=== PATIENT | male | born 1970 | race Caucasian/White ===

== ENCOUNTER 2018-05-05 21:42 | Inpatient (IN) | payer SELFPAY ==
[~2018-05-05] VITALS: Ht 170.2 cm; Wt 83.0 kg
[~2018-05-05 21:42] MED LIST: ALTEPLASE 100 MG/VIAL (ACTIVASE) IV ONE; ESCT10T; MTF500T; MULT-608
[2018-05-05] MEDS ORDERED: NS IV 1000 ML 1,000 ML ONE (21:54)
[2018-05-05] MEDS ORDERED: inSUlin (REGULAR) HUMAN 1 UNIT/0.01 ML (CHARGE PER UNIT) ONE (21:56)
[2018-05-05 22:00] VITALS: BP 121/96
[2018-05-05 22:00] LABS: BASOPHILS % (AUTO) 0 % (0-10); EOSINOPHILS # (AUTO) 0.1 10^3/uL (0.0-0.3); EOSINOPHILS % (AUTO) 1 % (0-10); HEMATOCRIT 38 % (40-54); LYMPHOCYTES # (AUTO) 1.2 X 10^3 (1.0-4.0); LYMPHOCYTES % (AUTO) 16 % (12-44); MEAN CORPUSCULAR HEMOGLOBIN 32 PG (25-34); MEAN CORPUSCULAR HGB CONC 37 G/DL (32-36); MEAN CORPUSCULAR VOLUME 86 FL (80-99); MEAN PLATELET VOLUME 9.4 FL (7.4-10.4); MONOCYTES # (AUTO) 1.1 X 10^3 (0.0-1.0); MONOCYTES % (AUTO) 14 % (0-12); NEUTROPHILS # (AUTO) 5.1 X 10^3 (1.8-7.8); NEUTROPHILS % (AUTO) 68 % (42-75); PLATELET COUNT 272 10^3/uL (130-400); RED BLOOD COUNT 4.42 10^6/uL (4.35-5.85); RED CELL DISTRIBUTION WIDTH 12.5 % (10.0-14.5); WHITE BLOOD COUNT 7.4 10^3/uL (4.3-11.0)
--- NOTE | 2018-05-05 22:00 | Diagnostic Imaging Report ---
INDICATION: Stroke like symptoms. No prior studies are available for comparison. Ventricles and sulci are within normal limits. No sulcal effacement, midline shift or hemorrhage is detected. The cisterns are patent. Visualized paranasal sinuses are clear. IMPRESSION: No acute intracranial process is identified. Dictated by: Dictated on workstation # [id number]
--- NOTE | 2018-05-05 22:08 | Diagnostic Imaging Report ---
INDICATION: Stroke like symptoms. Time of exam: 9:51 PM No prior studies are available for comparison. The heart appears enlarged. There is a rounded density in the right upper lobe, suggestive of a pulmonary nodule. Otherwise, the lungs are clear. No infiltrate or failure is seen. There is no effusion or pneumothorax. IMPRESSION: Findings suggestive of right upper lobe pulmonary nodule. Dedicated CT chest could be performed on a nonemergent basis for further evaluation. No acute feature is seen. Dictated by: Dictated on workstation # [id number]
[2018-05-05 22:14] LABS: FIBRIN DEGRADATION PRODUCTS 2.56 UG/ML (0.00-0.49); PROTHROMBIN TIME PATIENT 13.3 SEC (12.2-14.7)
[2018-05-05 22:19] LABS: ALANINE AMINOTRANSFERASE 26 U/L (0-55); ALBUMIN 3.6 GM/DL (3.2-4.5); ALKALINE PHOSPHATASE 68 U/L (40-136); BILIRUBIN,TOTAL 1.6 MG/DL (0.1-1.0); BUN/CREATININE RATIO 22; CALCIUM 9.6 MG/DL (8.5-10.1); CARBON DIOXIDE 17 MMOL/L (21-32); CHLORIDE 95 MMOL/L (98-107); CREATININE SERUM 0.86 MG/DL (0.60-1.30); GFR ESTIMATED > 60; POTASSIUM 4.5 MMOL/L (3.6-5.0); SODIUM 129 MMOL/L (135-145); TOTAL PROTEIN 7.7 GM/DL (6.4-8.2)
[2018-05-05 22:27] LABS: GLUCOSE 448 MG/DL (70-105)
[2018-05-05] MEDS ORDERED: CLOPIDOGREL 300 MG (PLAVIX) TABLET PO ONE ×2 (22:37→22:45)
[2018-05-05] MEDS ORDERED: HEParin 1000 UNIT/ML (10ML VIAL) FOR BOLUS ONE ×2 (22:41→22:55)
[2018-05-05] MEDS ORDERED: meTOprolol 5 MG/5 ML (LOPRESSOR) VIAL ONE (22:42)
[2018-05-05] MEDS ORDERED: NS 250 ML (IVPB) BAG IV ONE (22:45)
[2018-05-05] MEDS ORDERED: IOHEXOL 350 MG/ML 100 ML (OMNIPAQUE 350) VIAL IV ONE (22:45)
--- NOTE | 2018-05-05 22:54 | Consultation-Cardiology ---
HPI-Cardiology Cardiology Consultation: Date of Consultation 05/05/18 Time Seen by a Provider: 22:35 Date of Admission Attending Physician Kaur Alvarado MD [facility] Admitting Physician Sarah,Local Physician Consulting Physician KAUR ALVARADO MD, FACP, [facility] HPI: Chief Complaint: CC: Weakness 47 yo man who was at a high-school football game, had difficulty pulling himself up in his chair, his companions thought he was having a stroke, was brought to the ER, ER physician noted mild L hand weakness and L facial droop, EKG showed ST elevation in the lateral leads, ER physician sent pt for head CT angio and discussed case with the Stroke Neurologist at [facility] who recommended proceeding with cardiac intervention before anything else Pt does not report any cp. Does report gen malaise and some exertional shortness of breath for the last 2-3 days. Denies palp or syncope or leg swelling Review of Systems-Cardiology Review of Systems Constitutional: malaise, tiredness; No weight loss, No weight gain Eyes: No vision change Ears/Nose/Throat: No ear discharge, No nasal drainage, No recent hearing loss Respiratory: As described under HPI Cardiovascular: As described under HPI Gastrointestinal: No constipation, No diarrhea, No nausea Genitourinary: No dysuria, No hematuria Musculoskeletal: No back pain, No joint pain Skin: No rash, No ulcerations Psychiatric/Neurological: As described under HPI Hematologic: No bleeding abnormalities JCY-Einzws-Mmyxhw Hx Patient Social History Recent Foreign Travel: No Past Medical History PMH As described under Assessment. Family Medical History Family Medical History: Does not report fam h/o early CAD Allergies and Home Medications Allergies Coded Allergies: No Known Drug Allergies (Unverified Allergy, Mild, 11/03/09) Patient Home Medication List Home Medication List Reviewed: Yes Physical Exam-Cardiology Physical Exam Vital Signs/I&O Capillary Refill : Constitutional: AAO x 3, well-developed, well-nourished HEENT: EOMI, hearing is well preserved, xanthelasmas are seen Neck: carotid pulses are 2 + bilaterally Respiratory: No accessory muscle use; other (good bilat air entry; some exp wheezes) Cardiovascular: regular rate-rhythm, S1 and S2, systolic murmur (faint MARZENA at card base) Gastrointestinal: No tender; soft; No guarding, No rebound; audible bowel sounds Extremities: No clubbing, No cyanosis, No significant edema Neurologic/Psychiatric: other (mild L hand weakness, mild droop of the L mouth angle) Skin: No rash on exposed areas, No ulcerations on exposed areas Data Review Labs Laboratory Tests 05/05/18 21:54: White Blood Count 7.4, Red Blood Count 4.42, Hemoglobin 14.0, Hematocrit 38L, Mean Corpuscular Volume 86, Mean Corpuscular Hemoglobin 32, Mean Corpuscular Hemoglobin Concent 37H, Red Cell Distribution Width 12.5, Platelet Count 272, Mean Platelet Volume 9.4, Neutrophils (%) (Auto) 68, Lymphocytes (%) (Auto) 16, Monocytes (%) (Auto) 14H, Eosinophils (%) (Auto) 1, Basophils (%) (Auto) 0, Neutrophils # (Auto) 5.1, Lymphocytes # (Auto) 1.2, Monocytes # (Auto) 1.1H, Eosinophils # (Auto) 0.1, Basophils # (Auto) 0.0, Prothrombin Time 13.3, INR Comment 1.0, Activated Partial Thromboplast Time 30, D-Dimer 2.56H, Sodium Level 129L, Potassium Level 4.5, Chloride Level 95L, Carbon Dioxide Level 17L, Anion Gap 17H, Blood Urea Nitrogen 19H, Creatinine 0.86, Estimat Glomerular Filtration Rate > 60, BUN/Creatinine Ratio 22, Glucose Level 448*H, Calcium Level 9.6, Corrected Calcium 9.9, Total Bilirubin 1.6H, Aspartate Amino Transf ( AST/SGOT) 25, Alanine Aminotransferase (ALT/SGPT) 26, Alkaline Phosphatase 68, Troponin I 23.87*H, Total Protein 7.7, Albumin 3.6 05/05/18 21:57: Glucometer 385H Laboratory Tests 05/05/18 21:54 A/P-Cardiology Assessment/Admission Diagnosis Recent (subacute) AL associated with ST elevation and Q wave formation in the lateral leads DM II, uncontrolled Probable acute stroke (mild L hemiparesis) Discussion and Recomendations * The Stroke Team has discussed the case with [facility] and have obtained a CT angio of the head that does not show any acute intracranial large vessel occlusion. The Stroke Team has recommended proceeding with cath and PCI * I interviewed and examined the patient. I explained the rationale, procedure, risk, benefits, potential complications and alternatives of card cath and possible ad hoc cor intervention to him. He provides informed consent. Arrangements being made KAUR ALVARADO MD FACP FACC CCDS May 05, 2018 22:54
[2018-05-05] MEDS ORDERED: MIDAZOLAM 5 MG/5 ML (VERSED) VIAL ONE (22:55)
[2018-05-05] MEDS ORDERED: fentaNYL INJECTION 100 MCG/2 ML AMP ONE (22:55)
--- NOTE | 2018-05-05 22:59 | ED Neurological Problem ---
General Stated Complaint: STEMI Source: patient, EMS Exam Limitations: no limitations History of Present Illness Date Seen by Provider: May 05, 2018 Time Seen by Provider: 21:40 Initial Comments Here by EMS with report of acute onset of stroke with left facial droop and mild left arm weakness onset at 2110 tonight while at a football game. Family reports that the patient has been feeling sick for a few days. He has diabetes but he is not currently on medication as he is unable to afford them. His blood sugars grossly uncontrolled blood sugars in the 3-400 range per EMS. Patient denies chest pain but is a little short of breath. Presents tachycardic with the weakness described above. No recent injuries. Was acutely weak and had acute onset of facial droop as described. Does not smoke. Never had anything like this previously. Timing/Duration: 1/2 hour Severity: moderate Associated Symptoms: No confusion, No fever/chills, No loss of consciousness, No nausea/vomiting, No paresthesia, No seizures; slurred speech, trouble walking , weakness Allergies and Home Medications Allergies Coded Allergies: No Known Drug Allergies (Unverified Allergy, Mild, 11/03/09) Patient Home Medication List Home Medication List Reviewed: Yes Review of Systems Review of Systems Constitutional: see HPI; No chills, No fever; weakness Eyes: No Symptoms Reported Ears, Nose, Mouth, Throat: no symptoms reported Respiratory: short of breath; No wheezing Cardiovascular: No chest pain, No edema, No Hx of Intervention Gastrointestinal: No abdominal pain, No nausea, No vomiting Genitourinary: no symptoms reported Musculoskeletal: no symptoms reported Skin: no symptoms reported Psychiatric/Neurological: See HPI; Denies Headache; Weakness All Other Systems Reviewed Negative Unless Noted: Yes Past Ydxptrg-Xiynhn-Jrvqzk Hx Past Med/Social Hx: Reviewed Nursing Past Med/Soc Hx Patient Social History Alcohol Use: Denies Use Recreational Drug Use: No Smoking Status: Never a Smoker Recent Foreign Travel: No Contact w/Someone Who Travel: No Past Medical History Surgeries: Yes Abdominal Respiratory: No Cardiac: No Neurological: No Reproductive Disorders: No Gastrointestinal: No Endocrine: Yes Diabetes, Non-Insulin dep Family Medical History Reviewed Nursing Family Hx Physical Exam Vital Signs Capillary Refill : Height, Weight, BMI Height: '" Weight: lbs. oz. kg; BMI Method: General Appearance: WD/WN, mild distress HEENT: PERRL/EOMI, pharynx normal Neck: full range of motion, supple Respiratory: lungs clear, normal breath sounds Cardiovascular: no murmur, tachycardia Peripheral Pulses: 2+ Dorsalis Pedis (R), 2+ Left Dors-Pedis (L), 2+ Radial Pulses (R), 2+ Radial Pulses (L) Gastrointestinal: non tender, soft Back: normal inspection, no CVA tenderness, no vertebral tenderness Extremities: non-tender, other (mild left arm weakness) Neurologic/Psychiatric: alert, normal mood/affect, oriented x 3 Crainal Nerves: normal hearing, normal speech, PERRL Coordination/Gait: No ABN nose to finger (R); ABN nose to finger (L) (arm) Motor/Sensory: no sensory deficit; No pronator drift (R); pronator drift (L) ( arm), weak motor strength LUE Skin: normal color, warm/dry Progress/Results/Core Measures Results/Orders Lab Results Laboratory Tests Test 05/05/18 21:54 05/05/18 21:57 Range/Units White Blood Count 7.4 4.3-11.0 10^3/uL Red Blood Count 4.42 4.35-5.85 10^6/uL Hemoglobin 14.0 13.3-17.7 G/DL Hematocrit 38 L 40-54 % Mean Corpuscular Volume 86 80-99 FL Mean Corpuscular Hemoglobin 32 25-34 PG Mean Corpuscular Hemoglobin Concent 37 H 32-36 G/DL Red Cell Distribution Width 12.5 10.0-14.5 % Platelet Count 272 130-400 10^3/uL Mean Platelet Volume 9.4 7.4-10.4 FL Neutrophils (%) (Auto) 68 42-75 % Lymphocytes (%) (Auto) 16 12-44 % Monocytes (%) (Auto) 14 H 0-12 % Eosinophils (%) (Auto) 1 0-10 % Basophils (%) (Auto) 0 0-10 % Neutrophils # (Auto) 5.1 1.8-7.8 X 10^3 Lymphocytes # (Auto) 1.2 1.0-4.0 X 10^3 Monocytes # (Auto) 1.1 H 0.0-1.0 X 10^3 Eosinophils # (Auto) 0.1 0.0-0.3 10^3/uL Basophils # (Auto) 0.0 0.0-0.1 10^3/uL Prothrombin Time 13.3 12.2-14.7 SEC INR Comment 1.0 0.8-1.4 Activated Partial Thromboplast Time 30 24-35 SEC D-Dimer 2.56 H 0.00-0.49 UG/ML Sodium Level 129 L 135-145 MMOL/L Potassium Level 4.5 3.6-5.0 MMOL/L Chloride Level 95 L 98-107 MMOL/L Carbon Dioxide Level 17 L 21-32 MMOL/L Anion Gap 17 H 5-14 MMOL/L Blood Urea Nitrogen 19 H 7-18 MG/DL Creatinine 0.86 0.60-1.30 MG/DL Estimat Glomerular Filtration Rate > 60 BUN/Creatinine Ratio 22 Glucose Level 448 *H 70-105 MG/DL Calcium Level 9.6 8.5-10.1 MG/DL Corrected Calcium 9.9 8.5-10.1 MG/DL Total Bilirubin 1.6 H 0.1-1.0 MG/DL Aspartate Amino Transf (AST/SGOT) 25 5-34 U/L Alanine Aminotransferase (ALT/SGPT) 26 0-55 U/L Alkaline Phosphatase 68 40-136 U/L Troponin I 23.87 *H <0.30 NG/ML Total Protein 7.7 6.4-8.2 GM/DL Albumin 3.6 3.2-4.5 GM/DL Glucometer 385 H 70-110 MG/DL My Orders Orders - DARBY HERMOSILLO MD Cbc With Automated Diff (05/05/18 21:36) Protime With Inr (05/05/18 21:36) Partial Thromboplastin Time (05/05/18 21:36) Comprehensive Metabolic Panel (05/05/18 21:36) Fibrin Degradation Products (05/05/18 21:36) Troponin I (05/05/18 21:36) Ua Culture If Indicated (05/05/18 21:36) Chest 1 View, Ap/Pa Only (05/05/18 21:36) Ekg Tracing (05/05/18 21:36) Nothing By Mouth (05/06/18 Breakfast) Accucheck Stat ONCE (05/05/18 21:36) Saline Lock/Iv-Start (05/05/18 21:36) Vital Signs Stroke Patient Q15M (05/05/18 21:36) Ct Head Wo-R/O Stroke (05/05/18 21:36) O2 (05/05/18 21:36) Intake & Output 06,14,22 (05/05/18 21:36) Monitor-Rhythm Ecg Trace Only (05/05/18 21:36) Dysphagia Screening Tool (05/05/18 21:36) Lipid Panel (05/06/18 06:00) Alteplase (Activase) (Activase Injection (05/05/18 21:40) Ns Iv 1000 Ml (Sodium Chloride 0.9%) (05/05/18 21:54) Insulin (Regular) Human (Humulin R (Per (05/05/18 21:56) I-Stat Bedside Testing (05/05/18 22:07) Ct Angio Head/Neck (05/05/18 22:14) Iohexol Injection (Omnipaque 350 Mg/Ml 1 (05/05/18 22:45) Ns (Ivpb) (Sodium Chloride 0.9%) (05/05/18 22:45) iStat Bedside Lab Testing Sodium (Na): 132.00 Potassium (K): 3.80 Chloride (CI): 97.00 TCO2: 19.00 Glucose (Glu): 394.00 Urea Nitrogen (BUN)/Urea: 18.00 Creatinine (Crea): 0.70 Anion Gap*: 22.00 Progress Progress Note : Progress Note Seen and evaluated on arrival. Patient rapidly evaluated. Stroke team activation prior to EMS arrival. Patient immediately to CT scan. On return from CT, labs, EKG, second IV line and chest x-ray completed. There is concerns about acute IA. Insulin 10 units IV and normal saline 1 L bolus is been ordered. I did call and talk with stroke neurologist at 7 given the stroke findings of 5 on the stroke scale in the setting of acute IA. He recommends treating the IA given the low stroke scale. 22 11: I did discuss the case with Dr. Alvarado. We reviewed the findings and concerns and he will consider cardiac intervention but wanted to verify with stroke neurologist. He is also requesting admission to the hospitalist due to the stroke symptoms and he will manage the cardiac concerns. Patient also has grossly uncontrolled blood sugars. 2217: I have re-reviewed the case with the stroke neurologist. Patient is going to CT angiogram head and neck now. Stroke neurologist is still advocating for cardiac and intervention versus TPA as this is more important at this time. I did discuss this with the patient and family and they are in agreement. Patient will go to [facility]. 2235: Dr. Alvarado arrives in the department and is evaluating the patient. Plavix 300 mg by mouth ordered. No orders for heparin at this time. Patient did receive aspirin at the time of incident. [facility] team has been activated. 2246: I did discuss the findings of the CT angiogram with the radiologist. No acute findings on CT angiogram of the head and neck noted. Dr. Alvarado was updated. 2258: [facility] team arrives for transfer to [facility]. This was a complicated case in the setting of both stroke findings and acute IA requiring additional evaluation and determination for procedures for both. Patient to [facility] in stable but critical condition. Initial ECG Impression Date: May 05, 2018 Initial ECG Impression Time: 22:04 Initial ECG Rate: 122 Initial ECG Rhythm: S.Tach Comment Sinus tachycardia with left anterior fascicular block and anterior infarct acute with lateral injury with ST elevation in the lateral and anterior leads. Discussed with rotary engine assembler who agrees. Diagnostic Imaging Diagonstic Imaging: Xray Plain Films/CT/US/NM/MRI: chest Comments NAME: MIRTA DESAI [facility] REC#: [id number] PT STATUS: REG ER : 1970 PHYSICIAN: DARBY HERMOSILLO MD ADMIT DATE: 05/05/18/ER Signed Date of Exam: 05/05/18 CHEST 1 VIEW, AP/PA ONLY INDICATION: Stroke like symptoms. Time of exam: 9:51 PM No prior studies are available for comparison. The heart appears enlarged. There is a rounded density in the right upper lobe, suggestive of a pulmonary nodule. Otherwise, the lungs are clear. No infiltrate or failure is seen. There is no effusion or pneumothorax. IMPRESSION: Findings suggestive of right upper lobe pulmonary nodule. Dedicated CT chest could be performed on a nonemergent basis for further evaluation. No acute feature is seen. Dictated by: Dictated on workstation # [id number] Dict: 05/05/182203 Trans: 05/05/182206 Interpreted by: MONICA KELLEY MD Electronically signed by: MONICA KELLEY MD 05/05/182206 Diagonstic Imaging: CT Plain Films/CT/US/NM/MRI: head Comments NAME: MIRTA DESAI [facility] REC#: [id number] PT STATUS: REG ER : 1970 PHYSICIAN: DARBY HERMOSILLO MD ADMIT DATE: 05/05/18/ER Signed Date of Exam: 05/05/18 CT HEAD WO-R/O STROKE INDICATION: Stroke like symptoms. No prior studies are available for comparison. Ventricles and sulci are within normal limits. No sulcal effacement, midline shift or hemorrhage is detected. The cisterns are patent. Visualized paranasal sinuses are clear. IMPRESSION: No acute intracranial process is identified. Dictated by: Dictated on workstation # [id number] Dict: 05/05/182157 Trans: 05/05/182206 Interpreted by: MONICA KELLEY MD Electronically signed by: MONICA KELLEY MD 05/05/182206 Reviewed: Reviewed Night Hawk Study, Reviewed by Me Diagonstic Imaging: CT Plain Films/CT/US/NM/MRI: head, other (neck) Comments CT angiogram head and neck shows brain with no acute findings. No hemorrhage. No edema. Normal enhancement. CT angiogram of the neck shows no acute findings. Reviewed: Reviewed Night Hawk Study, Reviewed by Me Departure Communication (Admissions) Time/Spoke to Admitting Phy: 22:32 Time/Spoke to Consulting Phy: 22:17 Impression Primary Impression: Acute anterior wall IA Additional Impression: Acute ischemic stroke Disposition: ADMITTED INPATIENT Condition: Critical Admissions Decision to Admit Reason: Admit from ER (General) Decision to Admit/Date: May 05, 2018 Time/Decision to Admit Time: 22:17 Departure-Patient Inst. Referrals: NO,LOCAL PHYSICIAN (PCP/Family) Primary Care Physician DARBY HERMOSILLO MD May 05, 2018 22:59
[2018-05-05] MEDS ORDERED: EPTIFIBATIDE BOLUS 20 ML IV ONE (23:12)
[2018-05-06] VITALS (7 sets, daily range): BP systolic 100–125; BP diastolic 56–94
[2018-05-06] MEDS ORDERED: NS IV 1000 ML 1,000 ML IV SCH (00:08)
[2018-05-06] MEDS ORDERED: PATIENT MAY USE OWN MEDS, ALL PO SCH (00:15)
[2018-05-06] MEDS ORDERED: meTOproloL SUCCINATE 50 MG (TOPROL XL) TAB PO SCH (00:15)
[2018-05-06] MEDS ORDERED: lisINopril 5 MG (PRINIVIL) TABLET PO ONE (00:15)
[2018-05-06] MEDS ORDERED: ACETAMINOPHEN 325 MG TABLET PO PRN (00:15)
--- NOTE | 2018-05-06 00:39 | CARDIAC CATHETERIZATION ---
DATE OF SERVICE: 05/05/2018 HISTORY: The patient is a 47-year-old man who presented to the emergency room with left extremity weakness and left facial droop and was found to have ST segment elevation in the anterolateral leads, along with Q-wave formation. He did not report chest pain, but did have an elevated troponin. The stroke team asked us to see him in consultation and to proceed with cardiac catheterization and with intervention, if needed. Informed consent was obtained. DESCRIPTION OF PROCEDURE: He was brought to the cardiac catheterization laboratory. Right groin was prepared and draped in usual sterile fashion. Lidocaine 1% was used for local anesthesia. Modified Seldinger technique was used to advance a 6-Malaysian sheath in right femoral artery. A 6-Malaysian JL4 guide catheter was used for left coronary angiography. A 6-Malaysian JR4 catheter for right coronary angiography. A 6-Malaysian pigtail catheter for left heart catheterization and left ventricular angiography. Attempted percutaneous intervention to the left anterior descending artery was carried out. The left anterior descending artery appeared chronically occluded without any collateralization. The occlusion was in the midportion, following the origin of the first diagonal branch. We used a 6-Malaysian JL4 and 6-Malaysian EBU 3.5 guide catheters. We used Choice Floppy, medium support Whisper, and Choice PT Graphix wires to try and cross the complete occlusion in the mid left anterior descending artery. Multiple attempts were made, but all remained unsuccessful. At the end of the procedure, there were no complications seen from the procedure itself. However, the artery remained occluded. We removed the angioplasty equipment and angiography of the right femoral artery was carried out through the sheath. Mynx was used to achieve hemostasis. He tolerated the procedure well. We discussed the case with Dr. Vaca of the cardiovascular surgical service at [facility]. He did not feel that the patient would be a surgical candidate. Continuing medical therapy is advised. HEMODYNAMICS: Left ventricular end-diastolic pressure following coronary angiography was 28 mmHg. There was no significant pressure gradient on pullback across the aortic valve. Ascending aortic pressure was 98/77 with a mean of 88 mmHg. CORONARY ANGIOGRAPHY: Left main coronary artery does not exhibit significant disease. Left main coronary artery is short. Left anterior descending artery is occluded in its midportion following the origin of the first diagonal branch. The first diagonal branch is of a small caliber and has diffuse moderate disease. A very small caliber ramus intermedius artery has severe proximal disease. Right coronary artery is large and dominant and has 30% to 40% mid vessel stenosis. Right coronary artery is small and nondominant and has approximately 50% mid vessel stenosis. LEFT VENTRICULAR ANGIOGRAPHY: Left ventricular angiography was carried out in the right anterior oblique projection. Global left ventricular systolic function is markedly impaired. There is anterolateral and apical dyskinesis. Left ventricular ejection fraction is 20% to 25%. CONCLUSIONS: 1. Coronary artery disease, primarily consisting of mid vessel occlusion of the left anterior descending. This appears to be a chronic total occlusion and was not amenable to percutaneous intervention. The rest of the coronary vessels have moderate diffuse disease. 2. Ischemic cardiomyopathy with anterolateral and apical dyskinesis and left ventricular ejection fraction of 20% to 25%. 3. Elevated left ventricular end-diastolic pressure. DISCUSSION AND RECOMMENDATIONS: Therapy with aspirin, clopidogrel, beta-blockers, and ELIE inhibitors will be provided as tolerated. Statin therapy will be provided. We discussed this case with the cardiovascular surgical services (Dr. Vaca) at [facility] who did not feel that the patient was a surgical candidate and advised continuing medical therapy. The patient's stroke symptoms and uncontrolled diabetes mellitus are being managed by the hospitalist service (Dr. Bass). Job ID: [id number] DocumentID: [id number] Dictated Date: 05/06/2018 00:00:32 Employment Appeals Examiner Date: 05/06/2018 00:38:54 Dictated By: BLAKE PADILLA MD, MA, FACP, FACC, MTDD
[2018-05-06] MEDS ORDERED: ENOXAPARIN 40 MG/0.4 ML (LOVENOX) SYR SC ONE (00:45)
[2018-05-06] MEDS ORDERED: inSUlin ASPART (NovoLOG) 1 UNIT/0.01 ML (CHARGE PER UNIT) SC SCH (04:00)
[2018-05-06 04:09] LABS: BASOPHILS % (AUTO) 0 % (0-10); EOSINOPHILS # (AUTO) 0.1 10^3/uL (0.0-0.3); EOSINOPHILS % (AUTO) 1 % (0-10); HEMATOCRIT 35 % (40-54); LYMPHOCYTES # (AUTO) 0.8 X 10^3 (1.0-4.0); LYMPHOCYTES % (AUTO) 13 % (12-44); MEAN CORPUSCULAR HEMOGLOBIN 33 PG (25-34); MEAN CORPUSCULAR HGB CONC 37 G/DL (32-36); MEAN CORPUSCULAR VOLUME 87 FL (80-99); MEAN PLATELET VOLUME 9.8 FL (7.4-10.4); MONOCYTES # (AUTO) 0.8 X 10^3 (0.0-1.0); MONOCYTES % (AUTO) 12 % (0-12); NEUTROPHILS # (AUTO) 4.9 X 10^3 (1.8-7.8); NEUTROPHILS % (AUTO) 75 % (42-75); PLATELET COUNT 243 10^3/uL (130-400); RED CELL DISTRIBUTION WIDTH 12.4 % (10.0-14.5); WHITE BLOOD COUNT 6.6 10^3/uL (4.3-11.0)
[2018-05-06 04:34] LABS: MAGNESIUM 2.2 MG/DL (1.8-2.4); PHOSPHORUS 2.8 MG/DL (2.3-4.7)
[2018-05-06 04:35] LABS: ALANINE AMINOTRANSFERASE 22 U/L (0-55); ALBUMIN 3.2 GM/DL (3.2-4.5); ALKALINE PHOSPHATASE 60 U/L (40-136); BILIRUBIN,TOTAL 1.2 MG/DL (0.1-1.0); BUN/CREATININE RATIO 21; CALCIUM 8.7 MG/DL (8.5-10.1); CARBON DIOXIDE 10 MMOL/L (21-32); CHLORIDE 105 MMOL/L (98-107); CHOLESTEROL 174 MG/DL (< 200); CREATININE SERUM 0.68 MG/DL (0.60-1.30); GFR ESTIMATED > 60; GLUCOSE 302 MG/DL (70-105); HDL CHOLESTEROL 33 MG/DL (40-60); POTASSIUM 3.9 MMOL/L (3.6-5.0); SODIUM 133 MMOL/L (135-145); TOTAL PROTEIN 6.9 GM/DL (6.4-8.2); TRIGLYCERIDES 118 MG/DL (<150); VLDL CHOLESTEROL 24 MG/DL (5-40)
--- NOTE | 2018-05-06 05:17 | Pulmonary Consultation ---
History of Present Illness History of Present Illness Date of Consultation 05/06/18 05:10 Time Seen by Provider: 05:10 Date of Admission History of Present Illness 47 yo with hx of IDDM presented to ED with acute witnessed right facial droop, left arm weakness, onset was acute at 2109 while at football game. He has not been taking his insulin secondary to not being able to afford them. His BS in the ED was 3-400. 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 Allergies and Home Medications Allergies Coded Allergies: No Known Drug Allergies (Unverified , 11/03/09) Past Sjzlsno-Tsqofp-Xcpwbx Hx Past Med/Social Hx: Reviewed Nursing Past Med/Soc Hx Patient Social History Alcohol Use: Denies Use Recreational Drug Use: No Smoking Status: Never a Smoker Recent Foreign Travel: No Contact w/Someone Who Travel: No Recent Infectious Disease Expo: No Recent Hopitalizations: No Seasonal Allergies Seasonal Allergies: No Past Medical History Surgeries: Yes Abdominal Respiratory: No Cardiac: Yes (this admission) Neurological: Yes (this admit) Reproductive Disorders: No Sexually Transmitted Disease: No Genitourinary: No Gastrointestinal: No Musculoskeletal: No Endocrine: Yes Diabetes, Non-Insulin dep Are Your Blood Sugars Over 250: Yes HEENT: No Cancer: No Psychosocial: No Integumentary: No Blood Disorders: No Family Medical History Reviewed Nursing Family Hx Sepsis Event Evaluation Height, Weight, BMI Height: 5'7.00" Weight: 183lbs. 1.0oz. 83.156482lf; 28.7 BMI Method: Exam Exam Vital Signs Date Time Temp Pulse Resp B/P (MAP) Pulse Ox O2 Delivery O2 Flow Rate FiO2 05/06/18 01:00 124 05/06/18 00:10 95 Room Air 05/06/18 00:10 98.0 116 33 125/92 (103) 95 Room Air I & O 05/06/18 07:00 Intake Total 0 ml Output Total 750 ml Balance -750 ml Height & Weight Height: 5'7.00" Weight: 183lbs. 1.0oz. 83.725004lq; 28.7 BMI Method: Capillary Refill: Less Than 3 Seconds Peripheral Pulses: 2+ Dorsalis Pedis (R), 2+ Left Dors-Pedis (L), 2+ Radial Pulses (R), 2+ Radial Pulses (L) Gastrointestinal: non tender, soft Results Lab Laboratory Tests 05/05/18 21:54 05/06/18 03:52 Assessment/Plan Assessment/Plan Acute STEMI with severe CAD s/p heart cath -EF 20-25% -cardiology following Acute stroke -NIH is currently 12 was 5 on admission -I discussed patient extensively with Dr. Knight at patients bedside. Together with Dr. Knight we called and discussed with Neurology. We will get a stat repeat head/neck CT CTA and call them back with results. I have also discussed patient extensively with Dr. Bass. Severe metabolic acidosis probably DKA -check UA -Start DKA protocol -Check LA Sinus tach with Dehydration -IVF Heart cath results: . Coronary artery disease, primarily consisting of mid vessel occlusion of the left anterior descending. This appears to be a chronic total occlusion and was not amenable to percutaneous intervention. The rest of the coronary vessels have moderate diffuse disease. 2. Ischemic cardiomyopathy with anterolateral and apical dyskinesis and left ventricular ejection fraction of 20% to 25%. 3. Elevated left ventricular end-diastolic pressure. UPDATE: I discussed with neurology once again and after they reviewed the CT of Head they recommend transferring pt to for intervention. We will transfer pt to via Helicopter to get him up there as quick as possible. Critical Care: Critically Ill Patient Time spent with patient (mins): 120 HOLLEY ANDRWES DO May 06, 2018 5:17 am
[2018-05-06 05:36] LABS: ABG BASE EXCESS -11.5 MMOL/L (-2.5-2.5); ABG OXYGEN SATURATION 96 % (94-100); ABG PCO2 21 MMHG (35-45); ABG PH 7.39 (7.37-7.43); ABG PO2 83 MMHG (79-93); ABG TCO2 13.2 MMOL/L (21.0-31.0)
[2018-05-06 05:37] LABS: ALLENS TEST YES-POS; INSPIRED O2 ROOM AIR; VENTILATOR NO
[2018-05-06 05:38] LABS: PATIENT TEMP 98.2
[2018-05-06 05:53] LABS: BILIRUBIN,URINE NEGATIVE (NEGATIVE); CLARITY,URINE CLEAR; COLOR,URINE YELLOW; GLUCOSE, URINE (UA) 4+ (NEGATIVE); KETONES,URINE 4+ (NEGATIVE); LEUKOCYTE ESTERASE ,URINE NEGATIVE (NEGATIVE); NITRITE,URINE NEGATIVE (NEGATIVE); PH,URINE 5 (5-9); PROTEIN,URINE 1+ (NEGATIVE); UROBILINOGEN,URINE NORMAL (NORMAL)
[2018-05-06] MEDS ORDERED: 1/2 NS IV SOLUTION 1,000 ML IV SCH (05:59)
[2018-05-06] MEDS ORDERED: 1/2 NS W/KCL 20 MEQ/L 1,000 ML IV SCH (05:59)
[2018-05-06] MEDS ORDERED: D5 1/2 NS W/KCL 20 MEQ/L 1,000 ML IV SCH (05:59)
[2018-05-06] MEDS ORDERED: D5 1/2 NS 1000 ML IV SOLUTION 1,000 ML IV SCH (06:00)
[2018-05-06] MEDS ORDERED: inSUlin REGULAR TPN/DRIP ONLY 250 UNITS in NORMAL SALINE 250 ML IV SCH ×2 (06:00→08:00)
[2018-05-06 06:12] LABS: BACTERIA,URINE NEGATIVE /HPF; SQUAMOUS EPITHELIAL CELL,UR RARE /HPF
--- NOTE | 2018-05-06 06:26 | Diagnostic Imaging Report ---
PROCEDURE: CT angiography of the head and CT angiography of the neck with and without contrast. TECHNIQUE: Contiguous noncontrast images were obtained from the skull base through the vertex. After intravenous contrast administration, helical CT angiography of the neck was performed. Source data was reformatted into multiple 2D MIP projections. Delayed post contrast acquisition was also obtained. INDICATION: CVA. FINDINGS: The CT head exam performed prior to the study failed to show any sign of acute intracranial abnormality. On this exam, there is no defect within the intracranial arterial circulation to suggest a thrombus. There is no sign of an aneurysm of the [place] either. There is no abnormal enhancement to indicate neoplastic or infectious process either. There is no sign of a hemodynamically significant stenosis of either carotid system. Both vertebral arteries were opacified. The vertebral arteries are essentially codominant. There is no mass or adenopathy involving the neck. The thyroid gland were visualized is unremarkable. The lung apices are clear. The bone windows show no evidence for fracture or for destructive lesion. IMPRESSION: 1. There is no evidence for an acute intracranial abnormality. Specifically, there is no sign of thrombus formation within the intracranial arterial circulation. There is no evidence for an aneurysm either. If clinical concern regarding an underlying abnormality persists, then MRI would be recommended for further evaluation. 2. There is no hemodynamically significant stenosis of the common or internal carotid arteries. Both vertebral arteries were opacified. Dictated by: Dictated on workstation # [id number]
[2018-05-06 06:28] LABS: HEMOGLOBIN 12.6 G/DL (13.3-17.7); MEAN PLATELET VOLUME 9.5 FL (7.4-10.4); RED BLOOD COUNT 3.9 10^6/uL (4.35-5.85); RED CELL DISTRIBUTION WIDTH 12.3 % (10.0-14.5); WHITE BLOOD COUNT 6.6 10^3/uL (4.3-11.0)
[2018-05-06 06:44] LABS: BUN/CREATININE RATIO 20; CALCIUM 8.7 MG/DL (8.5-10.1); CARBON DIOXIDE 13 MMOL/L (21-32); CHLORIDE 109 MMOL/L (98-107); CREATININE SERUM 0.66 MG/DL (0.60-1.30); GFR ESTIMATED > 60; GLUCOSE 216 MG/DL (70-105); POTASSIUM 3.7 MMOL/L (3.6-5.0); SODIUM 136 MMOL/L (135-145)
--- NOTE | 2018-05-06 06:50 | Diagnostic Imaging Report ---
Portable semierect AP chest at 357h. INDICATION: Diminished breath sounds The cardiomegaly noted on the prior exam of 05/05/2018 is again evident and no different. However the central pulmonary vascularity does seem more prominent than on the prior study and I suspect that there is now an element of mild pulmonary congestion present. There may also be a small amount of atelectasis/infiltrate in the right infrahilar region. The suspected pulmonary nodule in the right midlung noted on the previous study is again evident and no different. Unfortunately, this portion of the lung was not included on the CTA head and neck exam. I would recommend that a CT chest exam be performed for further evaluation of this finding, when the patient's condition permits. The mediastinum is not widened. The osseous structures are intact. IMPRESSION: 1. The appearance of the chest has worsened since the prior study as mild pulmonary congestion has developed. There may also be a small amount of atelectasis/infiltrate in the right infrahilar region. 2. There is a persistent nodular density overlying the right midlung. Recommendations as above. Dictated by: Dictated on workstation # [id number]
[2018-05-06] MEDS ORDERED: NS IV 1000 ML 1,000 ML IV ONE (07:00)
[2018-05-06] MEDS ORDERED: FLU QUADRIvalent (5+ YOA) 2018-2019 (AFLURIA) 0.5 ML IM ONE (07:30)
[2018-05-06] MEDS ORDERED: D5 NS W/KCL 20 MEQ/L 0 ML IV ONE (07:56)
--- NOTE | 2018-05-06 08:01 | Short Stay Summary-Hospitalist ---
History of Present Illness HPI/Chief Complaint Pt is a 47yo CM with a PMH of NIDDMII who presented to the ER due to facial droop and slurred speech. He is unable to tell me most of his history though. On my original interview with him he told me that was at a football game and had slurred speech so came to the ER concerned about a stroke. He denied any complaints of left sided weakness as he had reported to the ER. Per history from ER physician he had slurred speech and left arm and leg weakness that was minimal and scored as a NIH of 5 that improved to 4 in the ER. He was found to have a STEMI as well with a troponin of 23. 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 There he was found to have chronic total occlusion of the LAD that was not amenable to intervention. Reportedly a tertiary center was contacted regarding potential surgical intervention but they recommended medical management only. He was returned the ICU where his neurological status worsened and his NIH was now a 12. Dr Chua had examined him by this time and repeated a stat CTA of his head. labs were reviewed which also found him to be in DKA. He was started on high volume IVF and an insulin gtt for his DKA. CTA report came back as negative per [facility] read. Despite this the stroke neurologist at [facility] was contacted regarding the repeat CTA given the patient's clinical finding and believe him to have areas concerning for ischemia on the right side and recommended transfer for intervention. I attempted to discuss this with the patient but his mental status had deteriorated further and he did no participate in the conversation with me and his right gaze deviation worsened. Source: patient Exam Limitations: clinical condition Date Seen 05/06/18 Time Seen by a Provider: 07:20 Attending Physician Anayeli Bass MD PCP No,Local Physician Referring Physician Date of Admission May 05, 2018 at 10:57 pm Home Medications & Allergies Home Medications Reviewed patient Home Medication Reconciliation performed by pharmacy medication reconciliations refinery technician and/or nursing. Patients Allergies have been reviewed. Allergies Allergies Coded Allergies No Known Drug Allergies (Unverified11/03/09) Past Lonmnge-Ylbsut-Dyddbd Hx Past Med/Social Hx: Reviewed Nursing Past Med/Soc Hx Patient Social History Alcohol Use: Denies Use Recreational Drug Use: No Smoking Status: Never a Smoker Physical Abuse Screen: No Sexual Abuse: No Recent Foreign Travel: No Contact w/other who traveled: No Recent Hopitalizations: No Recent Infectious Disease Expo: No Immunizations Up To Date Tetanus Booster (TDap): Unknown Seasonal Allergies Seasonal Allergies: No Past Medical History Surgeries: Abdominal Cardiac: Coronary Artery Disease Reproductive: No Sexually Transmitted Disease: No Endocrine: Diabetes, Non-Insulin dep Are Your Blood Sugars Over 250: Yes History of Blood Disorders: No Family History Reviewed Nursing Family Hx (Unable to obtain) Review of Systems ROS-Unable to Obtain: Very limited due to altered mentation Constitutional: see HPI Psychiatric/Neurological: Weakness (left arm and left left), Other (slurred speech, facial droop) Physical Exam Physical Exam Vital Signs Vital Signs - First Documented 05/05/18 05/05/18 21:42 23:00 Temp 97.9 Pulse 123 Resp 20 B/P (MAP) 121/96 (104) Pulse Ox 99 O2 Delivery Room Air Capillary Refill : Less Than 3 Seconds Height, Weight, BMI Height: 5'7.00" Weight: 183lbs. 1.0oz. 83.403684yp; 28.7 BMI Method:Stated General Appearance: WD/WN, Moderate Distress HEENT: Moist Mucous Membranes; No Scleral Icterus (L), No Scleral Icterus (R); Other (right lateral gaze deviation- no palsy) Neck: Non Tender, Supple; No JVD, No Thyromegaly Respiratory: No Respiratory Distress, Decreased Breath Sounds Cardiovascular: Regular Rate, Rhythm, No Murmur Gastrointestinal: Normal Bowel Sounds, Non Tender, Soft Extremity: Normal Capillary Refill, No Calf Tenderness, No Pedal Edema Neurologic/Psychiatric: Alert, Disoriented, Facial Droop (left facial droop), Motor Weakness (left arm near paralysis, left left 4/5), Other (dysarthria ) Skin: Normal Color, Warm/Dry Results Results/Procedures Labs Laboratory Tests 05/05/18 21:54 05/06/18 03:52 05/06/18 06:20 Patient resulted labs reviewed. Imaging: Reviewed Imaging Films, Reviewed Imaging Report Short Stay Diagnosis Discharge Diagnosis-Short Stay Admission Diagnosis NSTEMI Acute CVA Final Discharge Diagnosis NSTEMI Acute right sided CVA 38 minutes of critical care time spent in caring for patient, reviewing chart, discussing case with specialists. Conclusion Plan See below Diagnosis/Problems Diagnosis/Problems (1) Acute ischemic stroke Status: Acute Assessment & Plan: NIH worsened overnight now 12 (from 5 on presentation) Repeat CTA done and images clouded to [facility] for review by stroke neurologist Deemed a candidate for intervention and accepted by Dr Yuval Phoenix contacted for helicopter transfer Discussed possible intubation for airway protection during transport with Dr Barakat and Dr Chua Will defer at this time as is currently protecting airway and oxygenating and would delay transfer Core measures deferred at this time until definitive treatment performed at [facility] (2) Acute anterior wall MD Status: Acute Assessment & Plan: Underwent cath last not Chronic disease in LAD and not amenable to intervention Medical management deemed appropriate (3) DKA (diabetic ketoacidoses) Assessment & Plan: Improving but will place on insulin gtt for transfer to ensure stability of blood sugars in transport A1c pending Stated takes no medications for diabetes but was supposed to be on metformin Qualifiers: Qualified Codes: E11.10 - Type 2 diabetes mellitus with ketoacidosis without coma Clinical Quality Measures DVT/VTE Risk/Contraindication: Risk Factor Score Per Nursin RFS Level Per Nursing on Admit: 4+=Very High ANAYELI BASS MD May 06, 2018 08:01
[2018-05-06] MEDS ORDERED: HEParin (CATH LAB) 2,000 UNIT/1,000 ML BAG IV ONE (08:44)
[2018-05-06] MEDS ORDERED: NS 1000 ML IV BAG IV ONE (08:44)
[2018-05-06] MEDS ORDERED: NITRO DRIP 25000 MCG/D5W 250 ML BTL IV ONE (08:44)
[2018-05-06] MEDS ORDERED: LIDOCAINE 1% INJ 20 ML 20 ML VIAL INJ ONE (08:44)
[2018-05-06] MEDS ORDERED: CLOPIDOGREL 75 MG (PLAVIX) TABLET PO SCH (09:00)
[2018-05-06] MEDS ORDERED: ASPIRIN 81 MG CHEW (CHILDREN'S ASA) PO SCH (09:00)
[2018-05-06] MEDS ORDERED: lisINopril 5 MG (PRINIVIL) TABLET PO SCH (09:00)
--- NOTE | 2018-05-06 09:49 | Diagnostic Imaging Report ---
PROCEDURE: CT angiography of the head and CT angiography of the neck with and without contrast. TECHNIQUE: Contiguous noncontrast images were obtained from the skull base through the vertex. After intravenous contrast administration, helical CT angiography of the neck was performed. Source data was reformatted into multiple 2D MIP projections. Delayed post contrast acquisition was also obtained. INDICATION: Acute strokelike symptoms. COMPARISON: 05/05/2018 FINDINGS: The bilateral common and internal carotid arteries are widely patent and unremarkable. The anterior cerebral arteries are patent, although there is a hypoplastic left A1 segment. The middle cerebral arteries appear patent bilaterally. The posterior communicating arteries are well seen bilaterally. The posterior cerebral arteries appear normal. The superior cerebellar arteries are unremarkable. The vertebral arteries appear codominant, and appear normal. Please note that contrast timing is mildly suboptimal for angiographic study. No filling defects are seen in the dural sinuses. There is no midline shift or mass effect. No acute intracranial hemorrhage is seen. There is mildly decreased attenuation in the right temporal lobe and along the right insular cortex. There is decreased attenuation in the left temporal lobe on a single slice which is thought to be artifactual. The calvarium appears intact. The paranasal sinuses are clear. No acute abnormality is seen in the soft tissues of the neck. There is interstitial edema and central vascular congestion seen in the upper lungs. Degenerative changes are seen in the spine, with loss of the cervical lordosis. IMPRESSION: 1. No focal stenosis or occlusion is seen in the arteries of the head and neck. 2. Decreased attenuation seen along the cortex of the right temporal lobe and insula, concerning for ischemia. Please correlate with clinical findings. This was not included on the preliminary report. Report was faxed/called to [facility] by darwin at 9:47am. ALVERTO Franco, was also notified. Dictated by: Dictated on workstation # [id number]
[2018-05-06 12:00] LABS: AMPHETAMINE SCREEN, URINE NEGATIVE (NEGATIVE); BARBITURATE SCREEN URINE NEGATIVE (NEGATIVE); BENZODIAZEPINES SCREEN URINE NEGATIVE (NEGATIVE); CANNABINOID SCREEN, URINE NEGATIVE (NEGATIVE); COCAINE SCREEN URINE NEGATIVE (NEGATIVE); METHADONE STAT NEGATIVE (NEGATIVE); METHAMPHETAMINE SCREEN URINE S NEGATIVE (NEGATIVE); OPIATE SCREEN URINE NEGATIVE (NEGATIVE); OXYCODONE STAT NEGATIVE (NEGATIVE); PROPOXYPHENE STAT NEGATIVE (NEGATIVE); TRICYCLIC ANTIDEPRESSANTS SCRE NEGATIVE (NEGATIVE)
[2018-05-06] MEDS ORDERED: ATORVASTATIN 40 MG (LIPITOR) TABLET PO SCH (21:00)
[2018-05-07] MEDS ORDERED: ENOXAPARIN 40 MG/0.4 ML (LOVENOX) SYR SC SCH (09:00)
[2018-05-08] MEDS ORDERED: DEXTROSE 50% 50 ML (IMS) SYR ONE (15:51)
== END 2018-05-06 08:45 | disposition short-term general hospital (02) | DRG 280 ==
LOC: CATH 22:38 → ICU 22:57
PROVIDERS: ADMIT Family Medicine; ATTEND Family Medicine
PROC: 4A023N7 Measurement of Cardiac Sampling and Pressure, Left Heart, Percutaneous Approach (ICD-10-PCS; principal; 2018-05-05)
PROC: B2111ZZ Fluoroscopy of Multiple Coronary Arteries using Low Osmolar Contrast (ICD-10-PCS; 2018-05-05)
PROC: B2151ZZ Fluoroscopy of Left Heart using Low Osmolar Contrast (ICD-10-PCS; 2018-05-05)
DX: I21.09 ST elevation (STEMI) myocardial infarction involving other coronary artery of anterior wall (principal); I25.10 Atherosclerotic heart disease of native coronary artery without angina pectoris; I25.82 Chronic total occlusion of coronary artery; I63.9 Cerebral infarction, unspecified; G81.94 Hemiplegia, unspecified affecting left nondominant side; R29.810 Facial weakness; R29.705 NIHSS score 5; R29.712 NIHSS score 12; E11.10 Type 2 diabetes mellitus with ketoacidosis without coma; I25.5 Ischemic cardiomyopathy; E86.0 Dehydration
CPT/HCPCS: 36415; 70450; 70496; 70498; 71045; 80048; 80053; 80061; 80306; 81000; 82805; 82962; 83036; 83735; 84100; 84484; 85025; 85027; 85379; 85610; 85730; 93005; 93041; 93458; 96361; 96374; 96375

== ENCOUNTER 2018-05-17 16:10 | Inpatient (IN) | payer OTHER ==
[~2018-05-17] VITALS: Ht 167.6 cm; Wt 75.7 kg
[~2018-05-17 16:10] MED LIST changes: -ALTEPLASE 100 MG/VIAL (ACTIVASE) IV ONE
[2018-05-17 18:32] VITALS: BP 102/70
[2018-05-17] MEDS ORDERED: warFARin 5 MG (COUMADIN) TAB ONE (23:39)
[2018-05-18 05:13] VITALS: BP 96/63
[2018-05-18 06:05] LABS: HEMOGLOBIN 11.2 G/DL (13.3-17.7); MEAN PLATELET VOLUME 9.1 FL (7.4-10.4); RED BLOOD COUNT 3.51 10^6/uL (4.35-5.85); RED CELL DISTRIBUTION WIDTH 13.5 % (10.0-14.5); WHITE BLOOD COUNT 7.3 10^3/uL (4.3-11.0)
[2018-05-18] MEDS: THIAMINE 100 MG (VITAMIN B-1) TAB PO SCH (06:34)
[2018-05-18] MEDS: inSUlin ASPART (NovoLOG) 1 UNIT/0.01 ML (CHARGE PER UNIT) SC SCH ×3 (06:35→16:25)
[2018-05-18 06:43] LABS: INR 1.1 (0.8-1.4); PROTHROMBIN TIME PATIENT 13.8 SEC (12.2-14.7)
[2018-05-18 06:52] LABS: ALANINE AMINOTRANSFERASE 19 U/L (0-55); ALBUMIN 3.4 GM/DL (3.2-4.5); ALKALINE PHOSPHATASE 53 U/L (40-136); BILIRUBIN,TOTAL 1.4 MG/DL (0.1-1.0); BUN/CREATININE RATIO 23; CARBON DIOXIDE 17 MMOL/L (21-32); CHLORIDE 104 MMOL/L (98-107); CREATININE SERUM 0.64 MG/DL (0.60-1.30); GFR ESTIMATED > 60; GLUCOSE 183 MG/DL (70-105); POTASSIUM 4.1 MMOL/L (3.6-5.0); SODIUM 132 MMOL/L (135-145); TOTAL PROTEIN 6.9 GM/DL (6.4-8.2)
--- NOTE | 2018-05-18 08:46 | History & Physicial ---
History of Present Illness History of Present Illness Reason for visit/HPI Patient in hospital for rehabilitation. Patient had a stroke affecting the left side. Patient at the football game. Sent to the emergency room at via [facility]. Patient transferred to [facility]. Patient had heart attack one week before that area Patient diabetic since 2008. Patient stopped taking his medicines years ago. Patient switched jobs and couldn't afford the insurance. Surgeries herniated on left. Family history diabetes. Patient has drooping of left side of mouth, weakness of left arm, and affected left leg Date of Admission May 17, 2018 at 18:10 Time Seen by a Provider: 08:41 I consulted on this patient on 05/18/18 08:41 Attending Physician Kulwinder Nice MD Admitting Physician No,Local Physician Consult Allergies and Home Medications Allergies Coded Allergies: No Known Drug Allergies (Unverified , 11/03/09) Patient Home Medication List Home Medication List Reviewed: Yes Past Zpmshec-Lcbdaa-Dhofec Hx Patient Social History Employed/Student: employed Alcohol Use: Denies Use Recreational Drug Use: No Smoking Status: Former Smoker Former Smoker, Quit: May 17, 1988 Type Used: Cigarettes Physical Abuse Screen: No Sexual Abuse: No Recent Foreign Travel: No Contact w/other who traveled: No Recent Hopitalizations: Yes Recent Infectious Disease Expo: No Immunizations Up To Date Tetanus Booster (TDap): Unknown Date of Pneumonia Vaccine: May 14, 2018 Date of Influenza Vaccine: May 14, 2018 Seasonal Allergies Seasonal Allergies: No Surgeries Yes Abdominal Respiratory No Cardiovascular No Coronary Artery Disease Neurological Yes Reproductive System Hx Reproductive Disorders: No Sexually Transmitted Disease: No HIV/AIDS: No Genitourinary No Gastrointestinal No Musculoskeletal No Endocrine History of Endocrine Disorders: Yes Endocrine Disorders: Diabetes, Non-Insulin dep Are Your Blood Sugars Over 250: Yes HEENT History of HEENT Disorders: No Cancer No Psychosocial History of Psychiatric Problem: No Integumentary History of Skin or Integumenta: No Blood Transfusions History of Blood Disorders: No Family Medical History Family Hx: Completed stroke 19 MOTHER Diabetes mellitus 19 FATHER Review of Systems Constitutional: no symptoms reported, weakness EENTM: no symptoms reported, other (Drooping left side of mouth) Respiratory: no symptoms reported Cardiovascular: other (Recent [place] ejection fraction 20 percent) Gastrointestinal: no symptoms reported Genitourinary: no symptoms reported Physical Exam Vital Signs Vital Signs - First Documented 10/3/18 18:32 Temp 97.8 Pulse 90 Resp 18 B/P (MAP) 102/70 (81) Pulse Ox 97 O2 Delivery Room Air Capillary Refill : Height, Weight, BMI Height: 5'6.00" Weight: 170lbs. 0.0oz. 77.783933dk; 27.4 BMI Method:Stated General Appearance: No Apparent Distress, WD/WN Eyes: Bilateral Eye Normal Inspection HEENT: Normal ENT Inspection, Other (Drooping left side of mouth) Neck: Full Range of Motion Respiratory: Chest Non Tender, Lungs Clear, No Accessory Muscle Use, No Respiratory Distress Cardiovascular: Regular Rate, Rhythm, No Murmur Gastrointestinal: Non Tender, Soft Assessment/Plan Assessment and Plan CVA. Recent [place]. Diabetes. Left-sided weakness. Ejection fraction 20 percent Admission Diagnosis Admission Status: Inpatient Order (span 2 midnights) Reason for Inpatient Admission: Recent CVA with this left side. Recent [place]. Diabetes. Clinical Quality Measures DVT/VTE Risk/Contraindication: Risk Factor Score Per Nursin RFS Level Per Nursing on Admit: 4+=Very High JOSÉ MIGUEL WILCOX DO May 18, 2018 08:46
[2018-05-18] MEDS ORDERED: ENOXAPARIN 30 MG/0.3 ML (LOVENOX) SYR SC SCH (09:00)
[2018-05-18] MEDS: ATORVASTATIN 80 MG (LIPITOR) TABLET PO SCH (09:11)
[2018-05-18] MEDS: DOCUSATE SODIUM 100 MG (COLACE) CAP PO SCH ×2 (09:12→21:03)
[2018-05-18] MEDS: CLOPIDOGREL 75 MG (PLAVIX) TABLET PO SCH (09:12)
[2018-05-18] MEDS: SENNOSIDES 8.6 MG (SENOKOT) TAB PO SCH ×2 (09:12→21:00)
[2018-05-18] MEDS: FLUoxetine HCL 20 MG (PROzac) CAP PO SCH (09:12)
--- NOTE | 2018-05-18 10:04 | Occupational Therapy Eval ---
OT Evaluation-General/PLF Medical Diagnosis Admission Date May 17, 2018 at 18:10 Medical Diagnosis: CVA with left hemiparesis Onset Date: May 06, 2018 Therapy Diagnosis Therapy Diagnosis: Decreased ADL skills Height/Weight Height (Feet): 5 Height (Inches): 6.00 Weight (Pounds): 170 Weight (Ounces): 0.0 Precautions Precautions/Isolations: Fall Prevention, Standard Precautions Weight Bear Status Weight Bearing Restriction: Weight Bearing/Tolerated Referral Physician: Dr. ramirez Referral Reason: Activity Tolerance, Self Care, Evaluation/Treatment, Strengthening/ROM Medical History Pertinent Medical History: DM Current History Pt. at [facility] and sustained CVA. Brought by EMS. Transferred to . Admitted to this facility for rehab on 05-17-18. Reviewed History: Yes Social History Home: Single Level Current Living Status: Children Entry Into Home: Stairs With Railing Steps Into Home: 6 ADL-Prior Level of Function ADL PLOF Comments Pt. was fully independent with ADL skills. DME/Equipment: Shower DME/Equipment Comments Pt. reports that he has no equipment at home. 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 Appearance Pt. in bed. Agrees to work with OT. Mental Status/Objective Patient Orientation: Person, Place Current Hand Dominance: Right Upper Extremity ROM Right- WFL Left- Pt. able to flex left shoulder to approximately 90 degrees, with slow movement. Note intermittent tone with PROM to left bicep and shoulder. Good scapular glide. No subluxation. Increased tightness in left pectoral. No pain noted with movement. Upper Extremity Strength Right- WFL Left- hand-3/5, elbow-3/5, shoulder 2/5 Edema: None noted. ADL-Treatment Functional [place] Measure 0=Not Assessed/NA 4=Minimal Assistance 1=Total Assistance 5=Supervision or Setup 2=Maximal Assistance 6=Modified [place] 3=Moderate Assistance 7=Complete IndependenceIRFPAI Quality Coding Scale 6 Independent with activity with or without an assistive device 5 Patient requires set up or clean up by helper. Patient completes activity by themselves 4 Supervision or touching assist (CGA). [place] provide cues , steadying assist 3 The helper provides less than half the effort to complete the activity 2 The helper provides more than half the effort to complete the activity 1 Dependent. The helper does all the effort to complete an activity 7 Patient refused to complete or attempt activity 9 The patient did not perform the activity before the current illness or injury 88 Not attempted due to Medical conditions or safety concerns Grooming (FIM): 5 (Constant cues to initiate the task of brushing teeth. ) Oral Hygiene (QC): 4 Bathing (FIM): 3 (Pt. required assistance to wash bilateral LE. Assist with balance in stance while pt washed selvin areas.) Shower/Bathe Self (QC): 3 Upper Body Dressing (FIM): 3 (Pt. instructed in donning left UE first. Pt. donned right UE and then attempted left. Required Mod assist overall to don shirt and pull down.) Upper Body Dressing (QC): 3 Lower Body Dressing (FIM): 3 (Pt. able to doff right sock all the way, and left sock retirement. Unable to don them. Pt. able to don underwear over feet and retirement over hips. Required assist to don shorts over feet and over hips.) Lower Body Dressing (QC): 3 On/Off Footwear (QC): 3 Transfers (B, C, W/C) (FIM): 3 (Min assist supine-sit. Mod assist sit-stand and pivot toward chair. Min assist sit-supine.) Other Treatments Pt. is agreeable to treatment. Transferred to wheelchair to complete spongebath and dressing. Noted left sided neglect. Pt. seems unaware of left UE, but is able to move it when cued to do so. OT took pt. to therapy gym. Pt. stood at parallel bar with right hand to pull up. Required min assist and OT put mirror in front of him. Practiced rocking back and forth and marching in place. Pt. does lean to left but is able to correct with cues. Transferred to mat and worked on leaning side to side and back and forth. Practiced side lying with weight through left UE. Pt. able to come back upright in this position on his own. Transferred back to chair with min assist and went to room. Transferred to bed with min assist. All needs met in room. Pt. is educated on importance of being aware of left side, and left UE. Educated about left sided neglect, and importance of practicing tasks with therapist, instead of therapist doing them for him. All needs met. Education OT Patient Education: Correct positioning, Exercise program, Modified ADL techniques, Progress toward Goal/Update tx plan, Purpose of tx/functional activities, Reviewed precautions, Rehab process, Transfer techniques, W/C management Teaching Recipient: Patient Teaching Methods: Demonstration, Discussion Response to Teaching: Verbalize Understanding, Return Demonstration OT Short Term Goals Short Term Goals Time Frame: Jun 01, 2018 Eating(FIM): 5 Grooming(FIM): 5 Bathing(FIM): 4 Upper Body Dressing(FIM): 4 Lower Body Dressing(FIM): 4 Toileting(FIM): 4 Transfers (B,C,W/C) (FIM): 4 Toilet/Commode Transfer(FIM): 4 Shower Transfer(FIM): 4 Additional Short Term Goals: 1-Demonstrate ADL Tasks, 2-Verbalize Understanding , 3-ImproveStrength/Radha 1=Demonstrate adherence to instructed precautions during ADL tasks. 2=Patient will verbalize/demonstrate understanding of assistive devices/ modifications for ADL. 3=Patient will improve strength/tolerance for activity to enable patient to perform ADL's. OT Enrichment Director Goals Enrichment Director Goals Time Frame: Jun 15, 2018 Eating (FIM): 6 Eating (QC): 6 Groomin Oral Hygiene (QC): 6 Bathing(FIM): 5 Shower/Bathe Self (QC): 5 Upper Body Dressing(FIM): 6 Upper Body Dressing (QC): 6 Lower Body Dressing(FIM): 5 Lower Body Dressing (QC): 5 On/Off Footwear (QC): 5 Toileting(FIM): 6 Toileting Hygiene (QC): 6 Transfers (B,C,W/C) (FIM): 6 Toilet/Commode Transfer(FIM): 6 Toilet/Commode Transfer (QC): 6 Shower Transfer(FIM): 5 Additional Goals: 1-Demonstrate ADL Tasks, 2-Verbalize Understanding, 3- ImproveStrength/Radha 1=Demonstrate adherence to instructed precautions during ADL tasks. 2=Patient will verbalize/demonstrate understanding of assistive devices/ modifications for ADL. 3=Patient will improve strength/tolerance for activity to enable patient to perform ADL's. OT Education/Plan Problem List/Assessment Assessment: Decreased Activ Tolerance, Decreased Safety Aware, Decreased UE Strength, Dependent Transfers, Impaired Bed Mobility, Impaired Cognition, Impaired Coordination, Impaired Funct Balance, Impaired I ADL's, Impaired Self- Care Skills, Restricted Funct UE ROM Discharge Recommendations Plan/Recommendations: Continue POC Therapy D/C Recommendations: Home w/ Family Support, Occupational Therapy Home Care, Scheduled Assistance Equpiment Recommendations-D/C: Bath Chair, Hip Kit Treatment Plan/Plan of Care Treatment,Training & Education: Yes Patient would benefit from OT for education, treatment and training to promote independence in ADL's, mobility, safety and/or upper extremity function for ADL' s. Plan of Care: ADL Retraining, Functional Mobility, Group Exercise/Act as Ind, UE Funct Exercise/Act Treatment Duration: Jun 15, 2018 Frequency: At least 5 of 7 days/Wk (IRF) Estimated Hrs Per Day: 1.5 hours per day Agreement: Yes Rehab Potential: Good Time/GCodes Start Time: 08:20 Stop Time: 09:50 Total Time Billed (hr/min): 90 Billed Treatment Time 1, EVH x 10minutes, ADL x 45minutes, FA x 35minutes JEREMIE RATLIFF OT May 18, 2018 10:04
[2018-05-18] MEDS: ENOXAPARIN 80 MG/0.8 ML (LOVENOX) SYR SC SCH ×2 (10:25→21:01)
--- NOTE | 2018-05-18 11:46 | Physical Therapy Evaluation ---
PT Evaluation-General Medical Diagnosis Admission Date May 17, 2018 at 18:10 Medical Diagnosis: CVA with left hemiparesis Onset Date: May 05, 2018 Therapy Diagnosis Therapy Diagnosis: impaired strength, balance, mobility, and endurance s/p R CVA Height/Weight Height (Feet): 5 Height (Inches): 6.00 Weight (Pounds): 170 Weight (Ounces): 0.0 Precautions Precautions/Isolations: Fall Prevention, Standard Precautions Weight Bear Status Right Lower Extremity: Right Full Weight Bearing Left Lower Extremity: Left Full Weight Bearing Referral Physician: Dr. ramirez Reason for Referral: Evaluation/Treatment Medical History Pertinent Medical History: DM Additional Medical History DKA, dysarthria, dysphagia Current History R CVA w/ left hemiparesis Reviewed History: Yes Social History Home: Single Level Current Living Status: Children Entry Into Home: Stairs With Railing PT Steps Into Home: 6 PT Steps Inside Home: 20 Prior/Core FIM Prior Level of Function Functional [place] Measure 0=Not Assessed/NA 4=Minimal Assistance 1=Total Assistance 5=Supervision or Setup 2=Maximal Assistance 6=Modified [place] 3=Moderate Assistance 7=Complete [place] Bed Mobility: 7 Transfers (B,C,W/C) (FIM): 7 Gait: 7 PT Evaluation-Current Subjective pt in bed pre tx, agrees to PT, no pain to report Pt/Family Goals to be independent at home Objective Patient Orientation: Person, Place, Situation ROM/Strength ROM Lower Extremities WFL Strenght Lower Extremities RLE grossly 4/5 LLE (hip flexion 4/5, knee extension 3+/5, DF 3/5, PF 4/5) Neuromuscular (Tone, Coordination, Reflexes) zambrano slide test more difficulty w/ LLE proprioception intact LLE slight increase in tone LLE, mostly HS/knee flexion Sensory Vision: Functional Hearing: Functional Hand Dominance: Right Sensation Right Lower Extremit: Intact Sensation Left Lower Extremity: Intact Transfers Functional [place] Measure 0=Not Assessed/NA 4=Minimal Assistance 1=Total Assistance 5=Supervision or Setup 2=Maximal Assistance 6=Modified [place] 3=Moderate Assistance 7=Complete IndependenceIRFPAI Quality Coding Scale 6 Independent with activity with or without an assistive device 5 Patient requires set up or clean up by helper. Patient completes activity by themselves 4 Supervision or touching assist (CGA). [place] provide cues , steadying assist 3 The helper provides less than half the effort to complete the activity 2 The helper provides more than half the effort to complete the activity 1 Dependent. The helper does all the effort to complete an activity 7 Patient refused to complete or attempt activity 9 The patient did not perform the activity before the current illness or injury 88 Not attempted due to Medical conditions or safety concerns Transfers (B, C, W/C) (FIM): 4 Scootin Rollin Roll Left to Right (QC): 2 Supine to/from Sit: 4 Sit to/from Stand: 4 Sit to Lying (QC): 3 Lying to Sitting/Side of Bed(Q: 3 Sit to Stand (QC): 3 Chair/Lwa-vw-Hkfvk Xfer(QC): 3 Car Transfer (QC): 3 supine<->sit Clementina getting trail leg into bed and sitting up, sit<->stand Clementina, car transfer Clementina w/ cues for getting all the way into the seat, Gait Does the Patient Walk?: Yes Mode of Locomotion: Walk Anticipated Mode of Locomotion: Walk Gait (FIM): 4 Walk 10 feet (QC): 3 Walk 50 ft with 2 Turns(QC): 3 Walk 150 ft (QC): 3 Walking 10ft/uneven surface-QC: 3 Distance: 60'x2, 150' Gait Level of Assist: 4 Gait Persons Needed: 1 Gait Assistive Device: Walker Deon Comments/Gait Description pt ambulates w/ deon-walker w/ step-to pattern, Clementina, pt takes quick short steps and leans to the left, needs cues to stand up straight and min assistance to avoid objects and stay upright Wheelchair Training Does the Pt Use a Wheelchair?: No Stairs Stairs (FIM): 1 #of Steps: 1 Level of Assist: 4 1 Step (curb) (QC): 3 4 Steps (QC): 88 Assistive Device: Walker 12 Steps (QC): 88 Pt ascends/descends 1 step w/ deon-walker, Clementina for stability and safety Balance Sitting Static: Normal Sitting Dynamic: Fair Standing Static: Fair Standing Dynamic: Poor Picking up an Object (QC): 88 Treatment supine ex: HS, AP, SLR, Bridges x20 seated ex LAQs x20 standing balance unsupported x2 min CGA // bars marches x20, heel-toe walks forward/backward x3 laps CGA side steps 3x3 laps CGA Assessment/Needs impaired mobility, balance, endurance, and strength s/p MCA CVA, pt demonstrates slight L side neglect, more pronounced in UE Rehab Potential: Fair PT Short Term Goals Short Term Goals Time Frame: May 25, 2018 Transfers (B,C,W/C) (FIM): 4 Gait (FIM): 4 Gait Distance Comment: 150' Gait Level of Assist: 4 Gait Assistive Device: Cane Large Base Quad PT Alf Goals Alf Goals PT Transportation Agent Goals Time Frame: Jun 08, 2018 Transfers (B,C,W/C) (FIM): 5 Sit to Lying (QC): 4 Lying-Sitting on Side/Bed(QC): 4 Sit to Stand (QC): 4 Rollin Roll Left to Right (QC): 4 Chair/Sjw-kr-Uwcql Xfer(QC): 4 Car Transfer (QC): 4 Does the Patient Walk: Yes Gait (FIM): 5 Distance: 200' Walk 10 feet (QC): 4 Walk 10ft-Uneven Surface(QC): 4 Walk 50ft with 2 Turns (QC): 4 Walk 150 ft (QC): 4 Gait Level of Assist: 5 Gait Assistive Device: Cane Large Base Quad, Walker Deon Stairs (FIM): 2 # of Steps: 8 1 Step (curb) (QC): 3 4 Steps (QC): 3 Stairs Level Of Assist: 4 Picking up an Object (QC): 4 PT Plan Problem List Problem List: Activity Tolerance, Functional Strength, Safety, Balance, Gait, Transfer, Bed Mobility, ROM Treatment/Plan Treatment Plan: Continue Plan of Care Treatment Plan: Bed Mobility, Concurrent Therapy, Education, Functional Activity Radha, Functional Strength, Group Therapy, Gait, Safety, Therapeutic Exercise, Transfers Treatment Duration: Jun 08, 2018 Frequency: At least 5 of 7 days/Wk (IRF) Estimated Hrs Per Day: 1.5 hours per day Patient and/or Family Agrees t: Yes Safety Risks/Education Patient Education: Gait Training, Transfer Techniques, Steps, Correct Positioning, Safety Issues Teaching Recipient: Patient Teaching Methods: Demonstration, Discussion Response to Teaching: Reinforcement Needed Discharge Recommendations Therapy D/C Recommendations: Home w/ Family Support Time/GCodes Time In: 1030 Time Out: 1130 Total Billed Treatment Time: 60 Total Billed Treatment 1 visit EVM 30' GT 15' EX 15' ASHANTI DENNY PT May 18, 2018 11:46
--- NOTE | 2018-05-18 14:04 | Physical Therapy Daily Note ---
PT Daily Note-Current Subjective pt in recliner pre tx, agrees to PT, no pain to report, needs assistance changing pants due to BM Appearance pt in bed post tx w/ phone, call light, tray, all needs met Mental Status Patient Orientation: Normal For Age Transfers Functional [place] Measure 0=Not Assessed/NA 4=Minimal Assistance 1=Total Assistance 5=Supervision or Setup 2=Maximal Assistance 6=Modified [place] 3=Moderate Assistance 7=Complete IndependenceIRFPAI Quality Coding Scale 6 Independent with activity with or without an assistive device 5 Patient requires set up or clean up by helper. Patient completes activity by themselves 4 Supervision or touching assist (CGA). [place] provide cues , steadying assist 3 The helper provides less than half the effort to complete the activity 2 The helper provides more than half the effort to complete the activity 1 Dependent. The helper does all the effort to complete an activity 7 Patient refused to complete or attempt activity 9 The patient did not perform the activity before the current illness or injury 88 Not attempted due to Medical conditions or safety concerns Transfers (B, C, W/C) (FIM): 3 Scootin Rollin Supine to/from Sit: 3 Sit to/from Stand: 4 supine<->sit modA, needs assist getting both legs into/out of bed, sit<->stand Clementina, pt needs cues for hand placement, to stay upright and avoid leaning to the left Weight Bearing Right Lower Extremity: Right Full Weight Bearing Left Lower Extremity: Left Full Weight Bearing Gait Training Does the Patient Walk?: Yes Gait (FIM): 4 Distance: 150',120' Gait Level of Assist: 4 Gait Persons Needed: 1 Gait Assistive Device: Walker Deon pt ambulates to/from gym w/ hemiwalker, Clementina w/ cues to avoid objects on L side and stand straight, Exercises NuStep Minutes: 10 NuStep Workload: 1 Treatments gait training, endurance training Assessment Current Status: Fair Progress improved stability using deon walker and reciprocal pattern PT Short Term Goals Short Term Goals Transfers (B,C,W/C) (FIM): 4 PT Alf Goals [employer] Developer Goals PT Alf Goals Time Frame: Jun 08, 2018 Transfers (B,C,W/C) (FIM): 6 Sit to Lying (QC): 6 Lying-Sitting on Side/Bed(QC): 6 Sit to Stand (QC): 6 Rollin Roll Left to Right (QC): 6 Chair/Ifs-xl-Tgzkf Xfer(QC): 6 Car Transfer (QC): 6 Does the Patient Walk: Yes Gait (FIM): 5 Distance: 300' Walk 10 feet (QC): 5 Walk 10ft-Uneven Surface(QC): 5 Walk 50ft with 2 Turns (QC): 5 Walk 150 ft (QC): 5 Gait Level of Assist: 5 Gait Assistive Device: Walker Deon Stairs (FIM): 5 # of Steps: 12 1 Step (curb) (QC): 5 4 Steps (QC): 4 12 Steps (QC): 4 Stairs Level Of Assist: 5 Picking up an Object (QC): 5 PT Plan Problem List Problem List: Activity Tolerance, Functional Strength, Safety, Balance, Gait, Transfer, Bed Mobility, ROM Treatment/Plan Treatment Plan: Continue Plan of Care Treatment Plan: Bed Mobility, Concurrent Therapy, Education, Functional Activity Radha, Functional Strength, Group Therapy, Gait, Safety, Therapeutic Exercise, Transfers Treatment Duration: Jun 08, 2018 Frequency: At least 5 of 7 days/Wk (IRF) Estimated Hrs Per Day: 1.5 hours per day Patient and/or Family Agrees t: Yes Safety Risks/Education Patient Education: Gait Training, Transfer Techniques, Correct Positioning, Safety Issues Teaching Recipient: Patient Teaching Methods: Demonstration, Discussion Response to Teaching: Reinforcement Needed Time/GCodes Time In: 1255 Time Out: 1325 Total Billed Treatment Time: 30 Total Billed Treatment 1 visit GT 15' EX 15 LIUDMILA GONZALEZ PT May 18, 2018 14:04
[2018-05-18] MEDS: inSUlin DETERMIR 1 UNIT/0.01 ML (LEVEMIR) CHARGE PER UNIT SQ SCH (14:56)
[2018-05-18] MEDS: warFARin 5 MG (COUMADIN) TAB PO SCH (16:25)
[2018-05-18 18:00] VITALS: BP 95/62
[2018-05-19 05:22] VITALS: BP 94/64
[2018-05-19] MEDS: THIAMINE 100 MG (VITAMIN B-1) TAB PO SCH (06:10)
[2018-05-19] MEDS: inSUlin ASPART (NovoLOG) 1 UNIT/0.01 ML (CHARGE PER UNIT) SC SCH ×3 (06:11→16:53)
[2018-05-19 06:36] LABS: MEAN PLATELET VOLUME 8.8 FL (7.4-10.4); RED BLOOD COUNT 3.55 10^6/uL (4.35-5.85); RED CELL DISTRIBUTION WIDTH 13.9 % (10.0-14.5); WHITE BLOOD COUNT 7.8 10^3/uL (4.3-11.0)
[2018-05-19 06:47] LABS: INR 1.1 (0.8-1.4); PROTHROMBIN TIME PATIENT 14.3 SEC (12.2-14.7)
[2018-05-19] MEDS: ATORVASTATIN 80 MG (LIPITOR) TABLET PO SCH (08:10)
[2018-05-19] MEDS: CLOPIDOGREL 75 MG (PLAVIX) TABLET PO SCH (08:10)
[2018-05-19] MEDS: ENOXAPARIN 80 MG/0.8 ML (LOVENOX) SYR SC SCH ×2 (08:10→22:58)
[2018-05-19] MEDS: FLUoxetine HCL 20 MG (PROzac) CAP PO SCH (08:10)
[2018-05-19] MEDS: SENNOSIDES 8.6 MG (SENOKOT) TAB PO SCH ×2 (08:11→22:59)
[2018-05-19] MEDS: DOCUSATE SODIUM 100 MG (COLACE) CAP PO SCH ×2 (08:11→22:59)
--- NOTE | 2018-05-19 08:55 | Progress Note (SOAP) ---
Subjective Time Seen by a Provider: 08:53 Subjective/Events-last exam Patient feeling okay. patient needs work on his left side of his body. CVA. Objective Exam Vital Signs Date Time Temp Pulse Resp B/P (MAP) Pulse Ox O2 Delivery O2 Flow Rate FiO2 05/19/18 05:22 97.6 93 18 94/64 (74) 96 Room Air 05/18/18 21:00 Room Air 05/18/18 18:57 Room Air 05/18/18 18:00 98.0 88 16 95/62 (73) 95 Room Air 05/18/18 09:00 Room Air I & O 05/19/18 07:00 Intake Total 900 ml Output Total 300 ml Balance 600 ml Capillary Refill : General Appearance: No Apparent Distress, WD/WN HEENT: Normal ENT Inspection, Other (Side of mouth drooping) Neck: Normal Inspection, Non Tender Respiratory: Lungs Clear, No Accessory Muscle Use, No Respiratory Distress Cardiovascular: Regular Rate, Rhythm, No Murmur Gastrointestinal: non tender, soft Results Lab Laboratory Tests 05/18/18 12:39: Glucometer 204H 05/18/18 16:20: Glucometer 213H 05/18/18 22:16: Glucometer 218H 05/19/18 06:10: Glucometer 176H 05/19/18 06:15: White Blood Count 7.8, Red Blood Count 3.55L, Hemoglobin 11.0L, Hematocrit 31L, Mean Corpuscular Volume 89, Mean Corpuscular Hemoglobin 31, Mean Corpuscular Hemoglobin Concent 35, Red Cell Distribution Width 13.9, Platelet Count 422H, Mean Platelet Volume 8.8, Prothrombin Time 14.3, INR Comment 1.1 Assessment/Plan Assessment/Plan Assess & Plan/Chief Complaint CVA. Recent [place]. Diabetes. Clinical Quality Measures Admission Status Admission Dx CVA. Recent [place]. Diabetes. Left-sided weakness. Ejection fraction 20 percent DVT/VTE Risk/Contraindication: Risk Factor Score Per Nursin RFS Level Per Nursing on Admit: 4+=Very High JOSÉ MIGUEL WILCOX DO May 19, 2018 08:55
--- NOTE | 2018-05-19 09:28 | Occupational Ther Daily Note ---
OT Current Status-Daily Note Subjective Pt in bed, agrees to treatment. Pt reports not sleeping well and being very tired. Mental Status/Objective Functional [place] Measure 0=Not Assessed/NA 4=Minimal Assistance 1=Total Assistance 5=Supervision or Setup 2=Maximal Assistance 6=Modified [place] 3=Moderate Assistance 7=Complete [place] ADL-Treatment Pt would like to shower this morning. Supine to sit with minimal assistance. Sit to stand with minimal assistance. Gait to restroom with consuelo walker with minimal assistance for balance. Requires cues to avoid objects on left side. Transfer to walk in shower with bench with minimal assistance and skilled cues for safety. Doff shirt with minimal assistance and cues for technique. Pt doffed shorts with mod assist. Doff socks with minimal assistance for balance. Seated bathing completed using hand held shower. Pt required assist to wash bilateral LE and assist for balance while washing buttocks. Don pullover shirt with moderate assistance. Education provided regarding UE dressing technique, but has difficulty following recommendations. Pt able to thread right LE into underwear and shorts, but requires minimal assistance with left. Stood with mod assist for balance during pant hike. Pt able to pull pants up over right hip, but requires assist with left. Pt requires cues to initiate standing for pant hike. Pt unable to manage zipper or buttons, requires assist. Pt unable to don socks, requires assist for task. Pt brushed teeth while sitting at sink. Pt able to complete task with SBA and increased time. Pt transferred to toilet with minimal assistance using grab bar. Pt requires assist to manage clothing down/up and assist to complete thorough hygiene. Washed hands with wet wipes. Functional [place] Measure 0=Not Assessed/NA 4=Minimal Assistance 1=Total Assistance 5=Supervision or Setup 2=Maximal Assistance 6=Modified [place] 3=Moderate Assistance 7=Complete IndependenceIRFPAI Quality Coding Scale 6 Independent with activity with or without an assistive device 5 Patient requires set up or clean up by helper. Patient completes activity by themselves 4 Supervision or touching assist (CGA). [place] provide cues , steadying assist 3 The helper provides less than half the effort to complete the activity 2 The helper provides more than half the effort to complete the activity 1 Dependent. The helper does all the effort to complete an activity 7 Patient refused to complete or attempt activity 9 The patient did not perform the activity before the current illness or injury 88 Not attempted due to Medical conditions or safety concerns Grooming (FIM): 5 Oral Hygiene (QC): 4 Bathing (FIM): 3 Shower/Bathe Self (QC): 3 Upper Body (FIM): 3 Upper Body Dressing (QC): 3 Lower Body Dressing (FIM): 3 Lower Body Dressing (QC): 3 On/Off Footwear (QC): 2 Toileting (FIM): 2 Toileting Hygiene (QC): 2 Toilet/Commode Transfer (FIM): 4 Toilet Transfer (QC): 3 Shower Transfer(FIM): 4 Other Treatment Pt performed gait to therapy gym with consuelo walker with minimal assistance for balance. Skilled cues required to attend to objects on left side. Pt performed left UE exercises to increase strength needed for functional tasks. Pt performed AAROM x10 reps for shoulder and elbow movements. Fatigues easily with exercises. Pt completed AROMx10 reps at forearm, wrist, and hand. Rest breaks between exercises. Pt sat EOB and practiced leaning left and right to increase core strength and trunk control. Pt returned to room for toileting. Transferred to EOB and completed sit to supine with minimal assistance. Pt resting in bed with needs met after session. OT Short Term Goals Short Term Goals Time Frame: Jun 01, 2018 Eating(FIM): 5 Grooming(FIM): 5 Bathing(FIM): 4 Upper Body Dressing(FIM): 4 Lower Body Dressing(FIM): 4 Toileting(FIM): 4 Transfers (B,C,W/C) (FIM): 4 Toilet/Commode Transfer(FIM): 4 Shower Transfer(FIM): 4 Additional Short Term Goals: 1-Demonstrate ADL Tasks, 2-Verbalize Understanding , 3-ImproveStrength/Radha 1=Demonstrate adherence to instructed precautions during ADL tasks. 2=Patient will verbalize/demonstrate understanding of assistive devices/ modifications for ADL. 3=Patient will improve strength/tolerance for activity to enable patient to perform ADL's. OT Usp Goals Plastic Sewer Goals Time Frame: Jun 15, 2018 Eating (FIM): 6 Eating (QC): 6 Groomin Oral Hygiene (QC): 6 Bathing(FIM): 5 Shower/Bathe Self (QC): 5 Upper Body Dressing(FIM): 6 Upper Body Dressing (QC): 6 Lower Body Dressing(FIM): 5 Lower Body Dressing (QC): 5 On/Off Footwear (QC): 5 Toileting(FIM): 6 Toileting Hygiene (QC): 6 Transfers (B,C,W/C) (FIM): 6 Toilet/Commode Transfer(FIM): 6 Toilet/Commode Transfer (QC): 6 Shower Transfer(FIM): 5 Additional Goals: 1-Demonstrate ADL Tasks, 2-Verbalize Understanding, 3- ImproveStrength/Radha 1=Demonstrate adherence to instructed precautions during ADL tasks. 2=Patient will verbalize/demonstrate understanding of assistive devices/ modifications for ADL. 3=Patient will improve strength/tolerance for activity to enable patient to perform ADL's. OT Education/Plan Discharge Recommendations Plan/Recommendations: Continue POC Treatment Plan/Plan of Care Patient would benefit from OT for education, treatment and training to promote independence in ADL's, mobility, safety and/or upper extremity function for ADL' s. Plan of Care: ADL Retraining, Functional Mobility, Group Exercise/Act as Ind, UE Funct Exercise/Act Treatment Duration: Jun 15, 2018 Frequency: At least 5 of 7 days/Wk (IRF) Estimated Hrs Per Day: 1.5 hours per day Agreement: Yes Rehab Potential: Fair Time/GCodes Start Time: 08:00 Stop Time: 09:30 Total Time Billed (hr/min): 90 Billed Treatment Time 1 visit, ADLx4(65minutes), EX(15minutes), FA(10minutes) SABRA GELLER OT May 19, 2018 09:28
--- NOTE | 2018-05-19 10:27 | Physical Therapy Daily Note ---
PT Daily Note-Current Subjective pt in bed pre tx, agrees to PT, no pain to report Appearance pt in bed post tx w/ phone, call light, tray, all needs met Mental Status Patient Orientation: Person, Place, Situation Transfers Functional [place] Measure 0=Not Assessed/NA 4=Minimal Assistance 1=Total Assistance 5=Supervision or Setup 2=Maximal Assistance 6=Modified [place] 3=Moderate Assistance 7=Complete IndependenceIRFPAI Quality Coding Scale 6 Independent with activity with or without an assistive device 5 Patient requires set up or clean up by helper. Patient completes activity by themselves 4 Supervision or touching assist (CGA). [place] provide cues , steadying assist 3 The helper provides less than half the effort to complete the activity 2 The helper provides more than half the effort to complete the activity 1 Dependent. The helper does all the effort to complete an activity 7 Patient refused to complete or attempt activity 9 The patient did not perform the activity before the current illness or injury 88 Not attempted due to Medical conditions or safety concerns Transfers (B, C, W/C) (FIM): 4 Scootin Supine to/from Sit: 4 Sit to/from Stand: 4 sit<->stand CGA for safety, supine<->sit Clementina sitting up and scooting to EOB Weight Bearing Right Lower Extremity: Right Full Weight Bearing Left Lower Extremity: Left Full Weight Bearing Gait Training Does the Patient Walk?: Yes Gait (FIM): 4 Distance: 400'x3, 100'x2, 60'x2 Gait Level of Assist: 4 Gait Persons Needed: 1 Gait Assistive Device: Handheld Assist pt walks up and down hallway w/ handheld assist w/ attempts to improve gait speed, cues given to walk as fast as possible with big steps pt ambulates to/from gym w/ hemiwalker CGA, steady w/ cues needed to avoid objects on left side and stand straight pt walks around gym w/ handheld assist grabbing cones with LUE from various places and returning them to a [id number]'x2 Exercises Standing: Stepping over objects Standing Reps: 20 side step up over pink step x20 Assessment Current Status: Fair Progress improved stability w/ gait using hemiwalker and handheld assist, decreased LOB to L side PT Short Term Goals Short Term Goals Time Frame: May 25, 2018 Transfers (B,C,W/C) (FIM): 4 Gait (FIM): 4 Gait Distance Comment: 150' Gait Level of Assist: 4 Gait Assistive Device: Cane Large Base Quad PT Longterm Goals Printed Circuit Layout Taper Goals PT Longterm Goals Time Frame: Jun 08, 2018 Transfers (B,C,W/C) (FIM): 5 Sit to Lying (QC): 4 Lying-Sitting on Side/Bed(QC): 4 Sit to Stand (QC): 4 Rollin Roll Left to Right (QC): 4 Chair/[id number]-Fnwgm Xfer(QC): 4 Car Transfer (QC): 4 Does the Patient Walk: Yes Gait (FIM): 5 Distance: 200' Walk 10 feet (QC): 4 Walk 10ft-Uneven Surface(QC): 4 Walk 50ft with 2 Turns (QC): 4 Walk 150 ft (QC): 4 Gait Level of Assist: 5 Gait Assistive Device: Cane Large Base Quad, Walker Deon Stairs (FIM): 2 # of Steps: 8 1 Step (curb) (QC): 3 4 Steps (QC): 3 Stairs Level Of Assist: 4 Picking up an Object (QC): 4 PT Plan Problem List Problem List: Activity Tolerance, Functional Strength, Safety, Balance, Gait, Transfer, Bed Mobility, ROM Treatment/Plan Treatment Plan: Continue Plan of Care Treatment Plan: Bed Mobility, Concurrent Therapy, Education, Functional Activity Radha, Functional Strength, Group Therapy, Gait, Safety, Therapeutic Exercise, Transfers Treatment Duration: Jun 08, 2018 Frequency: At least 5 of 7 days/Wk (IRF) Estimated Hrs Per Day: 1.5 hours per day Patient and/or Family Agrees t: Yes Safety Risks/Education Patient Education: Gait Training, Transfer Techniques, Correct Positioning, Safety Issues Teaching Recipient: Patient Teaching Methods: Demonstration, Discussion Response to Teaching: Reinforcement Needed Time/GCodes Time In: 0930 Time Out: 1030 Total Billed Treatment Time: 60 Total Billed Treatment 1 visit GT 30' FA 30' ASHANTI DENNY PT May 19, 2018 10:27
--- NOTE | 2018-05-19 11:44 | Consultation-Cardiology ---
HPI-Cardiology Cardiology Consultation: Date of Consultation 05/19/18 Date of Admission Attending Physician Kulwinder Nice MD Admitting Physician Sarah,Local Physician Consulting Physician Donavan HASSAN MD HPI: Time Seen by a Provider: 09:30 Chief Complaint: CVA, CAD, cardiomyopathy This is a 47-year-old gentleman who is a patient of Dr. Alvarado. He previously presented with a CVA and was found to have ST segment elevation on EKG. Coronary angiography showed chronic total occlusion of the LAD. PCI was unsuccessful. Patient also has significant LV systolic dysfunction. He is on aggressive medical therapy. He presented for inpatient rehabilitation. The patient denies any significant cardiac symptoms including chest pain, shortness of breath, syncope, near-syncope, palpitation, lower extremity swelling. Review of Systems-Cardiology Review of Systems Constitutional: As described under HPI; No As described under HPI, No no symptoms reported, No chills, No fever, No lightheadedness Eyes: No As described under HPI, No no symptoms reported, No blindness, No blurred vision, No contact lenses, No drainage, No decreased acuity, No foreign body sensation, No pain, No vision change Ears/Nose/Throat: No As described under HPI, No no symptoms reported, No chronic hearing loss, No ear discharge, No ear pain, No nasal drainage, No ulcerations Respiratory: No no symptoms reported; As described under HPI; No As described under HPI, No cough, No orthopnea, No shortness of breath, No SOB with excertion Cardiovascular: No no symptoms reported; As described under HPI; No As described under HPI, No chest pain, No edema, No irregular heart rate, No lightheadedness, No palpitations Gastrointestinal: No no symptoms reported, No As described under HPI, No abdomen distended, No abdominal pain, No blood streaked bowels, No constipation , No diarrhea, No nausea, No vomiting, No stool coloration changes Genitourinary: No As described under HPI, No burning, No dysuria, No discharge , No frequency, No flank pain, No hematuria, No urgency Skin: No rash, No skin related problems, No ulcerations Psychiatric/Neurological: No anxiety, No depression, No seizure, No focal weakness, No syncope Hematologic: No bleeding abnormalities [id number] Hx Patient Social History Employed/Student: employed Alcohol Use: Denies Use Recreational Drug Use: No Smoking Status: Former Smoker Type Used: Cigarettes Recent Foreign Travel: No Recent Infectious Disease Expo: No Hospitalization with Isolation: Denies Physical Abuse Screen: No Sexual Abuse: No Immunizations Up To Date Tetanus Booster (TDap): Unknown Date of Pneumonia Vaccine: May 14, 2018 Date of Influenza Vaccine: May 14, 2018 Past Medical History PMH As described under Assessment. Family Medical History Family Medical History: Does not report fam h/o early CAD Family History: Completed stroke 19 MOTHER Diabetes mellitus 19 FATHER Allergies and Home Medications Allergies Coded Allergies: No Known Drug Allergies (Unverified , 11/03/09) Home Medications No Active Prescriptions or Reported Meds Patient Home Medication List Home Medication List Reviewed: Yes Physical Exam-Cardiology Physical Exam Vital Signs/I&O 05/20/18 05/20/18 05/20/18 05:24 09:51 09:59 Temp 99.0 Pulse 90 85 Resp 16 B/P (MAP) 96/65 (75) 90/60 (70) Pulse Ox 96 97 O2 Delivery Room Air Room Air 05/20/18 00:00 Intake Total 800 ml Balance 800 ml Capillary Refill : Constitutional: appears stated age, AAO x 3; No apparent distress; well- developed, well-nourished HEENT: PERRL; No normal ENT inspection, No TMs normal, No pharynx normal, No scleral icterus (R), No scleral icterus (L), No pale conjunctivae (R), No pale conjunctivae (L), No photophobia, No TM abnormal (R), No TM abnormal (L), No pharyngeal erythema, No tonsillar exudate, No other, No discharge, No EOMI; hearing is well preserved; No hard of hearing; oral hygience is good; No ulceration, No xanthelasmas are seen Neck: No non-tender, No full range of motion, No supple, No normal inspection, No carotid bruit, No limited range of motion, No lymphadenopathy (R), No lymphadenopathy (L), No tender lateral, No tender midline, No thyromegaly, No other; carotid pulses are 2 + bilaterally; No with good upstrokes Respiratory: No accessory muscle use, No respiratory distress, No chest tender , No chest expansion is symmetric; chest is bilaterally symmetric; No lungs clear to percussion; lungs clear to auscultation; No crackles, No rhonchi, No rales, No stridor, No wheezing, No pleural rub, No other Cardiovascular: regular rate-rhythm; No irregularly irregular, No extra beats, No parasternal heave is noted, No JVD, No edema, No bradycardia, No tachycardia , No point of maximal impulse, No cardiac thrills are palpable; S1 and S2; No gallop/S3, No gallop/S4, No diastolic murmur, No systolic murmur, No friction rub, No click, No other Gastrointestinal: No tender, No soft, No round, No distended, No pulsatile mass , No organomegaly, No guarding, No rebound, No tenderness, No hernia, No mass, No audible bowel sounds, No abnormal bowel sounds, No abdominal bruits, No spleenomegaly, No other Rectal: deferred Extremities: No normal range of motion, No non-tender, No normal inspection, No pedal edema, No calf tenderness, No normal capillary refill, No pelvis stable , No calf tenderness, No inflammation, No pedal edema, No slow capillary refill , No swelling, No other, No abrasion, No clubbing, No cyanosis, No ecchymosis, No laceration, No no lower extremity edema bilateral, No significant edema, No tenderness, No wound Neurologic/Psychiatric: alert, normal mood/affect, oriented x 3, aphasia, motor weakness, power is 5/5 both on sides Skin: No normal color, No warm/dry, No cyanosis, No cool, No diaphoresis, No damp, No ecchymosis, No jaundice, No mottled, No pallor, No rash, No tattoos/ piercings, No ulcerations, No rash on exposed areas, No ulcerations on exposed areas, No other Data Review Labs Laboratory Tests 05/19/18 15:25: Glucometer 216H 05/19/18 23:08: Glucometer 232H 05/20/18 05:17: Prothrombin Time 14.9H, INR Comment 1.2 05/20/18 05:18: Glucometer 256H 05/20/18 10:59: Glucometer 196H ECG Impression ECG Initial ECG Rhythm: Normal Sinus A/P-Cardiology Assessment/Admission Diagnosis CVA, CAD, Cardiomyopathy Plan Patient is admitted for inpatient rehabilitation due to recent stroke. Patient has chronic total occlusion of an LAD with unsuccessful PCI recently. Continue medical therapy. Cardiomyopathy: Lisinopril and metoprolol, however limited by hypotension for which we had to hold both lisinopril and metoprolol. Thank you for your consultation. Please call me if you have any questions. Fadumo Hassan MD, FACP, FACC, FSCAI, FHRS, CCDS Interventional Cardiology Cardiac Electrophysiology Vascular Medicine and Endovascular Interventions Clinical Quality Measures DVT/VTE Risk/Contraindication: Risk Factor Score Per Nursin RFS Level Per Nursing on Admit: 4+=Very High Donavan HASSAN MD May 19, 2018 11:43
--- NOTE | 2018-05-19 12:44 | ST Cognitive Linguistic Eval ---
Speech Evaluation-General Medical Diagnosis CVA with left hemiparesis Onset Date: May 05, 2018 Therapy Diagnosis Therapy Diagnosis: APHASIA (R47.01) Precautions Precautions: Fall Precautions/Isolations: Fall Prevention, Standard Precautions, Pressure Ulcer Referral Referring Physician: ROJAS Reason for Referral: Evaluation/Treatment Medical History Pertinent Medical History: DM Reviewed History: Yes Social History Current Living Status: Children Speech PLF-Current Status Subjective THE PATIENT DISPLAYED INCREASED AGITATION DURING THIS JAVASCRIPT PROGRAMMER'S EVALUATION, REQUIRING REPOSITIONING IN HIS CHAIR. Language Eval: Auditory Comprehends Simple Yes/No Ques: Functional Indent/Objects Multiple [place]: Mild Ident/Pics in Multiple [place]: Mild Follows 1-Step Commands: Functional Follows Complex Directions: Mild Follows General Conversations: Functional Language Eval: Verbal Language Completes Spontaneous Greeting: Functional Produces Auto, Serial Info: Functional Word Finding: Mild Requests Basic Needs: Functional States Basic Personal Info: Functional Expresses Complex Ideas: Mild Language Evaluation: Writing Copies/Traces: Mild Objective Cognitive Domain Attention: Moderate Memory: Moderate Problem Solving: Moderate Executive Functions: Moderate Visuospatial Skills: Mild Composite Severity Rating: Moderate Clock Drawing Severity Rating: WNL Objective Formal/Standardized Tests THE PATIENT WAS GIVEN THE COGNITIVE LINGUISTIC QUICK TEST AT THE TIME OF HIS ASSESSMENT TODAY. Results THE PATIENT DISPLAYED DIFFICULTIES MILD TO MODERATE DIFFICULTIES IN ALL DOMAIN AREA OF THE CLQT ASSESSMENT. Oral Motor/Speech Production DYSARTHRIA AND MARKED LEFT-SIDED WEAKNESS. Communication/Social Cognition Comprehension: 5 Expression: 6 Social Interaction: 4 Problem Solvin Memory: 6 Speech Patient Assess Expression of Ideas/Wants: Exhibits (3) Understanding Verbal Content: Usually Understands (3) Brief Interview-Mental Status: Yes Repetition of Three Words: Three (3) Temporal Orientation: Year: Correct (3) Temporal Orientation: Month: Accurate within 5 days(2) Temporal Orientation: Day: Correct (1) Recall : Wear to say "Sock": Yes, no cue required (2) Recall : Color: Yes, no cue required (2) Recall : Bed: Yes, no cue required (2) Memory/Recall Ability: Current season, Location of own room, That he or she is in a hsp/hsp unit Speech Short Term Goals Short Term Goals Short Term Goals 1) THE PATIENT WILL BE ABLE TO CORRECTLY WRITE PERSONAL INFORMATION ON A FORM WITHOUT CUES IN 4/5 OPPORTUNITIES. 2) GIVEN DIVERGENT NAMING TASKS, THE PATIENT WILL IMPROVE OVERALL MENTAL QUICKNESS SCORES TO AT LEAST 15 ITEMS WITHIN 60 SECONDS. 3) GIVEN ALTERNATING ATTENTION TASKS, THE PATIENT WILL BE ABLE TO MOVE FROM TASKS TO COMPLETE WRITING, DRAWING OR VERBAL ACTIVITIES WITHOUT PROMPTS IN AT LEAST 4/5 TASKS. 4) THE PATIENT WILL BE ABLE TO EFFECTIVELY RECALL STRATEGIES FOR SAFETY WITHOUT PROMPTS WITH 80% RETURN. Time Frame-ST WEEKS Comprehension: 6 Expression: 6 Social Interaction: 6 Problem Solvin Memory: 6 Speech Group Home Goals Group Home Goals 1) THE PATIENT WILL BE ABLE TO COMPLETE CONVERSATIONAL DISCOURSE FOR UP TO 5 TURNS WITHOUT PROMPTS. 2) THE PATIENT WILL BE ABLE TO ANSWER QUESTIONS WITH 90% RETURN FOLLOWING READING MATERIAL (UP TO A 500 WORD ARTICLE) USING QUESTIONING BY THIS JAVASCRIPT PROGRAMMER AND/ OR ANSWERING WRITTEN QUESTIONS. 3) THE PATIENT WILL IDENTIFY PROBLEM SOLVING TASK ACTIVITIES WITH AT LEAST 80% RETURN WITHOUT PROMPTS USING SELF-TALK AND/OR ANSWERING QUESTIONS. Time Frame: 3 WEEKS Comprehension: 7 Expression: 7 Social Interaction: 6 Problem Solvin Memory: 7 Speech-Plan Patient/Family Goals Patient/Family Goals: TO GET HOME. Treatment Plan Speech Therapy Treatment Plan: Continue Plan of Care 2010-0717 1REGIS PATIENT PARTICIPATED IN REHABILITATION EVALUATION. Frequency: 5 times per week Estimated Hrs Per Day: .5 hour per day Rehab Potential: Fair Barriers to Learning: AGITATION, REDUCED AWARENESS OF ERRORS Pt/Family Agrees to Plan: Yes Safety Risks/Education Teaching Recipient: Patient Teaching Methods: Discussion Response to Teaching: Verbalize Understanding Discharge Recommendations Home w/ Family Support Time Speech Therapy Time In: 11:40 Speech Therapy Time Out: 12:20 Total Billed Time: 40 Billed Treatment Time 1REGIS GENTRY ST May 19, 2018 12:44
--- NOTE | 2018-05-19 13:59 | Physical Therapy Daily Note ---
PT Daily Note-Current Subjective pt in recliner pre tx, agrees to PT, no pain to report, pt toileted for BM during tx Appearance pt on toilet post tx for BM, nurse notified Mental Status Patient Orientation: Person, Place, Time Transfers Functional [place] Measure 0=Not Assessed/NA 4=Minimal Assistance 1=Total Assistance 5=Supervision or Setup 2=Maximal Assistance 6=Modified [place] 3=Moderate Assistance 7=Complete IndependenceIRFPAI Quality Coding Scale 6 Independent with activity with or without an assistive device 5 Patient requires set up or clean up by helper. Patient completes activity by themselves 4 Supervision or touching assist (CGA). [place] provide cues , steadying assist 3 The helper provides less than half the effort to complete the activity 2 The helper provides more than half the effort to complete the activity 1 Dependent. The helper does all the effort to complete an activity 7 Patient refused to complete or attempt activity 9 The patient did not perform the activity before the current illness or injury 88 Not attempted due to Medical conditions or safety concerns Transfers (B, C, W/C) (FIM): 4 Sit to/from Stand: 4 sit<->stand CGA, cues needed for hand placement Weight Bearing Right Lower Extremity: Right Full Weight Bearing Left Lower Extremity: Left Full Weight Bearing Gait Training Does the Patient Walk?: Yes Gait (FIM): 4 Distance: 200'x3, 100' Gait Level of Assist: 4 Gait Persons Needed: 1 Gait Assistive Device: Handheld Assist pt ambulates in hallway w/ handheld/CGA assist, pt cued to walk as fast as he can up and down hallway pt ambulates around rehab unit, navigating various obstacles (tables, chairs, etc) w/ emphasis on turning left and seeing objects as he goes around them 200' x2 Exercises Seated Therapy Exercises: Ankle pumps, Long arc quads, Hip flexion Seated Reps: 20 NuStep Minutes: 15 NuStep Workload: 5 Treatments gait training, endurance training Assessment Current Status: Fair Progress improved navigation and awareness around obstacles on his left side, improved stability w/ gait, mostly handheld/CGA assist w/o AD PT Short Term Goals Short Term Goals Time Frame: May 25, 2018 Transfers (B,C,W/C) (FIM): 4 Gait (FIM): 4 Gait Distance Comment: 150' Gait Level of Assist: 4 Gait Assistive Device: Cane Large Base Quad PT Shelter Goals Shelter Goals PT Waterproof Bag Cutting Machine Operator Goals Time Frame: Jun 08, 2018 Transfers (B,C,W/C) (FIM): 5 Sit to Lying (QC): 4 Lying-Sitting on Side/Bed(QC): 4 Sit to Stand (QC): 4 Rollin Roll Left to Right (QC): 4 Chair/Hot-nd-Advnw Xfer(QC): 4 Car Transfer (QC): 4 Does the Patient Walk: Yes Gait (FIM): 5 Distance: 200' Walk 10 feet (QC): 4 Walk 10ft-Uneven Surface(QC): 4 Walk 50ft with 2 Turns (QC): 4 Walk 150 ft (QC): 4 Gait Level of Assist: 5 Gait Assistive Device: Cane Large Base Quad, Walker Deon Stairs (FIM): 2 # of Steps: 8 1 Step (curb) (QC): 3 4 Steps (QC): 3 Stairs Level Of Assist: 4 Picking up an Object (QC): 4 PT Plan Problem List Problem List: Activity Tolerance, Functional Strength, Safety, Balance, Gait, Transfer, Bed Mobility Treatment/Plan Treatment Plan: Continue Plan of Care Treatment Plan: Bed Mobility, Concurrent Therapy, Education, Functional Activity Radha, Functional Strength, Group Therapy, Gait, Safety, Therapeutic Exercise, Transfers Treatment Duration: Jun 08, 2018 Frequency: At least 5 of 7 days/Wk (IRF) Estimated Hrs Per Day: 1.5 hours per day Patient and/or Family Agrees t: Yes Safety Risks/Education Patient Education: Gait Training, Transfer Techniques, Correct Positioning, Disease Process, Safety Issues Teaching Recipient: Patient Teaching Methods: Demonstration, Discussion Response to Teaching: Reinforcement Needed pt going to football game tonjasen, pt educated that he is going in a W/C and needs to stay in the W/C Time/GCodes Time In: 1300 Time Out: 1400 Total Billed Treatment Time: 60 Total Billed Treatment 1 visit GT 30' FA 15' EX 15' ASHANTI DENNY PT May 19, 2018 13:59
[2018-05-19] MEDS: inSUlin DETERMIR 1 UNIT/0.01 ML (LEVEMIR) CHARGE PER UNIT SQ SCH (14:06)
--- NOTE | 2018-05-19 14:32 | Occupational Ther Daily Note ---
OT Current Status-Daily Note Subjective Pt sitting in chair, agrees to treatment. Mental Status/Objective Functional [place] Measure 0=Not Assessed/NA 4=Minimal Assistance 1=Total Assistance 5=Supervision or Setup 2=Maximal Assistance 6=Modified [place] 3=Moderate Assistance 7=Complete [place] ADL-Treatment Functional [place] Measure 0=Not Assessed/NA 4=Minimal Assistance 1=Total Assistance 5=Supervision or Setup 2=Maximal Assistance 6=Modified [place] 3=Moderate Assistance 7=Complete IndependenceIRFPAI Quality Coding Scale 6 Independent with activity with or without an assistive device 5 Patient requires set up or clean up by helper. Patient completes activity by themselves 4 Supervision or touching assist (CGA). [place] provide cues , steadying assist 3 The helper provides less than half the effort to complete the activity 2 The helper provides more than half the effort to complete the activity 1 Dependent. The helper does all the effort to complete an activity 7 Patient refused to complete or attempt activity 9 The patient did not perform the activity before the current illness or injury 88 Not attempted due to Medical conditions or safety concerns Other Treatment Pt sit to stand with min assist. Gait to therapy gym with hand held assist with minimal assistance for balance. Pt completed UE of stacking cones to promote increased grasp/release and UE ROM. Pt able to grasp and stack 8 cones with left hand with increased time. Pt has some difficulty with task secondary to decreased shoulder flexion, but is able to complete with minimal assistance. Pt completed peg activity with left hand to increase coordination/manipulation skills. Pt able to pickle processor large pegs using gross grasp. Pt attempts to place pegs into pegboard, but is unable to complete task. Pt performed sit to stand x5 trials to increase strength needed for transfers. Pt requires CGA to min assist for balance during sit to stand. Pt sitting in chair with needs met after session, chair alarm in place. OT Short Term Goals Short Term Goals Time Frame: Jun 01, 2018 Eating(FIM): 5 Grooming(FIM): 5 Bathing(FIM): 4 Upper Body Dressing(FIM): 4 Lower Body Dressing(FIM): 4 Toileting(FIM): 4 Transfers (B,C,W/C) (FIM): 4 Toilet/Commode Transfer(FIM): 4 Shower Transfer(FIM): 4 Comprehension(FIM): 6 Expression(FIM): 6 Social Interaction(FIM): 6 Problem Solving(FIM): 6 Memory(FIM): 6 Additional Short Term Goals: 1-Demonstrate ADL Tasks, 2-Verbalize Understanding , 3-ImproveStrength/Radha 1=Demonstrate adherence to instructed precautions during ADL tasks. 2=Patient will verbalize/demonstrate understanding of assistive devices/ modifications for ADL. 3=Patient will improve strength/tolerance for activity to enable patient to perform ADL's. OT Filtration Plant Operator Goals Mcc Goals Time Frame: Jun 15, 2018 Eating (FIM): 6 Eating (QC): 6 Groomin Oral Hygiene (QC): 6 Bathing(FIM): 5 Shower/Bathe Self (QC): 5 Upper Body Dressing(FIM): 6 Upper Body Dressing (QC): 6 Lower Body Dressing(FIM): 5 Lower Body Dressing (QC): 5 On/Off Footwear (QC): 5 Toileting(FIM): 6 Toileting Hygiene (QC): 6 Transfers (B,C,W/C) (FIM): 6 Toilet/Commode Transfer(FIM): 6 Toilet/Commode Transfer (QC): 6 Shower Transfer(FIM): 5 Comprehension(FIM): 7 Expression (FIM): 7 Social Interaction(FIM): 6 Problem Solving(FIM): 6 Memory(FIM): 7 Additional Goals: 1-Demonstrate ADL Tasks, 2-Verbalize Understanding, 3- ImproveStrength/Radha 1=Demonstrate adherence to instructed precautions during ADL tasks. 2=Patient will verbalize/demonstrate understanding of assistive devices/ modifications for ADL. 3=Patient will improve strength/tolerance for activity to enable patient to perform ADL's. OT Education/Plan Discharge Recommendations Plan/Recommendations: Continue POC Treatment Plan/Plan of Care Patient would benefit from OT for education, treatment and training to promote independence in ADL's, mobility, safety and/or upper extremity function for ADL' s. Plan of Care: ADL Retraining, Functional Mobility, Group Exercise/Act as Ind, UE Funct Exercise/Act Treatment Duration: Jun 15, 2018 Frequency: At least 5 of 7 days/Wk (IRF) Estimated Hrs Per Day: 1.5 hours per day Agreement: Yes Rehab Potential: Fair Time/GCodes Start Time: 14:00 Stop Time: 14:25 Total Time Billed (hr/min): 25 Billed Treatment Time 1 visit, EXx2(25minutes) SABRA GELLER OT May 19, 2018 14:32
--- NOTE | 2018-05-19 14:47 | PM&R Post Admission Assessment ---
Post Admission Physician Asses Date seen by provider: May 18, 2018 Time seen by provider: 15:00 The preadmission screen agrees with the post admission assessment that the patient is a good candidate for inpatient rehabilitation. The patient will have a comprehensive program of inpatient rehabilitation with a goal of maximizing level of functional independence prior to discharge home with family. The patient will have PT/OT ninety minutes per day, each discipline, five days a weekfor 14 days for gait, strengthening, conditioning, balance, ADLs, any patient/family/caregiver training as necessary. Speech therapy to do cognitive assessment and treat as indicated. Rehabilitation nursing to assist with bowel, bladder, skin, wound care, medication administration, pain management. Senior Systems Programmer to assist with discharge planning, community reentry. SCD's Coumadin and Lovenox for DVT prophylaxis. He appears to be well motivated to participate in three hours of therapy a day. He should be able to tolerate three hours of therapy a day from a medical standpoint. He should benefit from the three hours of therapy a day. He has a reasonable discharge plan, reasonable discharge rehabilitation goals and a supportive family. He has various comorbidities that need to be closely monitored with medications and treatments adjusted on a daily basis as needed. These include: CAD DM Chronic anticoagulation Barriers to discharge for this patient who had been independent prior to this are for him to be modified independent to supervision for ADLs and mobility skills prior to discharge home with family, so as to lessen the burden of the caregivers. Risks for this patient include: 1. Fall 2. Fracture 3. DVT 4. Pulmonary embolism 5. Wound infection 6. Skin breakdown 7. Contractures 8. Poorly controlled pain 9. Urinary retention 10. UTI 11. Respiratory infection 12. Aspiration 13. Poorly controlled DM 14.Nontherapeutic INR 15.Recurrent angina Estimated Length of Stay: 14 days Prognosis: Rehab prognosis appears good for goal of discharge home with family modified independent to supervision for ADLs and mobility skills. Date Identified: May 19, 2018 Time Identified: 14:45 Action Plan to Resolve CSMI: Adjust coumadin as needed for therapeutic INR General: Alert, Cooperative, No Acute Distress HEENT: Other (dysarthria) Neck: Supple, No JVD Lungs: Clear to Auscultation Heart: Regular Rate Abdomen: Normal Bowel Sounds, Soft, No Tenderness Extremities: No Edema Neuro: Other (Left HP and dysarthria) HARESH XIE MD May 19, 2018 14:47
[2018-05-19 15:51] VITALS: BP 94/66
[2018-05-19] MEDS: warFARin 5 MG (COUMADIN) TAB PO SCH (16:52)
[2018-05-19] MEDS ORDERED: MELATONIN 3 MG TABLET ONE (23:17)
[2018-05-19] MEDS: MELATONIN 3 MG TABLET PO SCH (23:22)
[2018-05-20 05:24] VITALS: BP 96/65
[2018-05-20 06:14] LABS: INR 1.2 (0.8-1.4); PROTHROMBIN TIME PATIENT 14.9 SEC (12.2-14.7)
[2018-05-20] MEDS: inSUlin ASPART (NovoLOG) 1 UNIT/0.01 ML (CHARGE PER UNIT) SC SCH ×3 (07:01→17:57)
[2018-05-20] MEDS: THIAMINE 100 MG (VITAMIN B-1) TAB PO SCH (07:01)
--- NOTE | 2018-05-20 09:05 | Physical Therapy Daily Note ---
PT Daily Note-Current Subjective Patient in bed pre tx, agrees to PT, has no complaints of pain. Will be co- treating with OT hat parts cutter machine for higher level balance activities and ADL training. Appearance Patient in therapy gym post tx to finish up with OT. Mental Status Patient Orientation: Person, Place, Situation Transfers Functional [place] Measure 0=Not Assessed/NA 4=Minimal Assistance 1=Total Assistance 5=Supervision or Setup 2=Maximal Assistance 6=Modified [place] 3=Moderate Assistance 7=Complete IndependenceIRFPAI Quality Coding Scale 6 Independent with activity with or without an assistive device 5 Patient requires set up or clean up by helper. Patient completes activity by themselves 4 Supervision or touching assist (CGA). [place] provide cues , steadying assist 3 The helper provides less than half the effort to complete the activity 2 The helper provides more than half the effort to complete the activity 1 Dependent. The helper does all the effort to complete an activity 7 Patient refused to complete or attempt activity 9 The patient did not perform the activity before the current illness or injury 88 Not attempted due to Medical conditions or safety concerns Transfers (B, C, W/C) (FIM): 4 Scootin Rollin Supine to/from Sit: 5 Sit to/from Stand: 4 Patient has quite a bit of difficulty going from supine to sit but is able to do so without assist from therapist other than cues for positioning. Weight Bearing Right Lower Extremity: Right Full Weight Bearing Left Lower Extremity: Left Full Weight Bearing Gait Training Gait (FIM): 4 Distance: 150', 200' Gait Level of Assist: 4 Gait Persons Needed: 1 Gait Assistive Device: Walker Deon Patient ambulated the first time with a hemiwalker with CGA, he does lean to the left but no LOB. The second time he ambulated in the hallway with CAGER OPERATOR x2 and was instructed to ambulate as fast as he can to work on balance and weight shifting. Exercises LAQ alternating for 5 min Neuromuscular balance activities: hitting balloon, catching and kicking beachball, reaching and trunk movement during ADL's Treatments bed mobility and transfers, ambulation, balance activities, AROM, patient was toileted once for a BM Assessment Current Status: Fair Progress improving general mobility and balance PT Short Term Goals Short Term Goals Time Frame: May 25, 2018 Transfers (B,C,W/C) (FIM): 4 Gait (FIM): 4 Gait Distance Comment: 150' Gait Level of Assist: 4 Gait Assistive Device: Cane Large Base Quad PT Alf Goals Refrigeration [place] Goals PT Refrigeration [place] Goals Time Frame: Jun 08, 2018 Transfers (B,C,W/C) (FIM): 5 Sit to Lying (QC): 4 Lying-Sitting on Side/Bed(QC): 4 Sit to Stand (QC): 4 Rollin Roll Left to Right (QC): 4 Chair/Lei-sw-Mlzsl Xfer(QC): 4 Car Transfer (QC): 4 Does the Patient Walk: Yes Gait (FIM): 5 Distance: 200' Walk 10 feet (QC): 4 Walk 10ft-Uneven Surface(QC): 4 Walk 50ft with 2 Turns (QC): 4 Walk 150 ft (QC): 4 Gait Level of Assist: 5 Gait Assistive Device: Cane Large Base Quad, Walker Deon Stairs (FIM): 2 # of Steps: 8 1 Step (curb) (QC): 3 4 Steps (QC): 3 Stairs Level Of Assist: 4 Picking up an Object (QC): 4 PT Plan Problem List Problem List: Activity Tolerance, Functional Strength, Safety, Balance, Gait, Transfer, Bed Mobility, ROM Treatment/Plan Treatment Plan: Continue Plan of Care Treatment Plan: Bed Mobility, Concurrent Therapy, Education, Functional Activity Radha, Functional Strength, Group Therapy, Gait, Safety, Therapeutic Exercise, Transfers Treatment Duration: Jun 08, 2018 Frequency: At least 5 of 7 days/Wk (IRF) Estimated Hrs Per Day: 1.5 hours per day Patient and/or Family Agrees t: Yes Safety Risks/Education Patient Education: Gait Training, Transfer Techniques, Correct Positioning, Safety Issues Teaching Recipient: Patient Teaching Methods: Demonstration, Discussion Response to Teaching: Reinforcement Needed Time/GCodes Time In: 0800 Time Out: 899 Total Billed Treatment Time: 60 Total Billed Treatment 1 visit FA 10' GT 15' NM 35' PT worked on ambulation, transfers, bed mobility, AROM, and balance during balance activites and ADL's. OT worked on ADL's, balance activities, and UE positioning during functional mobility. PT and OT co-treated from [id number]. ASHANTI DENNY PT May 20, 2018 09:05
--- NOTE | 2018-05-20 09:32 | Occupational Ther Daily Note ---
OT Current Status-Daily Note Subjective No pain reported. Appearance Pt. is up with PT. Agrees to work with OT as well. Mental Status/Objective Patient Orientation: Person, Place Functional [place] Measure 0=Not Assessed/NA 4=Minimal Assistance 1=Total Assistance 5=Supervision or Setup 2=Maximal Assistance 6=Modified [place] 3=Moderate Assistance 7=Complete [place] ADL-Treatment Functional [place] Measure 0=Not Assessed/NA 4=Minimal Assistance 1=Total Assistance 5=Supervision or Setup 2=Maximal Assistance 6=Modified [place] 3=Moderate Assistance 7=Complete IndependenceIRFPAI Quality Coding Scale 6 Independent with activity with or without an assistive device 5 Patient requires set up or clean up by helper. Patient completes activity by themselves 4 Supervision or touching assist (CGA). [place] provide cues , steadying assist 3 The helper provides less than half the effort to complete the activity 2 The helper provides more than half the effort to complete the activity 1 Dependent. The helper does all the effort to complete an activity 7 Patient refused to complete or attempt activity 9 The patient did not perform the activity before the current illness or injury 88 Not attempted due to Medical conditions or safety concerns Grooming (FIM): 4 (Pt. requires CGA in stance to brush teeth at sink.) Oral Hygiene (QC): 4 Upper Body (FIM): 3 (Pt. practiced shirt. Doffed with SBA but required multiple cues, time, and mod assist overall to don shirt. Pt. consistently has difficulty attempting to don left UE first.) Upper Body Dressing (QC): 3 Lower Body Dressing (FIM): 3 (Pt. has difficulty snapping and zipping shorts after using toilet. Pt. also practices shoes in which he is able to doff shoes. OT put elastic laces in shoes. Pt. has difficulty donning shoes with elastic laces. Requires mod assist with this.) Lower Body Dressing (QC): 3 On/Off Footwear (QC): 3 Toileting (FIM): 4 (Pt. able to cleanse self after BM, and pull pants up most of way. Requires assistance to pulling machine operator hips and fasten.) Toileting Hygiene (QC): 4 Transfers (B, C, W/C) (FIM): 4 (Min assist in stance, especially as he fatigues.) Toilet/Commode Transfer (FIM): 4 Toilet Transfer (QC): 4 Other Treatment OT/PT completed partial co-treat in order to initiate more skilled balance activities. Pt. stood with PT without assistive device while OT engaged left UE in balloon bat activity. Pt. is slow to respond with batting, but is able to lift left UE to approximately 50 degrees of shoulder flexion. Engaged pt. in bilateral coordination and integration task with having him stand to toss ball back and forth. Also had him attempt to transfer beach ball from one hand to the other. OT placed mirror in front of pt. and engaged him in balance activities at bar. Worked on weight shifting, side stepping, sit-stands, and marching in place. PT gave pt. cane and OT assisted pt. back to room. Stood at sink to brush teeth with CGA. All needs met in room. Education OT Patient Education: Energy conservation, Modified ADL techniques, Progress toward Goal/Update tx plan, Purpose of tx/functional activities, Reviewed precautions, Rehab process, Transfer techniques Teaching Recipient: Patient Teaching Methods: Demonstration, Discussion Response to Teaching: Verbalize Understanding, Return Demonstration OT Short Term Goals Short Term Goals Time Frame: Jun 01, 2018 Eating(FIM): 5 Grooming(FIM): 5 Bathing(FIM): 4 Upper Body Dressing(FIM): 4 Lower Body Dressing(FIM): 4 Toileting(FIM): 4 Transfers (B,C,W/C) (FIM): 4 Toilet/Commode Transfer(FIM): 4 Shower Transfer(FIM): 4 Comprehension(FIM): 6 Expression(FIM): 6 Social Interaction(FIM): 6 Problem Solving(FIM): 6 Memory(FIM): 6 Additional Short Term Goals: 1-Demonstrate ADL Tasks, 2-Verbalize Understanding , 3-ImproveStrength/Radha 1=Demonstrate adherence to instructed precautions during ADL tasks. 2=Patient will verbalize/demonstrate understanding of assistive devices/ modifications for ADL. 3=Patient will improve strength/tolerance for activity to enable patient to perform ADL's. OT Nursing Home Goals Nursing Home Goals Time Frame: Jun 15, 2018 Eating (FIM): 6 Eating (QC): 6 Groomin Oral Hygiene (QC): 6 Bathing(FIM): 5 Shower/Bathe Self (QC): 5 Upper Body Dressing(FIM): 6 Upper Body Dressing (QC): 6 Lower Body Dressing(FIM): 5 Lower Body Dressing (QC): 5 On/Off Footwear (QC): 5 Toileting(FIM): 6 Toileting Hygiene (QC): 6 Transfers (B,C,W/C) (FIM): 6 Toilet/Commode Transfer(FIM): 6 Toilet/Commode Transfer (QC): 6 Shower Transfer(FIM): 5 Comprehension(FIM): 7 Expression (FIM): 7 Social Interaction(FIM): 6 Problem Solving(FIM): 6 Memory(FIM): 7 Additional Goals: 1-Demonstrate ADL Tasks, 2-Verbalize Understanding, 3- ImproveStrength/Radha 1=Demonstrate adherence to instructed precautions during ADL tasks. 2=Patient will verbalize/demonstrate understanding of assistive devices/ modifications for ADL. 3=Patient will improve strength/tolerance for activity to enable patient to perform ADL's. OT Education/Plan Problem List/Assessment Assessment: Decreased Activ Tolerance, Decreased UE Strength, Dependent Transfers, Impaired Bed Mobility, Impaired Cognition, Impaired Coordination, Impaired Funct Balance, Impaired I ADL's, Impaired Self-Care Skills, Restricted Funct UE ROM Discharge Recommendations Plan/Recommendations: Continue POC Therapy D/C Recommendations: Home w/ Family Support, Occupational Therapy Home Care, Scheduled Assistance Comment Equipment to be determined closer to discharge. Treatment Plan/Plan of Care Treatment,Training & Education: Yes Patient would benefit from OT for education, treatment and training to promote independence in ADL's, mobility, safety and/or upper extremity function for ADL' s. Plan of Care: ADL Retraining, Functional Mobility, Group Exercise/Act as Ind, UE Funct Exercise/Act Treatment Duration: Jun 15, 2018 Frequency: At least 5 of 7 days/Wk (IRF) Estimated Hrs Per Day: 1.5 hours per day Agreement: Yes Rehab Potential: Fair Time/GCodes Start Time: 08:15 Stop Time: 09:15 Total Time Billed (hr/min): 60 Billed Treatment Time 1, ADL x 30minutes, FA x 30minutes Co-treat with PT [id number]. Please see above note for findings and goals. OT only [id number] JEREMIE RATLIFF OT May 20, 2018 09:32
[2018-05-20 09:51] VITALS: BP 90/60
[2018-05-20] MEDS: FLUoxetine HCL 20 MG (PROzac) CAP PO SCH (09:53)
[2018-05-20] MEDS: CLOPIDOGREL 75 MG (PLAVIX) TABLET PO SCH (09:53)
[2018-05-20] MEDS: ATORVASTATIN 80 MG (LIPITOR) TABLET PO SCH (09:53)
[2018-05-20] MEDS: VITAMIN D2 50,000 UNITS (1.25 MG) CAP PO SCH (09:53)
[2018-05-20] MEDS: ENOXAPARIN 80 MG/0.8 ML (LOVENOX) SYR SC SCH ×2 (09:54→20:00)
[2018-05-20] MEDS: DOCUSATE SODIUM 100 MG (COLACE) CAP PO SCH ×2 (09:54→20:00)
[2018-05-20] MEDS: SENNOSIDES 8.6 MG (SENOKOT) TAB PO SCH ×2 (09:55→20:00)
--- NOTE | 2018-05-20 14:09 | Cardiology Progress Note ---
Cardiology SOAP Progress Note Subjective: No cardiac complaints. Objective: I&O/Vital Signs 05/20/18 05/20/18 05/20/18 05:24 09:51 09:59 Temp 99.0 Pulse 90 85 Resp 16 B/P (MAP) 96/65 (75) 90/60 (70) Pulse Ox 96 97 O2 Delivery Room Air Room Air 05/20/18 00:00 Intake Total 800 ml Balance 800 ml Weight (Pounds): 170 Weight (Ounces): 0.0 Weight (Calculated Kilograms): 77.096190 Constitutional: appears stated age, AAO x 3; No apparent distress; well- developed, well-nourished Respiratory: No accessory muscle use, No respiratory distress, No chest tender , No chest expansion is symmetric; chest is bilaterally symmetric; No lungs clear to percussion; lungs clear to auscultation; No crackles, No rhonchi, No rales, No stridor, No wheezing, No pleural rub, No other Cardiovascular: regular rate-rhythm; No irregularly irregular, No extra beats, No parasternal heave is noted, No JVD, No edema, No bradycardia, No tachycardia , No point of maximal impulse, No cardiac thrills are palpable; S1 and S2; No gallop/S3, No gallop/S4, No diastolic murmur, No systolic murmur, No friction rub, No click, No other Gastrointestional: No tender, No soft, No round, No distended, No pulsatile mass, No organomegaly, No guarding, No rebound, No tenderness, No hernia, No mass, No audible bowel sounds, No abnormal bowel sounds, No abdominal bruits, No spleenomegaly, No other Extremities: No normal range of motion, No non-tender, No normal inspection, No pedal edema, No calf tenderness, No normal capillary refill, No pelvis stable , No calf tenderness, No inflammation, No pedal edema, No slow capillary refill , No swelling, No other, No abrasion, No clubbing, No cyanosis, No ecchymosis, No laceration, No no lower extremity edema bilateral, No significant edema, No tenderness, No wound Neurologic/Psychiatric: alert, normal mood/affect, oriented x 3, aphasia, motor weakness, power is 5/5 both on sides Skin: No normal color, No warm/dry, No cyanosis, No cool, No diaphoresis, No damp, No ecchymosis, No jaundice, No mottled, No pallor, No rash, No tattoos/ piercings, No ulcerations, No rash on exposed areas, No ulcerations on exposed areas, No other Results/Procedures: Labs Laboratory Tests 05/19/18 15:25: Glucometer 216H 05/19/18 23:08: Glucometer 232H 05/20/18 05:17: Prothrombin Time 14.9H, INR Comment 1.2 05/20/18 05:18: Glucometer 256H 05/20/18 10:59: Glucometer 196H A/P: Assessment/Dx: CVA, CAD, Cardiomyopathy Plan: Patient is admitted for inpatient rehabilitation due to recent stroke. Patient has chronic total occlusion of an LAD with unsuccessful PCI recently. Continue medical therapy. Cardiomyopathy: Lisinopril and metoprolol, however limited by hypotension for which we had to hold both lisinopril and metoprolol. Thank you for your consultation. Please call me if you have any questions. Fadumo Hassan MD, FACP, FACC, FSCAI, FHRS, CCDS Interventional Cardiology Cardiac Electrophysiology Vascular Medicine and Endovascular Interventions Donavan HASSAN MD May 20, 2018 14:09
[2018-05-20] MEDS: inSUlin DETERMIR 1 UNIT/0.01 ML (LEVEMIR) CHARGE PER UNIT SQ SCH (14:48)
[2018-05-20] MEDS: warFARin 5 MG (COUMADIN) TAB PO SCH (17:57)
[2018-05-20 18:05] VITALS: BP 91/60
[2018-05-20] MEDS: MELATONIN 3 MG TABLET PO SCH (20:00)
[2018-05-21 05:33] VITALS: BP_SYST 91; BP_SYST 94; BP_DIAS 60; BP_DIAS 67
[2018-05-21] MEDS: THIAMINE 100 MG (VITAMIN B-1) TAB PO SCH (06:09)
[2018-05-21 06:49] LABS: INR 1.1 (0.8-1.4); PROTHROMBIN TIME PATIENT 14.7 SEC (12.2-14.7)
[2018-05-21] MEDS: inSUlin ASPART (NovoLOG) 1 UNIT/0.01 ML (CHARGE PER UNIT) SC SCH ×3 (06:54→17:11)
[2018-05-21] MEDS: ATORVASTATIN 80 MG (LIPITOR) TABLET PO SCH (08:22)
[2018-05-21] MEDS: CLOPIDOGREL 75 MG (PLAVIX) TABLET PO SCH (08:22)
[2018-05-21] MEDS: SENNOSIDES 8.6 MG (SENOKOT) TAB PO SCH ×2 (08:23→20:41)
[2018-05-21] MEDS: FLUoxetine HCL 20 MG (PROzac) CAP PO SCH (08:23)
[2018-05-21] MEDS: DOCUSATE SODIUM 100 MG (COLACE) CAP PO SCH ×2 (08:25→20:40)
[2018-05-21] MEDS: ENOXAPARIN 80 MG/0.8 ML (LOVENOX) SYR SC SCH ×2 (08:25→20:37)
[2018-05-21] MEDS: inSUlin DETERMIR 1 UNIT/0.01 ML (LEVEMIR) CHARGE PER UNIT SQ SCH (14:03)
--- NOTE | 2018-05-21 14:24 | Cardiology Progress Note ---
Cardiology SOAP Progress Note Subjective: No cardiac complaints. Objective: I&O/Vital Signs 05/21/18 05:33 Temp 98.0 Pulse 92 Resp 20 B/P (MAP) 94/67 (76) Pulse Ox 98 O2 Delivery Room Air 05/21/18 00:00 Intake Total 740 ml Balance 740 ml Weight (Pounds): 170 Weight (Ounces): 0.0 Weight (Calculated Kilograms): 77.890061 Constitutional: appears stated age, AAO x 3; No apparent distress; well- developed, well-nourished Respiratory: No accessory muscle use, No respiratory distress, No chest tender , No chest expansion is symmetric; chest is bilaterally symmetric; No lungs clear to percussion; lungs clear to auscultation; No crackles, No rhonchi, No rales, No stridor, No wheezing, No pleural rub, No other Cardiovascular: regular rate-rhythm; No irregularly irregular, No extra beats, No parasternal heave is noted, No JVD, No edema, No bradycardia, No tachycardia , No point of maximal impulse, No cardiac thrills are palpable; S1 and S2; No gallop/S3, No gallop/S4, No diastolic murmur, No systolic murmur, No friction rub, No click, No other Gastrointestional: No tender, No soft, No round, No distended, No pulsatile mass, No organomegaly, No guarding, No rebound, No tenderness, No hernia, No mass, No audible bowel sounds, No abnormal bowel sounds, No abdominal bruits, No spleenomegaly, No other Extremities: No normal range of motion, No non-tender, No normal inspection, No pedal edema, No calf tenderness, No normal capillary refill, No pelvis stable , No calf tenderness, No inflammation, No pedal edema, No slow capillary refill , No swelling, No other, No abrasion, No clubbing, No cyanosis, No ecchymosis, No laceration, No no lower extremity edema bilateral, No significant edema, No tenderness, No wound Neurologic/Psychiatric: alert, normal mood/affect, oriented x 3, aphasia, motor weakness, power is 5/5 both on sides Skin: No normal color, No warm/dry, No cyanosis, No cool, No diaphoresis, No damp, No ecchymosis, No jaundice, No mottled, No pallor, No rash, No tattoos/ piercings, No ulcerations, No rash on exposed areas, No ulcerations on exposed areas, No other Results/Procedures: Labs Laboratory Tests 05/20/18 16:09: Glucometer 231H 05/21/18 04:25: Glucometer 133H 05/21/18 06:15: Prothrombin Time 14.7, INR Comment 1.1 05/21/18 11:36: Glucometer 160H A/P: Assessment/Dx: CVA, CAD, Cardiomyopathy Plan: Patient is admitted for inpatient rehabilitation due to recent stroke. Patient has chronic total occlusion of an LAD with unsuccessful PCI recently. Continue medical therapy. Cardiomyopathy: Lisinopril and metoprolol, however limited by hypotension for which we had to hold both lisinopril and metoprolol. Severe LV systolic dysfunction with an EF of 20 percent. Apical, anterior dyskinesis. Very likely the reason for oral anticoagulation. Currently on warfarin 5 mg daily. INR subtherapeutic at 1.1. Will increase to 7.5 mg of warfarin daily and recheck INR tomorrow. Primary prevention of sudden cardiac : Patient will very likely require LifeVest for primary prevention of sudden cardiac on discharge. I will defer that decision to Dr. Alvarado. Thank you for your consultation. Please call me if you have any questions. Fadumo Hassan MD, FACP, FACC, FSCAI, FHRS, CCDS Interventional Cardiology Cardiac Electrophysiology Vascular Medicine and Endovascular Interventions Donavan HASSAN MD May 21, 2018 2:24 pm
[2018-05-21 17:15] VITALS: BP 102/65
[2018-05-21] MEDS ORDERED: warFARin 7.5 MG (COUMADIN) TAB PO ONE (18:00)
[2018-05-21] MEDS: MELATONIN 3 MG TABLET PO SCH (20:37)
[2018-05-22 05:27] VITALS: BP 93/60
[2018-05-22 06:21] LABS: INR 1.2 (0.8-1.4); PROTHROMBIN TIME PATIENT 15.1 SEC (12.2-14.7)
[2018-05-22] MEDS: THIAMINE 100 MG (VITAMIN B-1) TAB PO SCH (06:44)
[2018-05-22] MEDS: inSUlin ASPART (NovoLOG) 1 UNIT/0.01 ML (CHARGE PER UNIT) SC SCH ×3 (06:44→17:36)
[2018-05-22] MEDS: DOCUSATE SODIUM 100 MG (COLACE) CAP PO SCH ×2 (07:55→20:39)
[2018-05-22] MEDS: SENNOSIDES 8.6 MG (SENOKOT) TAB PO SCH ×2 (07:55→20:39)
[2018-05-22] MEDS: FLUoxetine HCL 20 MG (PROzac) CAP PO SCH (08:00)
[2018-05-22] MEDS: ATORVASTATIN 80 MG (LIPITOR) TABLET PO SCH (08:00)
[2018-05-22] MEDS: CLOPIDOGREL 75 MG (PLAVIX) TABLET PO SCH (08:00)
[2018-05-22] MEDS: ENOXAPARIN 80 MG/0.8 ML (LOVENOX) SYR SC SCH ×2 (08:04→20:40)
--- NOTE | 2018-05-22 09:59 | Physical Therapy Daily Note ---
PT Daily Note-Current Subjective pt in common area pre tx, just finished w/ OT, no pain to report Appearance pt in bed post tx, w/ phone, call light, tray, all needs met Mental Status Patient Orientation: Normal For Age Transfers Functional [place] Measure 0=Not Assessed/NA 4=Minimal Assistance 1=Total Assistance 5=Supervision or Setup 2=Maximal Assistance 6=Modified [place] 3=Moderate Assistance 7=Complete IndependenceIRFPAI Quality Coding Scale 6 Independent with activity with or without an assistive device 5 Patient requires set up or clean up by helper. Patient completes activity by themselves 4 Supervision or touching assist (CGA). [place] provide cues , steadying assist 3 The helper provides less than half the effort to complete the activity 2 The helper provides more than half the effort to complete the activity 1 Dependent. The helper does all the effort to complete an activity 7 Patient refused to complete or attempt activity 9 The patient did not perform the activity before the current illness or injury 88 Not attempted due to Medical conditions or safety concerns Transfers (B, C, W/C) (FIM): 4 Supine to/from Sit: 5 Sit to/from Stand: 4 supine<->sit SBA, sit<->stand CGA for safety, floor transfer training, pt able to get from supine to kneeling over mat, rolls to right side w/ trunk on mat and feet on floor and then sits up to seated position, pt cued on positioning and sequencing Weight Bearing Right Lower Extremity: Right Full Weight Bearing Left Lower Extremity: Left Full Weight Bearing Gait Training Does the Patient Walk?: Yes Gait (FIM): 4 Distance: 250'x2, 150' Gait Level of Assist: 4 Gait Persons Needed: 1 Gait Assistive Device: Cane Single Point ambulation in hallway w/ handheld assist and then SPC w/ CGA 250' each, cues for pt to walk as fast as he can to improve gait speed and stride length, pt is steady w/ no LOB, but does still lean to the right side and has trendelenburg gait and flexed right knee Neuromuscular standing balance airex 1x20 marches, 2x60s CGA, pt leans heavily to L side various dynamic balance and coordination: heel-to-toe walking, stepping over an object, slalom cones, turning, walking backwards, 15min Treatments gait training, balance training, transfer training Assessment Current Status: Fair Progress pt able to ambulate using SPC w/ good stability, improving dynamic balance PT Short Term Goals Short Term Goals Time Frame: May 25, 2018 Transfers (B,C,W/C) (FIM): 4 Gait (FIM): 4 Gait Distance Comment: 150' Gait Level of Assist: 4 Gait Assistive Device: Cane Large Base Quad PT Mcc Goals Patient Safety Coordinator Goals PT Mcc Goals Time Frame: Jun 08, 2018 Transfers (B,C,W/C) (FIM): 5 Sit to Lying (QC): 4 Lying-Sitting on Side/Bed(QC): 4 Sit to Stand (QC): 4 Rollin Roll Left to Right (QC): 4 Chair/Mlj-nx-Ppreq Xfer(QC): 4 Car Transfer (QC): 4 Does the Patient Walk: Yes Gait (FIM): 5 Distance: 200' Walk 10 feet (QC): 4 Walk 10ft-Uneven Surface(QC): 4 Walk 50ft with 2 Turns (QC): 4 Walk 150 ft (QC): 4 Gait Level of Assist: 5 Gait Assistive Device: Cane Large Base Quad, Walker Deon Stairs (FIM): 2 # of Steps: 8 1 Step (curb) (QC): 3 4 Steps (QC): 3 Stairs Level Of Assist: 4 Picking up an Object (QC): 4 PT Plan Problem List Problem List: Activity Tolerance, Functional Strength, Safety, Balance, Gait, Transfer, Bed Mobility Treatment/Plan Treatment Plan: Continue Plan of Care Treatment Plan: Bed Mobility, Concurrent Therapy, Education, Functional Activity Radha, Functional Strength, Group Therapy, Gait, Safety, Therapeutic Exercise, Transfers Treatment Duration: Jun 08, 2018 Frequency: At least 5 of 7 days/Wk (IRF) Estimated Hrs Per Day: 1.5 hours per day Patient and/or Family Agrees t: Yes Safety Risks/Education Patient Education: Gait Training, Transfer Techniques, Correct Positioning, Safety Issues Teaching Recipient: Patient Teaching Methods: Demonstration, Discussion Response to Teaching: Reinforcement Needed Time/GCodes Time In: 0900 Time Out: 1000 Total Billed Treatment Time: 60 Total Billed Treatment 1 visit GT 25' NM 20' FA 15' ASHANTI DENNY PT May 22, 2018 09:58
--- NOTE | 2018-05-22 12:02 | Physical Therapy Daily Note ---
PT Daily Note-Current Subjective pt in bed pre tx, agrees to PT, no pain to report Appearance pt in recliner post tx, w/ phone, call light, tray, all needs met Mental Status Patient Orientation: Normal For Age Transfers Functional [place] Measure 0=Not Assessed/NA 4=Minimal Assistance 1=Total Assistance 5=Supervision or Setup 2=Maximal Assistance 6=Modified [place] 3=Moderate Assistance 7=Complete IndependenceIRFPAI Quality Coding Scale 6 Independent with activity with or without an assistive device 5 Patient requires set up or clean up by helper. Patient completes activity by themselves 4 Supervision or touching assist (CGA). [place] provide cues , steadying assist 3 The helper provides less than half the effort to complete the activity 2 The helper provides more than half the effort to complete the activity 1 Dependent. The helper does all the effort to complete an activity 7 Patient refused to complete or attempt activity 9 The patient did not perform the activity before the current illness or injury 88 Not attempted due to Medical conditions or safety concerns Transfers (B, C, W/C) (FIM): 4 Supine to/from Sit: 4 Sit to/from Stand: 4 supine<->sit [place] sitting up, sit<->stand CGA for safety Weight Bearing Right Lower Extremity: Right Full Weight Bearing Left Lower Extremity: Left Full Weight Bearing Gait Training Does the Patient Walk?: Yes Gait (FIM): 2 Distance (FIM): 0=993-84 ft Distance: 50'x2 Gait Level of Assist: 4 Gait Persons Needed: 1 Gait Assistive Device: Cane Single Point pt ambulates to/from gym w/ SPC, CGA Exercises NuStep Minutes: 25 NuStep Workload: 5 Treatments gait training, endurance training Assessment Current Status: Fair Progress improved endurance w/ increased time and distance on NuStep PT Short Term Goals Short Term Goals Time Frame: May 25, 2018 Transfers (B,C,W/C) (FIM): 4 Gait (FIM): 4 Gait Distance Comment: 150' Gait Level of Assist: 4 Gait Assistive Device: Cane Large Base Quad PT Senior Care Goals Project Superintendent Goals PT Project Superintendent Goals Time Frame: Jun 08, 2018 Transfers (B,C,W/C) (FIM): 5 Sit to Lying (QC): 4 Lying-Sitting on Side/Bed(QC): 4 Sit to Stand (QC): 4 Rollin Roll Left to Right (QC): 4 Chair/Aqt-ck-Zqlyf Xfer(QC): 4 Car Transfer (QC): 4 Does the Patient Walk: Yes Gait (FIM): 5 Distance: 200' Walk 10 feet (QC): 4 Walk 10ft-Uneven Surface(QC): 4 Walk 50ft with 2 Turns (QC): 4 Walk 150 ft (QC): 4 Gait Level of Assist: 5 Gait Assistive Device: Cane Large Base Quad, Walker Deon Stairs (FIM): 2 # of Steps: 8 1 Step (curb) (QC): 3 4 Steps (QC): 3 Stairs Level Of Assist: 4 Picking up an Object (QC): 4 PT Plan Problem List Problem List: Activity Tolerance, Functional Strength, Safety, Balance, Gait, Transfer, Bed Mobility Treatment/Plan Treatment Plan: Continue Plan of Care Treatment Plan: Bed Mobility, Concurrent Therapy, Education, Functional Activity Radha, Functional Strength, Group Therapy, Gait, Safety, Therapeutic Exercise, Transfers Treatment Duration: Jun 08, 2018 Frequency: At least 5 of 7 days/Wk (IRF) Estimated Hrs Per Day: 1.5 hours per day Patient and/or Family Agrees t: Yes Safety Risks/Education Patient Education: Gait Training, Transfer Techniques, Correct Positioning, Safety Issues Teaching Recipient: Patient Teaching Methods: Demonstration, Discussion Response to Teaching: Reinforcement Needed Time/GCodes Time In: 1130 Time Out: 1200 Total Billed Treatment Time: 30 Total Billed Treatment 1 visit EX 30' ASHANTI DENNY PT May 22, 2018 12:02
--- NOTE | 2018-05-22 13:28 | Occupational Ther Daily Note ---
OT Current Status-Daily Note Subjective No pain reported. Appearance Pt. in bed this a.m. Agrees to work with OT. Mental Status/Objective Patient Orientation: Person, Place Functional [place] Measure 0=Not Assessed/NA 4=Minimal Assistance 1=Total Assistance 5=Supervision or Setup 2=Maximal Assistance 6=Modified [place] 3=Moderate Assistance 7=Complete [place] ADL-Treatment Functional [place] Measure 0=Not Assessed/NA 4=Minimal Assistance 1=Total Assistance 5=Supervision or Setup 2=Maximal Assistance 6=Modified [place] 3=Moderate Assistance 7=Complete IndependenceIRFPAI Quality Coding Scale 6 Independent with activity with or without an assistive device 5 Patient requires set up or clean up by helper. Patient completes activity by themselves 4 Supervision or touching assist (CGA). [place] provide cues , steadying assist 3 The helper provides less than half the effort to complete the activity 2 The helper provides more than half the effort to complete the activity 1 Dependent. The helper does all the effort to complete an activity 7 Patient refused to complete or attempt activity 9 The patient did not perform the activity before the current illness or injury 88 Not attempted due to Medical conditions or safety concerns Grooming (FIM): 3 (Pt. requires mod assist overall to thoroughly shave face in wheelchair. Pt. unable to shave left side or under nose. Requires max cues. Pt. is able to brush teeth.) Oral Hygiene (QC): 4 Upper Body (FIM): 5 (Pt. requires max cues and SBA to don shirt, but is able to complete this task. Pt. demonstrates difficulty donning on left side.) Upper Body Dressing (QC): 4 Transfers (B, C, W/C) (FIM): 4 (Min assist supine-sit and min assist sit-stand and transfer to wheelchair.) Pt. transferred to wheelchair and OT took him to bathroom. Sat in wheelchair and completed grooming tasks at wheelchair level. Requires cues and increased time overall. Pt. went to therapy dining room in wheelchair after this task. Completed visual scanning task after with emphasis to find all items that are the same on the sheet. Pt. is not allowed to move the paper. Noted that pt. had difficulty finding all tasks on left side of sheet. Noted left sided neglect. All needs met. Education OT Patient Education: Correct positioning, Modified ADL techniques, Progress toward Goal/Update tx plan, Purpose of tx/functional activities, Reviewed precautions, Rehab process, Transfer techniques Teaching Recipient: Patient Teaching Methods: Demonstration Response to Teaching: Verbalize Understanding, Return Demonstration OT Short Term Goals Short Term Goals Time Frame: Jun 01, 2018 Eating(FIM): 5 Grooming(FIM): 5 Bathing(FIM): 4 Upper Body Dressing(FIM): 4 Lower Body Dressing(FIM): 4 Toileting(FIM): 4 Transfers (B,C,W/C) (FIM): 4 Toilet/Commode Transfer(FIM): 4 Shower Transfer(FIM): 4 Comprehension(FIM): 6 Expression(FIM): 6 Social Interaction(FIM): 6 Problem Solving(FIM): 6 Memory(FIM): 6 Additional Short Term Goals: 1-Demonstrate ADL Tasks, 2-Verbalize Understanding , 3-ImproveStrength/Radha 1=Demonstrate adherence to instructed precautions during ADL tasks. 2=Patient will verbalize/demonstrate understanding of assistive devices/ modifications for ADL. 3=Patient will improve strength/tolerance for activity to enable patient to perform ADL's. OT Detention Goals Logistics Loss Prevention Manager Goals Time Frame: Jun 15, 2018 Eating (FIM): 6 Eating (QC): 6 Groomin Oral Hygiene (QC): 6 Bathing(FIM): 5 Shower/Bathe Self (QC): 5 Upper Body Dressing(FIM): 6 Upper Body Dressing (QC): 6 Lower Body Dressing(FIM): 5 Lower Body Dressing (QC): 5 On/Off Footwear (QC): 5 Toileting(FIM): 6 Toileting Hygiene (QC): 6 Transfers (B,C,W/C) (FIM): 6 Toilet/Commode Transfer(FIM): 6 Toilet/Commode Transfer (QC): 6 Shower Transfer(FIM): 5 Comprehension(FIM): 7 Expression (FIM): 7 Social Interaction(FIM): 6 Problem Solving(FIM): 6 Memory(FIM): 7 Additional Goals: 1-Demonstrate ADL Tasks, 2-Verbalize Understanding, 3- ImproveStrength/Radha 1=Demonstrate adherence to instructed precautions during ADL tasks. 2=Patient will verbalize/demonstrate understanding of assistive devices/ modifications for ADL. 3=Patient will improve strength/tolerance for activity to enable patient to perform ADL's. OT Education/Plan Problem List/Assessment Assessment: Decreased Activ Tolerance, Decreased UE Strength, Dependent Transfers, Impaired Cognition, Impaired Coordination, Impaired I ADL's, Impaired Self-Care Skills Discharge Recommendations Plan/Recommendations: Continue POC Therapy D/C Recommendations: Home w/ Family Support, Occupational Therapy Home Care Treatment Plan/Plan of Care Treatment,Training & Education: Yes Patient would benefit from OT for education, treatment and training to promote independence in ADL's, mobility, safety and/or upper extremity function for ADL' s. Plan of Care: ADL Retraining, Functional Mobility, Group Exercise/Act as Ind, UE Funct Exercise/Act Treatment Duration: Jun 15, 2018 Frequency: At least 5 of 7 days/Wk (IRF) Estimated Hrs Per Day: 1.5 hours per day Agreement: Yes Rehab Potential: Fair Time/GCodes Start Time: 08:30 Stop Time: 09:00 Total Time Billed (hr/min): 30 Billed Treatment Time 1, ADL x 15minutes, FA x 15minutes JEREMIE RATLIFF OT May 22, 2018 13:28
[2018-05-22] MEDS: inSUlin DETERMIR 1 UNIT/0.01 ML (LEVEMIR) CHARGE PER UNIT SQ SCH (14:00)
--- NOTE | 2018-05-22 14:15 | Occupational Ther Daily Note ---
OT Current Status-Daily Note Subjective No pain reported. Appearance Pt. is up in chair. Agrees to work with OT. Has just finished with PT. Mental Status/Objective Patient Orientation: Person, Place Functional [place] Measure 0=Not Assessed/NA 4=Minimal Assistance 1=Total Assistance 5=Supervision or Setup 2=Maximal Assistance 6=Modified [place] 3=Moderate Assistance 7=Complete [place] ADL-Treatment Functional [place] Measure 0=Not Assessed/NA 4=Minimal Assistance 1=Total Assistance 5=Supervision or Setup 2=Maximal Assistance 6=Modified [place] 3=Moderate Assistance 7=Complete IndependenceIRFPAI Quality Coding Scale 6 Independent with activity with or without an assistive device 5 Patient requires set up or clean up by helper. Patient completes activity by themselves 4 Supervision or touching assist (CGA). [place] provide cues , steadying assist 3 The helper provides less than half the effort to complete the activity 2 The helper provides more than half the effort to complete the activity 1 Dependent. The helper does all the effort to complete an activity 7 Patient refused to complete or attempt activity 9 The patient did not perform the activity before the current illness or injury 88 Not attempted due to Medical conditions or safety concerns Bathing (FIM): 4 (Pt. requires CGA in stance in shower for safety and balance.) Shower/Bathe Self (QC): 4 Upper Body (FIM): 5 (SBA and constant cues for left side.) Upper Body Dressing (QC): 4 Lower Body Dressing (FIM): 3 (Pt. able to don underwear and shorts over feet with effort, as well as over hips with increased time and min assist. Pt. unable to don socks. Ot did this for him.) Lower Body Dressing (QC): 3 On/Off Footwear (QC): 3 (Pt. able to doff socks but unable to don them.) Transfers (B, C, W/C) (FIM): 4 (CGA for all ambulation with cane.) Shower Transfer(FIM): 4 Education OT Patient Education: Correct positioning, Modified ADL techniques, Progress toward Goal/Update tx plan, Purpose of tx/functional activities, Reviewed precautions, Rehab process, Transfer techniques, Use of adapted equipment Teaching Recipient: Patient Teaching Methods: Demonstration, Discussion Response to Teaching: Verbalize Understanding, Return Demonstration OT Short Term Goals Short Term Goals Time Frame: Jun 01, 2018 Eating(FIM): 5 Grooming(FIM): 5 Bathing(FIM): 4 Upper Body Dressing(FIM): 4 Lower Body Dressing(FIM): 4 Toileting(FIM): 4 Transfers (B,C,W/C) (FIM): 4 Toilet/Commode Transfer(FIM): 4 Shower Transfer(FIM): 4 Comprehension(FIM): 6 Expression(FIM): 6 Social Interaction(FIM): 6 Problem Solving(FIM): 6 Memory(FIM): 6 Additional Short Term Goals: 1-Demonstrate ADL Tasks, 2-Verbalize Understanding , 3-ImproveStrength/Radha 1=Demonstrate adherence to instructed precautions during ADL tasks. 2=Patient will verbalize/demonstrate understanding of assistive devices/ modifications for ADL. 3=Patient will improve strength/tolerance for activity to enable patient to perform ADL's. OT Care Home Goals Nail Tech Goals Time Frame: Jun 15, 2018 Eating (FIM): 6 Eating (QC): 6 Groomin Oral Hygiene (QC): 6 Bathing(FIM): 5 Shower/Bathe Self (QC): 5 Upper Body Dressing(FIM): 6 Upper Body Dressing (QC): 6 Lower Body Dressing(FIM): 5 Lower Body Dressing (QC): 5 On/Off Footwear (QC): 5 Toileting(FIM): 6 Toileting Hygiene (QC): 6 Transfers (B,C,W/C) (FIM): 6 Toilet/Commode Transfer(FIM): 6 Toilet/Commode Transfer (QC): 6 Shower Transfer(FIM): 5 Comprehension(FIM): 7 Expression (FIM): 7 Social Interaction(FIM): 6 Problem Solving(FIM): 6 Memory(FIM): 7 Additional Goals: 1-Demonstrate ADL Tasks, 2-Verbalize Understanding, 3- ImproveStrength/Radha 1=Demonstrate adherence to instructed precautions during ADL tasks. 2=Patient will verbalize/demonstrate understanding of assistive devices/ modifications for ADL. 3=Patient will improve strength/tolerance for activity to enable patient to perform ADL's. OT Education/Plan Problem List/Assessment Assessment: Decreased Activ Tolerance, Decreased UE Strength, Dependent Transfers, Impaired Bed Mobility, Impaired Cognition, Impaired Coordination, Impaired Funct Balance, Impaired I ADL's, Impaired Self-Care Skills, Restricted Funct UE ROM, Visual-Perceptual Deficit Discharge Recommendations Plan/Recommendations: Continue POC Therapy D/C Recommendations: Home w/ Family Support, Occupational Therapy Home Care, Scheduled Assistance Treatment Plan/Plan of Care Treatment,Training & Education: Yes Patient would benefit from OT for education, treatment and training to promote independence in ADL's, mobility, safety and/or upper extremity function for ADL' s. Plan of Care: ADL Retraining, Functional Mobility, Group Exercise/Act as Ind, UE Funct Exercise/Act Treatment Duration: Jun 15, 2018 Frequency: At least 5 of 7 days/Wk (IRF) Estimated Hrs Per Day: 1.5 hours per day Agreement: Yes Rehab Potential: Good Time/GCodes Start Time: 10:00 Stop Time: 10:45 Total Time Billed (hr/min): 45 Billed Treatment Time 1, ADL x 45minutes JEREMIE RATLIFF OT May 22, 2018 14:15
--- NOTE | 2018-05-22 14:52 | Cardiology Progress Note ---
Cardiology SOAP Progress Note Subjective: No cardiac complaints. Objective: I&O/Vital Signs 05/22/18 05/22/18 05:27 09:00 Temp 98.2 Pulse 91 Resp 18 B/P (MAP) 93/60 (71) Pulse Ox 95 O2 Delivery Room Air Room Air 05/21/18 23:59 Intake Total 720 ml Balance 720 ml Weight (Pounds): 168 Weight (Ounces): 12.8 Weight (Calculated Kilograms): 76.878400 Constitutional: appears stated age, AAO x 3; No apparent distress; well- developed, well-nourished Respiratory: No accessory muscle use, No respiratory distress, No chest tender , No chest expansion is symmetric; chest is bilaterally symmetric; No lungs clear to percussion; lungs clear to auscultation; No crackles, No rhonchi, No rales, No stridor, No wheezing, No pleural rub, No other Cardiovascular: regular rate-rhythm; No irregularly irregular, No extra beats, No parasternal heave is noted, No JVD, No edema, No bradycardia, No tachycardia , No point of maximal impulse, No cardiac thrills are palpable; S1 and S2; No gallop/S3, No gallop/S4, No diastolic murmur, No systolic murmur, No friction rub, No click, No other Gastrointestional: No tender, No soft, No round, No distended, No pulsatile mass, No organomegaly, No guarding, No rebound, No tenderness, No hernia, No mass, No audible bowel sounds, No abnormal bowel sounds, No abdominal bruits, No spleenomegaly, No other Extremities: No normal range of motion, No non-tender, No normal inspection, No pedal edema, No calf tenderness, No normal capillary refill, No pelvis stable , No calf tenderness, No inflammation, No pedal edema, No slow capillary refill , No swelling, No other, No abrasion, No clubbing, No cyanosis, No ecchymosis, No laceration, No no lower extremity edema bilateral, No significant edema, No tenderness, No wound Neurologic/Psychiatric: alert, normal mood/affect, oriented x 3, aphasia, motor weakness, power is 5/5 both on sides Skin: No normal color, No warm/dry, No cyanosis, No cool, No diaphoresis, No damp, No ecchymosis, No jaundice, No mottled, No pallor, No rash, No tattoos/ piercings, No ulcerations, No rash on exposed areas, No ulcerations on exposed areas, No other Results/Procedures: Labs Laboratory Tests 05/21/18 16:13: Glucometer 184H 05/21/18 20:46: Glucometer 167H 05/22/18 05:21: Prothrombin Time 15.1H, INR Comment 1.2 05/22/18 05:51: Glucometer 145H 05/22/18 11:14: Glucometer 226H A/P: Assessment/Dx: CVA, CAD, Cardiomyopathy Plan: Patient is admitted for inpatient rehabilitation due to recent stroke. Patient has chronic total occlusion of an LAD with unsuccessful PCI recently. Continue medical therapy. Cardiomyopathy: Lisinopril and metoprolol, however limited by hypotension for which we had to hold both lisinopril and metoprolol. Severe LV systolic dysfunction with an EF of 20 percent. Apical, anterior dyskinesis. Very likely the reason for oral anticoagulation. Currently on warfarin 5 mg daily. INR subtherapeutic at 1.2. Will increase to 7.5 mg of warfarin daily and recheck INR tomorrow. Primary prevention of sudden cardiac : Patient will very likely require LifeVest for primary prevention of sudden cardiac on discharge. I will defer that decision to Dr. Alvarado. Dr. Alvarado to take over care from tomorrow. Thank you for your consultation. Please call me if you have any questions. Fadumo Hassan MD, FACP, FACC, FSCAI, FHRS, CCDS Interventional Cardiology Cardiac Electrophysiology Vascular Medicine and Endovascular Interventions Donavan HASSAN MD May 22, 2018 2:52 pm
--- NOTE | 2018-05-22 15:32 | ST Dysphagia Evaluation ---
Speech Evaluation-General Medical Diagnosis CVA with left hemiparesis Onset Date: May 05, 2018 Therapy Diagnosis Therapy Diagnosis: Dysphagia -pt observed coughin during a meal. Precautions Precautions: Fall Precautions/Isolations: Fall Prevention, Standard Precautions Referral Referring Physician: ROJAS Reason for Referral: Evaluation/Treatment Medical History Pertinent Medical History: DM Reviewed History: Yes Social History Current Living Status: Children Speech PLF/Current-Dysphagia Prior Level of Function Independent Subjective Pt in bed. Pleasant and cooperative. Cognitive Status Patient Orientation: Person Oral Motor Skills Dentition: Natural Current Food Consistancy: Regular, Thin Liquids Oral Expression Ability: Mild Impairment Voice Voice Phonatory-Based Quality: Normal Voice Pitch: Normal Voice Loudness: Normal Face Facial Symmetry: Asymmetrical (weakness on left) Oral-Facial Assessment Oral-Facial Dentition: Normal Labial Seal Description: Droops Left Smile: Droops Left Puff Cheeks: Reduced Strength Lingual Protrusion: Abnormal (deviates to left) Lingual ROM: Normal Lingual Strength: Abnormal weaker on left Gag Reflex Response: Dysphagia Evaluation Consistencies Presented: Regular, Thin Liquid, Mechanical Soft, Pureed appeared WFL appears WFL No signs of aspiration observed. Dietary Recommendations: Regular Liquid Recommendations: Thin Swallowing Precautions: Small Bites and Sips Dysphagia Evaluation Summary Based on this limited sample, pt appears to have functional swallow for his current diet. Will monitor pt at a few meals to determine appropriateness of diet. Speech Short Term Goals Short Term Goals Short Term Goals 1) THE PATIENT WILL BE ABLE TO CORRECTLY WRITE PERSONAL INFORMATION ON A FORM WITHOUT CUES IN 4/5 OPPORTUNITIES. 2) GIVEN DIVERGENT NAMING TASKS, THE PATIENT WILL IMPROVE OVERALL MENTAL QUICKNESS SCORES TO AT LEAST 15 ITEMS WITHIN 60 SECONDS. 3) GIVEN ALTERNATING ATTENTION TASKS, THE PATIENT WILL BE ABLE TO MOVE FROM TASKS TO COMPLETE WRITING, DRAWING OR VERBAL ACTIVITIES WITHOUT PROMPTS IN AT LEAST 4/5 TASKS. 4) THE PATIENT WILL BE ABLE TO EFFECTIVELY RECALL STRATEGIES FOR SAFETY WITHOUT PROMPTS WITH 80% RETURN. Time Frame-ST WEEKS Comprehension: 6 Expression: 6 Social Interaction: 6 Problem Solvin Memory: 6 Speech Fdc Goals Fdc Goals 1) THE PATIENT WILL BE ABLE TO COMPLETE CONVERSATIONAL DISCOURSE FOR UP TO 5 TURNS WITHOUT PROMPTS. 2) THE PATIENT WILL BE ABLE TO ANSWER QUESTIONS WITH 90% RETURN FOLLOWING READING MATERIAL (UP TO A 500 WORD ARTICLE) USING QUESTIONING BY THIS MARBLE WORKER AND/ OR ANSWERING WRITTEN QUESTIONS. 3) THE PATIENT WILL IDENTIFY PROBLEM SOLVING TASK ACTIVITIES WITH AT LEAST 80% RETURN WITHOUT PROMPTS USING SELF-TALK AND/OR ANSWERING QUESTIONS. Time Frame: 3 WEEKS Comprehension: 7 Expression: 7 Social Interaction: 6 Problem Solvin Memory: 7 Speech-Plan Patient/Family Goals Patient/Family Goals: to return home. Treatment Plan Speech Therapy Treatment Plan: Continue Plan of Care (Continue with plan of cognitive therapy. Does not require Dysphagia tx currently.) Continue with cognitive therapy. Pt does not require Dysphagia tx at this time. Frequency: 5 times per week Estimated Hrs Per Day: .5 hour per day Rehab Potential: Good Pt/Family Agrees to Plan: Yes Safety Risks/Education Teaching Recipient: Patient Teaching Methods: Discussion Response to Teaching: Verbalize Understanding Time Speech Therapy Time In: 14:00 Speech Therapy Time Out: 14:15 Total Billed Time: 15 Billed Treatment Time 1KARLA RANDY ST May 22, 2018 15:32
--- NOTE | 2018-05-22 15:41 | Speech Therapy Daily Note ---
Speech Daily Progress Note Subjective Date Seen by Provider: May 22, 2018 Time Seen by Provider: 14:15 Pt alert and cooperative. Pain Numeric Pain Scale: 0-No Pain Objective Divergent naming activity - Pt given 60 seconds and was to name as many animals as he can. In a 60 second period he was able to name 7. Pt exhibited apparent decreased mental organization. Discussed safety strategies for the home setting. Pt was able to recall 1/5 strategies. Assessment Assessment Current Status: Fair Progress Treatment Plan Continue Plan of Care Communication Comprehension: 5 Expression: 6 Social Cognition Social Interaction: 4 Problem Solvin Memory: 6 Speech Short Term Goals Short Term Goals Short Term Goals 1) THE PATIENT WILL BE ABLE TO CORRECTLY WRITE PERSONAL INFORMATION ON A FORM WITHOUT CUES IN 4/5 OPPORTUNITIES. 2) GIVEN DIVERGENT NAMING TASKS, THE PATIENT WILL IMPROVE OVERALL MENTAL QUICKNESS SCORES TO AT LEAST 15 ITEMS WITHIN 60 SECONDS. 3) GIVEN ALTERNATING ATTENTION TASKS, THE PATIENT WILL BE ABLE TO MOVE FROM TASKS TO COMPLETE WRITING, DRAWING OR VERBAL ACTIVITIES WITHOUT PROMPTS IN AT LEAST 4/5 TASKS. 4) THE PATIENT WILL BE ABLE TO EFFECTIVELY RECALL STRATEGIES FOR SAFETY WITHOUT PROMPTS WITH 80% RETURN. Time Frame-ST WEEKS Comprehension: 6 Expression: 6 Social Interaction: 6 Problem Solvin Memory: 6 Speech Central Office Inspector Goals Central Office Inspector Goals 1) THE PATIENT WILL BE ABLE TO COMPLETE CONVERSATIONAL DISCOURSE FOR UP TO 5 TURNS WITHOUT PROMPTS. 2) THE PATIENT WILL BE ABLE TO ANSWER QUESTIONS WITH 90% RETURN FOLLOWING READING MATERIAL (UP TO A 500 WORD ARTICLE) USING QUESTIONING BY THIS VP INTEGRITY AND/ OR ANSWERING WRITTEN QUESTIONS. 3) THE PATIENT WILL IDENTIFY PROBLEM SOLVING TASK ACTIVITIES WITH AT LEAST 80% RETURN WITHOUT PROMPTS USING SELF-TALK AND/OR ANSWERING QUESTIONS. Time Frame: 3 WEEKS Comprehension: 7 Expression: 7 Social Interaction: 6 Problem Solvin Memory: 7 Speech-Plan Patient/Family Goals Patient/Family Goals: to return home. Treatment Plan Speech Therapy Treatment Plan: Continue Plan of Care Pt pleasant and cooperative. Frequency: 5 times per week Estimated Hrs Per Day: .5 hour per day Rehab Potential: Good Pt/Family Agrees to Plan: Yes Safety Risks/Education Teaching Recipient: Patient Teaching Methods: Discussion Response to Teaching: Verbalize Understanding Time Speech Therapy Time In: 14:15 Speech Therapy Time Out: 14:30 Total Billed Time: 15 Billed Treatment Time 1, EMILY Rosales May 22, 2018 15:40
[2018-05-22 17:25] VITALS: BP 90/61
[2018-05-22] MEDS ORDERED: warFARin 7.5 MG (COUMADIN) TAB PO NR (18:00)
--- NOTE | 2018-05-22 19:01 | Progress Note (SOAP) ---
Subjective Time Seen by a Provider: 19:00 Objective Exam Vital Signs Date Time Temp Pulse Resp B/P (MAP) Pulse Ox O2 Delivery O2 Flow Rate FiO2 05/22/18 17:25 97.8 90 14 90/61 (71) 96 Room Air 05/22/18 09:00 Room Air 05/22/18 05:27 98.2 91 18 93/60 (71) 95 Room Air 05/21/18 21:00 Room Air I & O 05/22/18 07:00 Intake Total 920 ml Balance 920 ml Capillary Refill : General Appearance: No Apparent Distress, WD/WN, Other (Left side of mouth less drooping) HEENT: Normal ENT Inspection Neck: Normal Inspection Respiratory: Lungs Clear, No Accessory Muscle Use, No Respiratory Distress Cardiovascular: Regular Rate, Rhythm, No Murmur Gastrointestinal: non tender, soft Results Lab Laboratory Tests 05/21/18 20:46: Glucometer 167H 05/22/18 05:21: Prothrombin Time 15.1H, INR Comment 1.2 05/22/18 05:51: Glucometer 145H 05/22/18 11:14: Glucometer 226H 05/22/18 16:41: Glucometer 209H Assessment/Plan Assessment/Plan Assess & Plan/Chief Complaint CVA. Recent [place]. Diabetes. . [address]. CVA. Recent ME. Diabetes Clinical Quality Measures Admission Status Admission Dx CVA. Recent ME. Diabetes. Left-sided weakness. Ejection fraction 20 percent DVT/VTE Risk/Contraindication: Risk Factor Score Per Nursin RFS Level Per Nursing on Admit: 4+=Very High JOSÉ MIGUEL WILCOX DO May 22, 2018 19:01
--- NOTE | 2018-05-22 20:31 | Individualized Plan of Care ---
Individualized Plan of Care Rehab Nursing IPOC Order Admission Date May 17, 2018 at 18:10 Current Orders Orders Cho 60g/M 1snack (16-2000 Mohsen) (05/17/18 Dinner) Automatic Tray (05/17/18 19:18) Admission-Acute Rehab Unit (05/17/18 19:19) Protime With Inr (05/18/18 06:00) Consult Physician (05/18/18 07:00) Atorvastatin Tablet (Lipitor Tablet) (05/18/18 09:00) Clopidogrel Tablet (Plavix Tablet) (05/18/18 09:00) Docusate Sodium Capsule (Colace Capsule) (05/18/18 09:00) Enoxaparin Injection (Lovenox Injection) (05/18/18 09:00) Ergocalciferol Capsule (Vitamin D2 Capsu (05/20/18 09:00) Insulin Aspart (Novolog) (Novolog (Charg (05/18/18 07:00) Insulin Determir (Per Unit) (Levemir (Pe (05/18/18 14:00) Metoprolol Succinate (Xl) Tab (Toprol Xl (05/18/18 09:00) Sennosides Tablet (Senokot Tablet) (05/18/18 09:00) Thiamine Tablet (Vitamin B-1 Tablet) (05/18/18 07:00) Warfarin Tablet (Coumadin Tablet) (05/18/18 18:00) Fluoxetine Capsule (Prozac Capsule) (05/18/18 09:00) Cbc No Diff (05/18/18 05:00) Comprehensive Metabolic Panel (05/18/18 05:00) Stapler Hand-Inpt Rehab Con (05/17/18 23:32) Rehab Nursing Orders-Ipoc (05/17/18 23:32) Physical Therapy Rehab Orders (05/17/18 23:32) Occupational Therapy Rehab Ord (05/17/18 23:32) Speech Therapy Rehab Orders (05/17/18 23:32) Precautions (Aru) (05/17/18 23:32) Weekly Weight (Lbs) WEEK (05/17/18 23:32) Rehab-Intensity Of Therapy (05/17/18 23:32) Warfarin Tablet (Coumadin Tablet) (05/17/18 23:39) Cbc No Diff (05/19/18 06:00) Protime With Inr (05/19/18 06:00) Enoxaparin Injection (Lovenox Injection) (05/18/18 09:00) Protime With Inr (05/20/18 06:00) Protime With Inr (05/21/18 06:00) Protime With Inr (05/22/18 06:00) Protime With Inr (05/23/18 06:00) Hemoglobin A1c (05/19/18 06:00) Patient Visit (05/18/18 ) Pt Eval Moderate Complexity (05/18/18 ) Exercise Therap, Ea 15 Min (05/18/18 ) Gait Training, Ea 15 Min (05/18/18 ) Patient Visit (05/18/18 ) Gait Training, Ea 15 Min (05/18/18 ) Exercise Therap, Ea 15 Min (05/18/18 ) Consult Physician (05/19/18 10:04) Patient Visit (05/19/18 ) Speech Sound Lang Comp (05/19/18 ) Nursing Communication (Order) (05/19/18 14:31) Patient Visit (05/19/18 ) Gait Training, Ea 15 Min (05/19/18 ) Functional Activities, Ea 15 (05/19/18 ) Exercise Therap, Ea 15 Min (05/19/18 ) Melatonin Tablet (Melatonin Tablet) (05/20/18 21:00) Melatonin Tablet (Melatonin Tablet) (05/19/18 23:17) Patient Visit (05/20/18 ) Ex Neuromuscular, Ea 15 Min (05/20/18 ) Functional Activities, Ea 15 (05/20/18 ) Gait Training, Ea 15 Min (05/20/18 ) Warfarin Tablet (Coumadin Tablet) (05/21/18 18:00) Warfarin Tablet (Coumadin Tablet) (05/22/18 18:00) Request For Dysphagia Services (05/22/18 09:10) Patient Visit (05/22/18 ) Gait Training, Ea 15 Min (05/22/18 ) Ex Neuromuscular, Ea 15 Min (05/22/18 ) Functional Activities, Ea 15 (05/22/18 ) Exercise Therap, Ea 15 Min (05/22/18 ) Protime With Inr (05/24/18 06:00) Protime With Inr (05/25/18 06:00) Rehab Nursing Orders: Bladder Management, Bowel Management, Fall Prevention, Infection Prevention, Medication Management & Education, Management of Risks & Complications, Management of Skin Intergrity, Pain Management, Patient/Family Support, Safety Management, Wound Management Intensity of Therapy to be met Patient to be seen: Min.3h per day/5 of 7d PT IPOC Problem List: Activity Tolerance, Functional Strength, Safety, Balance, Gait, Transfer, Bed Mobility Treatment Plan: Continue Plan of Care Bed Mobility, Concurrent Therapy, Education, Functional Activity Radha, Functional Strength, Group Therapy, Gait, Safety, Therapeutic Exercise, Transfers Treatment Duration: Jun 08, 2018 Frequency: At least 5 of 7 days/Wk (IRF) Estimated Hrs Per Day: 1.5 hours per day OT IPOC Problems: Decreased Activ Tolerance, Decreased UE Strength, Dependent Transfers , Impaired Bed Mobility, Impaired Cognition, Impaired Coordination, Impaired Funct Balance, Impaired I ADL's, Impaired Self-Care Skills, Restricted Funct UE ROM, Visual-Perceptual Deficit OT Treatment, Training and Edu: Yes Plan of Care: ADL Retraining, Functional Mobility, Group Exercise/Act as Ind, UE Funct Exercise/Act Treatment Duration: Jun 15, 2018 Frequency: At least 5 of 7 days/Wk (IRF) Estimated Hrs Per Day: 1.[address] IPOC Speech Therapy Treatment Plan: Continue Plan of Care Treatment Duration: Jun 09, 2018 Frequency: 5 times per week Estimated Hrs Per Day: .5 hour per day Stapler Hand/Case Mgmt Stapler Hand/Case Managemen: Discharge Planning, Patient/Family Counseling Dietitian/Roving Technician Dietitian/Roving Technician to monitor nutritional status and make changes and/or recommendations as needed and work with speech pathology on dietary upgrades as the occur. Physician IPOC Medical Issues being managed closely and that require the 24 hour availability of a physician: CAD Cardiomyopathy Anticoagulation Medical Issues: DVT Prophylaxis, Falls Precautions, Infection Protection, Other (List) (as per above) Brief Synthesis of Preadmission Screen, Post-Admission Evaluation, and Therapy Evaluations:47 yo male who had been Independent prior to TX associated with CAD and cardiomyopathy treated at OSH referrred to IRU for Stroke rehab s/p Rt Cva with LHP.Anticoagulated wwith coumadin with subtherapeutic INR with Coumadin being increased.Cardiology following here Medical Prognosis: Good Anticipated Length of Stay: 06-15-18 Modified Independent to supervision for mobilty and adl skills Anticipated d/c Destination: Home with family and C HARESH XIE MD May 22, 2018 20:31
[2018-05-22] MEDS: MELATONIN 3 MG TABLET PO SCH (20:40)
[2018-05-23 05:34] VITALS: BP 101/67
[2018-05-23] MEDS: THIAMINE 100 MG (VITAMIN B-1) TAB PO SCH (06:50)
[2018-05-23] MEDS: inSUlin ASPART (NovoLOG) 1 UNIT/0.01 ML (CHARGE PER UNIT) SC SCH ×3 (06:51→17:27)
[2018-05-23 06:54] LABS: INR 1.3 (0.8-1.4); PROTHROMBIN TIME PATIENT 15.7 SEC (12.2-14.7)
--- NOTE | 2018-05-23 07:38 | Progress Note (SOAP) ---
Subjective Time Seen by a Provider: 07:36 Subjective/Events-last exam Patient not sleeping much. CVA. Blood pressure improved. Patient voices no complaints Objective Exam Vital Signs Date Time Temp Pulse Resp B/P (MAP) Pulse Ox O2 Delivery O2 Flow Rate FiO2 05/23/18 05:34 98.4 87 18 101/67 (78) 96 Room Air 05/22/18 20:10 Room Air 05/22/18 17:25 97.8 90 14 90/61 (71) 96 Room Air 05/22/18 09:00 Room Air I & O 05/23/18 07:00 Intake Total 1070 ml Balance 1070 ml Capillary Refill : General Appearance: No Apparent Distress, WD/WN HEENT: Normal ENT Inspection, Other (Left side of mouth less droopy) Neck: Full Range of Motion Respiratory: Chest Non Tender, No Accessory Muscle Use, No Respiratory Distress Cardiovascular: Regular Rate, Rhythm, No Murmur Gastrointestinal: non tender, soft Results Lab Laboratory Tests 05/22/18 11:14: Glucometer 226H 05/22/18 16:41: Glucometer 209H 05/22/18 20:03: Glucometer 225H 05/23/18 05:44: Glucometer 156H 05/23/18 06:21: Prothrombin Time 15.7H, INR Comment 1.3 Assessment/Plan Assessment/Plan Assess & Plan/Chief Complaint CVA. Recent [place]. Diabetes. . 47719. CVA. Recent [place]. Diabetes. . 05/23/18 left CVA. Recent [place]. Diabetes. INR 1.3. Blood pressures better Clinical Quality Measures Admission Status Admission Dx CVA. Recent [place]. Diabetes. Left-sided weakness. Ejection fraction 20 percent DVT/VTE Risk/Contraindication: Risk Factor Score Per Nursin RFS Level Per Nursing on Admit: 4+=Very High JOSÉ MIGUEL WILCOX DO May 23, 2018 07:38
[2018-05-23] MEDS: FLUoxetine HCL 20 MG (PROzac) CAP PO SCH (09:15)
[2018-05-23] MEDS: CLOPIDOGREL 75 MG (PLAVIX) TABLET PO SCH (09:15)
[2018-05-23] MEDS: ATORVASTATIN 80 MG (LIPITOR) TABLET PO SCH (09:15)
[2018-05-23] MEDS: ENOXAPARIN 80 MG/0.8 ML (LOVENOX) SYR SC SCH ×2 (09:16→21:59)
--- NOTE | 2018-05-23 09:41 | Progress Note-Cardiology ---
Cardiology SOAP Progress Note Subjective: Sitting up in a chair at the bedside. Denies any c/o CP, SOB, palpitations, syncope or near syncope. Feels the weakness in his left arm and leg are improving. Objective: I&O/Vital Signs 05/23/18 05:34 Temp 98.4 Pulse 87 Resp 18 B/P (MAP) 101/67 (78) Pulse Ox 96 O2 Delivery Room Air 05/23/18 00:00 Intake Total 720 ml Balance 720 ml Weight (Pounds): 168 Weight (Ounces): 12.8 Weight (Calculated Kilograms): 76.848863 Constitutional: appears stated age, AAO x 3, well-developed, well-nourished Respiratory: chest is bilaterally symmetric, lungs clear to auscultation Cardiovascular: regular rate-rhythm; No JVD; S1 and S2 Gastrointestional: No tender; soft, audible bowel sounds Extremities: no lower extremity edema bilateral Neurologic/Psychiatric: alert, normal mood/affect, oriented x 3, facial droop ( left), other (Left sided facial droop, left lower extremity weakness 3/5, left upper extemity weakness 2/5) Results/Procedures: Labs Laboratory Tests 05/22/18 16:41: Glucometer 209H 05/22/18 20:03: Glucometer 225H 05/23/18 05:44: Glucometer 156H 05/23/18 06:21: Prothrombin Time 15.7H, INR Comment 1.3 05/23/18 10:55: Glucometer 155H A/P: Assessment: Dysphagia and left hemiparesis post CVA in April 2018 Ischemic CVA - CT of head on 05-08-18 showed evolving mod sized subacute right MCA territory infarct without hemorrhage. No signif changes in additional tiny subacute right MCA territory and right cerebellar infarcts; thrombectomy on 05-06 - followed by neurology services at [facility] ICM - Echocardiogram of 05-06-18 showed LVEF 25%; mod LV dilation; layered mural LV apical thrombus; RV apical thrombus; Mild TR; LVEF 20% on echocardiogram of 05-16-18 at [facility] CAD -STEMI on 05-05-18 for which he underwent cardiac cath by Dr. Alvarado which showed coronary artery disease, primarily consisting of mid vessel occlusion of the left anterior descending. This appears to be a chronic total occlusion and was not amenable to percutaneous intervention. The rest of the coronary vessels have moderate diffuse disease. Ischemic cardiomyopathy with anterolateral and apical dyskinesis and left ventricular ejection fraction of 20 % to 25%. Elevated left ventricular end-diastolic pressure. Subseqeunt cardiac cath at [facility] on 05-15-[address] Whyte showed 100% occlusion of the prox LAD ( appears to be chronic, no intervention done); 50% mid left cx with an iFR of 1.0 ; nondominant RCA with mod dz DM 2 HLD - statin tx OAC with warfarin - management per medical services - subtherapeutic INR - continue coverage with Lovenox until warfarin therapeutic Plan: Records from [facility] reviewed at length Management of CVA as per stroke management team Management of DM 2 as per medical services ICM with LVEF of 20% on most recent echo at [facility] of 05-15-18 - will need Life- Vest Has not been suitable candidate for ELIE (-) or ARB d/t hypotension - will try low dose ELIE (-) Warfarin for anticoagulation; INR subtherapeutic, continue Lovenox - management per medical services Monitor lab closely Telemetry Physician Assessment Physician Assessment No cp or palp or syncope or shortness of breath at rest Lungs: good bilat air entry Cor: reg Ext: no c/c/e Neuro: L hemiparesis A&R * As documented in our note above that I updated (italics) and as noted below * I reviewed his records * I interviewed him and examined him * I discussed his case with Dr Hassan who has been seeing him in card consult * Management is complex * We are trying to add ELIE-inhib and BB to the regimen, but the impediment is low bp * We are again attempting to get him a defib vest * We have reviewed risk factor mod with him * Monitor labs VALE MAGALLON May 23, 2018 09:[address] [facility] CCDS May 23, 2018 12:14
--- NOTE | 2018-05-23 09:59 | Physical Therapy Daily Note ---
PT Daily Note-Current Subjective pt in bed pre tx, agrees to PT, no pain to report Appearance pt in bed post tx w/ phone, call light, tray, all needs met Mental Status Patient Orientation: Normal For Age Transfers Functional [place] Measure 0=Not Assessed/NA 4=Minimal Assistance 1=Total Assistance 5=Supervision or Setup 2=Maximal Assistance 6=Modified W[place] 3=Moderate Assistance 7=Complete IndependenceIRFPAI Quality Coding Scale 6 Independent with activity with or without an assistive device 5 Patient requires set up or clean up by helper. Patient completes activity by themselves 4 Supervision or touching assist (CGA). [place] provide cues , steadying assist 3 The helper provides less than half the effort to complete the activity 2 The helper provides more than half the effort to complete the activity 1 Dependent. The helper does all the effort to complete an activity 7 Patient refused to complete or attempt activity 9 The patient did not perform the activity before the current illness or injury 88 Not attempted due to Medical conditions or safety concerns Transfers (B, C, W/C) (FIM): 4 Supine to/from Sit: 5 Sit to/from Stand: 4 supine<->sit SBA, sit<->stand CGA for safety Weight Bearing Right Lower Extremity: Right Full Weight Bearing Left Lower Extremity: Left Full Weight Bearing Gait Training Does the Patient Walk?: Yes Gait (FIM): 4 Distance: 350',100' Gait Level of Assist: 4 Gait Persons Needed: 1 Gait Assistive Device: Cane Single Point pt ambulates around rehab unit w/ CGA using SPC, pt cued on taking big steps and walking as fast as he can, gait is steady w/ improving speed Exercises Seated Therapy Exercises: Long arc quads (3#) Seated Reps: 60 Standing: Heel/toe raises (3#), 3 way Ex=Flex, Abd, Ext (3#), Side steps Standing Reps: 30 side step ups over pink step 3x10 walking around gym picking up cones w/ L hand, placing on chair or shelf, 15 min Assessment Current Status: Fair Progress improved gait speed, LUE movie star strength and coordination PT Short Term Goals Short Term Goals Time Frame: May 25, 2018 Transfers (B,C,W/C) (FIM): 4 Gait (FIM): 4 Gait Distance Comment: 150' Gait Level of Assist: 4 Gait Assistive Device: Cane Large Base Quad PT Header Operator Goals Header Operator Goals PT Header Operator Goals Time Frame: Jun 08, 2018 Transfers (B,C,W/C) (FIM): 5 Sit to Lying (QC): 4 Lying-Sitting on Side/Bed(QC): 4 Sit to Stand (QC): 4 Rollin Roll Left to Right (QC): 4 Chair/Jrd-da-Bjalo Xfer(QC): 4 Car Transfer (QC): 4 Does the Patient Walk: Yes Gait (FIM): 5 Distance: 200' Walk 10 feet (QC): 4 Walk 10ft-Uneven Surface(QC): 4 Walk 50ft with 2 Turns (QC): 4 Walk 150 ft (QC): 4 Gait Level of Assist: 5 Gait Assistive Device: Cane Large Base Quad, Walker Deon Stairs (FIM): 2 # of Steps: 8 1 Step (curb) (QC): 3 4 Steps (QC): 3 Stairs Level Of Assist: 4 Picking up an Object (QC): 4 PT Plan Problem List Problem List: Activity Tolerance, Functional Strength, Safety, Balance, Gait, Transfer, Bed Mobility Treatment/Plan Treatment Plan: Continue Plan of Care Treatment Plan: Bed Mobility, Concurrent Therapy, Education, Functional Activity Radha, Functional Strength, Group Therapy, Gait, Safety, Therapeutic Exercise, Transfers Treatment Duration: Jun 08, 2018 Frequency: At least 5 of 7 days/Wk (IRF) Estimated Hrs Per Day: 1.5 hours per day Patient and/or Family Agrees t: Yes Safety Risks/Education Patient Education: Gait Training, Transfer Techniques, Correct Positioning, Safety Issues Teaching Recipient: Patient Teaching Methods: Demonstration, Discussion Response to Teaching: Reinforcement Needed Time/GCodes Time In: 0900 Time Out: 1000 Total Billed Treatment Time: 60 Total Billed Treatment 1 visit GT 15' EX 30' FA 15' ASHANTI DENNY PT May 23, 2018 09:59
[2018-05-23] MEDS: DOCUSATE SODIUM 100 MG (COLACE) CAP PO SCH ×2 (10:06→21:59)
[2018-05-23] MEDS: SENNOSIDES 8.6 MG (SENOKOT) TAB PO SCH ×2 (10:07→22:00)
[2018-05-23] MEDS ORDERED: lisINopril 5 MG (PRINIVIL) TABLET PO NR (11:15)
--- NOTE | 2018-05-23 11:35 | Speech Therapy Daily Note ---
Speech Daily Progress Note Subjective Date Seen by Provider: May 23, 2018 Time Seen by Provider: 10:45 Pt up in chair. Pleasant and cooperative. Pain Numeric Pain Scale: 0-No Pain Objective Administered the [facility] [place] Cognitive/Communication Screen to pt to get a more detail description of his cognitive functioning. The areas of STM, organization and simple problem solving looked good. There were noticeable deficits in higher level problem solving though. A new goal addressing this area will be added. Provided pt with Oral Motor Exercises (OMEs) for his facial/tongue weakness. Reviewed exercises with pt. A new goal addressing this area will be add. Assessment Assessment Current Status: Fair Progress Treatment Plan Continue Plan of Care Communication Comprehension: 5 Expression: 6 Social Cognition Social Interaction: 4 Problem Solvin Memory: 6 Speech Short Term Goals Short Term Goals Short Term Goals 1) THE PATIENT WILL BE ABLE TO CORRECTLY WRITE PERSONAL INFORMATION ON A FORM WITHOUT CUES IN 4/5 OPPORTUNITIES. 2) GIVEN DIVERGENT NAMING TASKS, THE PATIENT WILL IMPROVE OVERALL MENTAL QUICKNESS SCORES TO AT LEAST 15 ITEMS WITHIN 60 SECONDS. 3) GIVEN ALTERNATING ATTENTION TASKS, THE PATIENT WILL BE ABLE TO MOVE FROM TASKS TO COMPLETE WRITING, DRAWING OR VERBAL ACTIVITIES WITHOUT PROMPTS IN AT LEAST 4/5 TASKS. 4) THE PATIENT WILL BE ABLE TO EFFECTIVELY RECALL STRATEGIES FOR SAFETY WITHOUT PROMPTS WITH 80% RETURN. 5) Pt will complete higher level problem solving activities with at least 85% accuracy and min assist. 6) Pt will be independent with his Oral Motor Exercises. Time Frame-ST WEEKS Comprehension: 6 Expression: 6 Social Interaction: 6 Problem Solvin Memory: 6 Speech Half-Way Goals Racehorse Trainer Goals 1) THE PATIENT WILL BE ABLE TO COMPLETE CONVERSATIONAL DISCOURSE FOR UP TO 5 TURNS WITHOUT PROMPTS. 2) THE PATIENT WILL BE ABLE TO ANSWER QUESTIONS WITH 90% RETURN FOLLOWING READING MATERIAL (UP TO A 500 WORD ARTICLE) USING QUESTIONING BY THIS LOADER MALT HOUSE AND/ OR ANSWERING WRITTEN QUESTIONS. 3) THE PATIENT WILL IDENTIFY PROBLEM SOLVING TASK ACTIVITIES WITH AT LEAST 80% RETURN WITHOUT PROMPTS USING SELF-TALK AND/OR ANSWERING QUESTIONS. Time Frame: 3 WEEKS Comprehension: 7 Expression: 7 Social Interaction: 6 Problem Solvin Memory: 7 Speech-Plan Patient/Family Goals Patient/Family Goals: to return home Treatment Plan Speech Therapy Treatment Plan: Continue Plan of Care pt pleasant and cooperative and motivated to improve. Treatment Duration: Jun 09, 2018 Frequency: 5 times per week Estimated Hrs Per Day: .5 hour per day Rehab Potential: Good Pt/Family Agrees to Plan: Yes Safety Risks/Education Teaching Recipient: Patient Teaching Methods: Discussion Response to Teaching: Verbalize Understanding Time Speech Therapy Time In: 10:45 Speech Therapy Time Out: 11:15 Total Billed Time: 30 Billed Treatment Time 1, EMILY Rosales May 23, 2018 11:35
--- NOTE | 2018-05-23 13:34 | Physical Therapy Daily Note ---
PT Daily Note-Current Subjective pt in recliner pre tx, agrees to PT, no pain to report Appearance pt in recliner post tx w/ phone, call light, tray, all needs met Mental Status Patient Orientation: Normal For Age Transfers Functional [place] Measure 0=Not Assessed/NA 4=Minimal Assistance 1=Total Assistance 5=Supervision or Setup 2=Maximal Assistance 6=Modified [place] 3=Moderate Assistance 7=Complete IndependenceIRFPAI Quality Coding Scale 6 Independent with activity with or without an assistive device 5 Patient requires set up or clean up by helper. Patient completes activity by themselves 4 Supervision or touching assist (CGA). [place] provide cues , steadying assist 3 The helper provides less than half the effort to complete the activity 2 The helper provides more than half the effort to complete the activity 1 Dependent. The helper does all the effort to complete an activity 7 Patient refused to complete or attempt activity 9 The patient did not perform the activity before the current illness or injury 88 Not attempted due to Medical conditions or safety concerns Transfers (B, C, W/C) (FIM): 4 Sit to/from Stand: 4 sit<->stand CGA for safety Weight Bearing Right Lower Extremity: Right Full Weight Bearing Left Lower Extremity: Left Full Weight Bearing Gait Training Does the Patient Walk?: Yes Gait (FIM): 4 Distance: 350',75' Gait Level of Assist: 4 Gait Persons Needed: 1 Gait Assistive Device: Cane Single Point pt ambulates around rehab unit using SPC w/ CGA, cues to take big steps to increase speed, cues to take steps in sync w/ PT seem to help Exercises NuStep Minutes: 15 NuStep Workload: 5 Treatments gait training, endurance training Assessment Current Status: Fair Progress improving gait speed and stride length, improving endurance on NuStep, needs lots of cues to keep going and use LUE on NuStep PT Short Term Goals Short Term Goals Time Frame: May 25, 2018 Transfers (B,C,W/C) (FIM): 4 Gait (FIM): 4 Gait Distance Comment: 150' Gait Level of Assist: 4 Gait Assistive Device: Cane Large Base Quad PT Assisted Goals Die Casting Machine Setter Goals PT Die Casting Machine Setter Goals Time Frame: Jun 08, 2018 Transfers (B,C,W/C) (FIM): 5 Sit to Lying (QC): 4 Lying-Sitting on Side/Bed(QC): 4 Sit to Stand (QC): 4 Rollin Roll Left to Right (QC): 4 Chair/Zrq-dd-Oivgg Xfer(QC): 4 Car Transfer (QC): 4 Does the Patient Walk: Yes Gait (FIM): 5 Distance: 200' Walk 10 feet (QC): 4 Walk 10ft-Uneven Surface(QC): 4 Walk 50ft with 2 Turns (QC): 4 Walk 150 ft (QC): 4 Gait Level of Assist: 5 Gait Assistive Device: Cane Large Base Quad, Walker Deon Stairs (FIM): 2 # of Steps: 8 1 Step (curb) (QC): 3 4 Steps (QC): 3 Stairs Level Of Assist: 4 Picking up an Object (QC): 4 PT Plan Problem List Problem List: Activity Tolerance, Functional Strength, Safety, Balance, Gait, Transfer, Bed Mobility Treatment/Plan Treatment Plan: Continue Plan of Care Treatment Plan: Bed Mobility, Concurrent Therapy, Education, Functional Activity Radha, Functional Strength, Group Therapy, Gait, Safety, Therapeutic Exercise, Transfers Treatment Duration: Jun 08, 2018 Frequency: At least 5 of 7 days/Wk (IRF) Estimated Hrs Per Day: 1.5 hours per day Patient and/or Family Agrees t: Yes Safety Risks/Education Patient Education: Gait Training, Transfer Techniques, Correct Positioning, Safety Issues Teaching Recipient: Patient Teaching Methods: Demonstration, Discussion Response to Teaching: Reinforcement Needed Time/GCodes Time In: 1300 Time Out: 1330 Total Billed Treatment Time: 30 Total Billed Treatment 1 visit GT 15' EX 15' ASHANTI DENNY PT May 23, 2018 13:34
[2018-05-23] MEDS: inSUlin DETERMIR 1 UNIT/0.01 ML (LEVEMIR) CHARGE PER UNIT SQ SCH (13:37)
[2018-05-23 13:39] VITALS: BP 94/56
[2018-05-23 13:45] VITALS: BP 93/60
--- NOTE | 2018-05-23 14:53 | Occupational Ther Daily Note ---
OT Current Status-Daily Note Subjective Pt. reports that he did not sleep well last night. Notified nursing who states that pt's melatonin will be increased tonight. Appearance Pt. in bed. Has already participated with PT. Agrees to work with OT. Mental Status/Objective Patient Orientation: Person, Place Functional [place] Measure 0=Not Assessed/NA 4=Minimal Assistance 1=Total Assistance 5=Supervision or Setup 2=Maximal Assistance 6=Modified [place] 3=Moderate Assistance 7=Complete Murray ADL-Treatment Functional [place] Measure 0=Not Assessed/NA 4=Minimal Assistance 1=Total Assistance 5=Supervision or Setup 2=Maximal Assistance 6=Modified [place] 3=Moderate Assistance 7=Complete IndependenceIRFPAI Quality Coding Scale 6 Independent with activity with or without an assistive device 5 Patient requires set up or clean up by helper. Patient completes activity by themselves 4 Supervision or touching assist (CGA). [place] provide cues , steadying assist 3 The helper provides less than half the effort to complete the activity 2 The helper provides more than half the effort to complete the activity 1 Dependent. The helper does all the effort to complete an activity 7 Patient refused to complete or attempt activity 9 The patient did not perform the activity before the current illness or injury 88 Not attempted due to Medical conditions or safety concerns Lower Body Dressing (FIM): 4 (Pt. is able to don shoes with min assist needed for left shoe.) Lower Body Dressing (QC): 4 On/Off Footwear (QC): 4 Transfers (B, C, W/C) (FIM): 4 (SBA supine-sit and CGA sit-stand and ambulation to therapy gym.) Other Treatment Pt. is already dressed. Declines showering this date and states that he will shower tomorrow. Pt. participated in low e-stim to left wrist extensors and finger flexors to increase muscle strength. Tolerated 4 bharati-amps to left wrist extensors x 8 minutes and 4 bharati-amps to left finger flexors x 8 minutes to increase overall strength and awareness of left hand. After this was completed, engaged pt. in active and PROM to those joints in all planes. Facilitated wrist extension and finger flexion. Note that pt. demonstrates adequate movement until it has to be purposeful, such as picking up a cup. Then he demonstrates poor grasp. Completed gentle PROM and scapular facilitation to left shoulder. Noted that pt. reports soreness to left acromio- clavicular joint. Gentle palpation completed. Very slight subluxation noted to gleno-humeral joint. Pt. encouraged and educated again about being aware of left UE. Pt. verbalizes understanding. Education OT Patient Education: Correct positioning, Exercise program, Modified ADL techniques, Progress toward Goal/Update tx plan, Purpose of tx/functional activities, Reviewed precautions, Rehab process, Transfer techniques Teaching Recipient: Patient Teaching Methods: Demonstration, Discussion Response to Teaching: Verbalize Understanding, Return Demonstration OT Short Term Goals Short Term Goals Time Frame: Jun 01, 2018 Eating(FIM): 5 Grooming(FIM): 5 Bathing(FIM): 4 Upper Body Dressing(FIM): 4 Lower Body Dressing(FIM): 4 Toileting(FIM): 4 Transfers (B,C,W/C) (FIM): 4 Toilet/Commode Transfer(FIM): 4 Shower Transfer(FIM): 4 Comprehension(FIM): 6 Expression(FIM): 6 Social Interaction(FIM): 6 Problem Solving(FIM): 6 Memory(FIM): 6 Additional Short Term Goals: 1-Demonstrate ADL Tasks, 2-Verbalize Understanding , 3-ImproveStrength/Radha 1=Demonstrate adherence to instructed precautions during ADL tasks. 2=Patient will verbalize/demonstrate understanding of assistive devices/ modifications for ADL. 3=Patient will improve strength/tolerance for activity to enable patient to perform ADL's. OT Mcc Goals Cover Inspector Goals Time Frame: Jun 15, 2018 Eating (FIM): 6 Eating (QC): 6 Groomin Oral Hygiene (QC): 6 Bathing(FIM): 5 Shower/Bathe Self (QC): 5 Upper Body Dressing(FIM): 6 Upper Body Dressing (QC): 6 Lower Body Dressing(FIM): 5 Lower Body Dressing (QC): 5 On/Off Footwear (QC): 5 Toileting(FIM): 6 Toileting Hygiene (QC): 6 Transfers (B,C,W/C) (FIM): 6 Toilet/Commode Transfer(FIM): 6 Toilet/Commode Transfer (QC): 6 Shower Transfer(FIM): 5 Comprehension(FIM): 7 Expression (FIM): 7 Social Interaction(FIM): 6 Problem Solving(FIM): 6 Memory(FIM): 7 Additional Goals: 1-Demonstrate ADL Tasks, 2-Verbalize Understanding, 3- ImproveStrength/Radha 1=Demonstrate adherence to instructed precautions during ADL tasks. 2=Patient will verbalize/demonstrate understanding of assistive devices/ modifications for ADL. 3=Patient will improve strength/tolerance for activity to enable patient to perform ADL's. OT Education/Plan Problem List/Assessment Assessment: Decreased Activ Tolerance, Decreased Safety Aware, Decreased UE Strength, Dependent Transfers, Impaired Bed Mobility, Impaired Cognition, Impaired Coordination, Impaired Funct Balance, Impaired I ADL's, Impaired Self- Care Skills, Restricted Funct UE ROM, Visual-Perceptual Deficit Discharge Recommendations Plan/Recommendations: Continue POC Therapy D/C Recommendations: Home w/ Family Support, Occupational Therapy Home Care, Scheduled Assistance Treatment Plan/Plan of Care Treatment,Training & Education: Yes Patient would benefit from OT for education, treatment and training to promote independence in ADL's, mobility, safety and/or upper extremity function for ADL' s. Plan of Care: ADL Retraining, Functional Mobility, Group Exercise/Act as Ind, UE Funct Exercise/Act Treatment Duration: Jun 15, 2018 Frequency: At least 5 of 7 days/Wk (IRF) Estimated Hrs Per Day: 1.5 hours per day Agreement: Yes Rehab Potential: Good Time/GCodes Start Time: 10:00 Stop Time: 10:45 Total Time Billed (hr/min): 45 Billed Treatment Time 1, NM x 45minutes JEREMIE RATLIFF OT May 23, 2018 14:53
--- NOTE | 2018-05-23 15:05 | Occupational Ther Daily Note ---
OT Current Status-Daily Note Subjective No pain reported. Appearance Pt. up in chair. Agrees to work with OT. Mental Status/Objective Patient Orientation: Person, Place Functional [place] Measure 0=Not Assessed/NA 4=Minimal Assistance 1=Total Assistance 5=Supervision or Setup 2=Maximal Assistance 6=Modified [place] 3=Moderate Assistance 7=Complete [place] ADL-Treatment Functional [place] Measure 0=Not Assessed/NA 4=Minimal Assistance 1=Total Assistance 5=Supervision or Setup 2=Maximal Assistance 6=Modified [place] 3=Moderate Assistance 7=Complete IndependenceIRFPAI Quality Coding Scale 6 Independent with activity with or without an assistive device 5 Patient requires set up or clean up by helper. Patient completes activity by themselves 4 Supervision or touching assist (CGA). [place] provide cues , steadying assist 3 The helper provides less than half the effort to complete the activity 2 The helper provides more than half the effort to complete the activity 1 Dependent. The helper does all the effort to complete an activity 7 Patient refused to complete or attempt activity 9 The patient did not perform the activity before the current illness or injury 88 Not attempted due to Medical conditions or safety concerns Transfers (B, C, W/C) (FIM): 4 (CGA to ambulate with cane to therapy dining area.) Other Treatment Pt. ambulated to table. Had difficulty pulling up chair to table area. OT assisted with this. Engaged pt. in series of activities that encouraged crossing midline, and attending to left side. Pt. utilized left UE but required encouragement to do so. Pt. not fluid with this. Pt. demonstrated good visual spatial and sequencing skills with parquetry blocks and rubber band task of copying design using rubber bands. Pt. uses right hand automatically and is encouraged to at least use left UE to stabilize. Pt. tolerates this well. Pt. works on shoulder flexion and horizontal abduction with hand placed on washcloth and ranging back and forth. Tolerated this back and forth. Pt. is encouraged to be fully aware of left UE at all times, and OT placed sign in room to remind him of this. Pt. ambulated back to room and all needs met. Education OT Patient Education: Correct positioning, Exercise program, Home exercise program, Modified ADL techniques, Progress toward Goal/Update tx plan, Purpose of tx/functional activities, Reviewed precautions, Rehab process, Transfer techniques Teaching Recipient: Patient Teaching Methods: Demonstration, Discussion Response to Teaching: Verbalize Understanding, Return Demonstration OT Short Term Goals Short Term Goals Time Frame: Jun 01, 2018 Eating(FIM): 5 Grooming(FIM): 5 Bathing(FIM): 4 Upper Body Dressing(FIM): 4 Lower Body Dressing(FIM): 4 Toileting(FIM): 4 Transfers (B,C,W/C) (FIM): 4 Toilet/Commode Transfer(FIM): 4 Shower Transfer(FIM): 4 Comprehension(FIM): 6 Expression(FIM): 6 Social Interaction(FIM): 6 Problem Solving(FIM): 6 Memory(FIM): 6 Additional Short Term Goals: 1-Demonstrate ADL Tasks, 2-Verbalize Understanding , 3-ImproveStrength/Radha 1=Demonstrate adherence to instructed precautions during ADL tasks. 2=Patient will verbalize/demonstrate understanding of assistive devices/ modifications for ADL. 3=Patient will improve strength/tolerance for activity to enable patient to perform ADL's. OT [facility] Goals [facility] Goals Time Frame: Jun 15, 2018 Eating (FIM): 6 Eating (QC): 6 Groomin Oral Hygiene (QC): 6 Bathing(FIM): 5 Shower/Bathe Self (QC): 5 Upper Body Dressing(FIM): 6 Upper Body Dressing (QC): 6 Lower Body Dressing(FIM): 5 Lower Body Dressing (QC): 5 On/Off Footwear (QC): 5 Toileting(FIM): 6 Toileting Hygiene (QC): 6 Transfers (B,C,W/C) (FIM): 6 Toilet/Commode Transfer(FIM): 6 Toilet/Commode Transfer (QC): 6 Shower Transfer(FIM): 5 Comprehension(FIM): 7 Expression (FIM): 7 Social Interaction(FIM): 6 Problem Solving(FIM): 6 Memory(FIM): 7 Additional Goals: 1-Demonstrate ADL Tasks, 2-Verbalize Understanding, 3- ImproveStrength/Radha 1=Demonstrate adherence to instructed precautions during ADL tasks. 2=Patient will verbalize/demonstrate understanding of assistive devices/ modifications for ADL. 3=Patient will improve strength/tolerance for activity to enable patient to perform ADL's. OT Education/Plan Problem List/Assessment Assessment: Decreased Activ Tolerance, Decreased UE Strength, Dependent Transfers, Impaired Bed Mobility, Impaired Cognition, Impaired Coordination, Impaired Funct Balance, Impaired I ADL's, Impaired Self-Care Skills, Restricted Funct UE ROM Discharge Recommendations Plan/Recommendations: Continue POC Therapy D/C Recommendations: Home w/ Family Support Treatment Plan/Plan of Care Treatment,Training & Education: Yes Patient would benefit from OT for education, treatment and training to promote independence in ADL's, mobility, safety and/or upper extremity function for ADL' s. Plan of Care: ADL Retraining, Functional Mobility, Group Exercise/Act as Ind, UE Funct Exercise/Act Treatment Duration: Jun 15, 2018 Frequency: At least 5 of 7 days/Wk (IRF) Estimated Hrs Per Day: 1.5 hours per day Agreement: Yes Rehab Potential: Good Time/GCodes Start Time: 11:20 Stop Time: 11:50 Total Time Billed (hr/min): 30 Billed Treatment Time 1, FA x 30minutes JEREMIE RATLIFF OT May 23, 2018 15:05
[2018-05-23 15:56] VITALS: BP 95/65
[2018-05-23] MEDS: warFARin 10 MG (COUMADIN) TAB PO NR ×2 (17:28→17:29)
[2018-05-23] MEDS: warFARin 5 MG (COUMADIN) TAB PO SCH (19:00)
[2018-05-23] MEDS: MELATONIN 3 MG TABLET PO SCH (21:59)
[2018-05-24 04:38] VITALS: BP 94/63
[2018-05-24] MEDS: THIAMINE 100 MG (VITAMIN B-1) TAB PO SCH (06:23)
[2018-05-24] MEDS: inSUlin ASPART (NovoLOG) 1 UNIT/0.01 ML (CHARGE PER UNIT) SC SCH ×3 (06:23→17:52)
[2018-05-24 07:22] LABS: HEMOGLOBIN 12.6 G/DL (13.3-17.7); MEAN PLATELET VOLUME 9.4 FL (7.4-10.4); RED BLOOD COUNT 3.94 10^6/uL (4.35-5.85); RED CELL DISTRIBUTION WIDTH 14.5 % (10.0-14.5); WHITE BLOOD COUNT 4.8 10^3/uL (4.3-11.0)
[2018-05-24 07:35] LABS: INR 1.3 (0.8-1.4)
[2018-05-24 07:53] LABS: ALANINE AMINOTRANSFERASE 39 U/L (0-55); ALBUMIN 3.8 GM/DL (3.2-4.5); ALKALINE PHOSPHATASE 62 U/L (40-136); BILIRUBIN,TOTAL 1.8 MG/DL (0.1-1.0); BUN/CREATININE RATIO 19; CALCIUM 9.2 MG/DL (8.5-10.1); CARBON DIOXIDE 21 MMOL/L (21-32); CHLORIDE 105 MMOL/L (98-107); CREATININE SERUM 0.69 MG/DL (0.60-1.30); GFR ESTIMATED > 60; GLUCOSE 191 MG/DL (70-105); POTASSIUM 4.1 MMOL/L (3.6-5.0); SODIUM 135 MMOL/L (135-145); TOTAL PROTEIN 7.2 GM/DL (6.4-8.2)
--- NOTE | 2018-05-24 08:08 | Progress Note (SOAP) ---
Subjective Time Seen by a Provider: 08:07 Subjective/Events-last exam Patient feeling good. Patient biventricular bigeminy at times. Patient goes into sinus rhythm Objective Exam Vital Signs Date Time Temp Pulse Resp B/P (MAP) Pulse Ox O2 Delivery O2 Flow Rate FiO2 05/24/18 07:00 96 05/24/18 04:38 97.8 94 16 94/63 (73) 96 Room Air 05/24/18 01:00 96 05/23/18 21:21 Room Air 05/23/18 19:00 102 05/23/18 15:56 97.6 98 16 95/65 (75) 96 Room Air 05/23/18 13:45 93/60 (71) 05/23/18 13:39 97.6 88 18 94/56 (69) 98 Room Air 05/23/18 08:42 Room Air I & O 05/24/18 07:00 Intake Total 1300 ml Balance 1300 ml Capillary Refill : General Appearance: No Apparent Distress, WD/WN HEENT: Normal ENT Inspection Neck: Full Range of Motion Respiratory: No Accessory Muscle Use, No Respiratory Distress Cardiovascular: Other (Patient goes into ventricular bigeminy) Gastrointestinal: non tender, soft Results Lab Laboratory Tests 05/23/18 10:55: Glucometer 155H 05/23/18 15:54: Glucometer 204H 05/23/18 20:15: Glucometer 144H 05/24/18 04:15: Glucometer 186H 05/24/18 06:50: White Blood Count 4.8, Red Blood Count 3.94L, Hemoglobin 12.6L, Hematocrit 35L, Mean Corpuscular Volume 89, Mean Corpuscular Hemoglobin 32, Mean Corpuscular Hemoglobin Concent 36, Red Cell Distribution Width 14.5, Platelet Count 278, Mean Platelet Volume 9.4, Prothrombin Time 16.0H, INR Comment 1.3, Sodium Level 135, Potassium Level 4.1, Chloride Level 105, Carbon Dioxide Level 21, Anion Gap 9, Blood Urea Nitrogen 13, Creatinine 0.69, Estimat Glomerular Filtration Rate > 60, BUN/Creatinine Ratio 19, Glucose Level 191H, Calcium Level 9.2, Corrected Calcium 9.4, Magnesium Level 2.0, Total Bilirubin 1.8H, Aspartate Amino Transf (AST/SGOT) 27, Alanine Aminotransferase (ALT/SGPT) 39, Alkaline Phosphatase 62, Total Protein 7.2, Albumin 3.8 Assessment/Plan Assessment/Plan Assess & Plan/Chief Complaint CVA. Recent MS. Diabetes. . 30577. CVA. Recent MS. Diabetes. . 05/23/18 left CVA. Recent MS. Diabetes. INR 1.3. Blood pressures better. . 05/24/18. Left CVA. Recent MS. Diabetes. Lower INR Clinical Quality Measures Admission Status Admission Dx CVA. Recent MS. Diabetes. Left-sided weakness. Ejection fraction 20 percent DVT/VTE Risk/Contraindication: Risk Factor Score Per Nursin RFS Level Per Nursing on Admit: 4+=Very High JOSÉ MIGUEL WILCOX DO May 24, 2018 08:08
[2018-05-24] MEDS: CLOPIDOGREL 75 MG (PLAVIX) TABLET PO SCH (08:30)
[2018-05-24] MEDS: ATORVASTATIN 80 MG (LIPITOR) TABLET PO SCH (08:30)
[2018-05-24] MEDS: FLUoxetine HCL 20 MG (PROzac) CAP PO SCH (08:30)
[2018-05-24] MEDS: DOCUSATE SODIUM 100 MG (COLACE) CAP PO SCH ×2 (08:30→20:03)
[2018-05-24] MEDS: SENNOSIDES 8.6 MG (SENOKOT) TAB PO SCH ×2 (08:30→20:03)
[2018-05-24] MEDS: ENOXAPARIN 80 MG/0.8 ML (LOVENOX) SYR SC SCH ×2 (08:30→20:03)
[2018-05-24] MEDS: lisINopril 5 MG (PRINIVIL) TABLET PO SCH (08:32)
--- NOTE | 2018-05-24 09:32 | Physical Therapy Daily Note ---
PT Daily Note-Current Subjective pt in bed pre tx, agrees to PT, no pain to report Appearance pt in bed post tx w/ phone, call light, tray, all needs met Mental Status Patient Orientation: Normal For Age Transfers Functional [place] Measure 0=Not Assessed/NA 4=Minimal Assistance 1=Total Assistance 5=Supervision or Setup 2=Maximal Assistance 6=Modified [place] 3=Moderate Assistance 7=Complete IndependenceIRFPAI Quality Coding Scale 6 Independent with activity with or without an assistive device 5 Patient requires set up or clean up by helper. Patient completes activity by themselves 4 Supervision or touching assist (CGA). [place] provide cues , steadying assist 3 The helper provides less than half the effort to complete the activity 2 The helper provides more than half the effort to complete the activity 1 Dependent. The helper does all the effort to complete an activity 7 Patient refused to complete or attempt activity 9 The patient did not perform the activity before the current illness or injury 88 Not attempted due to Medical conditions or safety concerns Transfers (B, C, W/C) (FIM): 4 Supine to/from Sit: 6 Sit to/from Stand: 4 supine<->sit mod I, sit<->stand CGA for safety Weight Bearing Right Lower Extremity: Right Full Weight Bearing Left Lower Extremity: Left Full Weight Bearing Gait Training Does the Patient Walk?: Yes Gait (FIM): 4 Distance: 400',100' Gait Level of Assist: 4 Gait Persons Needed: 1 Gait Assistive Device: Cane Single Point ambulates w/ SPC, CGA, cues for big steps and walking as fast as he can GT in gym w/ foam noodles to step over, placed relatively far apart, pt cued to take reciprocal pattern to encourage big steps Exercises NuStep Minutes: 7 NuStep Workload: 5 Neuromuscular stepping over noodles in 4-square pattern, pt cued he needs to see the noodles when stepping backwards and take big steps so he has room for both feet in each square walking over noodles, reciprocal patter w/ pauses in SLS, pt required to give an item of specific category (cereal, candy bar type, etc.) before moving over next noodle SLS in // 3x15s w/ cognitive task standing lunges over airex pad 2x10 stepping lunges over noodles 3x10 SLS tapping cones on floor w/ foot 3x10 each leg Treatments gait training, balance training, functional strengthening, endurance training Assessment Current Status: Fair Progress improved bed mobility, gait distance, and balance, pt needs fewer cues for taking bigger steps while walking but still struggles when stepping over objects , pt needs lots of cues to continue on the NuStep and decides to quit on his own after 7 minutes PT Short Term Goals Short Term Goals Time Frame: May 25, 2018 Transfers (B,C,W/C) (FIM): 4 Gait (FIM): 4 Gait Distance Comment: 150' Gait Level of Assist: 4 Gait Assistive Device: Cane Large Base Quad PT Group Home Goals Spotter Driver Goals PT Group Home Goals Time Frame: Jun 08, 2018 Transfers (B,C,W/C) (FIM): 5 Sit to Lying (QC): 4 Lying-Sitting on Side/Bed(QC): 4 Sit to Stand (QC): 4 Rollin Roll Left to Right (QC): 4 Chair/[id number] Xfer(QC): 4 Car Transfer (QC): 4 Does the Patient Walk: Yes Gait (FIM): 5 Distance: 200' Walk 10 feet (QC): 4 Walk 10ft-Uneven Surface(QC): 4 Walk 50ft with 2 Turns (QC): 4 Walk 150 ft (QC): 4 Gait Level of Assist: 5 Gait Assistive Device: Cane Large Base Quad, Walker Deon Stairs (FIM): 2 # of Steps: 8 1 Step (curb) (QC): 3 4 Steps (QC): 3 Stairs Level Of Assist: 4 Picking up an Object (QC): 4 PT Plan Problem List Problem List: Activity Tolerance, Functional Strength, Safety, Balance, Gait, Transfer, Bed Mobility Treatment/Plan Treatment Plan: Continue Plan of Care Treatment Plan: Bed Mobility, Concurrent Therapy, Education, Functional Activity Radha, Functional Strength, Group Therapy, Gait, Safety, Therapeutic Exercise, Transfers Treatment Duration: Jun 08, 2018 Frequency: At least 5 of 7 days/Wk (IRF) Estimated Hrs Per Day: 1.5 hours per day Patient and/or Family Agrees t: Yes Safety Risks/Education Patient Education: Gait Training, Transfer Techniques, Correct Positioning, Safety Issues Teaching Recipient: Patient Teaching Methods: Demonstration, Discussion Response to Teaching: Reinforcement Needed Time/GCodes Time In: 0800 Time Out: 0930 Total Billed Treatment Time: 90 Total Billed Treatment 1 visit GT 30' NM 30' EX 30' ASHANTI DENNY PT May 24, 2018 09:32
[2018-05-24 10:54] VITALS: BP 83/58
--- NOTE | 2018-05-24 11:03 | Progress Note-Cardiology ---
Cardiology SOAP Progress Note Subjective: No cp or palp or syncope or shortness of breath Objective: I&O/Vital Signs 05/24/18 05/24/18 05/24/18 05/24/18 01:00 04:38 07:00 09:00 Temp 97.8 Pulse 96 94 96 Resp 16 B/P (MAP) 94/63 (73) Pulse Ox 96 O2 Delivery Room Air Room Air 05/24/18 10:54 Temp 97.8 Pulse 75 Resp 16 B/P (MAP) 83/58 (66) Pulse Ox 100 O2 Delivery Room Air 05/24/18 00:00 Intake Total 1060 ml Balance 1060 ml Weight (Pounds): 168 Weight (Ounces): 12.8 Weight (Calculated Kilograms): [id number] Constitutional: appears stated age, AAO x 3, well-developed, well-nourished Respiratory: chest is bilaterally symmetric, lungs clear to auscultation Cardiovascular: regular rate-rhythm; No JVD; S1 and S2 Gastrointestional: No tender; soft, audible bowel sounds Extremities: no lower extremity edema bilateral Neurologic/Psychiatric: alert, normal mood/affect, oriented x 3, facial droop ( left), other (Left sided facial droop, left lower extremity weakness 3/5, left upper extemity weakness 2/5) Results/Procedures: Labs Laboratory Tests 05/23/18 15:54: Glucometer 204H 05/23/18 20:15: Glucometer 144H 05/24/18 04:15: Glucometer 186H 05/24/18 06:50: White Blood Count 4.8, Red Blood Count 3.94L, Hemoglobin 12.6L, Hematocrit 35L, Mean Corpuscular Volume 89, Mean Corpuscular Hemoglobin 32, Mean Corpuscular Hemoglobin Concent 36, Red Cell Distribution Width 14.5, Platelet Count 278, Mean Platelet Volume 9.4, Prothrombin Time 16.0H, INR Comment 1.3, Sodium Level 135, Potassium Level 4.1, Chloride Level 105, Carbon Dioxide Level 21, Anion Gap 9, Blood Urea Nitrogen 13, Creatinine 0.69, Estimat Glomerular Filtration Rate > 60, BUN/Creatinine Ratio 19, Glucose Level 191H, Calcium Level 9.2, Corrected Calcium 9.4, Magnesium Level 2.0, Total Bilirubin 1.8H, Aspartate Amino Transf (AST/SGOT) 27, Alanine Aminotransferase (ALT/SGPT) 39, Alkaline Phosphatase 62, Total Protein 7.2, Albumin 3.8 Laboratory Tests 05/24/18 06:50 A/P: Assessment: Dysphagia and left hemiparesis post CVA in April 2018 Ischemic CVA - CT of head on 05-08-18 showed evolving mod sized subacute right MCA territory infarct without hemorrhage. No signif changes in additional tiny subacute right MCA territory and right cerebellar infarcts; thrombectomy on 05-06 - followed by neurology services at [facility] ICM - Echocardiogram of 05-06-18 showed LVEF 25%; mod LV dilation; layered mural LV apical thrombus; RV apical thrombus; Mild TR; LVEF 20% on echocardiogram of 05-16-18 at [facility] Relatively low blood pressure, apparently chronic, that limits therapy for ischemic cm (have had to hold off on bb and ELIE-inhib) CAD -STEMI on 05-05-18 for which he underwent cardiac cath by Dr. Alvarado which showed coronary artery disease, primarily consisting of mid vessel occlusion of the left anterior descending. This appears to be a chronic total occlusion and was not amenable to percutaneous intervention. The rest of the coronary vessels have moderate diffuse disease. Ischemic cardiomyopathy with anterolateral and apical dyskinesis and left ventricular ejection fraction of 20 % to 25%. Elevated left ventricular end-diastolic pressure. Subseqeunt cardiac cath at [facility] on 05-15-[address] Whyte showed 100% occlusion of the prox LAD ( appears to be chronic, no intervention done); 50% mid left cx with an iFR of 1.0 ; nondominant RCA with mod dz DM 2 HLD - statin tx OAC with warfarin - management per Medical Services - subtherapeutic INR - continue coverage with Lovenox until warfarin therapeutic Plan: Continue efforts at introducing low dose ELIE-inhib. If successful, then add bb Management of CVA as per stroke management team Management of DM 2 as per medical services Warfarin for anticoagulation; INR subtherapeutic, continue Lovenox - management per medical services Monitor lab closely Telemetry BLAKE [facility]VARADO MD [facility]S May 24, 2018 11:03
--- NOTE | 2018-05-24 11:35 | Speech Therapy Daily Note ---
Speech Daily Progress Note Subjective Date Seen by Provider: May 24, 2018 Time Seen by Provider: 10:45 Pt up in chair. Pleasant and cooperative. Pain Numeric Pain Scale: 0-No Pain Objective Processing speed - Rapid Picture Naming in 60". Pt was able to name 25 common objects in 1 minute. Oral Motor Exercises - Pt complete OMEs with min assist. Some discoordination was observed for the mouth and tongue. Problem Solving - Convergent Inferences: Pt provided with 3 clues and he was to name the object described. Pt was 100% accurate with min cues. Assessment Assessment Current Status: Good Progress Treatment Plan Continue Plan of Care Communication Comprehension: 5 Expression: 6 Social Cognition Social Interaction: 4 Problem Solvin Memory: 6 Speech Short Term Goals Short Term Goals Short Term Goals 1) THE PATIENT WILL BE ABLE TO CORRECTLY WRITE PERSONAL INFORMATION ON A FORM WITHOUT CUES IN 4/5 OPPORTUNITIES. 2) GIVEN DIVERGENT NAMING TASKS, THE PATIENT WILL IMPROVE OVERALL MENTAL QUICKNESS SCORES TO AT LEAST 15 ITEMS WITHIN 60 SECONDS. 3) GIVEN ALTERNATING ATTENTION TASKS, THE PATIENT WILL BE ABLE TO MOVE FROM TASKS TO COMPLETE WRITING, DRAWING OR VERBAL ACTIVITIES WITHOUT PROMPTS IN AT LEAST 4/5 TASKS. 4) THE PATIENT WILL BE ABLE TO EFFECTIVELY RECALL STRATEGIES FOR SAFETY WITHOUT PROMPTS WITH 80% RETURN. 5) Pt will complete higher level problem solving activities with at least 85% accuracy and min assist. 6) Pt will be independent with his Oral Motor Exercises. Time Frame-ST WEEKS Comprehension: 6 Expression: 6 Social Interaction: 6 Problem Solvin Memory: 6 Speech Usp Goals Usp Goals 1) THE PATIENT WILL BE ABLE TO COMPLETE CONVERSATIONAL DISCOURSE FOR UP TO 5 TURNS WITHOUT PROMPTS. 2) THE PATIENT WILL BE ABLE TO ANSWER QUESTIONS WITH 90% RETURN FOLLOWING READING MATERIAL (UP TO A 500 WORD ARTICLE) USING QUESTIONING BY THIS ATTENDANT CAMPGROUND AND/ OR ANSWERING WRITTEN QUESTIONS. 3) THE PATIENT WILL IDENTIFY PROBLEM SOLVING TASK ACTIVITIES WITH AT LEAST 80% RETURN WITHOUT PROMPTS USING SELF-TALK AND/OR ANSWERING QUESTIONS. Time Frame: 3 WEEKS Comprehension: 7 Expression: 7 Social Interaction: 6 Problem Solvin Memory: 7 Speech-Plan Patient/Family Goals Patient/Family Goals: to return home Treatment Plan Speech Therapy Treatment Plan: Continue Plan of Care Pt very cooperative and motivated to improve. Treatment Duration: Jun 09, 2018 Frequency: 5 times per week Estimated Hrs Per Day: .5 hour per day Rehab Potential: Good Pt/Family Agrees to Plan: Yes Safety Risks/Education Teaching Recipient: Patient Teaching Methods: Discussion Response to Teaching: Verbalize Understanding Time Speech Therapy Time In: 10:45 Speech Therapy Time Out: 11:30 Total Billed Time: 45 Billed Treatment Time 1, EMILY Rosales May 24, 2018 11:35
--- NOTE | 2018-05-24 11:42 | Occupational Ther Daily Note ---
OT Current Status-Daily Note Subjective Pt seen in room, up in bed, agreeable to OT. No pain reported. Appearance Alert, cooperative Mental Status/Objective Functional [place] Measure 0=Not Assessed/NA 4=Minimal Assistance 1=Total Assistance 5=Supervision or Setup 2=Maximal Assistance 6=Modified [place] 3=Moderate Assistance 7=Complete [place] ADL-Treatment Pt got up from supine to sit EOB with SBA but with cues to untangle sheet over L arm and leg. Sat EOB without assistance. Took shirt off with SBA. Sit to stand CGA and walked CGA to shower. Stood CGA to take off shorts and sat to take socks off (struggled with L one, needed cues). Pt washed and dried all parts but needed skilled cues to use L hand to wash R am and CGA when standing to wash bottom. Cues to use L hand to help wash hair. Not very thorough with bathing. Got up off shower bench with CGA and walked with SPC and CGA to recliner to dress. Dressed upper body but needed skilled cues to dress L arm and attend to L side of shirt. Able to get pants on over feet but needed a little help with L slipper sock, with pt attempting to use L hand to put socks on. Difficulty pulling pants up on L hip, using L hand. Pt walked CGA, SPC to sink to brush teeth. Cues to use L hand to hold toothbrush and for balance assistance, CGA Also able to brush hair. Functional [place] Measure 0=Not Assessed/NA 4=Minimal Assistance 1=Total Assistance 5=Supervision or Setup 2=Maximal Assistance 6=Modified [place] 3=Moderate Assistance 7=Complete IndependenceIRFPAI Quality Coding Scale 6 Independent with activity with or without an assistive device 5 Patient requires set up or clean up by helper. Patient completes activity by themselves 4 Supervision or touching assist (CGA). [place] provide cues , steadying assist 3 The helper provides less than half the effort to complete the activity 2 The helper provides more than half the effort to complete the activity 1 Dependent. The helper does all the effort to complete an activity 7 Patient refused to complete or attempt activity 9 The patient did not perform the activity before the current illness or injury 88 Not attempted due to Medical conditions or safety concerns Grooming (FIM): 4 (CGA at sink) Bathing (FIM): 4 (CGA for balance. SHower bench, grab bars, hand held shower) Upper Body (FIM): 5 (supervision, cues) Lower Body Dressing (FIM): 4 (Help starting L sock, getting pants up over L hip. CGA) Shower Transfer(FIM): 4 (CGA, shower bench, grab bar) Other Treatment Pt walked with [facility], SPC to gym. Skilled neuromotor techniques with facilitation to increase L UE function for ADLs. Focused on quality of movement, maintaining symmetry, coordination. Pt able to reach for and stack cones with L hand, in multiple planes. Also able to grasp and release beanbags, adjusting movements to be able to accurately place beanbag. To increase coordination and functional use L UE for ADLs. Pt walked back to room [facility], SPC and was left up in recliner, chair alarm on, all needs met. Education OT Patient Education: Correct positioning, Modified ADL techniques, Progress toward Goal/Update tx plan, Purpose of tx/functional activities, Transfer techniques, Other (facilitaton techniques) Teaching Recipient: Patient Teaching Methods: Demonstration, Discussion Response to Teaching: Verbalize Understanding, Return Demonstration OT Short Term Goals Short Term Goals Time Frame: Jun 01, 2018 Eating(FIM): 5 Grooming(FIM): 5 Bathing(FIM): 4 Upper Body Dressing(FIM): 4 Lower Body Dressing(FIM): 4 Toileting(FIM): 4 Transfers (B,C,W/C) (FIM): 4 Toilet/Commode Transfer(FIM): 4 Shower Transfer(FIM): 4 Comprehension(FIM): 6 Expression(FIM): 6 Social Interaction(FIM): 6 Problem Solving(FIM): 6 Memory(FIM): 6 Additional Short Term Goals: 1-Demonstrate ADL Tasks, 2-Verbalize Understanding , 3-ImproveStrength/Radha 1=Demonstrate adherence to instructed precautions during ADL tasks. 2=Patient will verbalize/demonstrate understanding of assistive devices/ modifications for ADL. 3=Patient will improve strength/tolerance for activity to enable patient to perform ADL's. OT Group Home Goals Dev Ops Engineer Goals Time Frame: Jun 15, 2018 Eating (FIM): 6 Eating (QC): 6 Groomin Oral Hygiene (QC): 6 Bathing(FIM): 5 Shower/Bathe Self (QC): 5 Upper Body Dressing(FIM): 6 Upper Body Dressing (QC): 6 Lower Body Dressing(FIM): 5 Lower Body Dressing (QC): 5 On/Off Footwear (QC): 5 Toileting(FIM): 6 Toileting Hygiene (QC): 6 Transfers (B,C,W/C) (FIM): 6 Toilet/Commode Transfer(FIM): 6 Toilet/Commode Transfer (QC): 6 Shower Transfer(FIM): 5 Comprehension(FIM): 7 Expression (FIM): 7 Social Interaction(FIM): 6 Problem Solving(FIM): 6 Memory(FIM): 7 Additional Goals: 1-Demonstrate ADL Tasks, 2-Verbalize Understanding, 3- ImproveStrength/Radha 1=Demonstrate adherence to instructed precautions during ADL tasks. 2=Patient will verbalize/demonstrate understanding of assistive devices/ modifications for ADL. 3=Patient will improve strength/tolerance for activity to enable patient to perform ADL's. OT Education/Plan Discharge Recommendations Plan/Recommendations: Continue POC Treatment Plan/Plan of Care Patient would benefit from OT for education, treatment and training to promote independence in ADL's, mobility, safety and/or upper extremity function for ADL' s. Plan of Care: ADL Retraining, Functional Mobility, Group Exercise/Act as Ind, UE Funct Exercise/Act Treatment Duration: Jun 15, 2018 Frequency: At least 5 of 7 days/Wk (IRF) Estimated Hrs Per Day: 1.5 hours per day Agreement: Yes Rehab Potential: Good Time/GCodes Start Time: 09:30 Stop Time: 10:45 Total Time Billed (hr/min): 75 Billed Treatment Time visit, 45 minutes ADL, 30 minutes neuromotor BOLA DUDLEY OT May 24, 2018 11:42
[2018-05-24] MEDS: inSUlin DETERMIR 1 UNIT/0.01 ML (LEVEMIR) CHARGE PER UNIT SQ SCH (13:47)
--- NOTE | 2018-05-24 15:23 | Speech Therapy Daily Note ---
Speech Daily Progress Note Subjective Date Seen by Provider: May 24, 2018 Time Seen by Provider: 10:45 1115 Pain Numeric Pain Scale: 0-No Pain Objective Pt heard coughing in his room eating lunch. Nursing reported pt "shoveling" his food in. ADDICTION TREATMENT COUNSELOR went to check it out. Pt was eating at a too rapid pace and getting too much food on his fork. He was also taking additional bites before he swallowed his food in his mouth already. Pt instructed in more safe eating behaviors. He acknowledged understanding. A new goal for swallowing will be added to his list of goals. Assessment Assessment Current Status: Good Progress Treatment Plan Continue Plan of Care Communication Comprehension: 5 Expression: 6 Social Cognition Social Interaction: 4 Problem Solvin Memory: 6 Speech Short Term Goals Short Term Goals Short Term Goals 1) THE PATIENT WILL BE ABLE TO CORRECTLY WRITE PERSONAL INFORMATION ON A FORM WITHOUT CUES IN 4/5 OPPORTUNITIES. 2) GIVEN DIVERGENT NAMING TASKS, THE PATIENT WILL IMPROVE OVERALL MENTAL QUICKNESS SCORES TO AT LEAST 15 ITEMS WITHIN 60 SECONDS. 3) GIVEN ALTERNATING ATTENTION TASKS, THE PATIENT WILL BE ABLE TO MOVE FROM TASKS TO COMPLETE WRITING, DRAWING OR VERBAL ACTIVITIES WITHOUT PROMPTS IN AT LEAST 4/5 TASKS. 4) THE PATIENT WILL BE ABLE TO EFFECTIVELY RECALL STRATEGIES FOR SAFETY WITHOUT PROMPTS WITH 80% RETURN. 5) Pt will complete higher level problem solving activities with at least 85% accuracy and min assist. 6) Pt will be independent with his Oral Motor Exercises. Time Frame-ST WEEKS Comprehension: 6 Expression: 6 Social Interaction: 6 Problem Solvin Memory: 6 Speech Content Checker Goals Assisted Goals 1) THE PATIENT WILL BE ABLE TO COMPLETE CONVERSATIONAL DISCOURSE FOR UP TO 5 TURNS WITHOUT PROMPTS. 2) THE PATIENT WILL BE ABLE TO ANSWER QUESTIONS WITH 90% RETURN FOLLOWING READING MATERIAL (UP TO A 500 WORD ARTICLE) USING QUESTIONING BY THIS ADDICTION TREATMENT COUNSELOR AND/ OR ANSWERING WRITTEN QUESTIONS. 3) THE PATIENT WILL IDENTIFY PROBLEM SOLVING TASK ACTIVITIES WITH AT LEAST 80% RETURN WITHOUT PROMPTS USING SELF-TALK AND/OR ANSWERING QUESTIONS. Time Frame: 3 WEEKS Comprehension: 7 Expression: 7 Social Interaction: 6 Problem Solvin Memory: 7 Speech-Plan Patient/Family Goals Patient/Family Goals: Additonal goal: Pt will take appropriate bite sizes and utilize a slower rate of eating to increase safety of swallow independently. Treatment Plan Speech Therapy Treatment Plan: Continue Plan of Care New goal added due to pt was eating lunch and began coughing. ADDICTION TREATMENT COUNSELOR went to see pt. Pt was eating at a fast rate of speed and putting food in his mouth before he swallowed. Treatment Duration: Jun 09, 2018 Frequency: 5 times per week Estimated Hrs Per Day: .5 hour per day Rehab Potential: Good Pt/Family Agrees to Plan: Yes Safety Risks/Education Teaching Recipient: Patient Teaching Methods: Discussion Response to Teaching: Verbalize Understanding Time Speech Therapy Time In: 12:00 Speech Therapy Time Out: 12:10 Total Billed Time: 10 Billed Treatment Time 1, DYST No EMILY DUBOSE May 24, 2018 15:23
[2018-05-24] MEDS: warFARin 5 MG (COUMADIN) TAB PO SCH (17:52)
[2018-05-24] MEDS ORDERED: warFARin 5 MG (COUMADIN) TAB PO NR (18:45)
[2018-05-24] MEDS: MELATONIN 3 MG TABLET PO SCH (20:03)
[2018-05-24 21:00] VITALS: BP 91/55
[2018-05-25 04:00] VITALS: BP 91/60
[2018-05-25] MEDS: THIAMINE 100 MG (VITAMIN B-1) TAB PO SCH (06:18)
[2018-05-25] MEDS: inSUlin ASPART (NovoLOG) 1 UNIT/0.01 ML (CHARGE PER UNIT) SC SCH ×3 (06:19→18:07)
[2018-05-25 06:23] LABS: INR 1.5 (0.8-1.4); PROTHROMBIN TIME PATIENT 18.5 SEC (12.2-14.7)
--- NOTE | 2018-05-25 08:28 | Progress Note (SOAP) ---
Subjective Time Seen by a Provider: 08:27 Subjective/Events-last exam Patient keeps on improving. Patient in sinus rhythm now. No bigeminy noted Objective Exam Vital Signs Date Time Temp Pulse Resp B/P (MAP) Pulse Ox O2 Delivery O2 Flow Rate FiO2 05/25/18 07:00 90 05/25/18 04:00 97.9 100 16 91/60 (70) 97 Room Air 05/25/18 00:59 88 05/24/18 21:00 98.6 92 16 91/55 (67) 94 Room Air 05/24/18 21:00 Room Air 05/24/18 19:00 95 05/24/18 10:54 97.8 75 16 83/58 (66) 100 Room Air 05/24/18 09:00 Room Air I & O 05/25/18 07:00 Intake Total 1220 ml Balance 1220 ml Capillary Refill : General Appearance: No Apparent Distress, WD/WN HEENT: Normal ENT Inspection Neck: Normal Inspection Respiratory: Lungs Clear, No Accessory Muscle Use, No Respiratory Distress Cardiovascular: Regular Rate, Rhythm Results Lab Laboratory Tests 05/24/18 11:18: Glucometer 157H 05/24/18 16:33: Glucometer 155H 05/24/18 21:25: Glucometer 145H 05/25/18 04:43: Glucometer 132H 05/25/18 05:55: Prothrombin Time 18.5H, INR Comment 1.5H Assessment/Plan Assessment/Plan Assess & Plan/Chief Complaint CVA. Recent [place]. Diabetes. . [address]. CVA. Recent [place] Diabetes. . 05/23/18 left CVA. Recent [place]. Diabetes. INR 1.3. Blood pressures better. . 05/24/18. Left CVA. Recent [place]. Diabetes. Lower INR. . 05/25/18. Left CVA recent [place]. Diabetes. Patient in sinus rhythm this morning no ventricular bigeminy Clinical Quality Measures Admission Status Admission Dx CVA. Recent [place]. Diabetes. Left-sided weakness. Ejection fraction 20 percent DVT/VTE Risk/Contraindication: Risk Factor Score Per Nursin RFS Level Per Nursing on Admit: 4+=Very High JOSÉ MIGUEL WILCOX DO May 25, 2018 08:28
[2018-05-25] MEDS: FLUoxetine HCL 20 MG (PROzac) CAP PO SCH (08:40)
[2018-05-25] MEDS: ATORVASTATIN 80 MG (LIPITOR) TABLET PO SCH (08:40)
[2018-05-25] MEDS: CLOPIDOGREL 75 MG (PLAVIX) TABLET PO SCH (08:40)
[2018-05-25] MEDS: DOCUSATE SODIUM 100 MG (COLACE) CAP PO SCH ×3 (08:40→20:05)
[2018-05-25] MEDS: SENNOSIDES 8.6 MG (SENOKOT) TAB PO SCH ×3 (08:40→20:05)
[2018-05-25] MEDS: ENOXAPARIN 80 MG/0.8 ML (LOVENOX) SYR SC SCH ×2 (08:41→20:05)
--- NOTE | 2018-05-25 09:32 | Physical Therapy Daily Note ---
PT Daily Note-Current Subjective pt in bed pre tx, agrees to PT, no pain to report, pt toileted for BM during tx Appearance pt in recliner post tx w/ phone, call light, tray, all needs met Mental Status Patient Orientation: Normal For Age Transfers Functional [place] Measure 0=Not Assessed/NA 4=Minimal Assistance 1=Total Assistance 5=Supervision or Setup 2=Maximal Assistance 6=Modified [place] 3=Moderate Assistance 7=Complete IndependenceIRFPAI Quality Coding Scale 6 Independent with activity with or without an assistive device 5 Patient requires set up or clean up by helper. Patient completes activity by themselves 4 Supervision or touching assist (CGA). [place] provide cues , steadying assist 3 The helper provides less than half the effort to complete the activity 2 The helper provides more than half the effort to complete the activity 1 Dependent. The helper does all the effort to complete an activity 7 Patient refused to complete or attempt activity 9 The patient did not perform the activity before the current illness or injury 88 Not attempted due to Medical conditions or safety concerns Transfers (B, C, W/C) (FIM): 4 Supine to/from Sit: 5 Sit to/from Stand: 4 supine<->sit SBA, pt needs some cues but is able to perform on his own, sit<-> stand CGA for safety Weight Bearing Right Lower Extremity: Right Full Weight Bearing Left Lower Extremity: Left Full Weight Bearing Gait Training Does the Patient Walk?: Yes Gait (FIM): 4 Distance: 300',150'x2 Gait Level of Assist: 4 Gait Persons Needed: 1 Gait Assistive Device: Cane Single Point ambulates using SPC w/ CGA, cues for taking big, fast steps to increase gait speed, pt demonstrates slight ER of LLE Stair Training Stair Training: Handrails/: uses cane Stairs (FIM): 2 #of Steps: 8 Stairs: Pattern: Step to Level of Assist: 4 up/down 3x8 steps w/ CGA, consistent cues for sequencing and foot placement, Exercises Supine Ex: Bridging (30), Straight leg raise (30), Hip abd/add (clams, x20) floor transfer x2, cues needed for positioning and sequencing, pt is able to get from floor to bed w/ CGA, pt very hesitant and guarded, but shows ability to complete the task NuStep Minutes: 15 NuStep Workload: 5 Treatments functional strengthening, gait training, functional activity, stair training, endurance training Assessment Current Status: Fair Progress improved floor transfers and endurance/nustep distance PT Short Term Goals Short Term Goals Time Frame: May 25, 2018 Transfers (B,C,W/C) (FIM): 4 Gait (FIM): 4 Gait Distance Comment: 150' Gait Level of Assist: 4 Gait Assistive Device: Cane Large Base Quad PT Lead Business Analyst Goals Lead Business Analyst Goals PT Senior Care Goals Time Frame: Jun 08, 2018 Transfers (B,C,W/C) (FIM): 5 Sit to Lying (QC): 4 Lying-Sitting on Side/Bed(QC): 4 Sit to Stand (QC): 4 Rollin Roll Left to Right (QC): 4 Chair/[id number]-Jmljf Xfer(QC): 4 Car Transfer (QC): 4 Does the Patient Walk: Yes Gait (FIM): 5 Distance: 200' Walk 10 feet (QC): 4 Walk 10ft-Uneven Surface(QC): 4 Walk 50ft with 2 Turns (QC): 4 Walk 150 ft (QC): 4 Gait Level of Assist: 5 Gait Assistive Device: Cane Large Base Quad, Walker Deon Stairs (FIM): 2 # of Steps: 8 1 Step (curb) (QC): 3 4 Steps (QC): 3 Stairs Level Of Assist: 4 Picking up an Object (QC): 4 PT Plan Problem List Problem List: Activity Tolerance, Functional Strength, Safety, Balance, Gait, Transfer, Bed Mobility, ROM Treatment/Plan Treatment Plan: Continue Plan of Care Treatment Plan: Bed Mobility, Concurrent Therapy, Education, Functional Activity Radha, Functional Strength, Group Therapy, Gait, Safety, Therapeutic Exercise, Transfers Treatment Duration: Jun 08, 2018 Frequency: At least 5 of 7 days/Wk (IRF) Estimated Hrs Per Day: 1.5 hours per day Patient and/or Family Agrees t: Yes Safety Risks/Education Patient Education: Gait Training, Transfer Techniques, Steps, Correct Positioning, Safety Issues Teaching Recipient: Patient Teaching Methods: Demonstration, Discussion Response to Teaching: Reinforcement Needed Time/GCodes Time In: 0800 Time Out: 0930 Total Billed Treatment Time: 90 Total Billed Treatment 1 visit GT 30' FA 30' EX 30' ASHANTI DENNY PT May 25, 2018 09:32
[2018-05-25 09:36] VITALS: BP 91/54
[2018-05-25] MEDS: lisINopril 5 MG (PRINIVIL) TABLET PO SCH (09:37)
--- NOTE | 2018-05-25 09:41 | PM & R (SOAP) Progress Note ---
Subjective This was a face to face visit with the patient. Date Seen by Provider: May 25, 2018 Time Seen by Provider: 09:30 Subjective/Events-last exam Patient was seen in his room this AM Discussed case with RN Patient Min assist for transfers.Has antigravity strenght on Left with facial droop Review of Systems HEENT: Other (choking) Neurological: Weakness Objective Physician Exam Last Set of Vital Signs Vital Signs Date Time Temp Pulse Resp B/P (MAP) Pulse Ox O2 Delivery O2 Flow Rate FiO2 05/25/18 07:00 90 05/25/18 04:00 97.9 16 91/60 (70) 97 Room Air Capillary Refill : I&O Intake and Output 05/25/18 00:00 Intake Total 1220 ml Balance 1220 ml Intake Oral 1220 ml # Voids 6 # Bowel Movements 1 General: Alert, Cooperative, No Acute Distress HEENT: Other (dysarthria) Neck: Supple, No JVD Lungs: Clear to Auscultation Heart: Regular Rate Abdomen: Normal Bowel Sounds, Soft, No Tenderness Extremities: No Edema Neuro: Other (Left HP and dysarthria) Results Lab Data Laboratory Tests 05/22/18 11:14: Glucometer 226H 05/22/18 16:41: Glucometer 209H 05/22/18 20:03: Glucometer 225H 05/23/18 05:44: Glucometer 156H 05/23/18 06:21: Prothrombin Time 15.7H, INR Comment 1.3 05/23/18 10:55: Glucometer 155H 05/23/18 15:54: Glucometer 204H 05/23/18 20:15: Glucometer 144H 05/24/18 04:15: Glucometer 186H 05/24/18 06:50: White Blood Count 4.8, Red Blood Count 3.94L, Hemoglobin 12.6L, Hematocrit 35L, Mean Corpuscular Volume 89, Mean Corpuscular Hemoglobin 32, Mean Corpuscular Hemoglobin Concent 36, Red Cell Distribution Width 14.5, Platelet Count 278, Mean Platelet Volume 9.4, Prothrombin Time 16.0H, INR Comment 1.3, Sodium Level 135, Potassium Level 4.1, Chloride Level 105, Carbon Dioxide Level 21, Anion Gap 9, Blood Urea Nitrogen 13, Creatinine 0.69, Estimat Glomerular Filtration Rate > 60, BUN/Creatinine Ratio 19, Glucose Level 191H, Calcium Level 9.2, Corrected Calcium 9.4, Magnesium Level 2.0, Total Bilirubin 1.8H, Aspartate Amino Transf (AST/SGOT) 27, Alanine Aminotransferase (ALT/SGPT) 39, Alkaline Phosphatase 62, Total Protein 7.2, Albumin 3.8 05/24/18 11:18: Glucometer 157H 05/24/18 16:33: Glucometer 155H 05/24/18 21:25: Glucometer 145H 05/25/18 04:43: Glucometer 132H 05/25/18 05:55: Prothrombin Time 18.5H, INR Comment 1.5H Assessment/Plan Assessment and Plan 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 CAD managed medically S/P STEMI managed medically DM Ischemic cardiomyopathy Plan Continue Pt/OT/ST ST to do swallow asseesment as RN reports an episode of choking with food Team Conference held yesterday-see report for full functional update and POC Reconference next week SW to f/u re possible santhosh for Medical card as patient has no Medical Insurance 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
--- NOTE | 2018-05-25 10:44 | Progress Note-Cardiology ---
Cardiology SOAP Progress Note Subjective: In bed. Visitors x 2 at the bedside. No c/o CP, palpitations, syncope or near syncope. Objective: I&O/Vital Signs 05/25/18 05/25/18 05/25/18 05/25/18 00:59 04:00 07:00 08:33 Temp 97.9 Pulse 88 100 90 Resp 16 B/P (MAP) 91/60 (70) Pulse Ox 97 O2 Delivery Room Air Room Air 05/25/18 09:36 Pulse 89 Resp 20 B/P (MAP) 91/54 (66) Pulse Ox 98 O2 Delivery Room Air 05/25/18 00:00 Intake Total 980 ml Balance 980 ml Weight (Pounds): 168 Weight (Ounces): 12.8 Weight (Calculated Kilograms): 76.490144 Constitutional: appears stated age, AAO x 3, well-developed, well-nourished Respiratory: chest is bilaterally symmetric, lungs clear to auscultation Cardiovascular: regular rate-rhythm; No JVD; S1 and S2 Gastrointestional: No tender; soft, audible bowel sounds Extremities: no lower extremity edema bilateral Neurologic/Psychiatric: facial droop (left), other (Left sided facial droop, left lower extremity weakness 4/5, left upper extemity weakness 3/5) Results/Procedures: Labs Laboratory Tests 05/24/18 16:33: Glucometer 155H 05/24/18 21:25: Glucometer 145H 05/25/18 04:43: Glucometer 132H 05/25/18 05:55: Prothrombin Time 18.5H, INR Comment 1.5H 05/25/18 10:56: Glucometer 171H A/P: Assessment: Dysphagia and left hemiparesis post CVA in April 2018 Ischemic CVA - CT of head on 05-08-18 showed evolving mod sized subacute right MCA territory infarct without hemorrhage. No signif changes in additional tiny subacute right MCA territory and right cerebellar infarcts; thrombectomy on 05-06 - followed by neurology services at [facility] - Echocardiogram of 05-06-18 showed LVEF 25%; mod LV dilation; layered mural LV apical thrombus; RV apical thrombus; Mild TR; LVEF 20% on echocardiogram of 05-16-18 at [facility] Relatively low blood pressure, apparently chronic, that limits therapy for ischemic cm (have had to hold off on bb and ELIE-inhib) CAD -STEMI on 05-05-18 for which he underwent cardiac cath by Dr. Alvarado which showed coronary artery disease, primarily consisting of mid vessel occlusion of the left anterior descending. This appears to be a chronic total occlusion and was not amenable to percutaneous intervention. The rest of the coronary vessels have moderate diffuse disease. Ischemic cardiomyopathy with anterolateral and apical dyskinesis and left ventricular ejection fraction of 20 % to 25%. Elevated left ventricular end-diastolic pressure. Subseqeunt cardiac cath at [facility] on 05-15-[address] Whyte showed 100% occlusion of the prox LAD ( appears to be chronic, no intervention done); 50% mid left cx with an iFR of 1.0 ; nondominant RCA with mod dz DM 2 HLD - statin tx OAC with warfarin - management per Medical Services - subtherapeutic INR - continue coverage with Lovenox until warfarin therapeutic Plan: Continue efforts at introducing low dose ELIE-inhib. If successful, then add bb Management of CVA as per stroke management team Management of DM 2 as per medical services Warfarin for anticoagulation; INR subtherapeutic, continue Lovenox - management per medical services Monitor lab closely Telemetry Physician Assessment Physician Assessment No cp or palp or syncope Notes some exertional shortness of breath Lungs: good bilat air entry, fine bibasilar crackles Cor: reg Ext: no c/c/e A&P * As documented in our note above that I updated (italics) and as noted below * Continue attempts at meds for ischemic cm * Monitor labs * His mother was by his bedside today. I had a detailed discussion with him and his mother regarding his CV issues and our treatment plan VALE MAGALLON May 25, 2018 10:44 BLAKE ALVARADO MD [facility] May 25, 2018 12:51
--- NOTE | 2018-05-25 13:08 | Occupational Ther Daily Note ---
OT Current Status-Daily Note Subjective Pt seen in room, up in bed, agreeable to OT. No pain mentioned. Appearance Alert, cooperative Mental Status/Objective Functional [place] Measure 0=Not Assessed/NA 4=Minimal Assistance 1=Total Assistance 5=Supervision or Setup 2=Maximal Assistance 6=Modified [place] 3=Moderate Assistance 7=Complete [place] ADL-Treatment Functional [place] Measure 0=Not Assessed/NA 4=Minimal Assistance 1=Total Assistance 5=Supervision or Setup 2=Maximal Assistance 6=Modified [place] 3=Moderate Assistance 7=Complete IndependenceIRFPAI Quality Coding Scale 6 Independent with activity with or without an assistive device 5 Patient requires set up or clean up by helper. Patient completes activity by themselves 4 Supervision or touching assist (CGA). [place] provide cues , steadying assist 3 The helper provides less than half the effort to complete the activity 2 The helper provides more than half the effort to complete the activity 1 Dependent. The helper does all the effort to complete an activity 7 Patient refused to complete or attempt activity 9 The patient did not perform the activity before the current illness or injury 88 Not attempted due to Medical conditions or safety concerns Other Treatment Pt rolled to L side and used L arm to push up to sit EOB. Sit to stand with CGA. Walked to gym with CGA, SPC with tripod base and assist to position L arm to help with transfer into chair with arms. Pt worked with arm bike to maintain L hand on handle and move arms in coordination. He was able to keep L hand on handle for about 1 minutes and about 40 seconds. He needed to toilet so help to position L hand on arm rest for sit to stand and walked to bathroom CGA with cane. On and off toilet with close SBA and a little help to pull pants up completely on L side. Stood at sink to wash hands and brush teeth, cues to use L hand to help with toothbrush and as a support at sink, CGA. Walked to [facility] area and practiced sit to paving inspector chair with arms. By 5th repetition he was able to place L hand on armrest without cues. Practiced sit to stand at EOB, placing L hand with cues. Walked to recliner with CGA, cane and he reached L arm back for arm of chair without cues. Pt continued to make progress toward functional use L UE. Pt left up in recliner, all needs met, chair alarm on. Education OT Patient Education: Progress toward Goal/Update tx plan, Purpose of tx/ functional activities Teaching Recipient: Patient Teaching Methods: Demonstration, Discussion Response to Teaching: Verbalize Understanding, Return Demonstration, Reinforcement Needed OT Short Term Goals Short Term Goals Time Frame: Jun 01, 2018 Eating(FIM): 5 Grooming(FIM): 5 Bathing(FIM): 4 Upper Body Dressing(FIM): 4 Lower Body Dressing(FIM): 4 Toileting(FIM): 4 Transfers (B,C,W/C) (FIM): 4 Toilet/Commode Transfer(FIM): 4 Shower Transfer(FIM): 4 Comprehension(FIM): 6 Expression(FIM): 6 Social Interaction(FIM): 6 Problem Solving(FIM): 6 Memory(FIM): 6 Additional Short Term Goals: 1-Demonstrate ADL Tasks, 2-Verbalize Understanding , 3-ImproveStrength/Radha 1=Demonstrate adherence to instructed precautions during ADL tasks. 2=Patient will verbalize/demonstrate understanding of assistive devices/ modifications for ADL. 3=Patient will improve strength/tolerance for activity to enable patient to perform ADL's. OT Detention Goals Detention Goals Time Frame: Jun 15, 2018 Eating (FIM): 6 Eating (QC): 6 Groomin Oral Hygiene (QC): 6 Bathing(FIM): 5 Shower/Bathe Self (QC): 5 Upper Body Dressing(FIM): 6 Upper Body Dressing (QC): 6 Lower Body Dressing(FIM): 5 Lower Body Dressing (QC): 5 On/Off Footwear (QC): 5 Toileting(FIM): 6 Toileting Hygiene (QC): 6 Transfers (B,C,W/C) (FIM): 6 Toilet/Commode Transfer(FIM): 6 Toilet/Commode Transfer (QC): 6 Shower Transfer(FIM): 5 Comprehension(FIM): 7 Expression (FIM): 7 Social Interaction(FIM): 6 Problem Solving(FIM): 6 Memory(FIM): 7 Additional Goals: 1-Demonstrate ADL Tasks, 2-Verbalize Understanding, 3- ImproveStrength/Radha 1=Demonstrate adherence to instructed precautions during ADL tasks. 2=Patient will verbalize/demonstrate understanding of assistive devices/ modifications for ADL. 3=Patient will improve strength/tolerance for activity to enable patient to perform ADL's. OT Education/Plan Discharge Recommendations Plan/Recommendations: Continue POC Treatment Plan/Plan of Care Patient would benefit from OT for education, treatment and training to promote independence in ADL's, mobility, safety and/or upper extremity function for ADL' s. Plan of Care: ADL Retraining, Functional Mobility, Group Exercise/Act as Ind, UE Funct Exercise/Act Treatment Duration: Jun 15, 2018 Frequency: At least 5 of 7 days/Wk (IRF) Estimated Hrs Per Day: 1.5 hours per day Agreement: Yes Rehab Potential: Good Time/GCodes Start Time: 11:00 Stop Time: 11:30 Total Time Billed (hr/min): 30 Billed Treatment Time visit, 30 minutes functional activities BOLA DUDLEY OT May 25, 2018 13:08
--- NOTE | 2018-05-25 14:18 | Occupational Ther Daily Note ---
OT Current Status-Daily Note Subjective Pt alert, lying in bed. Pt agrees to therapy. No c/o pain at this time. Mental Status/Objective Patient Orientation: Person, Place, Time, Situation Functional [place] Measure 0=Not Assessed/NA 4=Minimal Assistance 1=Total Assistance 5=Supervision or Setup 2=Maximal Assistance 6=Modified [place] 3=Moderate Assistance 7=Complete [place] ADL-Treatment Functional [place] Measure 0=Not Assessed/NA 4=Minimal Assistance 1=Total Assistance 5=Supervision or Setup 2=Maximal Assistance 6=Modified [place] 3=Moderate Assistance 7=Complete IndependenceIRFPAI Quality Coding Scale 6 Independent with activity with or without an assistive device 5 Patient requires set up or clean up by helper. Patient completes activity by themselves 4 Supervision or touching assist (CGA). [place] provide cues , steadying assist 3 The helper provides less than half the effort to complete the activity 2 The helper provides more than half the effort to complete the activity 1 Dependent. The helper does all the effort to complete an activity 7 Patient refused to complete or attempt activity 9 The patient did not perform the activity before the current illness or injury 88 Not attempted due to Medical conditions or safety concerns Other Treatment Supine to sitting EOB by self. Close SBA using cane to ambulate to therapy gym. Pt completed B UE exercise for strength, neuromuscular and hand/eye coordination using large exercise ball by catching/tossing by waist, chest and over head (10x's each). Pt then completed 3 dowel annabelle exercises 1 set 10 reps with minimal compensatory movements. APROM for shldr flexion, 10x's. wrist flexion/extension, supination/pronation, flex/ext digits and finger opposition completed 10x's. Pt then ambulated back to room using cane with close SBA. After therapy, pt lying in bed with call light/phone in reach. All needs met in room. OT Short Term Goals Short Term Goals Time Frame: Jun 01, 2018 Eating(FIM): 5 Grooming(FIM): 5 Bathing(FIM): 4 Upper Body Dressing(FIM): 4 Lower Body Dressing(FIM): 4 Toileting(FIM): 4 Transfers (B,C,W/C) (FIM): 4 Toilet/Commode Transfer(FIM): 4 Shower Transfer(FIM): 4 Comprehension(FIM): 6 Expression(FIM): 6 Social Interaction(FIM): 6 Problem Solving(FIM): 6 Memory(FIM): 6 Additional Short Term Goals: 1-Demonstrate ADL Tasks, 2-Verbalize Understanding , 3-ImproveStrength/Radha 1=Demonstrate adherence to instructed precautions during ADL tasks. 2=Patient will verbalize/demonstrate understanding of assistive devices/ modifications for ADL. 3=Patient will improve strength/tolerance for activity to enable patient to perform ADL's. OT Retirement Goals Stacker Straightener Goals Time Frame: Jun 15, 2018 Eating (FIM): 6 Eating (QC): 6 Groomin Oral Hygiene (QC): 6 Bathing(FIM): 5 Shower/Bathe Self (QC): 5 Upper Body Dressing(FIM): 6 Upper Body Dressing (QC): 6 Lower Body Dressing(FIM): 5 Lower Body Dressing (QC): 5 On/Off Footwear (QC): 5 Toileting(FIM): 6 Toileting Hygiene (QC): 6 Transfers (B,C,W/C) (FIM): 6 Toilet/Commode Transfer(FIM): 6 Toilet/Commode Transfer (QC): 6 Shower Transfer(FIM): 5 Comprehension(FIM): 7 Expression (FIM): 7 Social Interaction(FIM): 6 Problem Solving(FIM): 6 Memory(FIM): 7 Additional Goals: 1-Demonstrate ADL Tasks, 2-Verbalize Understanding, 3- ImproveStrength/Radha 1=Demonstrate adherence to instructed precautions during ADL tasks. 2=Patient will verbalize/demonstrate understanding of assistive devices/ modifications for ADL. 3=Patient will improve strength/tolerance for activity to enable patient to perform ADL's. OT Education/Plan Discharge Recommendations Plan/Recommendations: Continue POC Treatment Plan/Plan of Care Patient would benefit from OT for education, treatment and training to promote independence in ADL's, mobility, safety and/or upper extremity function for ADL' s. Plan of Care: ADL Retraining, Functional Mobility, Group Exercise/Act as Ind, UE Funct Exercise/Act Treatment Duration: Jun 15, 2018 Frequency: At least 5 of 7 days/Wk (IRF) Estimated Hrs Per Day: 1.5 hours per day Agreement: Yes Rehab Potential: Good Time/GCodes Start Time: 13:30 Stop Time: 14:00 Total Time Billed (hr/min): 30 Billed Treatment Time 1 visit-NM2 (30 min) LIUDMILA ALVARADO May 25, 2018 14:18
--- NOTE | 2018-05-25 14:53 | Speech Therapy Daily Note ---
Speech Daily Progress Note Subjective Date Seen by Provider: May 25, 2018 Time Seen by Provider: 13:00 Pt in bed. Alert and cooperative. Pain Numeric Pain Scale: 0-No Pain Objective Problem Solving - Which word doesn't belong. Pt provided with 4 words and is to determine which word doesn't belong and explain why. Pt had difficulty understanding this concept during the initial assessment. Two were done as examples to demonstrate how this task works. The pt was approximately 65% accurate. The pt stated some unusual reasons as to why the word didn't belong Pt completed OMEs with min assist. Assessment Assessment Current Status: Good Progress Treatment Plan Continue Plan of Care Communication Comprehension: 5 Expression: 6 Social Cognition Social Interaction: 4 Problem Solvin Memory: 6 Speech Short Term Goals Short Term Goals Short Term Goals 1) THE PATIENT WILL BE ABLE TO CORRECTLY WRITE PERSONAL INFORMATION ON A FORM WITHOUT CUES IN 4/5 OPPORTUNITIES. 2) GIVEN DIVERGENT NAMING TASKS, THE PATIENT WILL IMPROVE OVERALL MENTAL QUICKNESS SCORES TO AT LEAST 15 ITEMS WITHIN 60 SECONDS. 3) GIVEN ALTERNATING ATTENTION TASKS, THE PATIENT WILL BE ABLE TO MOVE FROM TASKS TO COMPLETE WRITING, DRAWING OR VERBAL ACTIVITIES WITHOUT PROMPTS IN AT LEAST 4/5 TASKS. 4) THE PATIENT WILL BE ABLE TO EFFECTIVELY RECALL STRATEGIES FOR SAFETY WITHOUT PROMPTS WITH 80% RETURN. 5) Pt will complete higher level problem solving activities with at least 85% accuracy and min assist. 6) Pt will be independent with his Oral Motor Exercises. Time Frame-ST WEEKS Comprehension: 6 Expression: 6 Social Interaction: 6 Problem Solvin Memory: 6 Speech Fpc Goals Automatic Engraver Goals 1) THE PATIENT WILL BE ABLE TO COMPLETE CONVERSATIONAL DISCOURSE FOR UP TO 5 TURNS WITHOUT PROMPTS. 2) THE PATIENT WILL BE ABLE TO ANSWER QUESTIONS WITH 90% RETURN FOLLOWING READING MATERIAL (UP TO A 500 WORD ARTICLE) USING QUESTIONING BY THIS OB/GYN PHYSICIAN AND/ OR ANSWERING WRITTEN QUESTIONS. 3) THE PATIENT WILL IDENTIFY PROBLEM SOLVING TASK ACTIVITIES WITH AT LEAST 80% RETURN WITHOUT PROMPTS USING SELF-TALK AND/OR ANSWERING QUESTIONS. Time Frame: 3 WEEKS Comprehension: 7 Expression: 7 Social Interaction: 6 Problem Solvin Memory: 7 Speech-Plan Patient/Family Goals Patient/Family Goals: to return home. Treatment Plan Speech Therapy Treatment Plan: Continue Plan of Care Pt making small gains in speech tx. Treatment Duration: Jun 09, 2018 Frequency: 5 times per week Estimated Hrs Per Day: .5 hour per day Rehab Potential: Good Pt/Family Agrees to Plan: Yes Safety Risks/Education Teaching Recipient: Patient Teaching Methods: Discussion Response to Teaching: Verbalize Understanding Time Speech Therapy Time In: 13:00 Speech Therapy Time Out: 13:30 Total Billed Time: 30 Billed Treatment Time 1, EMILY Rosales May 25, 2018 14:53
[2018-05-25] MEDS: inSUlin DETERMIR 1 UNIT/0.01 ML (LEVEMIR) CHARGE PER UNIT SQ SCH (14:57)
--- NOTE | 2018-05-25 15:00 | Speech Therapy Daily Note ---
Speech Daily Progress Note Subjective Date Seen by Provider: May 25, 2018 Time Seen by Provider: 11:55 Pt up in chair. Pain Numeric Pain Scale: 0-No Pain Objective Brought lunch to pt and cut up the meat and the asparagus. The meat appeared dry so had dietary to bring some gravy. Pt reinstructed to take smaller bites, swallow before next bite and slow down. Clinical observation revealed pt was following through with all instructions. He did cough x1 but not sure if that was related to swallowing. Assessment Assessment Current Status: Fair Progress Treatment Plan Continue Plan of Care Communication Comprehension: 5 Expression: 6 Social Cognition Social Interaction: 4 Problem Solvin Memory: 6 Speech Short Term Goals Short Term Goals Short Term Goals 1) THE PATIENT WILL BE ABLE TO CORRECTLY WRITE PERSONAL INFORMATION ON A FORM WITHOUT CUES IN 4/5 OPPORTUNITIES. 2) GIVEN DIVERGENT NAMING TASKS, THE PATIENT WILL IMPROVE OVERALL MENTAL QUICKNESS SCORES TO AT LEAST 15 ITEMS WITHIN 60 SECONDS. 3) GIVEN ALTERNATING ATTENTION TASKS, THE PATIENT WILL BE ABLE TO MOVE FROM TASKS TO COMPLETE WRITING, DRAWING OR VERBAL ACTIVITIES WITHOUT PROMPTS IN AT LEAST 4/5 TASKS. 4) THE PATIENT WILL BE ABLE TO EFFECTIVELY RECALL STRATEGIES FOR SAFETY WITHOUT PROMPTS WITH 80% RETURN. 5) Pt will complete higher level problem solving activities with at least 85% accuracy and min assist. 6) Pt will be independent with his Oral Motor Exercises. Time Frame-ST WEEKS Comprehension: 6 Expression: 6 Social Interaction: 6 Problem Solvin Memory: 6 Speech Alf Goals Alf Goals 1) THE PATIENT WILL BE ABLE TO COMPLETE CONVERSATIONAL DISCOURSE FOR UP TO 5 TURNS WITHOUT PROMPTS. 2) THE PATIENT WILL BE ABLE TO ANSWER QUESTIONS WITH 90% RETURN FOLLOWING READING MATERIAL (UP TO A 500 WORD ARTICLE) USING QUESTIONING BY THIS MANAGEMENT PROFESSOR AND/ OR ANSWERING WRITTEN QUESTIONS. 3) THE PATIENT WILL IDENTIFY PROBLEM SOLVING TASK ACTIVITIES WITH AT LEAST 80% RETURN WITHOUT PROMPTS USING SELF-TALK AND/OR ANSWERING QUESTIONS. Time Frame: 3 WEEKS Comprehension: 7 Expression: 7 Social Interaction: 6 Problem Solvin Memory: 7 Speech-Plan Patient/Family Goals Patient/Family Goals: to return home Treatment Plan Speech Therapy Treatment Plan: Continue Plan of Care Pt is cooperative and very motivated to improve. Treatment Duration: Jun 09, 2018 Frequency: 5 times per week Estimated Hrs Per Day: .5 hour per day Rehab Potential: Good Pt/Family Agrees to Plan: Yes Safety Risks/Education Teaching Recipient: Patient Teaching Methods: Discussion Response to Teaching: Verbalize Understanding Time Speech Therapy Time In: 11:55 Speech Therapy Time Out: 12:10 Total Billed Time: 15 Billed Treatment Time 1, DYST EMILY Cantor May 25, 2018 15:00
[2018-05-25 15:41] VITALS: BP 88/60
[2018-05-25 17:43] VITALS: BP 90/50
[2018-05-25] MEDS ORDERED: warFARin 5 MG (COUMADIN) TAB PO NR (18:00)
[2018-05-25] MEDS: warFARin 5 MG (COUMADIN) TAB PO SCH (18:07)
[2018-05-25] MEDS ORDERED: CARVEDILOL 3.125 MG (COREG) TABLET PO NR (18:10)
[2018-05-25 19:27] VITALS: BP 87/55
[2018-05-25] MEDS: MELATONIN 3 MG TABLET PO SCH (20:05)
[2018-05-25 21:53] VITALS: BP 92/60
[2018-05-26 05:00] VITALS: BP 89/51
[2018-05-26] MEDS: THIAMINE 100 MG (VITAMIN B-1) TAB PO SCH (05:49)
[2018-05-26] MEDS: SENNOSIDES 8.6 MG (SENOKOT) TAB PO SCH ×2 (06:28→19:55)
[2018-05-26] MEDS: DOCUSATE SODIUM 100 MG (COLACE) CAP PO SCH ×2 (06:28→19:55)
[2018-05-26 06:36] LABS: INR 1.7 (0.8-1.4); PROTHROMBIN TIME PATIENT 20.1 SEC (12.2-14.7)
[2018-05-26] MEDS: inSUlin ASPART (NovoLOG) 1 UNIT/0.01 ML (CHARGE PER UNIT) SC SCH ×3 (06:52→16:28)
--- NOTE | 2018-05-26 07:59 | Progress Note (SOAP) ---
Subjective Time Seen by a Provider: 07:56 Subjective/Events-last exam CVA. Hypotension. Patient bigeminy better. INR 1.7 better. Patient feeling better and doing more Objective Exam Vital Signs Date Time Temp Pulse Resp B/P (MAP) Pulse Ox O2 Delivery O2 Flow Rate FiO2 05/26/18 05:00 98.9 98 18 89/51 (64) 99 Room Air 05/26/18 01:00 86 05/25/18 21:53 91 92/60 (71) 05/25/18 20:15 Room Air 05/25/18 19:45 93 05/25/18 19:27 94 87/55 (66) 05/25/18 17:45 58 05/25/18 17:43 98.1 49 14 90/50 (63) 94 Room Air 05/25/18 15:41 98.4 94 14 88/60 (69) 98 Room Air 05/25/18 13:00 94 05/25/18 09:36 89 20 91/54 (66) 98 Room Air 05/25/18 08:33 Room Air I & O 05/26/18 07:00 Intake Total 1300 ml Balance 1300 ml Capillary Refill : General Appearance: No Apparent Distress, WD/WN HEENT: Normal ENT Inspection Neck: Full Range of Motion, Normal Inspection Respiratory: Lungs Clear, No Accessory Muscle Use, No Respiratory Distress Cardiovascular: Regular Rate, Rhythm, No Murmur Gastrointestinal: non tender, soft Results Lab Laboratory Tests 05/25/18 10:56: Glucometer 171H 05/25/18 15:33: Glucometer 138H 05/25/18 20:05: Glucometer 152H 05/26/18 04:58: Glucometer 136H 05/26/18 06:09: Prothrombin Time 20.1H, INR Comment 1.7H Assessment/Plan Assessment/Plan Assess & Plan/Chief Complaint CVA. Recent NM. Diabetes. . 81960. CVA. Recent NM. Diabetes. . 05/23/18 left CVA. Recent NM. Diabetes. INR 1.3. Blood pressures better. . 05/24/18. Left CVA. Recent NM. Diabetes. Lower INR. . 05/25/18. Left CVA recent NM. Diabetes. Patient in sinus rhythm this morning no ventricular bigeminy. . 05/26/18. Left CVA. Recent NM. Diabetes. Patient in sinus rhythm now. Patient on Coreg. Patient improving Clinical Quality Measures Admission Status Admission Dx CVA. Recent NM. Diabetes. Left-sided weakness. Ejection fraction 20 percent DVT/VTE Risk/Contraindication: Risk Factor Score Per Nursin RFS Level Per Nursing on Admit: 4+=Very High JOSÉ MIGUEL WILCOX DO May 26, 2018 07:58
[2018-05-26] MEDS: CLOPIDOGREL 75 MG (PLAVIX) TABLET PO SCH (08:36)
[2018-05-26] MEDS: ENOXAPARIN 80 MG/0.8 ML (LOVENOX) SYR SC SCH ×2 (08:36→21:47)
[2018-05-26] MEDS: CARVEDILOL 3.125 MG (COREG) TABLET PO SCH ×2 (08:36→21:47)
[2018-05-26] MEDS: lisINopril 5 MG (PRINIVIL) TABLET PO SCH (08:36)
[2018-05-26] MEDS: ATORVASTATIN 80 MG (LIPITOR) TABLET PO SCH (08:36)
[2018-05-26] MEDS: FLUoxetine HCL 20 MG (PROzac) CAP PO SCH (08:36)
--- NOTE | 2018-05-26 09:03 | Progress Note-Cardiology ---
Cardiology SOAP Progress Note Subjective: Up working with PT. No c/o CP, SOB, palpitations, syncope or near syncope. Feels he is getting stronger. C/O some sinus congestion today. Objective: I&O/Vital Signs 05/25/18 05/26/18 05/26/18 05/26/18 21:53 01:00 05:00 07:00 Temp 98.9 Pulse 91 86 98 95 Resp 18 B/P (MAP) 92/60 (71) 89/51 (64) Pulse Ox 99 O2 Delivery Room Air 05/26/18 00:00 Intake Total 1100 ml Balance 1100 ml Weight (Pounds): 168 Weight (Ounces): 12.8 Weight (Calculated Kilograms): [id number] Constitutional: appears stated age, AAO x 3, well-developed, well-nourished Respiratory: chest is bilaterally symmetric, lungs clear to auscultation Cardiovascular: regular rate-rhythm; No JVD; S1 and S2 Gastrointestional: No tender; soft, audible bowel sounds Extremities: no lower extremity edema bilateral Neurologic/Psychiatric: facial droop (left), other (Left sided facial droop, left lower extremity weakness 4/5, left upper extemity weakness 3/5) Results/Procedures: Labs Laboratory Tests 05/25/18 10:56: Glucometer 171H 05/25/18 15:33: Glucometer 138H 05/25/18 20:05: Glucometer 152H 05/26/18 04:58: Glucometer 136H 05/26/18 06:09: Prothrombin Time 20.1H, INR Comment 1.7H A/P: Assessment: Frequent PVCs Dysphagia and left hemiparesis post CVA in April 2018 Ischemic CVA - CT of head on 05-08-18 showed evolving mod sized subacute right MCA territory infarct without hemorrhage. No signif changes in additional tiny subacute right MCA territory and right cerebellar infarcts; thrombectomy on 05-06 - followed by neurology services at [facility] ICM - Echocardiogram of 05-06-18 showed LVEF 25%; mod LV dilation; layered mural LV apical thrombus; RV apical thrombus; Mild TR; LVEF 20% on echocardiogram of 05-16-18 at [facility] Relatively low blood pressure, apparently chronic, that limits therapy for ischemic cm (have had to hold off on bb and ELIE-inhib) CAD -Suspected STEMI on 05-05-18 for which he underwent cardiac cath by Dr. Alvarado which showed coronary artery disease, primarily consisting of mid vessel occlusion of the left anterior descending. This appears to be a chronic total occlusion and was not amenable to percutaneous intervention. The rest of the coronary vessels have moderate diffuse disease. Ischemic cardiomyopathy with anterolateral and apical dyskinesis and left ventricular ejection fraction of 20 % to 25%. Elevated left ventricular end-diastolic pressure. Subseqeunt cardiac cath at [facility] on 05-15-[address] Whyte showed 100% occlusion of the prox LAD ( appears to be chronic, no intervention done); 50% mid left cx with an iFR of 1.0 ; nondominant RCA with mod dz DM 2 HLD - statin tx OAC with warfarin - management per Medical Services - subtherapeutic INR - continue coverage with Lovenox until warfarin therapeutic Plan: Continue efforts at introducing low dose ELIE-inhib and BB SR with frequent PVC's Chronic low BP for which he is asymptomatic Management of CVA as per stroke management team Management of DM 2 as per medical services Warfarin for anticoagulation; INR subtherapeutic, continue Lovenox - management per medical services Monitor lab closely Telemetry Physician Assessment Physician Assessment No cp or palp or syncope. Mod malaise and tiredness with activity Cor reg Lungs: clear Ext: no c/c/e A&R * As documented in our note above that I updated (italics) and as noted below * Has frequent PVCs * Keep tele * Trying to add bb to the regimen (bp is the impediment) VALE MAGALLON May 26, 2018 09:03 BLAKE ALVARADO MD [facility] May 26, 2018 09:33
--- NOTE | 2018-05-26 09:23 | Occupational Ther Daily Note ---
OT Current Status-Daily Note Subjective Pt in bed, agrees to treatment. Pt states he didn't sleep well last night. Mental Status/Objective Functional [place] Measure 0=Not Assessed/NA 4=Minimal Assistance 1=Total Assistance 5=Supervision or Setup 2=Maximal Assistance 6=Modified [place] 3=Moderate Assistance 7=Complete [place] ADL-Treatment Pt supine to sit with SBA. Pt would like to shower today. Sit to stand with supervision. Gait to restroom with CGA using cane. Transfer to shower with CGA using grab bars for safety. Seated bathing completed using hand held shower. Upper body bathing completed with SBA and verbal cues. Pt able to wash lower body with CGA for balance. Don pullover shirt with SBA and increased time. Cues to pull shirt down on left side. Pt able to thread bilateral LE into pant legs. Stood with CGA for pant hike. Pt requires minimal assistance to pull up over left hip. Assist required to manage button on shorts. Pt able to don bilateral socks with SBA and increased time. Pt stood at sink to brush teeth with SBA. Functional [place] Measure 0=Not Assessed/NA 4=Minimal Assistance 1=Total Assistance 5=Supervision or Setup 2=Maximal Assistance 6=Modified [place] 3=Moderate Assistance 7=Complete IndependenceIRFPAI Quality Coding Scale 6 Independent with activity with or without an assistive device 5 Patient requires set up or clean up by helper. Patient completes activity by themselves 4 Supervision or touching assist (CGA). [place] provide cues , steadying assist 3 The helper provides less than half the effort to complete the activity 2 The helper provides more than half the effort to complete the activity 1 Dependent. The helper does all the effort to complete an activity 7 Patient refused to complete or attempt activity 9 The patient did not perform the activity before the current illness or injury 88 Not attempted due to Medical conditions or safety concerns Grooming (FIM): 5 Oral Hygiene (QC): 4 Bathing (FIM): 4 Shower/Bathe Self (QC): 4 Upper Body (FIM): 5 Upper Body Dressing (QC): 4 Lower Body Dressing (FIM): 4 Lower Body Dressing (QC): 3 On/Off Footwear (QC): 4 Shower Transfer(FIM): 4 (CGA) Other Treatment Gait to therapy gym with cane. Pt completed arm bike activity to increase strength and ROM. Pt completed 3minutes 30 seconds with bilateral UE. Pt has some difficulty maintaining disulfurizer tender with left hand. Lost disulfurizer tender 3 times during task. Pt completed bilateral UE exercises with dowel annabelle to increase ROM and bilateral activity. Pt completed shoulder flexion, forward press, and biceps curls x10 reps. Pt requires some assistance for shoulder flexion. Pt completed fine motor task with left hand to increase coordination/manipulation skills. Pt able to pick checkers up and place in container with increased time. Pt returned to room, sitting in chair with needs met after session. OT Short Term Goals Short Term Goals Time Frame: Jun 01, 2018 Eating(FIM): 5 Grooming(FIM): 5 Bathing(FIM): 4 Upper Body Dressing(FIM): 4 Lower Body Dressing(FIM): 4 Toileting(FIM): 4 Transfers (B,C,W/C) (FIM): 4 Toilet/Commode Transfer(FIM): 4 Shower Transfer(FIM): 4 Comprehension(FIM): 6 Expression(FIM): 6 Social Interaction(FIM): 6 Problem Solving(FIM): 6 Memory(FIM): 6 Additional Short Term Goals: 1-Demonstrate ADL Tasks, 2-Verbalize Understanding , 3-ImproveStrength/Radha 1=Demonstrate adherence to instructed precautions during ADL tasks. 2=Patient will verbalize/demonstrate understanding of assistive devices/ modifications for ADL. 3=Patient will improve strength/tolerance for activity to enable patient to perform ADL's. OT Penitentiary Goals Penitentiary Goals Time Frame: Jun 15, 2018 Eating (FIM): 6 Eating (QC): 6 Groomin Oral Hygiene (QC): 6 Bathing(FIM): 5 Shower/Bathe Self (QC): 5 Upper Body Dressing(FIM): 6 Upper Body Dressing (QC): 6 Lower Body Dressing(FIM): 5 Lower Body Dressing (QC): 5 On/Off Footwear (QC): 5 Toileting(FIM): 6 Toileting Hygiene (QC): 6 Transfers (B,C,W/C) (FIM): 6 Toilet/Commode Transfer(FIM): 6 Toilet/Commode Transfer (QC): 6 Shower Transfer(FIM): 5 Comprehension(FIM): 7 Expression (FIM): 7 Social Interaction(FIM): 6 Problem Solving(FIM): 6 Memory(FIM): 7 Additional Goals: 1-Demonstrate ADL Tasks, 2-Verbalize Understanding, 3- ImproveStrength/Radha 1=Demonstrate adherence to instructed precautions during ADL tasks. 2=Patient will verbalize/demonstrate understanding of assistive devices/ modifications for ADL. 3=Patient will improve strength/tolerance for activity to enable patient to perform ADL's. OT Education/Plan Discharge Recommendations Plan/Recommendations: Continue POC Treatment Plan/Plan of Care Patient would benefit from OT for education, treatment and training to promote independence in ADL's, mobility, safety and/or upper extremity function for ADL' s. Plan of Care: ADL Retraining, Functional Mobility, Group Exercise/Act as Ind, UE Funct Exercise/Act Treatment Duration: Jun 15, 2018 Frequency: At least 5 of 7 days/Wk (IRF) Estimated Hrs Per Day: 1.5 hours per day Agreement: Yes Rehab Potential: Good Time/GCodes Start Time: 08:00 Stop Time: 09:15 Total Time Billed (hr/min): 75 Billed Treatment Time 1 visit, ADLx3(50minutes), EXx2(25minutes) SABRA GELLER OT May 26, 2018 09:23
--- NOTE | 2018-05-26 10:31 | Physical Therapy Daily Note ---
PT Daily Note-Current Subjective pt in recliner pre tx, agrees to PT, no pain to report Appearance pt in recliner post tx w/ phone, call light, tray, all needs met Mental Status Patient Orientation: Normal For Age Transfers Functional [place] Measure 0=Not Assessed/NA 4=Minimal Assistance 1=Total Assistance 5=Supervision or Setup 2=Maximal Assistance 6=Modified [place] 3=Moderate Assistance 7=Complete IndependenceIRFPAI Quality Coding Scale 6 Independent with activity with or without an assistive device 5 Patient requires set up or clean up by helper. Patient completes activity by themselves 4 Supervision or touching assist (CGA). [place] provide cues , steadying assist 3 The helper provides less than half the effort to complete the activity 2 The helper provides more than half the effort to complete the activity 1 Dependent. The helper does all the effort to complete an activity 7 Patient refused to complete or attempt activity 9 The patient did not perform the activity before the current illness or injury 88 Not attempted due to Medical conditions or safety concerns Transfers (B, C, W/C) (FIM): 5 Sit to/from Stand: 5 sit<->stand SBA Weight Bearing Right Lower Extremity: Right Full Weight Bearing Left Lower Extremity: Left Full Weight Bearing Gait Training Does the Patient Walk?: Yes Gait (FIM): 5 Distance: 400',150',100' Gait Level of Assist: 5 Gait Persons Needed: 1 Gait Assistive Device: Cane Single Point pt ambulates around rehab unit using SPC w/ SBA, cued to take large fast steps, pt speed is improving w/ fewer cues needed, GT in gym w/o AD grabbing/throwing bags and performing cognitive task, CGA, pt very steady, but takes much slower and smaller steps w/o his cane Stair Training Stair Training: Handrails/: uses cane Stairs (FIM): 4 #of Steps: 12 Stairs: Pattern: Step to Level of Assist: 4 up/down 12 steps using SPC, CGA, pt very steady and shows confidence during descent not previously noted Exercises Standin way Ex=Flex, Abd, Ext Standing Reps: 15 NuStep Minutes: 10 NuStep Workload: 5 Neuromuscular // bars: tapping cones on floor while performing cognitive task, turning to left and grabbing cones w/ LUE, SLS 2x15s each, step over noodles 2x15 Treatments gait training, balance training, functional strengthening, endurance training Assessment Current Status: Fair Progress increased independence during ambulation and improving coordination/balance w/ LLE PT Short Term Goals Short Term Goals Time Frame: May 25, 2018 Transfers (B,C,W/C) (FIM): 4 Gait (FIM): 4 Gait Distance Comment: 150' Gait Level of Assist: 4 Gait Assistive Device: Cane Large Base Quad PT Penitentiary Goals Penitentiary Goals PT Rough Rounder Goals Time Frame: Jun 08, 2018 Transfers (B,C,W/C) (FIM): 5 Sit to Lying (QC): 4 Lying-Sitting on Side/Bed(QC): 4 Sit to Stand (QC): 4 Rollin Roll Left to Right (QC): 4 Chair/Emv-jo-Ifdae Xfer(QC): 4 Car Transfer (QC): 4 Does the Patient Walk: Yes Gait (FIM): 5 Distance: 200' Walk 10 feet (QC): 4 Walk 10ft-Uneven Surface(QC): 4 Walk 50ft with 2 Turns (QC): 4 Walk 150 ft (QC): 4 Gait Level of Assist: 5 Gait Assistive Device: Cane Large Base Quad, Walker Deon Stairs (FIM): 2 # of Steps: 8 1 Step (curb) (QC): 3 4 Steps (QC): 3 Stairs Level Of Assist: 4 Picking up an Object (QC): 4 PT Plan Problem List Problem List: Activity Tolerance, Functional Strength, Safety, Balance, Gait, Transfer, Bed Mobility, ROM Treatment/Plan Treatment Plan: Continue Plan of Care Treatment Plan: Bed Mobility, Concurrent Therapy, Education, Functional Activity Radha, Functional Strength, Group Therapy, Gait, Safety, Therapeutic Exercise, Transfers Treatment Duration: Jun 08, 2018 Frequency: At least 5 of 7 days/Wk (IRF) Estimated Hrs Per Day: 1.5 hours per day Patient and/or Family Agrees t: Yes Safety Risks/Education Patient Education: Gait Training, Transfer Techniques, Steps, Correct Positioning, Safety Issues Teaching Recipient: Patient Teaching Methods: Demonstration, Discussion Response to Teaching: Reinforcement Needed Time/GCodes Time In: 0915 Time Out: 1030 Total Billed Treatment Time: 75 Total Billed Treatment 1 visit GT 25' EX 30' FA 20' ASHANTI DENNY PT May 26, 2018 10:31
[2018-05-26] MEDS: inSUlin DETERMIR 1 UNIT/0.01 ML (LEVEMIR) CHARGE PER UNIT SQ SCH (13:38)
--- NOTE | 2018-05-26 15:43 | Speech Therapy Daily Note ---
Speech Daily Progress Note Subjective Date Seen by Provider: May 26, 2018 Time Seen by Provider: 10:30 Pt up in chair, pleasant and cooperative. Objective Pt completed oral motor exercises with min assist. Pt has difficulty with tongue exercises and executing them correctly. Problem Solving - Naming words with specific features. Pt was to think of three words that the features described. Pt was 100% accurate with slow responses. Appeared pt was taking extra time to arrive at "clever" responses. Assessment Assessment Current Status: Good Progress Treatment Plan Continue Plan of Care Communication Comprehension: 5 Expression: 6 Social Cognition Social Interaction: 4 Problem Solvin Memory: 6 Speech Short Term Goals Short Term Goals Short Term Goals 1) THE PATIENT WILL BE ABLE TO CORRECTLY WRITE PERSONAL INFORMATION ON A FORM WITHOUT CUES IN 4/5 OPPORTUNITIES. 2) GIVEN DIVERGENT NAMING TASKS, THE PATIENT WILL IMPROVE OVERALL MENTAL QUICKNESS SCORES TO AT LEAST 15 ITEMS WITHIN 60 SECONDS. 3) GIVEN ALTERNATING ATTENTION TASKS, THE PATIENT WILL BE ABLE TO MOVE FROM TASKS TO COMPLETE WRITING, DRAWING OR VERBAL ACTIVITIES WITHOUT PROMPTS IN AT LEAST 4/5 TASKS. 4) THE PATIENT WILL BE ABLE TO EFFECTIVELY RECALL STRATEGIES FOR SAFETY WITHOUT PROMPTS WITH 80% RETURN. 5) Pt will complete higher level problem solving activities with at least 85% accuracy and min assist. 6) Pt will be independent with his Oral Motor Exercises. Time Frame-ST WEEKS Comprehension: 6 Expression: 6 Social Interaction: 6 Problem Solvin Memory: 6 Speech Mcc Goals Mcc Goals 1) THE PATIENT WILL BE ABLE TO COMPLETE CONVERSATIONAL DISCOURSE FOR UP TO 5 TURNS WITHOUT PROMPTS. 2) THE PATIENT WILL BE ABLE TO ANSWER QUESTIONS WITH 90% RETURN FOLLOWING READING MATERIAL (UP TO A 500 WORD ARTICLE) USING QUESTIONING BY THIS COMMERCIAL SHEET METAL FOREMAN AND/ OR ANSWERING WRITTEN QUESTIONS. 3) THE PATIENT WILL IDENTIFY PROBLEM SOLVING TASK ACTIVITIES WITH AT LEAST 80% RETURN WITHOUT PROMPTS USING SELF-TALK AND/OR ANSWERING QUESTIONS. Time Frame: 3 WEEKS Comprehension: 7 Expression: 7 Social Interaction: 6 Problem Solvin Memory: 7 Speech-Plan Patient/Family Goals Patient/Family Goals: to return home Treatment Plan Speech Therapy Treatment Plan: Continue Plan of Care pt is motivated to improve. Treatment Duration: Jun 09, 2018 Frequency: 5 times per week Estimated Hrs Per Day: .5 hour per day Rehab Potential: Good Pt/Family Agrees to Plan: Yes Safety Risks/Education Teaching Recipient: Patient Teaching Methods: Discussion Response to Teaching: Verbalize Understanding Time Speech Therapy Time In: 10:30 Speech Therapy Time Out: 11:00 Total Billed Time: 30 Billed Treatment Time 1, SLEMILY Cyr May 26, 2018 15:42
--- NOTE | 2018-05-26 15:43 | Speech Therapy Daily Note ---
Speech Daily Progress Note Subjective Date Seen by Provider: May 26, 2018 Time Seen by Provider: 12:00 Pt up in chair. Communication Comprehension: 5 Expression: 6 Social Cognition Social Interaction: 4 Problem Solvin Memory: 6 Speech Short Term Goals Short Term Goals Short Term Goals 1) THE PATIENT WILL BE ABLE TO CORRECTLY WRITE PERSONAL INFORMATION ON A FORM WITHOUT CUES IN 4/5 OPPORTUNITIES. 2) GIVEN DIVERGENT NAMING TASKS, THE PATIENT WILL IMPROVE OVERALL MENTAL QUICKNESS SCORES TO AT LEAST 15 ITEMS WITHIN 60 SECONDS. 3) GIVEN ALTERNATING ATTENTION TASKS, THE PATIENT WILL BE ABLE TO MOVE FROM TASKS TO COMPLETE WRITING, DRAWING OR VERBAL ACTIVITIES WITHOUT PROMPTS IN AT LEAST 4/5 TASKS. 4) THE PATIENT WILL BE ABLE TO EFFECTIVELY RECALL STRATEGIES FOR SAFETY WITHOUT PROMPTS WITH 80% RETURN. 5) Pt will complete higher level problem solving activities with at least 85% accuracy and min assist. 6) Pt will be independent with his Oral Motor Exercises. Time Frame-ST WEEKS Comprehension: 6 Expression: 6 Social Interaction: 6 Problem Solvin Memory: 6 Speech Metal Sheet Roller Operator Goals Intermediate Goals 1) THE PATIENT WILL BE ABLE TO COMPLETE CONVERSATIONAL DISCOURSE FOR UP TO 5 TURNS WITHOUT PROMPTS. 2) THE PATIENT WILL BE ABLE TO ANSWER QUESTIONS WITH 90% RETURN FOLLOWING READING MATERIAL (UP TO A 500 WORD ARTICLE) USING QUESTIONING BY THIS WARD ATTENDANT AND/ OR ANSWERING WRITTEN QUESTIONS. 3) THE PATIENT WILL IDENTIFY PROBLEM SOLVING TASK ACTIVITIES WITH AT LEAST 80% RETURN WITHOUT PROMPTS USING SELF-TALK AND/OR ANSWERING QUESTIONS. Time Frame: 3 WEEKS Comprehension: 7 Expression: 7 Social Interaction: 6 Problem Solvin Memory: 7 Speech-Plan Treatment Plan Treatment Duration: Jun 09, 2018 Frequency: 5 times per week Estimated Hrs Per Day: .5 hour per day Rehab Potential: EMILY Brown May 26, 2018 15:43
[2018-05-26] MEDS ORDERED: AMIODARONE 200 MG (CORDARONE) TAB PO NR (15:45)
--- NOTE | 2018-05-26 15:45 | Speech Therapy Daily Note ---
Speech Daily Progress Note Subjective Date Seen by Provider: May 26, 2018 Time Seen by Provider: 12:00 Pt up in chair. Waiting for lunch. Objective Dysphagia therapy. Pt re-instructed in safe swallowing techniques: eat at a slower pace, appropriate bite sizes and chew and swallow food before putting more food in mouth. Pt eating at a slower rate. Require min verbal cues for appropriate bite size. Pt would chew and swallow before next bite. No s/s of aspiration was observed. Communication Comprehension: 5 Expression: 6 Social Cognition Social Interaction: 4 Problem Solvin Memory: 6 Speech Short Term Goals Short Term Goals Short Term Goals 1) THE PATIENT WILL BE ABLE TO CORRECTLY WRITE PERSONAL INFORMATION ON A FORM WITHOUT CUES IN 4/5 OPPORTUNITIES. 2) GIVEN DIVERGENT NAMING TASKS, THE PATIENT WILL IMPROVE OVERALL MENTAL QUICKNESS SCORES TO AT LEAST 15 ITEMS WITHIN 60 SECONDS. 3) GIVEN ALTERNATING ATTENTION TASKS, THE PATIENT WILL BE ABLE TO MOVE FROM TASKS TO COMPLETE WRITING, DRAWING OR VERBAL ACTIVITIES WITHOUT PROMPTS IN AT LEAST 4/5 TASKS. 4) THE PATIENT WILL BE ABLE TO EFFECTIVELY RECALL STRATEGIES FOR SAFETY WITHOUT PROMPTS WITH 80% RETURN. 5) Pt will complete higher level problem solving activities with at least 85% accuracy and min assist. 6) Pt will be independent with his Oral Motor Exercises. Time Frame-ST WEEKS Comprehension: 6 Expression: 6 Social Interaction: 6 Problem Solvin Memory: 6 Speech Longterm Goals Longterm Goals 1) THE PATIENT WILL BE ABLE TO COMPLETE CONVERSATIONAL DISCOURSE FOR UP TO 5 TURNS WITHOUT PROMPTS. 2) THE PATIENT WILL BE ABLE TO ANSWER QUESTIONS WITH 90% RETURN FOLLOWING READING MATERIAL (UP TO A 500 WORD ARTICLE) USING QUESTIONING BY THIS MINING ANALYST AND/ OR ANSWERING WRITTEN QUESTIONS. 3) THE PATIENT WILL IDENTIFY PROBLEM SOLVING TASK ACTIVITIES WITH AT LEAST 80% RETURN WITHOUT PROMPTS USING SELF-TALK AND/OR ANSWERING QUESTIONS. Time Frame: 3 WEEKS Comprehension: 7 Expression: 7 Social Interaction: 6 Problem Solvin Memory: 7 Speech-Plan Patient/Family Goals Patient/Family Goals: to return home Treatment Plan Speech Therapy Treatment Plan: Continue Plan of Care pt making good progress Treatment Duration: Jun 09, 2018 Frequency: 5 times per week Estimated Hrs Per Day: .5 hour per day Rehab Potential: Good Pt/Family Agrees to Plan: Yes Safety Risks/Education Teaching Recipient: Patient Teaching Methods: Discussion Response to Teaching: Verbalize Understanding Time Speech Therapy Time In: 12:00 Speech Therapy Time Out: 12:20 Total Billed Time: 20 Billed Treatment Time 1, DYST No GRACYLYLAMonica BLANC May 26, 2018 15:45
[2018-05-26] MEDS: warFARin 5 MG (COUMADIN) TAB PO SCH (17:09)
[2018-05-26 17:54] VITALS: BP 77/51
[2018-05-26] MEDS: MELATONIN 3 MG TABLET PO SCH (21:47)
[2018-05-27 05:07] VITALS: BP 86/57
[2018-05-27 05:17] LABS: INR 1.8 (0.8-1.4); PROTHROMBIN TIME PATIENT 20.5 SEC (12.2-14.7)
[2018-05-27 05:24] LABS: BUN/CREATININE RATIO 27; CALCIUM 8.8 MG/DL (8.5-10.1); CARBON DIOXIDE 18 MMOL/L (21-32); CHLORIDE 106 MMOL/L (98-107); CREATININE SERUM 0.67 MG/DL (0.60-1.30); GFR ESTIMATED > 60; GLUCOSE 120 MG/DL (70-105); MAGNESIUM 1.9 MG/DL (1.8-2.4); POTASSIUM 3.9 MMOL/L (3.6-5.0); SODIUM 137 MMOL/L (135-145)
[2018-05-27] MEDS: THIAMINE 100 MG (VITAMIN B-1) TAB PO SCH (06:25)
[2018-05-27] MEDS: inSUlin ASPART (NovoLOG) 1 UNIT/0.01 ML (CHARGE PER UNIT) SC SCH ×3 (07:23→18:01)
[2018-05-27] MEDS: lisINopril 5 MG (PRINIVIL) TABLET PO SCH (09:16)
[2018-05-27] MEDS: DOCUSATE SODIUM 100 MG (COLACE) CAP PO SCH ×2 (09:16→20:10)
[2018-05-27] MEDS: VITAMIN D2 50,000 UNITS (1.25 MG) CAP PO SCH (09:16)
[2018-05-27] MEDS: FLUoxetine HCL 20 MG (PROzac) CAP PO SCH (09:16)
[2018-05-27] MEDS: ENOXAPARIN 80 MG/0.8 ML (LOVENOX) SYR SC SCH ×2 (09:16→20:10)
[2018-05-27] MEDS: SENNOSIDES 8.6 MG (SENOKOT) TAB PO SCH ×2 (09:16→20:10)
[2018-05-27] MEDS: CLOPIDOGREL 75 MG (PLAVIX) TABLET PO SCH (09:16)
[2018-05-27] MEDS: ATORVASTATIN 80 MG (LIPITOR) TABLET PO SCH (09:16)
[2018-05-27] MEDS: CARVEDILOL 3.125 MG (COREG) TABLET PO SCH ×2 (09:17→20:09)
[2018-05-27] MEDS: AMIODARONE 200 MG (CORDARONE) TAB PO SCH (09:17)
--- NOTE | 2018-05-27 10:30 | Physical Therapy Daily Note ---
PT Daily Note-Current Subjective Pt agreeable to PT. No complaints today. Transfers Functional [place] Measure 0=Not Assessed/NA 4=Minimal Assistance 1=Total Assistance 5=Supervision or Setup 2=Maximal Assistance 6=Modified [place] 3=Moderate Assistance 7=Complete IndependenceIRFPAI Quality Coding Scale 6 Independent with activity with or without an assistive device 5 Patient requires set up or clean up by helper. Patient completes activity by themselves 4 Supervision or touching assist (CGA). [place] provide cues , steadying assist 3 The helper provides less than half the effort to complete the activity 2 The helper provides more than half the effort to complete the activity 1 Dependent. The helper does all the effort to complete an activity 7 Patient refused to complete or attempt activity 9 The patient did not perform the activity before the current illness or injury 88 Not attempted due to Medical conditions or safety concerns Weight Bearing Right Lower Extremity: Right Full Weight Bearing Left Lower Extremity: Left Full Weight Bearing Treatments Pt ambulated x 200 ft x 2 with cane with SB-CGA. step through gait pattern with equal step length and heel toe pattern. Up and down 12 steps with cane with CGA and occas cues for safety and sequencing. Nu step x 15 minutes with focus on functional strengthening. Pt in chair after treatment with sister present and chair alarm activitated. Assessment Current Status: Good Progress Excellent functional progress noted. Gait pattern is becoming more safe. He is slightly unsteady on stairs but no LOB noted. PT Short Term Goals Short Term Goals Time Frame: May 25, 2018 Transfers (B,C,W/C) (FIM): 4 (met) Gait (FIM): 4 (met) Gait Distance Comment: 150' Gait Level of Assist: 4 Gait Assistive Device: Cane Large Base Quad PT Catalyst Supervisor Goals Alf Goals PT Alf Goals Time Frame: Jun 08, 2018 Transfers (B,C,W/C) (FIM): 5 Sit to Lying (QC): 4 Lying-Sitting on Side/Bed(QC): 4 Sit to Stand (QC): 4 Rollin Roll Left to Right (QC): 4 Chair/Zwl-da-Uhajk Xfer(QC): 4 Car Transfer (QC): 4 Does the Patient Walk: Yes Gait (FIM): 5 Distance: 200' Walk 10 feet (QC): 4 Walk 10ft-Uneven Surface(QC): 4 Walk 50ft with 2 Turns (QC): 4 Walk 150 ft (QC): 4 Gait Level of Assist: 5 Gait Assistive Device: Cane Large Base Quad, Walker Deon Stairs (FIM): 2 # of Steps: 8 1 Step (curb) (QC): 3 4 Steps (QC): 3 Stairs Level Of Assist: 4 Picking up an Object (QC): 4 PT Plan Problem List Problem List: Activity Tolerance, Functional Strength, Safety, Balance, Gait, Transfer Treatment/Plan Treatment Plan: Continue Plan of Care Treatment Plan: Bed Mobility, Concurrent Therapy, Education, Functional Activity Radha, Functional Strength, Group Therapy, Gait, Safety, Therapeutic Exercise, Transfers Treatment Duration: Jun 08, 2018 Frequency: At least 5 of 7 days/Wk (IRF) Estimated Hrs Per Day: 1.5 hours per day Patient and/or Family Agrees t: Yes Safety Risks/Education Patient Education: Safety Issues Teaching Recipient: Patient Teaching Methods: Discussion Response to Teaching: Reinforcement Needed Time/GCodes Time In: 805 Time Out: 835 Total Billed Treatment Time: 30 Total Billed Treatment visit EX 15 GT 15 LIUDMILA GONZALEZ PT May 27, 2018 10:30
--- NOTE | 2018-05-27 12:42 | Progress Note-Cardiology ---
Cardiology SOAP Progress Note Subjective: No cp or palp or syncope or shortness of breath at rest Has gen malaise and weakness Has L-sided weakness Objective: I&O/Vital Signs 05/27/18 05/27/18 05/27/18 05/27/18 01:00 05:07 07:00 08:24 Temp 97.1 Pulse 101 54 90 Resp 18 B/P (MAP) 86/57 (67) Pulse Ox 98 O2 Delivery Room Air Room Air 05/27/18 00:00 Intake Total 960 ml Balance 960 ml Weight (Pounds): 168 Weight (Ounces): 12.8 Weight (Calculated Kilograms): 76.072744 Constitutional: appears stated age, AAO x 3, well-developed, well-nourished Respiratory: chest is bilaterally symmetric, lungs clear to auscultation Cardiovascular: regular rate-rhythm; No JVD; S1 and S2 Gastrointestional: No tender; soft, audible bowel sounds Extremities: no lower extremity edema bilateral Neurologic/Psychiatric: facial droop (left), other (Left sided facial droop, left lower extremity weakness 4/5, left upper extemity weakness 3/5) Results/Procedures: Labs Laboratory Tests 05/26/18 16:46: Glucometer 134H 05/26/18 20:37: Glucometer 177H 05/27/18 04:56: Prothrombin Time 20.5H, INR Comment 1.8H, Sodium Level 137, Potassium Level 3.9 , Chloride Level 106, Carbon Dioxide Level 18L, Anion Gap 13, Blood Urea Nitrogen 18, Creatinine 0.67, Estimat Glomerular Filtration Rate > 60, BUN/ Creatinine Ratio 27, Glucose Level 120H, Calcium Level 8.8, Magnesium Level 1.9 , Thyroid Stimulating Hormone (TSH) 1.67 05/27/18 04:57: Glucometer 123H 05/27/18 11:11: Glucometer 163H Laboratory Tests 05/27/18 04:56 A/P: Assessment: Frequent PVCs Dysphagia and left hemiparesis post CVA in April 2018 Ischemic CVA - CT of head on 05-08-18 showed evolving mod sized subacute right MCA territory infarct without hemorrhage. No signif changes in additional tiny subacute right MCA territory and right cerebellar infarcts; thrombectomy on 05-06 - followed by neurology services at [facility] - Echocardiogram of 05-06-18 showed LVEF 25%; mod LV dilation; layered mural LV apical thrombus; RV apical thrombus; Mild TR; LVEF 20% on echocardiogram of 05-16-18 at [facility] Relatively low blood pressure, apparently chronic, that limits therapy for ischemic cm (have had to hold off on bb and ELIE-inhib) CAD -Suspected STEMI on 05-05-18 for which he underwent cardiac cath by Dr. Alvarado which showed coronary artery disease, primarily consisting of mid vessel occlusion of the left anterior descending. This appears to be a chronic total occlusion and was not amenable to percutaneous intervention. The rest of the coronary vessels have moderate diffuse disease. Ischemic cardiomyopathy with anterolateral and apical dyskinesis and left ventricular ejection fraction of 20 % to 25%. Elevated left ventricular end-diastolic pressure. Subseqeunt cardiac cath at [facility] on 05-15-[address] Whyte showed 100% occlusion of the prox LAD ( appears to be chronic, no intervention done); 50% mid left cx with an iFR of 1.0 ; nondominant RCA with mod dz DM 2 HLD - statin tx OAC with warfarin - management per Medical Services - subtherapeutic INR - continue coverage with Lovenox until warfarin therapeutic Plan: * Complex management due to multiple issues * Continue efforts at introducing low dose ELIE-inhib and BB * Add amiodarone in low dose (given frequent PVCs (near-constant bigeminy) and severe ischemic cm and high risk of SCD due to arrhythmia and inability to provide Life Vest because he does not have the money for down payment that the company is asking for and because he does not meet AHA/ACC criteria for permanent ICD) * Management of CVA as per stroke management team * Management of DM 2 as per medical services * Warfarin for anticoagulation; INR subtherapeutic, continue Lovenox - management per medical services * Monitor lab closely * Telemetry BLAKE ALVARADO MD [facility] CCDS May 27, 2018 12:42
[2018-05-27] MEDS: inSUlin DETERMIR 1 UNIT/0.01 ML (LEVEMIR) CHARGE PER UNIT SQ SCH (14:23)
[2018-05-27 18:00] VITALS: BP 75/37
[2018-05-27] MEDS: warFARin 5 MG (COUMADIN) TAB PO SCH (18:01)
[2018-05-27 18:19] VITALS: BP 99/64
[2018-05-27 18:20] VITALS: BP 101/68
[2018-05-27] MEDS: MELATONIN 3 MG TABLET PO SCH (20:09)
[2018-05-28 05:49] VITALS: BP 109/65
[2018-05-28] MEDS: THIAMINE 100 MG (VITAMIN B-1) TAB PO SCH (06:33)
[2018-05-28] MEDS: inSUlin ASPART (NovoLOG) 1 UNIT/0.01 ML (CHARGE PER UNIT) SC SCH ×3 (06:33→17:59)
[2018-05-28 08:30] VITALS: BP_SYST 86; BP_SYST 97; BP_DIAS 49; BP_DIAS 55
[2018-05-28] MEDS: CLOPIDOGREL 75 MG (PLAVIX) TABLET PO SCH (08:36)
[2018-05-28] MEDS: FLUoxetine HCL 20 MG (PROzac) CAP PO SCH (08:36)
[2018-05-28] MEDS: DOCUSATE SODIUM 100 MG (COLACE) CAP PO SCH ×2 (08:36→20:52)
[2018-05-28] MEDS: AMIODARONE 200 MG (CORDARONE) TAB PO SCH (08:36)
[2018-05-28] MEDS: ATORVASTATIN 80 MG (LIPITOR) TABLET PO SCH (08:36)
[2018-05-28] MEDS: SENNOSIDES 8.6 MG (SENOKOT) TAB PO SCH ×2 (08:37→20:52)
[2018-05-28] MEDS: CARVEDILOL 3.125 MG (COREG) TABLET PO SCH ×2 (08:48→20:51)
[2018-05-28] MEDS: lisINopril 5 MG (PRINIVIL) TABLET PO SCH (08:48)
[2018-05-28] MEDS: ENOXAPARIN 80 MG/0.8 ML (LOVENOX) SYR SC SCH ×2 (08:50→20:52)
[2018-05-28 09:38] LABS: INR 1.7 (0.8-1.4); PROTHROMBIN TIME PATIENT 20.2 SEC (12.2-14.7)
--- NOTE | 2018-05-28 12:10 | Progress Note-Cardiology ---
Cardiology SOAP Progress Note Subjective: No cp or palp or syncope or shortness of breath at rest Objective: I&O/Vital Signs 05/28/18 05/28/18 05/28/18 05/28/18 01:00 05:49 07:00 08:30 Temp 98.8 Pulse 82 66 84 98 Resp 18 B/P (MAP) 109/65 (80) 86/49 (61) 97/55 (69) Pulse Ox 95 O2 Delivery Room Air 05/28/18 09:00 O2 Delivery Room Air 05/28/18 00:00 Intake Total 1060 ml Balance 1060 ml Weight (Pounds): 168 Weight (Ounces): 12.8 Weight (Calculated Kilograms): 76.203567 Constitutional: appears stated age, AAO x 3, well-developed, well-nourished Respiratory: chest is bilaterally symmetric, lungs clear to auscultation Cardiovascular: regular rate-rhythm; No JVD; S1 and S2 Gastrointestional: No tender; soft, audible bowel sounds Extremities: no lower extremity edema bilateral Neurologic/Psychiatric: facial droop (left), other (Left sided facial droop, left lower extremity weakness 4/5, left upper extemity weakness 3/5) Results/Procedures: Labs Laboratory Tests 05/27/18 15:15: Glucometer 153H 05/27/18 21:17: Glucometer 105 05/28/18 05:28: Glucometer 125H 05/28/18 09:03: Prothrombin Time 20.2H, INR Comment 1.7H 05/28/18 10:59: Glucometer 161H Laboratory Tests 05/27/18 04:56 A/P: Assessment: Frequent PVCs Dysphagia and left hemiparesis post CVA in April 2018 Ischemic CVA - CT of head on 05-08-18 showed evolving mod sized subacute right MCA territory infarct without hemorrhage. No signif changes in additional tiny subacute right MCA territory and right cerebellar infarcts; thrombectomy on 05-06 - followed by Neurology services at [facility] - Echocardiogram of 05-06-18 showed LVEF 25%; mod LV dilation; layered mural LV apical thrombus; RV apical thrombus; Mild TR; LVEF 20% on echocardiogram of 05-16-18 at [facility]. Now on Life Vest Relatively low blood pressure, apparently chronic, that limits therapy for ischemic cm (have had to hold off on bb and ELIE-inhib) CAD -Suspected STEMI on 05-05-18 for which he underwent cardiac cath by Dr. Alvarado which showed coronary artery disease, primarily consisting of mid vessel occlusion of the left anterior descending. This appears to be a chronic total occlusion and was not amenable to percutaneous intervention. The rest of the coronary vessels have moderate diffuse disease. Ischemic cardiomyopathy with anterolateral and apical dyskinesis and left ventricular ejection fraction of 20 % to 25%. Elevated left ventricular end-diastolic pressure. Subseqeunt cardiac cath at [facility] on 05-15-[address] Whyte showed 100% occlusion of the prox LAD ( appears to be chronic, no intervention done); 50% mid left cx with an iFR of 1.0 ; nondominant RCA with mod dz DM 2 HLD - statin tx OAC with warfarin - initiated by Med and Neuro Svces at [facility]. INR currently subtherapeutic Plan: * Complex management due to multiple issues * Continue low-dose bb and ELIE-inhib (low dose because of hypotension) * Continue amiodarone 400 po daily * Continue Life Vest and discontinue telemetry * Management of CVA as per stroke management team * Management of DM 2 as per medical services * Increase warfarin, because INR still subtherapeutic * Monitor lab closely * I have discussed all of the above-noted issues with him BLAKE ALVARADO MD FACP [facility] CCDS May 28, 2018 12:10
[2018-05-28] MEDS ORDERED: HYDROcodone/APAP 7.5 MG/325 MG (LORTAB, LORCET PLUS) TABLET PO PRN (13:15)
[2018-05-28] MEDS: inSUlin DETERMIR 1 UNIT/0.01 ML (LEVEMIR) CHARGE PER UNIT SQ SCH (14:15)
[2018-05-28] MEDS ORDERED: CATHETER FLUSH 10 ML SYR IV PRN (15:15)
[2018-05-28 17:09] VITALS: BP_SYST 89; BP_SYST 98; BP_DIAS 59; BP_DIAS 65
[2018-05-28] MEDS: warFARin 3 MG (COUMADIN) TAB PO SCH (18:00)
[2018-05-28] MEDS ORDERED: warFARin 5 MG (COUMADIN) TAB PO SCH (18:00)
[2018-05-28 20:50] VITALS: BP 101/66
[2018-05-28] MEDS: MELATONIN 3 MG TABLET PO SCH (20:51)
[2018-05-28] MEDS: CATHETER FLUSH 10 ML SYR IV SCH (20:52)
[2018-05-29 05:04] VITALS: BP 99/61
[2018-05-29 05:28] LABS: BASOPHILS % (AUTO) 1 % (0-10); EOSINOPHILS # (AUTO) 0.3 10^3/uL (0.0-0.3); EOSINOPHILS % (AUTO) 6 % (0-10); HEMATOCRIT 30 % (40-54); LYMPHOCYTES # (AUTO) 1.5 X 10^3 (1.0-4.0); LYMPHOCYTES % (AUTO) 28 % (12-44); MEAN CORPUSCULAR HEMOGLOBIN 32 PG (25-34); MEAN CORPUSCULAR HGB CONC 37 G/DL (32-36); MEAN CORPUSCULAR VOLUME 88 FL (80-99); MEAN PLATELET VOLUME 9.7 FL (7.4-10.4); MONOCYTES # (AUTO) 0.5 X 10^3 (0.0-1.0); MONOCYTES % (AUTO) 9 % (0-12); NEUTROPHILS % (AUTO) 56 % (42-75); PLATELET COUNT 208 10^3/uL (130-400); RED BLOOD COUNT 3.43 10^6/uL (4.35-5.85); RED CELL DISTRIBUTION WIDTH 14.8 % (10.0-14.5); WHITE BLOOD COUNT 5.4 10^3/uL (4.3-11.0)
[2018-05-29 05:39] LABS: INR 1.8 (0.8-1.4); PROTHROMBIN TIME PATIENT 21.1 SEC (12.2-14.7)
[2018-05-29 05:45] LABS: BUN/CREATININE RATIO 21; CALCIUM 8.9 MG/DL (8.5-10.1); CARBON DIOXIDE 21 MMOL/L (21-32); CHLORIDE 106 MMOL/L (98-107); CREATININE SERUM 0.76 MG/DL (0.60-1.30); GFR ESTIMATED > 60; GLUCOSE 101 MG/DL (70-105); MAGNESIUM 1.9 MG/DL (1.8-2.4); POTASSIUM 3.8 MMOL/L (3.6-5.0); SODIUM 138 MMOL/L (135-145)
[2018-05-29] MEDS: CATHETER FLUSH 10 ML SYR IV SCH ×3 (06:39→20:40)
[2018-05-29] MEDS: inSUlin ASPART (NovoLOG) 1 UNIT/0.01 ML (CHARGE PER UNIT) SC SCH ×3 (06:39→17:55)
[2018-05-29] MEDS: THIAMINE 100 MG (VITAMIN B-1) TAB PO SCH (06:39)
--- NOTE | 2018-05-29 07:51 | Progress Note (SOAP) ---
Subjective Time Seen by a Provider: 07:49 Objective Exam Vital Signs Date Time Temp Pulse Resp B/P (MAP) Pulse Ox O2 Delivery O2 Flow Rate FiO2 05/29/18 05:04 97.3 83 18 99/61 (74) 98 Room Air 05/28/18 21:02 Room Air 05/28/18 20:50 96 101/66 (78) 05/28/18 17:09 98.1 87 18 89/59 (69) 95 Room Air 98/65 (76) 05/28/18 09:00 Room Air 05/28/18 08:30 98 86/49 (61) 97/55 (69) I & O 05/29/18 07:00 Intake Total 1140 ml Balance 1140 ml Capillary Refill : General Appearance: No Apparent Distress HEENT: Normal ENT Inspection, Other (Left side of mouth droops) Neck: Full Range of Motion, Normal Inspection Respiratory: Lungs Clear, No Accessory Muscle Use, No Respiratory Distress Cardiovascular: Regular Rate, Rhythm, No Murmur Gastrointestinal: non tender, soft Results Lab Laboratory Tests 05/28/18 09:03: Prothrombin Time 20.2H, INR Comment 1.7H 05/28/18 10:59: Glucometer 161H 05/28/18 15:52: Glucometer 165H 05/28/18 21:05: Glucometer 121H 05/29/18 04:25: Glucometer 102 05/29/18 05:10: White Blood Count 5.4, Red Blood Count 3.43L, Hemoglobin 11.0L, Hematocrit 30L, Mean Corpuscular Volume 88, Mean Corpuscular Hemoglobin 32, Mean Corpuscular Hemoglobin Concent 37H, Red Cell Distribution Width 14.8H, Platelet Count 208, Mean Platelet Volume 9.7, Neutrophils (%) (Auto) 56, Lymphocytes (%) (Auto) 28, Monocytes (%) (Auto) 9, Eosinophils (%) (Auto) 6, Basophils (%) (Auto) 1, Neutrophils # (Auto) 3.0, Lymphocytes # (Auto) 1.5, Monocytes # (Auto) 0.5, Eosinophils # (Auto) 0.3, Basophils # (Auto) 0.0, Prothrombin Time 21.1H, INR Comment 1.8H, Sodium Level 138, Potassium Level 3.8, Chloride Level 106, Carbon Dioxide Level 21, Anion Gap 11, Blood Urea Nitrogen 16, Creatinine 0.76, Estimat Glomerular Filtration Rate > 60, BUN/Creatinine Ratio 21, Glucose Level 101, Calcium Level 8.9, Magnesium Level 1.9 Assessment/Plan Assessment/Plan Assess & Plan/Chief Complaint CVA. Recent [place]. Diabetes. . [id number]. CVA. Recent OK. Diabetes. . 05/23/18 left CVA. Recent OK. Diabetes. INR 1.3. Blood pressures better. . 05/24/18. Left CVA. Recent OK. Diabetes. Lower INR. . 05/25/18. Left CVA recent OK. Diabetes. Patient in sinus rhythm this morning no ventricular bigeminy. . 05/26/18. Left CVA. Recent OK. Diabetes. Patient in sinus rhythm now. Patient on Coreg. Patient improving. . . Left CVA.. Recent OK. Diabetes. PVCs. Hypotension. Dysphagia. Ischemic CVA. Hyperlipidemia. LifeVest. INR 1.8 still subtherapeutic Clinical Quality Measures Admission Status Admission Dx CVA. Recent OK. Diabetes. Left-sided weakness. Ejection fraction 20 percent DVT/VTE Risk/Contraindication: Risk Factor Score Per Nursin RFS Level Per Nursing on Admit: 4+=Very High JOSÉ MIGUEL WILCOX DO May 29, 2018 07:51
[2018-05-29] MEDS: CLOPIDOGREL 75 MG (PLAVIX) TABLET PO SCH (08:12)
[2018-05-29] MEDS: CARVEDILOL 3.125 MG (COREG) TABLET PO SCH ×2 (08:12→20:38)
[2018-05-29] MEDS: AMIODARONE 200 MG (CORDARONE) TAB PO SCH (08:12)
[2018-05-29] MEDS: ENOXAPARIN 80 MG/0.8 ML (LOVENOX) SYR SC SCH ×2 (08:12→20:38)
[2018-05-29] MEDS: FLUoxetine HCL 20 MG (PROzac) CAP PO SCH (08:12)
[2018-05-29] MEDS: DOCUSATE SODIUM 100 MG (COLACE) CAP PO SCH ×2 (08:12→18:33)
[2018-05-29] MEDS: lisINopril 5 MG (PRINIVIL) TABLET PO SCH (08:12)
[2018-05-29] MEDS: ATORVASTATIN 80 MG (LIPITOR) TABLET PO SCH (08:12)
[2018-05-29] MEDS: SENNOSIDES 8.6 MG (SENOKOT) TAB PO SCH ×2 (08:13→18:33)
--- NOTE | 2018-05-29 11:03 | Physical Therapy Daily Note ---
PT Daily Note-Current Subjective Patient in bed pre tx, agrees to PT, no complaints of pain. Appearance Patient in bed post tx with nurse call, phone, tray, all needs met. Mental Status Patient Orientation: Person, Place, Situation Transfers Functional [place] Measure 0=Not Assessed/NA 4=Minimal Assistance 1=Total Assistance 5=Supervision or Setup 2=Maximal Assistance 6=Modified [place] 3=Moderate Assistance 7=Complete IndependenceIRFPAI Quality Coding Scale 6 Independent with activity with or without an assistive device 5 Patient requires set up or clean up by helper. Patient completes activity by themselves 4 Supervision or touching assist (CGA). [place] provide cues , steadying assist 3 The helper provides less than half the effort to complete the activity 2 The helper provides more than half the effort to complete the activity 1 Dependent. The helper does all the effort to complete an activity 7 Patient refused to complete or attempt activity 9 The patient did not perform the activity before the current illness or injury 88 Not attempted due to Medical conditions or safety concerns Transfers (B, C, W/C) (FIM): 5 Scootin Rollin Supine to/from Sit: 6 Sit to/from Stand: 5 Bed to/from Chair: 5 Occasional cues for safety, no LOB. Weight Bearing Right Lower Extremity: Right Full Weight Bearing Left Lower Extremity: Left Full Weight Bearing Gait Training Gait (FIM): 5 Distance: 250'x2 Gait Level of Assist: 5 Gait Persons Needed: 1 Gait Assistive Device: Cane Single Point Patient had fair balance, no LOB. Exercises NuStep Minutes: 15 NuStep Workload: 6 Neuromuscular Backwards walking, marching, sidestepping, all 50'. Balance activity touching toes to cones. Treatments bed mobility and transfers, ambulation, functional strengthening, balance training Assessment Current Status: Fair Progress improving balance and ambulation PT Short Term Goals Short Term Goals Time Frame: May 25, 2018 Transfers (B,C,W/C) (FIM): 4 (met) Gait (FIM): 4 (met) Gait Distance Comment: 150' Gait Level of Assist: 4 Gait Assistive Device: Cane Large Base Quad PT Sponge Fisherman Goals Care Home Goals PT Care Home Goals Time Frame: Jun 08, 2018 Transfers (B,C,W/C) (FIM): 5 Sit to Lying (QC): 4 Lying-Sitting on Side/Bed(QC): 4 Sit to Stand (QC): 4 Rollin Roll Left to Right (QC): 4 Chair/Bbh-vr-[place] Xfer(QC): 4 Car Transfer (QC): 4 Does the Patient Walk: Yes Gait (FIM): 5 Distance: 200' Walk 10 feet (QC): 4 Walk 10ft-Uneven Surface(QC): 4 Walk 50ft with 2 Turns (QC): 4 Walk 150 ft (QC): 4 Gait Level of Assist: 5 Gait Assistive Device: Cane Large Base Quad, Walker Deon Stairs (FIM): 2 # of Steps: 8 1 Step (curb) (QC): 3 4 Steps (QC): 3 Stairs Level Of Assist: 4 Picking up an Object (QC): 4 PT Plan Problem List Problem List: Activity Tolerance, Functional Strength, Safety, Balance, Gait, Transfer Treatment/Plan Treatment Plan: Continue Plan of Care Treatment Plan: Bed Mobility, Concurrent Therapy, Education, Functional Activity Radha, Functional Strength, Group Therapy, Gait, Safety, Therapeutic Exercise, Transfers Treatment Duration: Jun 08, 2018 Frequency: At least 5 of 7 days/Wk (IRF) Estimated Hrs Per Day: 1.5 hours per day Patient and/or Family Agrees t: Yes Safety Risks/Education Patient Education: Gait Training, Transfer Techniques, Correct Positioning, Safety Issues Teaching Recipient: Patient Teaching Methods: Demonstration, Discussion Response to Teaching: Reinforcement Needed Time/GCodes Time In: 1015 Time Out: 1100 Total Billed Treatment Time: 45 Total Billed Treatment 1 visit EX 15' GT 15' NM 15' ASHANTI DENNY PT May 29, 2018 11:03
--- NOTE | 2018-05-29 11:10 | Progress Note-Cardiology ---
Cardiology SOAP Progress Note Subjective: No cp or palp or syncope No shortness of breath at rest Persistent gen weakness and localized L-sided weakness Objective: I&O/Vital Signs 05/29/18 05/29/18 05:04 08:54 Temp 97.3 Pulse 83 Resp 18 B/P (MAP) 99/61 (74) Pulse Ox 98 O2 Delivery Room Air Room Air 05/29/18 00:00 Intake Total 900 ml Balance 900 ml Weight (Pounds): 166 Weight (Ounces): 12.8 Weight (Calculated Kilograms): 75.043631 Constitutional: appears stated age, AAO x 3, well-developed, well-nourished Respiratory: chest is bilaterally symmetric, lungs clear to auscultation Cardiovascular: regular rate-rhythm; No JVD; S1 and S2 Gastrointestional: No tender; soft, audible bowel sounds Extremities: no lower extremity edema bilateral Neurologic/Psychiatric: facial droop (left), other (Left sided facial droop, left lower extremity weakness 4/5, left upper extemity weakness 3/5) Results/Procedures: Labs Laboratory Tests 05/28/18 15:52: Glucometer 165H 05/28/18 21:05: Glucometer 121H 05/29/18 04:25: Glucometer 102 05/29/18 05:10: White Blood Count 5.4, Red Blood Count 3.43L, Hemoglobin 11.0L, Hematocrit 30L, Mean Corpuscular Volume 88, Mean Corpuscular Hemoglobin 32, Mean Corpuscular Hemoglobin Concent 37H, Red Cell Distribution Width 14.8H, Platelet Count 208, Mean Platelet Volume 9.7, Neutrophils (%) (Auto) 56, Lymphocytes (%) (Auto) 28, Monocytes (%) (Auto) 9, Eosinophils (%) (Auto) 6, Basophils (%) (Auto) 1, Neutrophils # (Auto) 3.0, Lymphocytes # (Auto) 1.5, Monocytes # (Auto) 0.5, Eosinophils # (Auto) 0.3, Basophils # (Auto) 0.0, Prothrombin Time 21.1H, INR Comment 1.8H, Sodium Level 138, Potassium Level 3.8, Chloride Level 106, Carbon Dioxide Level 21, Anion Gap 11, Blood Urea Nitrogen 16, Creatinine 0.76, Estimat Glomerular Filtration Rate > 60, BUN/Creatinine Ratio 21, Glucose Level 101, Calcium Level 8.9, Magnesium Level 1.9 Laboratory Tests 05/29/18 05:10 A/P: Assessment: Frequent PVCs Dysphagia and left hemiparesis post CVA in April 2018 Ischemic CVA - CT of head on 05-08-18 showed evolving mod sized subacute right MCA territory infarct without hemorrhage. No signif changes in additional tiny subacute right MCA territory and right cerebellar infarcts; thrombectomy on 05-06 - followed by Neurology services at [facility] - Echocardiogram of 05-06-18 showed LVEF 25%; mod LV dilation; layered mural LV apical thrombus; RV apical thrombus; Mild TR; LVEF 20% on echocardiogram of 05-16-18 at [facility]. Now on Life Vest Relatively low blood pressure, apparently chronic, that limits therapy for ischemic cm (have had to hold off on bb and ELIE-inhib) CAD -Suspected STEMI on 05-05-18 for which he underwent cardiac cath by Dr. Alvarado which showed coronary artery disease, primarily consisting of mid vessel occlusion of the left anterior descending. This appears to be a chronic total occlusion and was not amenable to percutaneous intervention. The rest of the coronary vessels have moderate diffuse disease. Ischemic cardiomyopathy with anterolateral and apical dyskinesis and left ventricular ejection fraction of 20 % to 25%. Elevated left ventricular end-diastolic pressure. Subseqeunt cardiac cath at [facility] on 05-15-[address] Whyte showed 100% occlusion of the prox LAD ( appears to be chronic, no intervention done); 50% mid left cx with an iFR of 1.0 ; nondominant RCA with mod dz DM 2 HLD - statin tx OAC with warfarin - initiated by Med and Neuro Svces at [facility]. INR currently subtherapeutic Plan: * Complex management due to multiple issues * Continue low-dose bb and ELIE-inhib (low dose because of hypotension) * Continue amiodarone 400 po daily * Continue Life Vest; tele d/c'd post Life Vest * Management of CVA as per stroke management team * Management of DM 2 as per medical services * Increase warfarin, because INR still subtherapeutic * Monitor lab closely * I have discussed all of the above-noted issues with him BLAKE ALVARADO MD FACP [facility] CCDS May 29, 2018 11:10
--- NOTE | 2018-05-29 11:19 | Occupational Ther Daily Note ---
OT Current Status-Daily Note Subjective Pt in bed, agrees to treatment. Pt says his left shoulder is sore secondary to using it a lot yesterday, but denies pain. Pt states he is still not sleeping well at night. Mental Status/Objective Functional [place] Measure 0=Not Assessed/NA 4=Minimal Assistance 1=Total Assistance 5=Supervision or Setup 2=Maximal Assistance 6=Modified [place] 3=Moderate Assistance 7=Complete [place] ADL-Treatment Pt supine to sit with SBA. Sponge bath complete seated EOB. Pt now has a life vest. Doff shirt with SBA. Min assist to doff shorts secondary to LOB requiring assist to correct. Upper body bathing completed with set up. Pt able to bathe lower body with CGA for balance and safety. Don pullover shirt with set up. Pt donned underwear and shorts with CGA for balance during standing for pant hike. Don socks with SBA and increased time. Pt stood at sink to complete grooming tasks with SBA. Functional [place] Measure 0=Not Assessed/NA 4=Minimal Assistance 1=Total Assistance 5=Supervision or Setup 2=Maximal Assistance 6=Modified [place] 3=Moderate Assistance 7=Complete IndependenceIRFPAI Quality Coding Scale 6 Independent with activity with or without an assistive device 5 Patient requires set up or clean up by helper. Patient completes activity by themselves 4 Supervision or touching assist (CGA). [place] provide cues , steadying assist 3 The helper provides less than half the effort to complete the activity 2 The helper provides more than half the effort to complete the activity 1 Dependent. The helper does all the effort to complete an activity 7 Patient refused to complete or attempt activity 9 The patient did not perform the activity before the current illness or injury 88 Not attempted due to Medical conditions or safety concerns Grooming (FIM): 5 Oral Hygiene (QC): 4 Bathing (FIM): 4 (CGA) Shower/Bathe Self (QC): 4 Upper Body (FIM): 5 Upper Body Dressing (QC): 5 Lower Body Dressing (FIM): 4 Lower Body Dressing (QC): 4 (CGA) On/Off Footwear (QC): 4 Other Treatment Gait to therapy gym with cane with supervision. Pt completed resistance pegs activity with left hand to increase fine motor coordination skills. Pt able to place 10 pegs into pegboard with increased time, but no assistance. AAROM x10 reps at left shoulder to increase ROM and strength. Pt performed AROM x10 reps at all other joints. Graded clothespins task with left hand to increase email manager/ pinch strength. Pt able to complete task with three lowest level resistance clothespins, but unable to use higher level resistance secondary to weakness. Pt complete crouch bag toss with left UE to increase grasp/release skills and gross shoulder movement. Pt demonstrates good grasp/release during task. Pt returned to room, in bed with needs met after session. OT Short Term Goals Short Term Goals Time Frame: Jun 01, 2018 Eating(FIM): 5 Grooming(FIM): 5 Bathing(FIM): 4 Upper Body Dressing(FIM): 4 Lower Body Dressing(FIM): 4 Toileting(FIM): 4 Transfers (B,C,W/C) (FIM): 4 (met) Toilet/Commode Transfer(FIM): 4 Shower Transfer(FIM): 4 Comprehension(FIM): 6 Expression(FIM): 6 Social Interaction(FIM): 6 Problem Solving(FIM): 6 Memory(FIM): 6 Additional Short Term Goals: 1-Demonstrate ADL Tasks, 2-Verbalize Understanding , 3-ImproveStrength/Radha 1=Demonstrate adherence to instructed precautions during ADL tasks. 2=Patient will verbalize/demonstrate understanding of assistive devices/ modifications for ADL. 3=Patient will improve strength/tolerance for activity to enable patient to perform ADL's. OT Hull Drafter Goals Hull Drafter Goals Time Frame: Jun 15, 2018 Eating (FIM): 6 Eating (QC): 6 Groomin Oral Hygiene (QC): 6 Bathing(FIM): 5 Shower/Bathe Self (QC): 5 Upper Body Dressing(FIM): 6 Upper Body Dressing (QC): 6 Lower Body Dressing(FIM): 5 Lower Body Dressing (QC): 5 On/Off Footwear (QC): 5 Toileting(FIM): 6 Toileting Hygiene (QC): 6 Transfers (B,C,W/C) (FIM): 6 Toilet/Commode Transfer(FIM): 6 Toilet/Commode Transfer (QC): 6 Shower Transfer(FIM): 5 Comprehension(FIM): 7 Expression (FIM): 7 Social Interaction(FIM): 6 Problem Solving(FIM): 6 Memory(FIM): 7 Additional Goals: 1-Demonstrate ADL Tasks, 2-Verbalize Understanding, 3- ImproveStrength/Radha 1=Demonstrate adherence to instructed precautions during ADL tasks. 2=Patient will verbalize/demonstrate understanding of assistive devices/ modifications for ADL. 3=Patient will improve strength/tolerance for activity to enable patient to perform ADL's. OT Education/Plan Discharge Recommendations Plan/Recommendations: Continue POC Treatment Plan/Plan of Care Patient would benefit from OT for education, treatment and training to promote independence in ADL's, mobility, safety and/or upper extremity function for ADL' s. Plan of Care: ADL Retraining, Functional Mobility, Group Exercise/Act as Ind, UE Funct Exercise/Act Treatment Duration: Jun 15, 2018 Frequency: At least 5 of 7 days/Wk (IRF) Estimated Hrs Per Day: 1.5 hours per day Agreement: Yes Rehab Potential: Good Time/GCodes Start Time: 09:00 Stop Time: 10:15 Total Time Billed (hr/min): 75 Billed Treatment Time 1 visit, ADLx3(45minutes), EXx2(30minutes) SABRA GELLER OT May 29, 2018 11:19
--- NOTE | 2018-05-29 13:31 | Physical Therapy Daily Note ---
PT Daily Note-Current Subjective Patient in bed pre tx, agrees to PT, no complaints of pain. Appearance Patient in bed post tx with nurse call, phone, tray, all needs met. Mental Status Patient Orientation: Person, Place, Situation Transfers Functional [place] Measure 0=Not Assessed/NA 4=Minimal Assistance 1=Total Assistance 5=Supervision or Setup 2=Maximal Assistance 6=Modified [place] 3=Moderate Assistance 7=Complete IndependenceIRFPAI Quality Coding Scale 6 Independent with activity with or without an assistive device 5 Patient requires set up or clean up by helper. Patient completes activity by themselves 4 Supervision or touching assist (CGA). [place] provide cues , steadying assist 3 The helper provides less than half the effort to complete the activity 2 The helper provides more than half the effort to complete the activity 1 Dependent. The helper does all the effort to complete an activity 7 Patient refused to complete or attempt activity 9 The patient did not perform the activity before the current illness or injury 88 Not attempted due to Medical conditions or safety concerns Transfers (B, C, W/C) (FIM): 5 Scootin Rollin Supine to/from Sit: 6 Sit to/from Stand: 5 Bed to/from Chair: 5 Practiced bed mobility and supine <-> sit to both sides. Weight Bearing Right Lower Extremity: Right Full Weight Bearing Left Lower Extremity: Left Full Weight Bearing Gait Training Gait (FIM): 5 Distance: 1000' Gait Level of Assist: 5 Gait Persons Needed: 1 Gait Assistive Device: Cane Single Point no LOB, slight unsteadiness on occasion. Exercises Supine Ex: Bridging, Heel Slides, Straight leg raise, Hip abd/add Supine Reps: 20 hooklying hip abd and add with RTB and pillow x20 Treatments bed mobility and transfers, ambulation, functional strengthening Assessment Current Status: Fair Progress improving ambulation, no LOB PT Short Term Goals Short Term Goals Time Frame: May 25, 2018 Transfers (B,C,W/C) (FIM): 4 (met) Gait (FIM): 4 (met) Gait Distance Comment: 150' Gait Level of Assist: 4 Gait Assistive Device: Cane Large Base Quad PT Custodial Goals Custodial Goals PT Custodial Goals Time Frame: Jun 08, 2018 Transfers (B,C,W/C) (FIM): 5 Sit to Lying (QC): 4 Lying-Sitting on Side/Bed(QC): 4 Sit to Stand (QC): 4 Rollin Roll Left to Right (QC): 4 Chair/Wva-aw-Fhmym Xfer(QC): 4 Car Transfer (QC): 4 Does the Patient Walk: Yes Gait (FIM): 5 Distance: 200' Walk 10 feet (QC): 4 Walk 10ft-Uneven Surface(QC): 4 Walk 50ft with 2 Turns (QC): 4 Walk 150 ft (QC): 4 Gait Level of Assist: 5 Gait Assistive Device: Cane Large Base Quad, Walker Deon Stairs (FIM): 2 # of Steps: 8 1 Step (curb) (QC): 3 4 Steps (QC): 3 Stairs Level Of Assist: 4 Picking up an Object (QC): 4 PT Plan Problem List Problem List: Activity Tolerance, Functional Strength, Safety, Balance, Gait, Transfer Treatment/Plan Treatment Plan: Continue Plan of Care Treatment Plan: Bed Mobility, Concurrent Therapy, Education, Functional Activity Radha, Functional Strength, Group Therapy, Gait, Safety, Therapeutic Exercise, Transfers Treatment Duration: Jun 08, 2018 Frequency: At least 5 of 7 days/Wk (IRF) Estimated Hrs Per Day: 1.5 hours per day Patient and/or Family Agrees t: Yes Safety Risks/Education Patient Education: Gait Training, Transfer Techniques, Correct Positioning, Safety Issues Teaching Recipient: Patient Teaching Methods: Demonstration, Discussion Response to Teaching: Reinforcement Needed Time/GCodes Time In: 1300 Time Out: 1330 Total Billed Treatment Time: 30 Total Billed Treatment 1 visit GT 10' EX 20' ASHANTI DENNY PT May 29, 2018 13:31
[2018-05-29] MEDS: inSUlin DETERMIR 1 UNIT/0.01 ML (LEVEMIR) CHARGE PER UNIT SQ SCH (15:11)
--- NOTE | 2018-05-29 15:58 | Speech Therapy Daily Note ---
Speech Daily Progress Note Subjective Date Seen by Provider: May 29, 2018 Time Seen by Provider: 11:15 Pt pleasant and cooperative. Pain Numeric Pain Scale: 0-No Pain Objective Oral Motor Exercises complete with min assist. Problem Solving - Divergent naming of different categories was 95% accurate. Pt still tends to have response latency but that is probably due to pt is trying to think of "clever" responses. Assessment Assessment Current Status: Good Progress Treatment Plan Continue Plan of Care Communication Comprehension: 5 Expression: 6 Social Cognition Social Interaction: 4 Problem Solvin Memory: 6 Speech Short Term Goals Short Term Goals Short Term Goals 1) THE PATIENT WILL BE ABLE TO CORRECTLY WRITE PERSONAL INFORMATION ON A FORM WITHOUT CUES IN 4/5 OPPORTUNITIES. 2) GIVEN DIVERGENT NAMING TASKS, THE PATIENT WILL IMPROVE OVERALL MENTAL QUICKNESS SCORES TO AT LEAST 15 ITEMS WITHIN 60 SECONDS. 3) GIVEN ALTERNATING ATTENTION TASKS, THE PATIENT WILL BE ABLE TO MOVE FROM TASKS TO COMPLETE WRITING, DRAWING OR VERBAL ACTIVITIES WITHOUT PROMPTS IN AT LEAST 4/5 TASKS. 4) THE PATIENT WILL BE ABLE TO EFFECTIVELY RECALL STRATEGIES FOR SAFETY WITHOUT PROMPTS WITH 80% RETURN. 5) Pt will complete higher level problem solving activities with at least 85% accuracy and min assist. 6) Pt will be independent with his Oral Motor Exercises. Time Frame-ST WEEKS Comprehension: 6 Expression: 6 Social Interaction: 6 Problem Solvin Memory: 6 Speech Senior Living Goals Document Imaging Manager Goals 1) THE PATIENT WILL BE ABLE TO COMPLETE CONVERSATIONAL DISCOURSE FOR UP TO 5 TURNS WITHOUT PROMPTS. 2) THE PATIENT WILL BE ABLE TO ANSWER QUESTIONS WITH 90% RETURN FOLLOWING READING MATERIAL (UP TO A 500 WORD ARTICLE) USING QUESTIONING BY THIS SANITATION TRUCK DRIVER AND/ OR ANSWERING WRITTEN QUESTIONS. 3) THE PATIENT WILL IDENTIFY PROBLEM SOLVING TASK ACTIVITIES WITH AT LEAST 80% RETURN WITHOUT PROMPTS USING SELF-TALK AND/OR ANSWERING QUESTIONS. Time Frame: 3 WEEKS Comprehension: 7 Expression: 7 Social Interaction: 6 Problem Solvin Memory: 7 Speech-Plan Patient/Family Goals Patient/Family Goals: to return home Treatment Plan Speech Therapy Treatment Plan: Continue Plan of Care pt making good gains. Treatment Duration: Jun 09, 2018 Frequency: 5 times per week Estimated Hrs Per Day: .5 hour per day Rehab Potential: Good Pt/Family Agrees to Plan: Yes Safety Risks/Education Teaching Recipient: Patient Teaching Methods: Discussion Response to Teaching: Verbalize Understanding Time Speech Therapy Time In: 11:15 Speech Therapy Time Out: 11:45 Total Billed Time: 30 Billed Treatment Time 1, SLEMILY Cyr May 29, 2018 15:58
--- NOTE | 2018-05-29 15:59 | Speech Therapy Daily Note ---
Speech Daily Progress Note Subjective Date Seen by Provider: May 29, 2018 Time Seen by Provider: 12:00 Pt up in chair. Pain Numeric Pain Scale: 0-No Pain Objective Clinical observation of pt eating lunch. Pt following strategies to increase safety of swallow with occasional cues. No s/s of aspiration observed during the meal. Assessment Assessment Current Status: Good Progress Treatment Plan Continue Plan of Care Communication Comprehension: 5 Expression: 6 Social Cognition Social Interaction: 4 Problem Solvin Memory: 6 Speech Short Term Goals Short Term Goals Short Term Goals 1) THE PATIENT WILL BE ABLE TO CORRECTLY WRITE PERSONAL INFORMATION ON A FORM WITHOUT CUES IN 4/5 OPPORTUNITIES. 2) GIVEN DIVERGENT NAMING TASKS, THE PATIENT WILL IMPROVE OVERALL MENTAL QUICKNESS SCORES TO AT LEAST 15 ITEMS WITHIN 60 SECONDS. 3) GIVEN ALTERNATING ATTENTION TASKS, THE PATIENT WILL BE ABLE TO MOVE FROM TASKS TO COMPLETE WRITING, DRAWING OR VERBAL ACTIVITIES WITHOUT PROMPTS IN AT LEAST 4/5 TASKS. 4) THE PATIENT WILL BE ABLE TO EFFECTIVELY RECALL STRATEGIES FOR SAFETY WITHOUT PROMPTS WITH 80% RETURN. 5) Pt will complete higher level problem solving activities with at least 85% accuracy and min assist. 6) Pt will be independent with his Oral Motor Exercises. Time Frame-ST WEEKS Comprehension: 6 Expression: 6 Social Interaction: 6 Problem Solvin Memory: 6 Speech Qualitative Field Project Manager Goals [facility] Goals 1) THE PATIENT WILL BE ABLE TO COMPLETE CONVERSATIONAL DISCOURSE FOR UP TO 5 TURNS WITHOUT PROMPTS. 2) THE PATIENT WILL BE ABLE TO ANSWER QUESTIONS WITH 90% RETURN FOLLOWING READING MATERIAL (UP TO A 500 WORD ARTICLE) USING QUESTIONING BY THIS MANAGER CONTACT AND/ OR ANSWERING WRITTEN QUESTIONS. 3) THE PATIENT WILL IDENTIFY PROBLEM SOLVING TASK ACTIVITIES WITH AT LEAST 80% RETURN WITHOUT PROMPTS USING SELF-TALK AND/OR ANSWERING QUESTIONS. Time Frame: 3 WEEKS Comprehension: 7 Expression: 7 Social Interaction: 6 Problem Solvin Memory: 7 Speech-Plan Patient/Family Goals Patient/Family Goals: to return home Treatment Plan Speech Therapy Treatment Plan: Continue Plan of Care pt making good improvement overall. Treatment Duration: Jun 09, 2018 Frequency: 5 times per week Estimated Hrs Per Day: .5 hour per day Rehab Potential: Good Pt/Family Agrees to Plan: Yes Safety Risks/Education Teaching Recipient: Patient Teaching Methods: Discussion Response to Teaching: Verbalize Understanding Time Speech Therapy Time In: 12:00 Speech Therapy Time Out: 12:15 Total Billed Time: 15 Billed Treatment Time 1, DYST EMILY Cantor May 29, 2018 15:58
[2018-05-29 16:00] VITALS: BP 100/65
[2018-05-29] MEDS: warFARin 3 MG (COUMADIN) TAB PO SCH (17:55)
[2018-05-29] MEDS: MELATONIN 3 MG TABLET PO SCH (20:38)
[2018-05-30 05:03] VITALS: BP 93/57
[2018-05-30 05:16] LABS: INR 1.9 (0.8-1.4); PROTHROMBIN TIME PATIENT 22.2 SEC (12.2-14.7)
[2018-05-30] MEDS: CATHETER FLUSH 10 ML SYR IV SCH ×3 (06:05→20:27)
[2018-05-30] MEDS: THIAMINE 100 MG (VITAMIN B-1) TAB PO SCH (06:05)
[2018-05-30] MEDS: inSUlin ASPART (NovoLOG) 1 UNIT/0.01 ML (CHARGE PER UNIT) SC SCH ×3 (07:20→17:27)
--- NOTE | 2018-05-30 08:36 | Progress Note (SOAP) ---
Subjective Time Seen by a Provider: 08:32 Subjective/Events-last exam Patient feels he is improving. Patient working hard. INR 1.9 Objective Exam Vital Signs Date Time Temp Pulse Resp B/P (MAP) Pulse Ox O2 Delivery O2 Flow Rate FiO2 05/30/18 05:03 97.6 79 16 93/57 (69) 95 Room Air 05/29/18 20:30 Room Air 05/29/18 16:00 98.0 80 18 100/65 (77) 100 Room Air 05/29/18 08:54 Room Air I & O 05/30/18 07:00 Intake Total 1560 ml Balance 1560 ml Capillary Refill : General Appearance: No Apparent Distress, WD/WN HEENT: Normal ENT Inspection, Other (Left mouth droops last) Neck: Full Range of Motion, Normal Inspection Respiratory: Lungs Clear, No Accessory Muscle Use, No Respiratory Distress Cardiovascular: Regular Rate, Rhythm, No Murmur Gastrointestinal: non tender, soft Results Lab Laboratory Tests 05/29/18 12:04: Glucometer 121H 05/29/18 16:14: Glucometer 119H 05/29/18 20:40: Glucometer 252H 05/30/18 04:10: Prothrombin Time 22.2H, INR Comment 1.9H 05/30/18 05:09: Glucometer 134H Assessment/Plan Assessment/Plan Assess & Plan/Chief Complaint CVA. Recent [place]. Diabetes. . 41120. CVA. Recent ME. Diabetes. . 05/23/18 left CVA. Recent ME. Diabetes. INR 1.3. Blood pressures better. . 05/24/18. Left CVA. Recent ME. Diabetes. Lower INR. . 05/25/18. Left CVA recent ME. Diabetes. Patient in sinus rhythm this morning no ventricular bigeminy. . 05/26/18. Left CVA. Recent ME. Diabetes. Patient in sinus rhythm now. Patient on Coreg. Patient improving. . . Left CVA.. Recent ME. Diabetes. PVCs. Hypotension. Dysphagia. Ischemic CVA. Hyperlipidemia. LifeVest. INR 1.8 still subtherapeutic. . 05/30/18. Left CVA. Recent ME. Diabetes. PVCs. Ischemic CVA. INR 1.9. Patient continues to work hard Clinical Quality Measures Admission Status Admission Dx CVA. Recent ME. Diabetes. Left-sided weakness. Ejection fraction 20 percent DVT/VTE Risk/Contraindication: Risk Factor Score Per Nursin RFS Level Per Nursing on Admit: 4+=Very High JOSÉ MIGUEL WILCOX DO May 30, 2018 08:36
[2018-05-30] MEDS: FLUoxetine HCL 20 MG (PROzac) CAP PO SCH (08:37)
[2018-05-30] MEDS: CARVEDILOL 3.125 MG (COREG) TABLET PO SCH ×2 (08:37→20:26)
[2018-05-30] MEDS: CLOPIDOGREL 75 MG (PLAVIX) TABLET PO SCH (08:37)
[2018-05-30] MEDS: DOCUSATE SODIUM 100 MG (COLACE) CAP PO SCH ×2 (08:37→20:26)
[2018-05-30] MEDS: lisINopril 5 MG (PRINIVIL) TABLET PO SCH (08:37)
[2018-05-30] MEDS: ENOXAPARIN 80 MG/0.8 ML (LOVENOX) SYR SC SCH ×2 (08:37→20:26)
[2018-05-30] MEDS: AMIODARONE 200 MG (CORDARONE) TAB PO SCH (08:37)
[2018-05-30] MEDS: ATORVASTATIN 80 MG (LIPITOR) TABLET PO SCH (08:37)
[2018-05-30] MEDS: SENNOSIDES 8.6 MG (SENOKOT) TAB PO SCH ×2 (08:48→20:26)
--- NOTE | 2018-05-30 08:59 | Physical Therapy Daily Note ---
PT Daily Note-Current Subjective Patient in bed pre tx, agrees to PT, no complaints of pain. Appearance Patient in bed post tx with nurse call, phone, tray, all needs met. Mental Status Patient Orientation: Person, Place, Situation Transfers Functional [place] Measure 0=Not Assessed/NA 4=Minimal Assistance 1=Total Assistance 5=Supervision or Setup 2=Maximal Assistance 6=Modified [place] 3=Moderate Assistance 7=Complete IndependenceIRFPAI Quality Coding Scale 6 Independent with activity with or without an assistive device 5 Patient requires set up or clean up by helper. Patient completes activity by themselves 4 Supervision or touching assist (CGA). [place] provide cues , steadying assist 3 The helper provides less than half the effort to complete the activity 2 The helper provides more than half the effort to complete the activity 1 Dependent. The helper does all the effort to complete an activity 7 Patient refused to complete or attempt activity 9 The patient did not perform the activity before the current illness or injury 88 Not attempted due to Medical conditions or safety concerns Transfers (B, C, W/C) (FIM): 5 Scootin Rollin Supine to/from Sit: 6 Sit to/from Stand: 5 Bed to/from Chair: 5 Patient also performed a floor transfer x2 with SBA Weight Bearing Right Lower Extremity: Right Full Weight Bearing Left Lower Extremity: Left Full Weight Bearing Gait Training Gait (FIM): 5 Distance: 300'x2 Gait Level of Assist: 5 Gait Persons Needed: 1 Gait Assistive Device: Cane Single Point Occasional unsteadiness but no LOB, brisk ambulation. Stair Training Stair Training: Handrails/: 1 handrail Stairs (FIM): 5 #of Steps: 12 Stairs: Pattern: Step to Level of Assist: 5 Exercises LAQ left side with 3# ankle weight for 5 min NuStep Minutes: 15 NuStep Workload: 6 Treatments bed mobility, transfers, ambulation, functional strengthening, floor transfer, stairs Assessment Current Status: Fair Progress improving floor transfers, needs less cues for positioning PT Short Term Goals Short Term Goals Time Frame: May 25, 2018 Transfers (B,C,W/C) (FIM): 4 (met) Gait (FIM): 4 (met) Gait Distance Comment: 150' Gait Level of Assist: 4 Gait Assistive Device: Cane Large Base Quad PT [facility] Goals Food Assembler Kitchen Goals PT [facility] Goals Time Frame: Jun 08, 2018 Transfers (B,C,W/C) (FIM): 5 Sit to Lying (QC): 4 Lying-Sitting on Side/Bed(QC): 4 Sit to Stand (QC): 4 Rollin Roll Left to Right (QC): 4 Chair/Zqy-ij-Ntjha Xfer(QC): 4 Car Transfer (QC): 4 Does the Patient Walk: Yes Gait (FIM): 5 Distance: 200' Walk 10 feet (QC): 4 Walk 10ft-Uneven Surface(QC): 4 Walk 50ft with 2 Turns (QC): 4 Walk 150 ft (QC): 4 Gait Level of Assist: 5 Gait Assistive Device: Cane Large Base Quad, Walker Deon Stairs (FIM): 2 # of Steps: 8 1 Step (curb) (QC): 3 4 Steps (QC): 3 Stairs Level Of Assist: 4 Picking up an Object (QC): 4 PT Plan Problem List Problem List: Activity Tolerance, Functional Strength, Safety, Balance, Gait, Transfer Treatment/Plan Treatment Plan: Continue Plan of Care Treatment Plan: Bed Mobility, Concurrent Therapy, Education, Functional Activity Ardha, Functional Strength, Group Therapy, Gait, Safety, Therapeutic Exercise, Transfers Treatment Duration: Jun 08, 2018 Frequency: At least 5 of 7 days/Wk (IRF) Estimated Hrs Per Day: 1.5 hours per day Patient and/or Family Agrees t: Yes Safety Risks/Education Patient Education: Gait Training, Transfer Techniques, Steps, Correct Positioning, Safety Issues Teaching Recipient: Patient Teaching Methods: Demonstration, Discussion Response to Teaching: Reinforcement Needed Time/GCodes Time In: 0800 Time Out: 0900 Total Billed Treatment Time: 60 Total Billed Treatment 1 visit EX 20' GT 15' FA 25' ASHANTI DENNY PT May 30, 2018 08:59
--- NOTE | 2018-05-30 09:01 | Progress Note-Cardiology ---
Cardiology SOAP Progress Note Subjective: In bed. Life Vest in place. No c/o CP, palpitations, dyspnea, syncope or near syncope Objective: I&O/Vital Signs 05/30/18 05/30/18 05:03 09:00 Temp 97.6 Pulse 79 Resp 16 B/P (MAP) 93/57 (69) Pulse Ox 95 O2 Delivery Room Air Room Air 05/30/18 00:00 Intake Total 960 ml Balance 960 ml Weight (Pounds): 166 Weight (Ounces): 12.8 Weight (Calculated Kilograms): 75.823620 Constitutional: appears stated age, AAO x 3, well-developed, well-nourished Respiratory: chest is bilaterally symmetric, lungs clear to auscultation Cardiovascular: regular rate-rhythm; No JVD; S1 and S2 Gastrointestional: No tender; soft, audible bowel sounds Extremities: no lower extremity edema bilateral Neurologic/Psychiatric: facial droop (left), other (Left sided facial droop, left lower extremity weakness 4/5, left upper extemity weakness 3/5) Results/Procedures: Labs Laboratory Tests 05/29/18 16:14: Glucometer 119H 05/29/18 20:40: Glucometer 252H 05/30/18 04:10: Prothrombin Time 22.2H, INR Comment 1.9H 05/30/18 05:09: Glucometer 134H 05/30/18 11:08: Glucometer 146H A/P: Assessment: Frequent PVCs Dysphagia and left hemiparesis post CVA in April 2018 Ischemic CVA - CT of head on 05-08-18 showed evolving mod sized subacute right MCA territory infarct without hemorrhage. No signif changes in additional tiny subacute right MCA territory and right cerebellar infarcts; thrombectomy on 05-06 - followed by Neurology services at [facility] ICM - Echocardiogram of 05-06-18 showed LVEF 25%; mod LV dilation; layered mural LV apical thrombus; RV apical thrombus; Mild TR; LVEF 20% on echocardiogram of 05-16-18 at [facility]. Now on Life Vest Relatively low blood pressure, apparently chronic, that limits therapy for ischemic cm (have had to hold off on bb and ELIE-inhib) CAD -Suspected STEMI on 05-05-18 for which he underwent cardiac cath by Dr. Alvarado which showed coronary artery disease, primarily consisting of mid vessel occlusion of the left anterior descending. This appears to be a chronic total occlusion and was not amenable to percutaneous intervention. The rest of the coronary vessels have moderate diffuse disease. Ischemic cardiomyopathy with anterolateral and apical dyskinesis and left ventricular ejection fraction of 20 % to 25%. Elevated left ventricular end-diastolic pressure. Subseqeunt cardiac cath at [facility] on 05-15-[address] Whyte showed 100% occlusion of the prox LAD ( appears to be chronic, no intervention done); 50% mid left cx with an iFR of 1.0 ; nondominant RCA with mod dz DM 2 HLD - statin tx OAC with warfarin - initiated by Med and Neuro Svces at [facility]. INR currently subtherapeutic Plan: * Complex management due to multiple issues * Continue low-dose bb and ELIE-inhib (low dose because of hypotension) * Continue amiodarone 400 po daily * Continue Life Vest; tele d/c'd post Life Vest * Management of CVA as per stroke management team * Management of DM 2 as per medical services * Monitor lab closely * We have discussed all of the above-noted issues with him Physician Assessment Physician Assessment No cp or palp or syncope or shortness of breath Persistent gen malaise, but gradually improving Lungs: good bilat air entry, but diminished at the bases Cor: irreg Ext: no c/c/e A&R * As documented in our note above that I updated (italics) and as noted below * Continue current card regimen * Monitor labs * I spoke with him and answered CV-related questions * D/c enoxaparin once therapeutic on warfarin VALE MAGALLON May 30, 2018 09:01 BLAKE ALVARADO MD [facility] May 30, 2018 14:17
--- NOTE | 2018-05-30 11:38 | Occupational Ther Daily Note ---
OT Current Status-Daily Note Subjective Pt. only reported pain in acromio-clavicular joint with PROM to end range. No other pain reported. Appearance Pt. in bed when this OT entered room. Smiled and greeted OT. Mental Status/Objective Patient Orientation: Person, Place, Time, Situation Functional [place] Measure 0=Not Assessed/NA 4=Minimal Assistance 1=Total Assistance 5=Supervision or Setup 2=Maximal Assistance 6=Modified [place] 3=Moderate Assistance 7=Complete [place] Attachments: IV ADL-Treatment Functional [place] Measure 0=Not Assessed/NA 4=Minimal Assistance 1=Total Assistance 5=Supervision or Setup 2=Maximal Assistance 6=Modified [place] 3=Moderate Assistance 7=Complete IndependenceIRFPAI Quality Coding Scale 6 Independent with activity with or without an assistive device 5 Patient requires set up or clean up by helper. Patient completes activity by themselves 4 Supervision or touching assist (CGA). [place] provide cues , steadying assist 3 The helper provides less than half the effort to complete the activity 2 The helper provides more than half the effort to complete the activity 1 Dependent. The helper does all the effort to complete an activity 7 Patient refused to complete or attempt activity 9 The patient did not perform the activity before the current illness or injury 88 Not attempted due to Medical conditions or safety concerns Grooming (FIM): 5 (Pt. able to brush hair after set up.) Bathing (FIM): 5 (Pt. requires SBA to shower self.) Shower/Bathe Self (QC): 4 Upper Body (FIM): 3 (Pt. is able to don shirt with max cues to attend to left side, pull down left side, and clod puller torso. Before this however, pt. requires max assist to don life vest monitor, which is permanent now.) Upper Body Dressing (QC): 3 Lower Body Dressing (FIM): 4 (CGA in stance to pull up pants and underwear over hips on left side.) Lower Body Dressing (QC): 4 On/Off Footwear (QC): 4 (SBA to bend over and don socks and shoes.) Transfers (B, C, W/C) (FIM): 5 (SBA with use of cane.) Shower Transfer(FIM): 4 (CGA to step into shower.) Other Treatment After ADL activity, pt. ambulated with CGA to therapy gym. OT completed gentle PROM to left UE. Noted good scapular glide, and facilitated further scapular glide. Also noted that pt. is able to actively extend left wrist, left elbow, and left fingers to full capacity on command. Pt. is able to flex these joints as well and states that he has been working on this. Pt. reports soreness in left acromio-clavicular joint with passive movement. Pt. is also shown different methods for self range with bilateral integration and flexion of shoulders. Pt. continues to be encouraged to attend to left side of body. Demonstrates overall awareness of left side and increased independence. Education OT Patient Education: Correct positioning, Exercise program, Home exercise program, Instructions don/doff splint/brace, Modified ADL techniques, Progress toward Goal/Update tx plan, Purpose of tx/functional activities, Reviewed precautions, Rehab process, Transfer techniques Teaching Recipient: Patient Teaching Methods: Demonstration, Discussion Response to Teaching: Verbalize Understanding, Return Demonstration OT Short Term Goals Short Term Goals Time Frame: Jun 01, 2018 Eating(FIM): 5 Grooming(FIM): 5 Bathing(FIM): 4 Upper Body Dressing(FIM): 4 Lower Body Dressing(FIM): 4 Toileting(FIM): 4 Transfers (B,C,W/C) (FIM): 4 (met) Toilet/Commode Transfer(FIM): 4 Shower Transfer(FIM): 4 Comprehension(FIM): 6 Expression(FIM): 6 Social Interaction(FIM): 6 Problem Solving(FIM): 6 Memory(FIM): 6 Additional Short Term Goals: 1-Demonstrate ADL Tasks, 2-Verbalize Understanding , 3-ImproveStrength/Radha 1=Demonstrate adherence to instructed precautions during ADL tasks. 2=Patient will verbalize/demonstrate understanding of assistive devices/ modifications for ADL. 3=Patient will improve strength/tolerance for activity to enable patient to perform ADL's. OT Keg Washer Goals Keg Washer Goals Time Frame: Jun 15, 2018 Eating (FIM): 6 Eating (QC): 6 Groomin Oral Hygiene (QC): 6 Bathing(FIM): 5 Shower/Bathe Self (QC): 5 Upper Body Dressing(FIM): 6 Upper Body Dressing (QC): 6 Lower Body Dressing(FIM): 5 Lower Body Dressing (QC): 5 On/Off Footwear (QC): 5 Toileting(FIM): 6 Toileting Hygiene (QC): 6 Transfers (B,C,W/C) (FIM): 6 Toilet/Commode Transfer(FIM): 6 Toilet/Commode Transfer (QC): 6 Shower Transfer(FIM): 5 Comprehension(FIM): 7 Expression (FIM): 7 Social Interaction(FIM): 6 Problem Solving(FIM): 6 Memory(FIM): 7 Additional Goals: 1-Demonstrate ADL Tasks, 2-Verbalize Understanding, 3- ImproveStrength/Radha 1=Demonstrate adherence to instructed precautions during ADL tasks. 2=Patient will verbalize/demonstrate understanding of assistive devices/ modifications for ADL. 3=Patient will improve strength/tolerance for activity to enable patient to perform ADL's. OT Education/Plan Problem List/Assessment Assessment: Decreased Activ Tolerance, Decreased Safety Aware, Decreased UE Strength, Dependent Transfers, Impaired Cognition, Impaired Coordination, Impaired Funct Balance, Impaired I ADL's, Impaired Self-Care Skills, Restricted Funct UE ROM, Visual-Perceptual Deficit Discharge Recommendations Plan/Recommendations: Continue POC Therapy D/C Recommendations: Home w/ Family Support, Occupational Therapy Home Care, Scheduled Assistance Treatment Plan/Plan of Care Treatment,Training & Education: Yes Patient would benefit from OT for education, treatment and training to promote independence in ADL's, mobility, safety and/or upper extremity function for ADL' s. Plan of Care: ADL Retraining, Functional Mobility, Group Exercise/Act as Ind, UE Funct Exercise/Act Treatment Duration: Jun 15, 2018 Frequency: At least 5 of 7 days/Wk (IRF) Estimated Hrs Per Day: 1.5 hours per day Agreement: Yes Rehab Potential: Good Time/GCodes Start Time: 10:00 Stop Time: 11:15 Total Time Billed (hr/min): 75 Billed Treatment Time 1, ADL x 60minutes, NM x 15minutes JEREMIE RATLIFF OT May 30, 2018 11:38
[2018-05-30] MEDS: inSUlin DETERMIR 1 UNIT/0.01 ML (LEVEMIR) CHARGE PER UNIT SQ SCH (13:24)
--- NOTE | 2018-05-30 15:09 | Physical Therapy Daily Note ---
PT Daily Note-Current Subjective Pt laying Supine in bed upon arrival. Pt agrees to PT. Pain Location: No Pain Reported Mental Status Patient Orientation: Person, Place Transfers Functional [place] Measure 0=Not Assessed/NA 4=Minimal Assistance 1=Total Assistance 5=Supervision or Setup 2=Maximal Assistance 6=Modified [place] 3=Moderate Assistance 7=Complete IndependenceIRFPAI Quality Coding Scale 6 Independent with activity with or without an assistive device 5 Patient requires set up or clean up by helper. Patient completes activity by themselves 4 Supervision or touching assist (CGA). [place] provide cues , steadying assist 3 The helper provides less than half the effort to complete the activity 2 The helper provides more than half the effort to complete the activity 1 Dependent. The helper does all the effort to complete an activity 7 Patient refused to complete or attempt activity 9 The patient did not perform the activity before the current illness or injury 88 Not attempted due to Medical conditions or safety concerns Scootin (5) Rollin Supine to/from Sit: 5 Sit to/from Stand: 5 Sit to Stand (QC): 5 Weight Bearing Right Lower Extremity: Right Full Weight Bearing Left Lower Extremity: Left Full Weight Bearing Exercises Supine Ex: Ankle pumps, Quad Set, Glut sets, Heel Slides, Straight leg raise, Hip abd/add Supine Reps: 15 Treatments Pt completes Supine Ex with a couple short rest breaks. Pt transfers from Supine to EOB to Standing at SBA. Pt uses SPC to ambulate to recliner (~5') then transfers to sitting. Pt resting at end of tx with all needs met. Assessment Current Status: Good Progress Pt is improving with increased strength and independence of tasks. PT Short Term Goals Short Term Goals Time Frame: May 25, 2018 Transfers (B,C,W/C) (FIM): 4 (met) Gait (FIM): 4 (met) Gait Distance Comment: 150' Gait Level of Assist: 4 Gait Assistive Device: Cane Large Base Quad PT Wind Farm Operations Manager Goals Senior Living Goals PT Senior Living Goals Time Frame: Jun 08, 2018 Transfers (B,C,W/C) (FIM): 5 Sit to Lying (QC): 4 Lying-Sitting on Side/Bed(QC): 4 Sit to Stand (QC): 4 Rollin Roll Left to Right (QC): 4 Chair/Opd-uf-Skuwp Xfer(QC): 4 Car Transfer (QC): 4 Does the Patient Walk: Yes Gait (FIM): 5 Distance: 200' Walk 10 feet (QC): 4 Walk 10ft-Uneven Surface(QC): 4 Walk 50ft with 2 Turns (QC): 4 Walk 150 ft (QC): 4 Gait Level of Assist: 5 Gait Assistive Device: Cane Large Base Quad, Walker Deon Stairs (FIM): 2 # of Steps: 8 1 Step (curb) (QC): 3 4 Steps (QC): 3 Stairs Level Of Assist: 4 Picking up an Object (QC): 4 PT Plan Problem List Problem List: Activity Tolerance, Functional Strength, Gait Treatment/Plan Treatment Plan: Continue Plan of Care Treatment Plan: Bed Mobility, Concurrent Therapy, Education, Functional Activity Radha, Functional Strength, Group Therapy, Gait, Safety, Therapeutic Exercise, Transfers Treatment Duration: Jun 08, 2018 Frequency: At least 5 of 7 days/Wk (IRF) Estimated Hrs Per Day: 1.5 hours per day Patient and/or Family Agrees t: Yes Safety Risks/Education Patient Education: Transfer Techniques, Correct Positioning, Safety Issues Teaching Recipient: Patient Teaching Methods: Discussion Response to Teaching: Verbalize Understanding Time/GCodes Time In: 1400 Time Out: 1430 Total Billed Treatment Time: 30 Total Billed Treatment 1, EX x2 (30m) G Codes Necessary: DEVAUGHN Velasquez PTA May 30, 2018 15:09
--- NOTE | 2018-05-30 16:05 | Speech Therapy Daily Note ---
Speech Daily Progress Note Subjective Date Seen by Provider: May 30, 2018 Time Seen by Provider: 07:30 Pt alert and ready for breakfast. Pain Numeric Pain Scale: 0-No Pain Objective Pt following safety strategies independently. No s/s of aspiration observed. Will see pt one more time and if he continues to follow through independently this goal will be dc'd. Assessment Assessment Current Status: Good Progress Treatment Plan Continue Plan of Care Communication Comprehension: 5 Expression: 6 Social Cognition Social Interaction: 4 Problem Solvin Memory: 6 Speech Short Term Goals Short Term Goals Short Term Goals 1) THE PATIENT WILL BE ABLE TO CORRECTLY WRITE PERSONAL INFORMATION ON A FORM WITHOUT CUES IN 4/5 OPPORTUNITIES. 2) GIVEN DIVERGENT NAMING TASKS, THE PATIENT WILL IMPROVE OVERALL MENTAL QUICKNESS SCORES TO AT LEAST 15 ITEMS WITHIN 60 SECONDS. 3) GIVEN ALTERNATING ATTENTION TASKS, THE PATIENT WILL BE ABLE TO MOVE FROM TASKS TO COMPLETE WRITING, DRAWING OR VERBAL ACTIVITIES WITHOUT PROMPTS IN AT LEAST 4/5 TASKS. 4) THE PATIENT WILL BE ABLE TO EFFECTIVELY RECALL STRATEGIES FOR SAFETY WITHOUT PROMPTS WITH 80% RETURN. 5) Pt will complete higher level problem solving activities with at least 85% accuracy and min assist. 6) Pt will be independent with his Oral Motor Exercises. Time Frame-ST WEEKS Comprehension: 6 Expression: 6 Social Interaction: 6 Problem Solvin Memory: 6 Speech Automobile Accessories Salesperson Goals Automobile Accessories Salesperson Goals 1) THE PATIENT WILL BE ABLE TO COMPLETE CONVERSATIONAL DISCOURSE FOR UP TO 5 TURNS WITHOUT PROMPTS. 2) THE PATIENT WILL BE ABLE TO ANSWER QUESTIONS WITH 90% RETURN FOLLOWING READING MATERIAL (UP TO A 500 WORD ARTICLE) USING QUESTIONING BY THIS REAL ESTATE PARALEGAL AND/ OR ANSWERING WRITTEN QUESTIONS. 3) THE PATIENT WILL IDENTIFY PROBLEM SOLVING TASK ACTIVITIES WITH AT LEAST 80% RETURN WITHOUT PROMPTS USING SELF-TALK AND/OR ANSWERING QUESTIONS. Time Frame: 3 WEEKS Comprehension: 7 Expression: 7 Social Interaction: 6 Problem Solvin Memory: 7 Speech-Plan Patient/Family Goals Patient/Family Goals: to return home Treatment Plan Speech Therapy Treatment Plan: Continue Plan of Care pt making good progress. Treatment Duration: Jun 09, 2018 Frequency: 5 times per week Estimated Hrs Per Day: .5 hour per day Rehab Potential: Good Pt/Family Agrees to Plan: Yes Safety Risks/Education Teaching Recipient: Patient Teaching Methods: Discussion Response to Teaching: Verbalize Understanding Time Speech Therapy Time In: 07:30 Speech Therapy Time Out: 07:45 Total Billed Time: 15 Billed Treatment Time 1, DYST EMILY Cantor May 30, 2018 16:05
--- NOTE | 2018-05-30 16:06 | Speech Therapy Daily Note ---
Speech Daily Progress Note Subjective Date Seen by Provider: May 30, 2018 Time Seen by Provider: 15:15 pt up in chair, pleasant and cooperative. Pain Numeric Pain Scale: 0-No Pain Objective Pt complete oral motor exercises with supervision. Rapid Picture Naming - pt was able to name 20 pictures in 60 seconds. This is better than the initial time he did this. Treatment Plan Continue Plan of Care Communication Comprehension: 5 Expression: 6 Social Cognition Social Interaction: 4 Problem Solvin Memory: 6 Speech Short Term Goals Short Term Goals Short Term Goals 1) THE PATIENT WILL BE ABLE TO CORRECTLY WRITE PERSONAL INFORMATION ON A FORM WITHOUT CUES IN 4/5 OPPORTUNITIES. 2) GIVEN DIVERGENT NAMING TASKS, THE PATIENT WILL IMPROVE OVERALL MENTAL QUICKNESS SCORES TO AT LEAST 15 ITEMS WITHIN 60 SECONDS. 3) GIVEN ALTERNATING ATTENTION TASKS, THE PATIENT WILL BE ABLE TO MOVE FROM TASKS TO COMPLETE WRITING, DRAWING OR VERBAL ACTIVITIES WITHOUT PROMPTS IN AT LEAST 4/5 TASKS. 4) THE PATIENT WILL BE ABLE TO EFFECTIVELY RECALL STRATEGIES FOR SAFETY WITHOUT PROMPTS WITH 80% RETURN. 5) Pt will complete higher level problem solving activities with at least 85% accuracy and min assist. 6) Pt will be independent with his Oral Motor Exercises. Time Frame-ST WEEKS Comprehension: 6 Expression: 6 Social Interaction: 6 Problem Solvin Memory: 6 Speech Forming Machine Adjuster Goals Forming Machine Adjuster Goals 1) THE PATIENT WILL BE ABLE TO COMPLETE CONVERSATIONAL DISCOURSE FOR UP TO 5 TURNS WITHOUT PROMPTS. 2) THE PATIENT WILL BE ABLE TO ANSWER QUESTIONS WITH 90% RETURN FOLLOWING READING MATERIAL (UP TO A 500 WORD ARTICLE) USING QUESTIONING BY THIS SENIOR IT PROJECT MANAGER AND/ OR ANSWERING WRITTEN QUESTIONS. 3) THE PATIENT WILL IDENTIFY PROBLEM SOLVING TASK ACTIVITIES WITH AT LEAST 80% RETURN WITHOUT PROMPTS USING SELF-TALK AND/OR ANSWERING QUESTIONS. Time Frame: 3 WEEKS Comprehension: 7 Expression: 7 Social Interaction: 6 Problem Solvin Memory: 7 Speech-Plan Patient/Family Goals Patient/Family Goals: to return home Treatment Plan Speech Therapy Treatment Plan: Continue Plan of Care pt making good progress. Treatment Duration: Jun 09, 2018 Frequency: 5 times per week Estimated Hrs Per Day: .5 hour per day Rehab Potential: Good Pt/Family Agrees to Plan: Yes Safety Risks/Education Teaching Recipient: Patient Teaching Methods: Discussion Response to Teaching: Verbalize Understanding Time Speech Therapy Time In: 15:15 Speech Therapy Time Out: 15:45 Total Billed Time: 30 Billed Treatment Time 1, SLEMILY Cyr ST May 30, 2018 16:05
[2018-05-30] MEDS: warFARin 3 MG (COUMADIN) TAB PO SCH (17:29)
[2018-05-30 18:29] VITALS: BP 95/63
--- NOTE | 2018-05-30 20:07 | PM & R (SOAP) Progress Note ---
Subjective This was a face to face visit with the patient. Date Seen by Provider: May 30, 2018 Time Seen by Provider: 07:40 Subjective/Events-last exam Patient was seen in his room this AM having good neurological return INR noted Patient SBA for transfers Review of Systems Neurological: Weakness Objective Physician Exam Last Set of Vital Signs Vital Signs Date Time Temp Pulse Resp B/P (MAP) Pulse Ox O2 Delivery O2 Flow Rate FiO2 05/30/18 18:29 98.0 87 16 95/63 (74) 96 Room Air Capillary Refill : I&O Intake and Output 05/30/18 00:00 Intake Total 1200 ml Balance 1200 ml Intake Oral 1200 ml # Voids 8 # Bowel Movements 2 General: Alert, Cooperative, No Acute Distress HEENT: Other (dysarthria) Neck: Supple, No JVD Lungs: Clear to Auscultation Heart: Regular Rate Abdomen: Normal Bowel Sounds, Soft, No Tenderness Extremities: No Edema Neuro: Other (Left HP and dysarthria) Results Lab Data Laboratory Tests 05/27/18 21:17: Glucometer 105 05/28/18 05:28: Glucometer 125H 05/28/18 09:03: Prothrombin Time 20.2H, INR Comment 1.7H 05/28/18 10:59: Glucometer 161H 05/28/18 15:52: Glucometer 165H 05/28/18 21:05: Glucometer 121H 05/29/18 04:25: Glucometer 102 05/29/18 05:10: White Blood Count 5.4, Red Blood Count 3.43L, Hemoglobin 11.0L, Hematocrit 30L, Mean Corpuscular Volume 88, Mean Corpuscular Hemoglobin 32, Mean Corpuscular Hemoglobin Concent 37H, Red Cell Distribution Width 14.8H, Platelet Count 208, Mean Platelet Volume 9.7, Neutrophils (%) (Auto) 56, Lymphocytes (%) (Auto) 28, Monocytes (%) (Auto) 9, Eosinophils (%) (Auto) 6, Basophils (%) (Auto) 1, Neutrophils # (Auto) 3.0, Lymphocytes # (Auto) 1.5, Monocytes # (Auto) 0.5, Eosinophils # (Auto) 0.3, Basophils # (Auto) 0.0, Prothrombin Time 21.1H, INR Comment 1.8H, Sodium Level 138, Potassium Level 3.8, Chloride Level 106, Carbon Dioxide Level 21, Anion Gap 11, Blood Urea Nitrogen 16, Creatinine 0.76, Estimat Glomerular Filtration Rate > 60, BUN/Creatinine Ratio 21, Glucose Level 101, Calcium Level 8.9, Magnesium Level 1.9 05/29/18 12:04: Glucometer 121H 05/29/18 16:14: Glucometer 119H 05/29/18 20:40: Glucometer 252H 05/30/18 04:10: Prothrombin Time 22.2H, INR Comment 1.9H 05/30/18 05:09: Glucometer 134H 05/30/18 11:08: Glucometer 146H 05/30/18 16:21: Glucometer 127H Assessment/Plan Assessment and Plan 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
[2018-05-30] MEDS: MELATONIN 3 MG TABLET PO SCH (20:26)
[2018-05-31 05:23] VITALS: BP 93/57
[2018-05-31 06:26] LABS: PROTHROMBIN TIME PATIENT 22.9 SEC (12.2-14.7)
[2018-05-31] MEDS: THIAMINE 100 MG (VITAMIN B-1) TAB PO SCH (06:31)
[2018-05-31] MEDS: CATHETER FLUSH 10 ML SYR IV SCH ×3 (06:31→22:12)
[2018-05-31] MEDS: inSUlin ASPART (NovoLOG) 1 UNIT/0.01 ML (CHARGE PER UNIT) SC SCH ×3 (08:02→18:15)
[2018-05-31] MEDS: ATORVASTATIN 80 MG (LIPITOR) TABLET PO SCH (08:02)
[2018-05-31] MEDS: CLOPIDOGREL 75 MG (PLAVIX) TABLET PO SCH (08:03)
[2018-05-31] MEDS: FLUoxetine HCL 20 MG (PROzac) CAP PO SCH (08:03)
[2018-05-31] MEDS: SENNOSIDES 8.6 MG (SENOKOT) TAB PO SCH ×2 (08:04→21:35)
[2018-05-31] MEDS: DOCUSATE SODIUM 100 MG (COLACE) CAP PO SCH ×2 (08:04→21:36)
[2018-05-31 08:11] VITALS: BP 113/71
--- NOTE | 2018-05-31 08:15 | Progress Note (SOAP) ---
Subjective Time Seen by a Provider: 08:12 Subjective/Events-last exam Patient feeling okay today. Heart rates in the 40s. INR 2. not having any problems clinically Objective Exam Vital Signs Date Time Temp Pulse Resp B/P (MAP) Pulse Ox O2 Delivery O2 Flow Rate FiO2 05/31/18 08:11 42 113/71 (85) 05/31/18 05:23 97.4 41 16 93/57 (69) 94 Room Air 05/30/18 20:10 Room Air 05/30/18 18:29 98.0 87 16 95/63 (74) 96 Room Air 05/30/18 09:00 Room Air I & O 05/31/18 07:00 Intake Total 1200 ml Output Total 1 ml Balance 1199 ml Capillary Refill : General Appearance: No Apparent Distress, WD/WN HEENT: Normal ENT Inspection, Other (Less drooping on left side of mouth) Neck: Full Range of Motion, Normal Inspection Respiratory: Lungs Clear, No Accessory Muscle Use, No Respiratory Distress Cardiovascular: Regular Rate, Rhythm, Bradycardia Gastrointestinal: non tender, soft Results Lab Laboratory Tests 05/30/18 11:08: Glucometer 146H 05/30/18 16:21: Glucometer 127H 05/30/18 20:23: Glucometer 143H 05/31/18 05:02: Glucometer 125H 05/31/18 05:45: Prothrombin Time 22.9H, INR Comment 2.0H Assessment/Plan Assessment/Plan Assess & Plan/Chief Complaint CVA. Recent [place]. Diabetes. . 19306. CVA. Recent [place]. Diabetes. . 05/23/18 left CVA. Recent [place]. Diabetes. INR 1.3. Blood pressures better. . 05/24/18. Left CVA. Recent [place]. Diabetes. Lower INR. . 05/25/18. Left CVA recent [place]. Diabetes. Patient in sinus rhythm this morning no ventricular bigeminy. . 05/26/18. Left CVA. Recent [place]. Diabetes. Patient in sinus rhythm now. Patient on Coreg. Patient improving. . . Left CVA.. Recent [place]. Diabetes. PVCs. Hypotension. Dysphagia. Ischemic CVA. Hyperlipidemia. LifeVest. INR 1.8 still subtherapeutic. . 05/30/18. Left CVA. Recent [place]. Diabetes. PVCs. Ischemic CVA. INR 1.9. Patient continues to work hard. . 05/31/18 area Left CVA.. Recent [place]. Diabetes. Diabetes resolved. Bradycardia. INR 2. Patient continues to improve Clinical Quality Measures Admission Status Admission Dx CVA. Recent [place]. Diabetes. Left-sided weakness. Ejection fraction 20 percent DVT/VTE Risk/Contraindication: Risk Factor Score Per Nursin RFS Level Per Nursing on Admit: 4+=Very High JOSÉ MIGUEL WILCOX DO May 31, 2018 08:15
--- NOTE | 2018-05-31 09:03 | Physical Therapy Daily Note ---
PT Daily Note-Current Subjective Pt. is pleasant and agreeable to rx. States he is worried because his x is concerned about his status and medications and DC plans. Pt. requested that someone call her and relay all info to comfort her as she is "freaking out". This was communicated to the nurse as well as the SW Pain Numeric Pain Scale: 0-No Pain Mental Status Patient Orientation: Normal For Age Attachments: Other-See Comments (life vest) Transfers Functional [place] Measure 0=Not Assessed/NA 4=Minimal Assistance 1=Total Assistance 5=Supervision or Setup 2=Maximal Assistance 6=Modified [place] 3=Moderate Assistance 7=Complete IndependenceIRFPAI Quality Coding Scale 6 Independent with activity with or without an assistive device 5 Patient requires set up or clean up by helper. Patient completes activity by themselves 4 Supervision or touching assist (CGA). [place] provide cues , steadying assist 3 The helper provides less than half the effort to complete the activity 2 The helper provides more than half the effort to complete the activity 1 Dependent. The helper does all the effort to complete an activity 7 Patient refused to complete or attempt activity 9 The patient did not perform the activity before the current illness or injury 88 Not attempted due to Medical conditions or safety concerns Transfers (B, C, W/C) (FIM): 6 Scootin Rollin Roll Left to Right (QC): 5 Supine to/from Sit: 6 Sit to/from Stand: 6 Sit to Lying (QC): 5 Sit to Stand (QC): 5 Chair/Bkk-gv-Axvbf Xfer(QC): 5 Bed to/from Chair: 6 Car Transfer (QC): 5 needs occas cues for safety Weight Bearing Right Lower Extremity: Right Full Weight Bearing Left Lower Extremity: Left Full Weight Bearing Gait Training Does the Patient Walk?: Yes Gait (FIM): 5 Distance (FIM): 3=150 ft (175x4) Gait Level of Assist: 5 Gait Persons Needed: 1 Gait Assistive Device: Cane Single Point follows all directions Stair Training Stair Training: Handrails/: 1 handrail Stairs (FIM): 2 #of Steps: 4 Stairs: Pattern: Step to Level of Assist: 4 Exercises Supine Ex: Bridging, Ankle pumps, Rolling, Heel Slides, Short Arc Quads, Scooting, Straight leg raise, Hip abd/add Supine Reps: 15 Treatments rolling and on all fours with cues only and no LOB in tall on knees etc Assessment Current Status: Good Progress PT Short Term Goals Short Term Goals Time Frame: May 25, 2018 Transfers (B,C,W/C) (FIM): 4 (met) Gait (FIM): 4 (met) Gait Distance Comment: 150' Gait Level of Assist: 4 Gait Assistive Device: Cane Large Base Quad PT Donor Services Team Leader Goals [facility] Goals PT Donor Services Team Leader Goals Time Frame: Jun 08, 2018 Transfers (B,C,W/C) (FIM): 5 Sit to Lying (QC): 4 Lying-Sitting on Side/Bed(QC): 4 Sit to Stand (QC): 4 Rollin Roll Left to Right (QC): 4 Chair/Gnc-al-Sbjus Xfer(QC): 4 Car Transfer (QC): 4 Does the Patient Walk: Yes Gait (FIM): 5 Distance: 200' Walk 10 feet (QC): 4 Walk 10ft-Uneven Surface(QC): 4 Walk 50ft with 2 Turns (QC): 4 Walk 150 ft (QC): 4 Gait Level of Assist: 5 Gait Assistive Device: Cane Large Base Quad, Walker Deon Stairs (FIM): 2 # of Steps: 8 1 Step (curb) (QC): 3 4 Steps (QC): 3 Stairs Level Of Assist: 4 Picking up an Object (QC): 4 PT Plan Treatment/Plan Treatment Plan: Continue Plan of Care Treatment Plan: Bed Mobility, Concurrent Therapy, Education, Functional Activity Radha, Functional Strength, Group Therapy, Gait, Safety, Therapeutic Exercise, Transfers Treatment Duration: Jun 08, 2018 Frequency: At least 5 of 7 days/Wk (IRF) Estimated Hrs Per Day: 1.5 hours per day Patient and/or Family Agrees t: Yes Safety Risks/Education Patient Education: Gait Training, Transfer Techniques, Steps, Correct Positioning, Disease Process, Safety Issues Teaching Recipient: Patient Teaching Methods: Demonstration, Discussion Response to Teaching: Verbalize Understanding, Return Demonstration, Reinforcement Needed Time/GCodes Time In: 800 Time Out: 900 Total Billed Treatment Time: 60 Total Billed Treatment 1,NM15m,GT15m,EX15m,FA15m G Codes Necessary: No DANK MAYS SECURITY SUPERVISOR May 31, 2018 09:03
[2018-05-31] MEDS: AMIODARONE 200 MG (CORDARONE) TAB PO SCH (09:44)
[2018-05-31] MEDS: lisINopril 5 MG (PRINIVIL) TABLET PO SCH (09:44)
[2018-05-31] MEDS: CARVEDILOL 3.125 MG (COREG) TABLET PO SCH ×2 (10:41→21:31)
--- NOTE | 2018-05-31 11:16 | Occupational Ther Daily Note ---
OT Current Status-Daily Note Subjective No pain reported. Pt. does report that his only concern at home is the height of his bed. Appearance Pt. in bathroom finishing with nursing assist when OT enters room. Mental Status/Objective Patient Orientation: Person, Place Functional [place] Measure 0=Not Assessed/NA 4=Minimal Assistance 1=Total Assistance 5=Supervision or Setup 2=Maximal Assistance 6=Modified [place] 3=Moderate Assistance 7=Complete [place] ADL-Treatment Functional [place] Measure 0=Not Assessed/NA 4=Minimal Assistance 1=Total Assistance 5=Supervision or Setup 2=Maximal Assistance 6=Modified [place] 3=Moderate Assistance 7=Complete IndependenceIRFPAI Quality Coding Scale 6 Independent with activity with or without an assistive device 5 Patient requires set up or clean up by helper. Patient completes activity by themselves 4 Supervision or touching assist (CGA). [place] provide cues , steadying assist 3 The helper provides less than half the effort to complete the activity 2 The helper provides more than half the effort to complete the activity 1 Dependent. The helper does all the effort to complete an activity 7 Patient refused to complete or attempt activity 9 The patient did not perform the activity before the current illness or injury 88 Not attempted due to Medical conditions or safety concerns Grooming (FIM): 5 (SBA to stand at sink and brush teeth.) Oral Hygiene (QC): 4 Toileting (FIM): 3 (Pt. able to wipe rear selvin area, but does require assistance to thoroughly cleanse self. Requries assistance to don pants over hips and assist to button pants. Pt. encouraged to wear elastic waisted pants at home.) Toileting Hygiene (QC): 3 Transfers (B, C, W/C) (FIM): 4 (CGA at times with cane to ambulate.) Toilet/Commode Transfer (FIM): 4 Toilet Transfer (QC): 4 Other Treatment Pt. already dressed. Has participated in PT. Agrees to work with OT this date. Toilets and then completes grooming task at sink. Ambulates to therapy gym with CGA/SBA. Transferred to chair and completed series of fine motor tasks using left UE. OT facilitated tip pinch, supination/pronation of forearm , whole fist grasp, and finger manipulation. Pt. has difficulty with minute detailed work, but overall is able to complete the tasks asked of him with increased time needed. Pt. then completes 5 minutes on armbike with slow movements and good printer slotter helper of bilateral UE to work on left shoulder PROM, utilizing right UE to propel left UE. Minimal resistance applied on armbike. Pt. stood with cane and worked on tossing crouch bags, working on dynamic standing balance. Pt. attempted to picking table worker the bags that went on floor, and not into designated bucket. Noted overall good standing balance. Talked with pt. about discharge home and any concerns he has. Pt. does state that he has a concern of his bed being high, but that he will take a boxspring out if needed. Pt. has also already spoke with renal social worker about needed equipment. Will speak with renal social worker today regarding this matter. Pt. reports that he has a supportive family and that they can stay with him if needed. All needs met back in room. Education OT Patient Education: Correct positioning, Exercise program, Modified ADL techniques, Progress toward Goal/Update tx plan, Purpose of tx/functional activities, Reviewed precautions, Rehab process, Transfer techniques Teaching Recipient: Patient Teaching Methods: Demonstration, Discussion Response to Teaching: Verbalize Understanding, Return Demonstration OT Short Term Goals Short Term Goals Time Frame: Jun 01, 2018 Eating(FIM): 5 Grooming(FIM): 5 Bathing(FIM): 4 Upper Body Dressing(FIM): 4 Lower Body Dressing(FIM): 4 Toileting(FIM): 4 Transfers (B,C,W/C) (FIM): 4 (met) Toilet/Commode Transfer(FIM): 4 Shower Transfer(FIM): 4 Comprehension(FIM): 6 Expression(FIM): 6 Social Interaction(FIM): 6 Problem Solving(FIM): 6 Memory(FIM): 6 Additional Short Term Goals: 1-Demonstrate ADL Tasks, 2-Verbalize Understanding , 3-ImproveStrength/Radha 1=Demonstrate adherence to instructed precautions during ADL tasks. 2=Patient will verbalize/demonstrate understanding of assistive devices/ modifications for ADL. 3=Patient will improve strength/tolerance for activity to enable patient to perform ADL's. OT Passenger Rate Clerk Goals Passenger Rate Clerk Goals Time Frame: Jun 15, 2018 Eating (FIM): 6 Eating (QC): 6 Groomin Oral Hygiene (QC): 6 Bathing(FIM): 5 Shower/Bathe Self (QC): 5 Upper Body Dressing(FIM): 6 Upper Body Dressing (QC): 6 Lower Body Dressing(FIM): 5 Lower Body Dressing (QC): 5 On/Off Footwear (QC): 5 Toileting(FIM): 6 Toileting Hygiene (QC): 6 Transfers (B,C,W/C) (FIM): 6 Toilet/Commode Transfer(FIM): 6 Toilet/Commode Transfer (QC): 6 Shower Transfer(FIM): 5 Comprehension(FIM): 7 Expression (FIM): 7 Social Interaction(FIM): 6 Problem Solving(FIM): 6 Memory(FIM): 7 Additional Goals: 1-Demonstrate ADL Tasks, 2-Verbalize Understanding, 3- ImproveStrength/Radha 1=Demonstrate adherence to instructed precautions during ADL tasks. 2=Patient will verbalize/demonstrate understanding of assistive devices/ modifications for ADL. 3=Patient will improve strength/tolerance for activity to enable patient to perform ADL's. OT Education/Plan Problem List/Assessment Assessment: Decreased Activ Tolerance, Decreased UE Strength, Dependent Transfers, Impaired Bed Mobility, Impaired Cognition, Impaired Coordination, Impaired Funct Balance, Impaired I ADL's, Impaired Self-Care Skills, Restricted Funct UE ROM Discharge Recommendations Plan/Recommendations: Continue POC Therapy D/C Recommendations: Home w/ Family Support, Occupational Therapy Home Care Treatment Plan/Plan of Care Treatment,Training & Education: Yes Patient would benefit from OT for education, treatment and training to promote independence in ADL's, mobility, safety and/or upper extremity function for ADL' s. Plan of Care: ADL Retraining, Functional Mobility, Group Exercise/Act as Ind, UE Funct Exercise/Act Treatment Duration: Jun 15, 2018 Frequency: At least 5 of 7 days/Wk (IRF) Estimated Hrs Per Day: 1.5 hours per day Agreement: Yes Rehab Potential: Good Time/GCodes Start Time: 10:00 Stop Time: 10:55 Total Time Billed (hr/min): 55 Billed Treatment Time 1, FA x 45minutes, Ex x 10minutes JEREMIE RATLIFF OT May 31, 2018 11:16
--- NOTE | 2018-05-31 13:42 | Speech Therapy Daily Note ---
Speech Daily Progress Note Subjective Date Seen by Provider: May 31, 2018 Time Seen by Provider: 07:30 Pt in bed. Pain Numeric Pain Scale: 0-No Pain Objective Clinical observation of pt eating breakfast. Pt following through with safe swallow techniques independently. No s/s of aspiration observed. Goal is met and dc'd. Assessment Assessment Current Status: Good Progress Treatment Plan Continue Plan of Care Communication Comprehension: 5 Expression: 6 Social Cognition Social Interaction: 4 Problem Solvin Memory: 6 Speech Short Term Goals Short Term Goals Short Term Goals 1) THE PATIENT WILL BE ABLE TO CORRECTLY WRITE PERSONAL INFORMATION ON A FORM WITHOUT CUES IN 4/5 OPPORTUNITIES. 2) GIVEN DIVERGENT NAMING TASKS, THE PATIENT WILL IMPROVE OVERALL MENTAL QUICKNESS SCORES TO AT LEAST 15 ITEMS WITHIN 60 SECONDS. 3) GIVEN ALTERNATING ATTENTION TASKS, THE PATIENT WILL BE ABLE TO MOVE FROM TASKS TO COMPLETE WRITING, DRAWING OR VERBAL ACTIVITIES WITHOUT PROMPTS IN AT LEAST 4/5 TASKS. 4) THE PATIENT WILL BE ABLE TO EFFECTIVELY RECALL STRATEGIES FOR SAFETY WITHOUT PROMPTS WITH 80% RETURN. 5) Pt will complete higher level problem solving activities with at least 85% accuracy and min assist. 6) Pt will be independent with his Oral Motor Exercises. Time Frame-ST WEEKS Comprehension: 6 Expression: 6 Social Interaction: 6 Problem Solvin Memory: 6 Speech Halfway Goals Halfway Goals 1) THE PATIENT WILL BE ABLE TO COMPLETE CONVERSATIONAL DISCOURSE FOR UP TO 5 TURNS WITHOUT PROMPTS. 2) THE PATIENT WILL BE ABLE TO ANSWER QUESTIONS WITH 90% RETURN FOLLOWING READING MATERIAL (UP TO A 500 WORD ARTICLE) USING QUESTIONING BY THIS ABORIGINAL COMMUNITY COUNCIL MEMBER AND/ OR ANSWERING WRITTEN QUESTIONS. 3) THE PATIENT WILL IDENTIFY PROBLEM SOLVING TASK ACTIVITIES WITH AT LEAST 80% RETURN WITHOUT PROMPTS USING SELF-TALK AND/OR ANSWERING QUESTIONS. Time Frame: 3 WEEKS Comprehension: 7 Expression: 7 Social Interaction: 6 Problem Solvin Memory: 7 Speech-Plan Patient/Family Goals Patient/Family Goals: to return home Treatment Plan Speech Therapy Treatment Plan: Continue Plan of Care Dysphagia goal met and dc'd. Treatment Duration: Jun 09, 2018 Frequency: 5 times per week Estimated Hrs Per Day: .5 hour per day Rehab Potential: Good Pt/Family Agrees to Plan: Yes Safety Risks/Education Teaching Recipient: Patient Teaching Methods: Discussion Response to Teaching: Verbalize Understanding Time Speech Therapy Time In: 07:30 Speech Therapy Time Out: 07:45 Total Billed Time: 15 Billed Treatment Time 1, DYST No EMILY DUBOSE May 31, 2018 13:42
--- NOTE | 2018-05-31 13:43 | Speech Therapy Daily Note ---
Speech Daily Progress Note Subjective Date Seen by Provider: May 31, 2018 Time Seen by Provider: 09:30 Pt pleasant and cooperative. Pain Numeric Pain Scale: 0-No Pain Objective Pt completed OMEs with supervision level. Problem Solving - Pt provided with different situations and he was to provided 2 different outcomes. Pt was 100% accurate with no assist. Assessment Assessment Current Status: Good Progress Treatment Plan Continue Plan of Care Communication Comprehension: 5 Expression: 6 Social Cognition Social Interaction: 4 Problem Solvin Memory: 6 Speech Short Term Goals Short Term Goals Short Term Goals 1) THE PATIENT WILL BE ABLE TO CORRECTLY WRITE PERSONAL INFORMATION ON A FORM WITHOUT CUES IN 4/5 OPPORTUNITIES. 2) GIVEN DIVERGENT NAMING TASKS, THE PATIENT WILL IMPROVE OVERALL MENTAL QUICKNESS SCORES TO AT LEAST 15 ITEMS WITHIN 60 SECONDS. 3) GIVEN ALTERNATING ATTENTION TASKS, THE PATIENT WILL BE ABLE TO MOVE FROM TASKS TO COMPLETE WRITING, DRAWING OR VERBAL ACTIVITIES WITHOUT PROMPTS IN AT LEAST 4/5 TASKS. 4) THE PATIENT WILL BE ABLE TO EFFECTIVELY RECALL STRATEGIES FOR SAFETY WITHOUT PROMPTS WITH 80% RETURN. 5) Pt will complete higher level problem solving activities with at least 85% accuracy and min assist. 6) Pt will be independent with his Oral Motor Exercises. Time Frame-ST WEEKS Comprehension: 6 Expression: 6 Social Interaction: 6 Problem Solvin Memory: 6 Speech Usp Goals Packing Machine Operator Goals 1) THE PATIENT WILL BE ABLE TO COMPLETE CONVERSATIONAL DISCOURSE FOR UP TO 5 TURNS WITHOUT PROMPTS. 2) THE PATIENT WILL BE ABLE TO ANSWER QUESTIONS WITH 90% RETURN FOLLOWING READING MATERIAL (UP TO A 500 WORD ARTICLE) USING QUESTIONING BY THIS RN TRANSITIONAL CARE AND/ OR ANSWERING WRITTEN QUESTIONS. 3) THE PATIENT WILL IDENTIFY PROBLEM SOLVING TASK ACTIVITIES WITH AT LEAST 80% RETURN WITHOUT PROMPTS USING SELF-TALK AND/OR ANSWERING QUESTIONS. Time Frame: 3 WEEKS Comprehension: 7 Expression: 7 Social Interaction: 6 Problem Solvin Memory: 7 Speech-Plan Patient/Family Goals Patient/Family Goals: to return home. Treatment Plan Speech Therapy Treatment Plan: Continue Plan of Care pt making good progress. Treatment Duration: Jun 09, 2018 Frequency: 5 times per week Estimated Hrs Per Day: .5 hour per day Rehab Potential: Good Pt/Family Agrees to Plan: Yes Safety Risks/Education Teaching Recipient: Patient Teaching Methods: Discussion Response to Teaching: Verbalize Understanding Time Speech Therapy Time In: 09:30 Speech Therapy Time Out: 10:00 Total Billed Time: 30 Billed Treatment Time 1, SLTS No GRACY,EMILY ST May 31, 2018 13:43
[2018-05-31] MEDS: inSUlin DETERMIR 1 UNIT/0.01 ML (LEVEMIR) CHARGE PER UNIT SQ SCH (14:27)
--- NOTE | 2018-05-31 15:01 | Therapy Group Daily Note ---
Therapy Daily Group Note Patient Education Topic Other List Below (Education over Memory & Memory Strategies) Exercises LE Seated Exercise, UE Exercise Other/Notes Pt ambulated to PT/OT using SPC at [facility]. Group consisted of Introduction (Name, Where You are From & Most Ornery Trick You have Ever Played), Socialization, Seated UE/LE Ex, ARU Description, Education over Memory & Memory Strategies. Pt participated by giving an individualized example of a trick pt has played as well as an example of a strategy they use to help remember important items. Pt also participated in Seated Ex and was able to toss a crouch bag when trying to participate in Memory Activity. Pt returned to room to rest at end of Group. Start Time: 13:00 Stop Time: 14:20 Total Billed Treatment Time: 80 Total Billed Treatment 1, GRP DEVAUGHN WALL DIGITAL MARKETING ASSOCIATE May 31, 2018 15:01
[2018-05-31 17:18] VITALS: BP 101/62
--- NOTE | 2018-05-31 17:18 | Progress Note-Cardiology ---
Cardiology SOAP Progress Note Subjective: No cp or palp or syncope or shortness of breath Objective: I&O/Vital Signs 05/31/18 05/31/18 05/31/18 05:23 08:11 09:00 Temp 97.4 Pulse 41 42 Resp 16 B/P (MAP) 93/57 (69) 113/71 (85) Pulse Ox 94 O2 Delivery Room Air Room Air 05/31/18 00:00 Intake Total 900 ml Balance 900 ml Weight (Pounds): 166 Weight (Ounces): 12.8 Weight (Calculated Kilograms): 75.248748 Constitutional: appears stated age, AAO x 3, well-developed, well-nourished Respiratory: chest is bilaterally symmetric, lungs clear to auscultation Cardiovascular: regular rate-rhythm; No JVD; S1 and S2 Gastrointestional: No tender; soft, audible bowel sounds Extremities: no lower extremity edema bilateral Neurologic/Psychiatric: facial droop (left), other (Left sided facial droop, left lower extremity weakness 4/5, left upper extemity weakness 3/5) Results/Procedures: Labs Laboratory Tests 05/30/18 20:23: Glucometer 143H 05/31/18 05:02: Glucometer 125H 05/31/18 05:45: Prothrombin Time 22.9H, INR Comment 2.0H 05/31/18 11:16: Glucometer 122H 05/31/18 16:02: Glucometer 112H A/P: Assessment: Frequent PVCs Dysphagia and left hemiparesis post CVA in April 2018 Ischemic CVA - CT of head on 05-08-18 showed evolving mod sized subacute right MCA territory infarct without hemorrhage. No signif changes in additional tiny subacute right MCA territory and right cerebellar infarcts; thrombectomy on 05-06 - followed by Neurology services at [facility] ICM - Echocardiogram of 05-06-18 showed LVEF 25%; mod LV dilation; layered mural LV apical thrombus; RV apical thrombus; Mild TR; LVEF 20% on echocardiogram of 05-16-18 at [facility]. Now on Life Vest Relatively low blood pressure, apparently chronic, that limits therapy for ischemic cm (have had to hold off on bb and ELIE-inhib) CAD -Suspected STEMI on 05-05-18 for which he underwent cardiac cath by Dr. Alvarado which showed coronary artery disease, primarily consisting of mid vessel occlusion of the left anterior descending. This appears to be a chronic total occlusion and was not amenable to percutaneous intervention. The rest of the coronary vessels have moderate diffuse disease. Ischemic cardiomyopathy with anterolateral and apical dyskinesis and left ventricular ejection fraction of 20 % to 25%. Elevated left ventricular end-diastolic pressure. Subseqeunt cardiac cath at [facility] on 05-15-[address] Whyte showed 100% occlusion of the prox LAD ( appears to be chronic, no intervention done); 50% mid left cx with an iFR of 1.0 ; nondominant RCA with mod dz DM 2 HLD - statin tx OAC with warfarin - initiated by Med and Neuro Svces at [facility] Plan: * Complex management due to multiple issues * Continue low-dose bb and ELIE-inhib (low dose because of hypotension) * Continue amiodarone 400 po daily * Continue Life Vest; tele d/c'd post Life Vest * D/c Lovenox because INR therapeutic on warfarin * Monitor lab closely * We have discussed all of the above-noted issues with him BLAKE ALVARADO MD FACP FACC CCDS May 31, 2018 17:18
[2018-05-31] MEDS: warFARin 3 MG (COUMADIN) TAB PO SCH (18:14)
[2018-05-31 20:55] VITALS: BP 102/64
[2018-05-31] MEDS: MELATONIN 3 MG TABLET PO SCH (21:31)
[2018-06-01 05:25] VITALS: BP 94/57
[2018-06-01] MEDS: THIAMINE 100 MG (VITAMIN B-1) TAB PO SCH (06:40)
[2018-06-01] MEDS: CATHETER FLUSH 10 ML SYR IV SCH ×3 (06:40→22:06)
[2018-06-01 06:57] LABS: PROTHROMBIN TIME PATIENT 22.7 SEC (12.2-14.7)
[2018-06-01] MEDS: inSUlin ASPART (NovoLOG) 1 UNIT/0.01 ML (CHARGE PER UNIT) SC SCH ×3 (07:41→17:42)
--- NOTE | 2018-06-01 07:46 | Progress Note (SOAP) ---
Subjective Time Seen by a Provider: 07:42 Subjective/Events-last exam Patient feeling good today. Patient be discharged tomorrow. Patient's heart rate at 80 this morning. Patient sounds a little irregular. Patient on coronary Objective Exam Vital Signs Date Time Temp Pulse Resp B/P (MAP) Pulse Ox O2 Delivery O2 Flow Rate FiO2 06/01/18 05:25 98.3 43 16 94/57 (69) 93 Room Air 05/31/18 21:00 Room Air 05/31/18 20:55 84 18 102/64 (77) 93 Room Air 05/31/18 17:18 97.3 40 18 101/62 (75) 97 Room Air 05/31/18 09:00 Room Air 05/31/18 08:11 42 113/71 (85) I & O 06/01/18 07:00 Intake Total 1200 ml Balance 1200 ml Capillary Refill : General Appearance: No Apparent Distress, WD/WN HEENT: Normal ENT Inspection, Other (Still has some drooping left side of mouth ) Neck: Full Range of Motion, Normal Inspection Respiratory: Lungs Clear, Normal Breath Sounds, No Accessory Muscle Use, No Respiratory Distress Cardiovascular: No Murmur, Other (Occasional regular) Gastrointestinal: non tender, soft Results Lab Laboratory Tests 05/31/18 11:16: Glucometer 122H 05/31/18 16:02: Glucometer 112H 05/31/18 21:26: Glucometer 165H 06/01/18 05:33: Glucometer 107 06/01/18 06:15: Prothrombin Time 22.7H, INR Comment 2.0H Assessment/Plan Assessment/Plan Assess & Plan/Chief Complaint CVA. Recent CA. Diabetes. . 32654. CVA. Recent CA. Diabetes. . 05/23/18 left CVA. Recent CA. Diabetes. INR 1.3. Blood pressures better. . 05/24/18. Left CVA. Recent CA. Diabetes. Lower INR. . 05/25/18. Left CVA recent CA. Diabetes. Patient in sinus rhythm this morning no ventricular bigeminy. . 05/26/18. Left CVA. Recent CA. Diabetes. Patient in sinus rhythm now. Patient on Coreg. Patient improving. . . Left CVA.. Recent CA. Diabetes. PVCs. Hypotension. Dysphagia. Ischemic CVA. Hyperlipidemia. LifeVest. INR 1.8 still subtherapeutic. . 05/30/18. Left CVA. Recent CA. Diabetes. PVCs. Ischemic CVA. INR 1.9. Patient continues to work hard. . 05/31/18 area Left CVA.. Recent CA. Diabetes. Diabetes resolved. Bradycardia. INR 2. Patient continues to improve. . 06/01/18. Left CVA area Recent CA. INR 2. Lovenox. Diabetes. No bradycardia today. Patient be discharged tomorrow Clinical Quality Measures Admission Status Admission Dx CVA. Recent CA. Diabetes. Left-sided weakness. Ejection fraction 20 percent DVT/VTE Risk/Contraindication: Risk Factor Score Per Nursin RFS Level Per Nursing on Admit: 4+=Very High JOSÉ MIGUEL WILCOX DO Jun 01, 2018 07:46
[2018-06-01 08:50] VITALS: BP 95/61
--- NOTE | 2018-06-01 08:57 | Physical Therapy Daily Note ---
PT Daily Note-Current Subjective Patient in bed pre tx, agrees to PT, no complaints of pain. Appearance Patient BTB post tx with nurse call, phone, tray, all needs met. Mental Status Patient Orientation: Person, Place, Situation Transfers Functional [place] Measure 0=Not Assessed/NA 4=Minimal Assistance 1=Total Assistance 5=Supervision or Setup 2=Maximal Assistance 6=Modified [place] 3=Moderate Assistance 7=Complete IndependenceIRFPAI Quality Coding Scale 6 Independent with activity with or without an assistive device 5 Patient requires set up or clean up by helper. Patient completes activity by themselves 4 Supervision or touching assist (CGA). [place] provide cues , steadying assist 3 The helper provides less than half the effort to complete the activity 2 The helper provides more than half the effort to complete the activity 1 Dependent. The helper does all the effort to complete an activity 7 Patient refused to complete or attempt activity 9 The patient did not perform the activity before the current illness or injury 88 Not attempted due to Medical conditions or safety concerns Transfers (B, C, W/C) (FIM): 5 Scootin Rollin Roll Left to Right (QC): 6 Supine to/from Sit: 6 Sit to/from Stand: 5 Sit to Lying (QC): 6 Sit to Stand (QC): 4 Chair/[id number]-jm-Tikvp Xfer(QC): 4 Bed to/from Chair: 5 Car Transfer (QC): 4 Patient performs bed mobility with mod I, sit to stand and transfers with SBA, car transfer with SBA. Weight Bearing Right Lower Extremity: Right Full Weight Bearing Left Lower Extremity: Left Full Weight Bearing Gait Training Gait (FIM): 5 Distance: 300', 200' Walk 10 feet (QC): 4 Walk 50 ft with 2 Turns(QC): 4 Walk 150 ft (QC): 4 Walking 10ft/uneven surface-QC: 4 Gait Level of Assist: 5 Gait Persons Needed: 1 Gait Assistive Device: Cane Single Point Patient can ambulate 300' with a single point cane with SBA (including 50' with at least 2 turns of 90 degrees and 10' over an uneven surface). Pace is brisk, good step-through and foot clearance, no LOB, occasional unsteadiness when turning. Wheelchair Training Does the Pt Use a Wheelchair?: No Stair Training Stair Training: Handrails/: 1 handrail Stairs (FIM): 5 #of Steps: 12 1 Step (curb) (QC): 4 4 Steps (QC): 4 12 Steps (QC): 4 Stairs: Pattern: Step to Level of Assist: 5 Patient can go up and down 12 steps using 1 handrail with SBA. Patient has good balance and does not need cues for foot placement. Balance Picking up an Object (QC): 4 Exercises NuStep Minutes: 15 NuStep Workload: 6 Neuromuscular Patient scored a 22/28 on the Tinetti Assessment Tool. Treatments bed mobility and transfers, ambulation, stair training, functional strengthening , patient was toileted for a BM (needed some help wiping) Assessment Current Status: Fair Progress Patient moderate risk of falls according to Tinetti, needs to use AD when ambulating. PT Short Term Goals Short Term Goals Time Frame: May 25, 2018 Transfers (B,C,W/C) (FIM): 4 (met) Gait (FIM): 4 (met) Gait Distance Comment: 150' Gait Level of Assist: 4 Gait Assistive Device: Cane Large Base Quad PT Residential Goals Residential Goals PT Residential Goals Time Frame: Jun 08, 2018 Transfers (B,C,W/C) (FIM): 5 (met) Sit to Lying (QC): 4 (met) Lying-Sitting on Side/Bed(QC): 4 (met) Sit to Stand (QC): 4 (met) Rollin (met) Roll Left to Right (QC): 4 (met) Chair/Rym-pu-Lurum Xfer(QC): 4 (met) Car Transfer (QC): 4 (met) Does the Patient Walk: Yes Gait (FIM): 5 (met) Distance: 200' Walk 10 feet (QC): 4 (met) Walk 10ft-Uneven Surface(QC): 4 (met) Walk 50ft with 2 Turns (QC): 4 (met) Walk 150 ft (QC): 4 (met) Gait Level of Assist: 5 (met) Gait Assistive Device: Cane Large Base Quad, Walker Deon Stairs (FIM): 2 (met) # of Steps: 8 (met) 1 Step (curb) (QC): 3 (met) 4 Steps (QC): 3 (met) Stairs Level Of Assist: 4 (met) Picking up an Object (QC): 4 (met) PT Plan Problem List Problem List: Activity Tolerance, Functional Strength, Safety, Balance, Gait, Transfer Treatment/Plan Treatment Plan: Continue Plan of Care Treatment Plan: Bed Mobility, Concurrent Therapy, Education, Functional Activity Radha, Functional Strength, Group Therapy, Gait, Safety, Therapeutic Exercise, Transfers Treatment Duration: Jun 08, 2018 Frequency: At least 5 of 7 days/Wk (IRF) Estimated Hrs Per Day: 1.5 hours per day Patient and/or Family Agrees t: Yes Safety Risks/Education Patient Education: Gait Training, Transfer Techniques, Steps, Correct Positioning, Safety Issues Teaching Recipient: Patient Teaching Methods: Demonstration, Discussion Response to Teaching: Reinforcement Needed Time/GCodes Time In: 0800 Time Out: 0900 Total Billed Treatment Time: 60 Total Billed Treatment 1 visit NM 10' EX 15' FA 15' GT 20' ASHANTI DENNY PT Jun 01, 2018 08:57
[2018-06-01] MEDS: ATORVASTATIN 80 MG (LIPITOR) TABLET PO SCH (09:01)
[2018-06-01] MEDS: lisINopril 5 MG (PRINIVIL) TABLET PO SCH (09:01)
[2018-06-01] MEDS: FLUoxetine HCL 20 MG (PROzac) CAP PO SCH (09:02)
[2018-06-01] MEDS: AMIODARONE 200 MG (CORDARONE) TAB PO SCH (09:03)
[2018-06-01] MEDS: CLOPIDOGREL 75 MG (PLAVIX) TABLET PO SCH (09:04)
[2018-06-01] MEDS: CARVEDILOL 3.125 MG (COREG) TABLET PO SCH ×2 (09:05→20:31)
[2018-06-01] MEDS: SENNOSIDES 8.6 MG (SENOKOT) TAB PO SCH ×2 (09:09→20:33)
[2018-06-01] MEDS: DOCUSATE SODIUM 100 MG (COLACE) CAP PO SCH ×2 (09:09→20:33)
--- NOTE | 2018-06-01 09:49 | Progress Note-Cardiology ---
Cardiology SOAP Progress Note Subjective: No c/o CP, palpitations, syncope, near syncope or dyspnea. Life Vest in place. Objective: I&O/Vital Signs 06/01/18 06/01/18 05:25 09:00 Temp 98.3 Pulse 43 Resp 16 B/P (MAP) 94/57 (69) Pulse Ox 93 O2 Delivery Room Air Room Air 06/01/18 00:00 Intake Total 900 ml Balance 900 ml Weight (Pounds): 166 Weight (Ounces): 12.8 Weight (Calculated Kilograms): 75.758980 Constitutional: appears stated age, AAO x 3, well-developed, well-nourished Respiratory: chest is bilaterally symmetric, lungs clear to auscultation Cardiovascular: regular rate-rhythm; No JVD; S1 and S2 Gastrointestional: No tender; soft, audible bowel sounds Extremities: no lower extremity edema bilateral Neurologic/Psychiatric: facial droop (left), other (Left sided facial droop, left lower extremity weakness 4/5, left upper extemity weakness 3/5) Results/Procedures: Labs Laboratory Tests 05/31/18 16:02: Glucometer 112H 05/31/18 21:26: Glucometer 165H 06/01/18 05:33: Glucometer 107 06/01/18 06:15: Prothrombin Time 22.7H, INR Comment 2.0H 06/01/18 11:46: Glucometer 110 A/P: Assessment: Frequent PVCs Dysphagia and left hemiparesis post CVA in April 2018 Ischemic CVA - CT of head on 05-08-18 showed evolving mod sized subacute right MCA territory infarct without hemorrhage. No signif changes in additional tiny subacute right MCA territory and right cerebellar infarcts; thrombectomy on 05-06 - followed by Neurology services at [facility] ICM - Echocardiogram of 05-06-18 showed LVEF 25%; mod LV dilation; layered mural LV apical thrombus; RV apical thrombus; Mild TR; LVEF 20% on echocardiogram of 05-16-18 at [facility]. Now on Life Vest Relatively low blood pressure, apparently chronic, that limits therapy for ischemic cm (have had to hold off on bb and ELIE-inhib) CAD -Suspected STEMI on 05-05-18 for which he underwent cardiac cath by Dr. Alvarado which showed coronary artery disease, primarily consisting of mid vessel occlusion of the left anterior descending. This appears to be a chronic total occlusion and was not amenable to percutaneous intervention. The rest of the coronary vessels have moderate diffuse disease. Ischemic cardiomyopathy with anterolateral and apical dyskinesis and left ventricular ejection fraction of 20 % to 25%. Elevated left ventricular end-diastolic pressure. Subseqeunt cardiac cath at [facility] on 05-15-[address] Whyte showed 100% occlusion of the prox LAD ( appears to be chronic, no intervention done); 50% mid left cx with an iFR of 1.0 ; nondominant RCA with mod dz DM 2 HLD - statin tx OAC with warfarin - initiated by Med and Neuro Svces at [facility] Plan: * Complex management due to multiple issues * Continue low-dose bb and ELIE-inhib (low dose because of hypotension) * Continue amiodarone 400 po daily * Continue Life Vest; tele d/c'd post Life Vest * Monitor lab closely * We have discussed all of the above-noted issues with him * Likely to discharge tomorrow Physician Assessment Physician Assessment No cp or shortness of breath at rest or palp or syncope Lungs: good bilat air entry Cor: reg Ext: no c/c/e A&R * As documented in our note above that I updated (italics) and as noted below * Continue current regimen VALE MAGALLON Jun 01, 2018 09:48 BLAKE ALVARADO MD [facility] Jun 01, 2018 12:59
[2018-06-01] MEDS ORDERED: LISI-556 PO (09:52)
[2018-06-01] MEDS ORDERED: ATOR80TA76 PO (09:52)
[2018-06-01] MEDS ORDERED: AMIO200T4 PO (09:52)
[2018-06-01] MEDS ORDERED: CARV3.122 PO (09:52)
[2018-06-01] MEDS ORDERED: CLOP75TA28 PO (09:52)
[2018-06-01] MEDS: inSUlin DETERMIR 1 UNIT/0.01 ML (LEVEMIR) CHARGE PER UNIT SQ SCH (14:23)
--- NOTE | 2018-06-01 14:52 | Physical Therapy Daily Note ---
PT Daily Note-Current Subjective Patient in bed pre tx, mother is here for family training, no complaints of pain from patient. Appearance Patient in bed post tx with nurse call, phone, tray, all needs met. Mental Status Patient Orientation: Person, Place, Situation Transfers Functional [place] Measure 0=Not Assessed/NA 4=Minimal Assistance 1=Total Assistance 5=Supervision or Setup 2=Maximal Assistance 6=Modified [place] 3=Moderate Assistance 7=Complete IndependenceIRFPAI Quality Coding Scale 6 Independent with activity with or without an assistive device 5 Patient requires set up or clean up by helper. Patient completes activity by themselves 4 Supervision or touching assist (CGA). [place] provide cues , steadying assist 3 The helper provides less than half the effort to complete the activity 2 The helper provides more than half the effort to complete the activity 1 Dependent. The helper does all the effort to complete an activity 7 Patient refused to complete or attempt activity 9 The patient did not perform the activity before the current illness or injury 88 Not attempted due to Medical conditions or safety concerns Transfers (B, C, W/C) (FIM): 5 Scootin Rollin Supine to/from Sit: 6 Sit to/from Stand: 5 Bed to/from Chair: 5 Weight Bearing Right Lower Extremity: Right Full Weight Bearing Left Lower Extremity: Left Full Weight Bearing Gait Training Gait (FIM): 5 Distance: 200' Gait Level of Assist: 5 Gait Persons Needed: 1 Gait Assistive Device: Cane Single Point Stair Training Stair Training: Handrails/: 1 handrail Stairs (FIM): 2 #of Steps: 4 Stairs: Pattern: Step to Level of Assist: 5 Treatments Family training. Educated mother on SBA with patient during transfers, ambulation, and stairs. Patient performed all of these so mother not only got verbal education, but demonstration. Assessment Current Status: Fair Progress PT Short Term Goals Short Term Goals Time Frame: May 25, 2018 Transfers (B,C,W/C) (FIM): 4 (met) Gait (FIM): 4 (met) Gait Distance Comment: 150' Gait Level of Assist: 4 Gait Assistive Device: Cane Large Base Quad PT Cad Manager Goals Cad Manager Goals PT Long-Term Goals Time Frame: Jun 08, 2018 Transfers (B,C,W/C) (FIM): 5 (met) Sit to Lying (QC): 4 (met) Lying-Sitting on Side/Bed(QC): 4 (met) Sit to Stand (QC): 4 (met) Rollin (met) Roll Left to Right (QC): 4 (met) Chair/Vxz-hq-Bfoat Xfer(QC): 4 (met) Car Transfer (QC): 4 (met) Does the Patient Walk: Yes Gait (FIM): 5 (met) Distance: 200' Walk 10 feet (QC): 4 (met) Walk 10ft-Uneven Surface(QC): 4 (met) Walk 50ft with 2 Turns (QC): 4 (met) Walk 150 ft (QC): 4 (met) Gait Level of Assist: 5 (met) Gait Assistive Device: Cane Large Base Quad, Walker Deon Stairs (FIM): 2 (met) # of Steps: 8 (met) 1 Step (curb) (QC): 3 (met) 4 Steps (QC): 3 (met) Stairs Level Of Assist: 4 (met) Picking up an Object (QC): 4 (met) PT Plan Problem List Problem List: Activity Tolerance, Functional Strength, Safety, Balance, Gait, Transfer Treatment/Plan Treatment Plan: Continue Plan of Care Treatment Plan: Bed Mobility, Concurrent Therapy, Education, Functional Activity Radha, Functional Strength, Group Therapy, Gait, Safety, Therapeutic Exercise, Transfers Treatment Duration: Jun 08, 2018 Frequency: At least 5 of 7 days/Wk (IRF) Estimated Hrs Per Day: 1.5 hours per day Patient and/or Family Agrees t: Yes Safety Risks/Education Patient Education: Gait Training, Transfer Techniques, Steps, Correct Positioning, Safety Issues Teaching Recipient: Patient, Family Teaching Methods: Demonstration, Discussion Response to Teaching: Verbalize Understanding, Return Demonstration Time/GCodes Time In: 1420 Time Out: 1435 Total Billed Treatment Time: 15 Total Billed Treatment 1 visit GT 15' ASHANTI DENNY PT Jun 01, 2018 14:52
--- NOTE | 2018-06-01 15:12 | Speech Therapy Daily Note ---
Speech Daily Progress Note Subjective Date Seen by Provider: Jun 01, 2018 Time Seen by Provider: 09:30 Pt in bed. Appears fatigued. Pain Numeric Pain Scale: 0-No Pain Objective Problem Solving - Pt was to provide possible causes for various situations. Pt was 95% with min assist. Oral Motor Exercises - pt complete OMEs with supervision. Assessment Assessment Current Status: Good Progress Treatment Plan Discontinue ST, Goals Met Communication Comprehension: 7 Expression: 7 Social Cognition Social Interaction: 7 Problem Solvin Memory: 7 Speech Short Term Goals Short Term Goals Short Term Goals 1) THE PATIENT WILL BE ABLE TO CORRECTLY WRITE PERSONAL INFORMATION ON A FORM WITHOUT CUES IN 4/5 OPPORTUNITIES. Dc'e for higher priority goals. 2) GIVEN DIVERGENT NAMING TASKS, THE PATIENT WILL IMPROVE OVERALL MENTAL QUICKNESS SCORES TO AT LEAST 15 ITEMS WITHIN 60 SECONDS. Met05/31/2018 3) GIVEN ALTERNATING ATTENTION TASKS, THE PATIENT WILL BE ABLE TO MOVE FROM TASKS TO COMPLETE WRITING, DRAWING OR VERBAL ACTIVITIES WITHOUT PROMPTS IN AT LEAST 4/5 TASKS. Dc/d due to higher priority goals. 4) THE PATIENT WILL BE ABLE TO EFFECTIVELY RECALL STRATEGIES FOR SAFETY WITHOUT PROMPTS WITH 80% RETURN. Dc'd due to higher priority goals. 5) Pt will complete higher level problem solving activities with at least 85% accuracy and min assist. Met 06/01/2018 6) Pt will be independent with his Oral Motor Exercises. MET 06/01/2018 Time Frame-ST WEEKS Comprehension: 6 Expression: 6 Social Interaction: 6 Problem Solvin Memory: 6 Speech Local Tanker Truck Driver Goals Local Tanker Truck Driver Goals 1) THE PATIENT WILL BE ABLE TO COMPLETE CONVERSATIONAL DISCOURSE FOR UP TO 5 TURNS WITHOUT PROMPTS. 2) THE PATIENT WILL BE ABLE TO ANSWER QUESTIONS WITH 90% RETURN FOLLOWING READING MATERIAL (UP TO A 500 WORD ARTICLE) USING QUESTIONING BY THIS KITCHEN OPERATOR AND/ OR ANSWERING WRITTEN QUESTIONS. 3) THE PATIENT WILL IDENTIFY PROBLEM SOLVING TASK ACTIVITIES WITH AT LEAST 80% RETURN WITHOUT PROMPTS USING SELF-TALK AND/OR ANSWERING QUESTIONS. Time Frame: 3 WEEKS Comprehension: 7 Expression: 7 Social Interaction: 6 Problem Solvin Memory: 7 Speech-Plan Patient/Family Goals Patient/Family Goals: to return home Treatment Plan Speech Therapy Treatment Plan: Discontinue ST, Goals Met Pt met his goals and will be dc'd from skilled ST. Treatment Duration: Jun 09, 2018 Frequency: Modified Program (IRF) Estimated Hrs Per Day: .5 hour per day Rehab Potential: Good Barriers to Learning: None identified Pt/Family Agrees to Plan: Yes Safety Risks/Education Teaching Recipient: Patient Teaching Methods: Discussion Response to Teaching: Verbalize Understanding Time Speech Therapy Time In: 09:30 Speech Therapy Time Out: 10:00 Total Billed Time: 30 Billed Treatment Time 1, EMILY Rosales Jun 01, 2018 15:12
[2018-06-01 15:42] VITALS: BP 99/64
--- NOTE | 2018-06-01 15:50 | Occupational Ther Daily Note ---
OT Current Status-Daily Note Subjective No pain reported. Appearance Pt. in bed. Agrees to work with OT. Mental Status/Objective Patient Orientation: Person, Place, Time, Situation Functional [place] Measure 0=Not Assessed/NA 4=Minimal Assistance 1=Total Assistance 5=Supervision or Setup 2=Maximal Assistance 6=Modified [place] 3=Moderate Assistance 7=Complete [place] ADL-Treatment Functional [place] Measure 0=Not Assessed/NA 4=Minimal Assistance 1=Total Assistance 5=Supervision or Setup 2=Maximal Assistance 6=Modified [place] 3=Moderate Assistance 7=Complete IndependenceIRFPAI Quality Coding Scale 6 Independent with activity with or without an assistive device 5 Patient requires set up or clean up by helper. Patient completes activity by themselves 4 Supervision or touching assist (CGA). [place] provide cues , steadying assist 3 The helper provides less than half the effort to complete the activity 2 The helper provides more than half the effort to complete the activity 1 Dependent. The helper does all the effort to complete an activity 7 Patient refused to complete or attempt activity 9 The patient did not perform the activity before the current illness or injury 88 Not attempted due to Medical conditions or safety concerns Grooming (FIM): 6 (Mod I standing at sink with cane with safety concerns.) Oral Hygiene (QC): 5 Bathing (FIM): 5 (SBA in shower.) Shower/Bathe Self (QC): 4 Upper Body (FIM): 4 (Min assist overall to don life vest and to pull down shirt in back.) Upper Body Dressing (QC): 4 Lower Body Dressing (FIM): 4 (Min assist to pull up pants over left hip in stance.) Lower Body Dressing (QC): 4 On/Off Footwear (QC): 5 Transfers (B, C, W/C) (FIM): 6 (Mod I with safety concerns using cane.) Shower Transfer(FIM): 6 Other Treatment Pt. completes shower and dress today. Pt. attempts to retrieve clothing from chair. Holds in left hand but drops it on way to bathroom. Pt. begins to bend over to peanut picker but this is not safe and OT picks up for him. Pt. ambulates to shower area. Note that pt. requires increased time to process each step and increased time to complete a task. Gave pt. increased time to attempt a task on his own before OT assisted him. Pt. still has difficulty at times attending to left side. Noted that his thumb got stuck in pants on left side and pt. required cues to get out. After ADL tasks pt. stood at sink with Mod I and safety concerns to brush teeth. Ambulated to therapy gym with cane and safety concerns for fine motor tasks. Pt. completed nut/bolt activity to work on left UE strength. Pt. demonstrates increased improvement with this task, but does have weakness in left UE overall. Mother came into therapy gym at this time. Mother was asked if she had any concerns or questions at this time about pt's care or abilities. Mother indicates that she does not, and asks pt. where he is planning on living. Pt. indicates his house. Pt. indicates that his ex will be assisting him. Mother does not say anymore. Pt. ambulates back to room. All needs met in room. Education OT Patient Education: Correct positioning, Modified ADL techniques, Progress toward Goal/Update tx plan, Purpose of tx/functional activities, Reviewed precautions, Rehab process, Transfer techniques Teaching Recipient: Patient, Family Teaching Methods: Demonstration, Discussion Response to Teaching: Verbalize Understanding, Return Demonstration OT Short Term Goals Short Term Goals Time Frame: Jun 01, 2018 Eating(FIM): 5 Grooming(FIM): 5 Bathing(FIM): 4 Upper Body Dressing(FIM): 4 Lower Body Dressing(FIM): 4 Toileting(FIM): 4 Transfers (B,C,W/C) (FIM): 4 (met) Toilet/Commode Transfer(FIM): 4 Shower Transfer(FIM): 4 Comprehension(FIM): 6 Expression(FIM): 6 Social Interaction(FIM): 6 Problem Solving(FIM): 6 Memory(FIM): 6 Additional Short Term Goals: 1-Demonstrate ADL Tasks, 2-Verbalize Understanding , 3-ImproveStrength/Radha 1=Demonstrate adherence to instructed precautions during ADL tasks. 2=Patient will verbalize/demonstrate understanding of assistive devices/ modifications for ADL. 3=Patient will improve strength/tolerance for activity to enable patient to perform ADL's. OT Director Supply Chain Goals Detention Goals Time Frame: Jun 15, 2018 Eating (FIM): 6 Eating (QC): 6 Groomin Oral Hygiene (QC): 6 Bathing(FIM): 5 Shower/Bathe Self (QC): 5 Upper Body Dressing(FIM): 6 Upper Body Dressing (QC): 6 Lower Body Dressing(FIM): 5 Lower Body Dressing (QC): 5 On/Off Footwear (QC): 5 Toileting(FIM): 6 Toileting Hygiene (QC): 6 Transfers (B,C,W/C) (FIM): 6 Toilet/Commode Transfer(FIM): 6 Toilet/Commode Transfer (QC): 6 Shower Transfer(FIM): 5 Comprehension(FIM): 7 Expression (FIM): 7 Social Interaction(FIM): 6 Problem Solving(FIM): 6 Memory(FIM): 7 Additional Goals: 1-Demonstrate ADL Tasks, 2-Verbalize Understanding, 3- ImproveStrength/Radha 1=Demonstrate adherence to instructed precautions during ADL tasks. 2=Patient will verbalize/demonstrate understanding of assistive devices/ modifications for ADL. 3=Patient will improve strength/tolerance for activity to enable patient to perform ADL's. OT Education/Plan Problem List/Assessment Assessment: Decreased Activ Tolerance, Decreased UE Strength, Dependent Transfers, Impaired Coordination, Impaired I ADL's, Impaired Self-Care Skills Discharge Recommendations Plan/Recommendations: Continue POC Therapy D/C Recommendations: Home w/ Family Support, Occupational Therapy Home Care Treatment Plan/Plan of Care Treatment,Training & Education: Yes Patient would benefit from OT for education, treatment and training to promote independence in ADL's, mobility, safety and/or upper extremity function for ADL' s. Plan of Care: ADL Retraining, Functional Mobility, Group Exercise/Act as Ind, UE Funct Exercise/Act Treatment Duration: Jun 15, 2018 Frequency: At least 5 of 7 days/Wk (IRF) Estimated Hrs Per Day: 1.5 hours per day Agreement: Yes Rehab Potential: Good Time/GCodes Start Time: 10:05 Stop Time: 11:05 Total Time Billed (hr/min): 60 Billed Treatment Time 1, ADL x 45minutes, FA x 15minutes JEREMIE RATLIFF OT Jun 01, 2018 15:50
--- NOTE | 2018-06-01 15:58 | Occ Therapy Progress Note ---
Therapy Progress Note Spoke with mother and pt. regarding pt's progress and assistance needed for home. Mother states that pt. is planning on staying with his sister in [place], and that she will be present to assist as well. Mother is unsure about the life vest and this OT reports this to nursing who will train her with it. Mother is educated about pt's progress regarding fine motor coordination and strength. Mother is also educated about safety concerns, and left sided neglect. She verbalizes understanding. Mother is encouraged to be with pt., or to have someone be with pt. whenever he is showering. She states that there are 5 family members that will be present throughout the day. Mother is asked if she feels that she needs any training on transfers, or if she has any concerns. She does not. peer educator comes to educate pt. and mother about diabetes, etc....Nursing is notified of mother's concerns regarding life vest. She will talk with her after diabetes education. All needs met in room. 1, FA [phone] JEREMIE RATLIFF OT Jun 01, 2018 15:57
[2018-06-01] MEDS: warFARin 3 MG (COUMADIN) TAB PO SCH (17:41)
[2018-06-01] MEDS ORDERED: FLUO20CA25 PO (19:44)
[2018-06-01] MEDS ORDERED: INSU100V16 SC (19:44)
[2018-06-01] MEDS ORDERED: WARF3TAB PO (19:44)
[2018-06-01] MEDS ORDERED: ERGO50006 PO (19:44)
[2018-06-01] MEDS ORDERED: INSU100V5 SQ (19:44)
[2018-06-01] MEDS ORDERED: MELA3TAB PO (19:44)
[2018-06-01] MEDS ORDERED: THIA100T80 PO (19:44)
[2018-06-01 20:25] VITALS: BP 100/65
[2018-06-01] MEDS: MELATONIN 3 MG TABLET PO SCH (20:32)
[2018-06-02 05:38] VITALS: BP 109/71
[2018-06-02 06:13] LABS: INR 2.2 (0.8-1.4); PROTHROMBIN TIME PATIENT 24.4 SEC (12.2-14.7)
[2018-06-02] MEDS: CATHETER FLUSH 10 ML SYR IV SCH (06:59)
[2018-06-02] MEDS: THIAMINE 100 MG (VITAMIN B-1) TAB PO SCH (07:01)
[2018-06-02] MEDS: inSUlin ASPART (NovoLOG) 1 UNIT/0.01 ML (CHARGE PER UNIT) SC SCH (07:39)
--- NOTE | 2018-06-02 08:12 | Progress Note (SOAP) ---
Subjective Time Seen by a Provider: 08:09 Subjective/Events-last exam Patient to be discharged today. Patient feeling better. Patient to go to his sister's house Objective Exam Vital Signs Date Time Temp Pulse Resp B/P (MAP) Pulse Ox O2 Delivery O2 Flow Rate FiO2 06/02/18 05:38 96.9 73 18 109/71 (84) 93 Room Air 06/01/18 21:00 Room Air 06/01/18 20:25 81 18 100/65 (77) 94 Room Air 06/01/18 15:42 98.2 75 14 99/64 (76) 98 Room Air 06/01/18 09:00 Room Air 06/01/18 08:50 82 95/61 (72) I & O 06/02/18 07:00 Intake Total 900 ml Balance 900 ml Capillary Refill : General Appearance: No Apparent Distress, WD/WN HEENT: Normal ENT Inspection Neck: Full Range of Motion Respiratory: Lungs Clear, No Accessory Muscle Use, No Respiratory Distress Cardiovascular: Other (Irregular) Gastrointestinal: non tender, soft Results Lab Laboratory Tests 06/01/18 11:46: Glucometer 110 06/01/18 15:41: Glucometer 127H 06/01/18 20:54: Glucometer 129H 06/02/18 05:10: Prothrombin Time 24.4H, INR Comment 2.2H 06/02/18 05:30: Glucometer 87 Assessment/Plan Assessment/Plan Assess & Plan/Chief Complaint CVA. Recent MO. Diabetes. . 30[address]. CVA. Recent MO. Diabetes. . 05/23/18 left CVA. Recent MO. Diabetes. INR 1.3. Blood pressures better. . 05/24/18. Left CVA. Recent MO. Diabetes. Lower INR. . 05/25/18. Left CVA recent MO. Diabetes. Patient in sinus rhythm this morning no ventricular bigeminy. . 05/26/18. Left CVA. Recent MO. Diabetes. Patient in sinus rhythm now. Patient on Coreg. Patient improving. . . Left CVA.. Recent MO. Diabetes. PVCs. Hypotension. Dysphagia. Ischemic CVA. Hyperlipidemia. LifeVest. INR 1.8 still subtherapeutic. . 05/30/18. Left CVA. Recent MO. Diabetes. PVCs. Ischemic CVA. INR 1.9. Patient continues to work hard. . 05/31/18 area Left CVA.. Recent MO. Diabetes. Diabetes resolved. Bradycardia. INR 2. Patient continues to improve. . 06/01/18. Left CVA area Recent MO. INR 2. Lovenox. Diabetes. No bradycardia today. Patient be discharged tomorrow. . 06/02/18. Left CVA. Recent MO. Diabetes. Irregular heart rate at times. Patient to go to sister's home Clinical Quality Measures Admission Status Admission Dx CVA. Recent MO. Diabetes. Left-sided weakness. Ejection fraction 20 percent DVT/VTE Risk/Contraindication: Risk Factor Score Per Nursin RFS Level Per Nursing on Admit: 4+=Very High JOSÉ MIGUEL WILCOX DO Jun 02, 2018 08:12
--- NOTE | 2018-06-02 08:17 | PM & R (SOAP) Progress Note ---
Subjective This was a face to face visit with the patient. Date Seen by Provider: Jun 02, 2018 Time Seen by Provider: 07:40 Subjective/Events-last exam Patient was seen in his room this AM Patient Min assist for transfers to [facility].but discharge remains set for today to home with C and sons.Patient has an appointment with [facility] for f/u care and RXS as patient has no current medical Insurance .he believes that he has applied for Medical card which should facilitate his F/U care.Current meds reviewed and there will be processed over at [facility] Date Identified: Jun 02, 2018 Time Identified: 07:00 Medication Intervention: Discharge meds reviewed Objective Physician Exam Last Set of Vital Signs Vital Signs Date Time Temp Pulse Resp B/P (MAP) Pulse Ox O2 Delivery O2 Flow Rate FiO2 06/02/18 05:38 96.9 73 18 109/71 (84) 93 Room Air Capillary Refill : I&O Intake and Output 06/02/18 00:00 Intake Total 1000 ml Balance 1000 ml Intake Oral 1000 ml # Voids 5 # Bowel Movements 2 General: Alert, Cooperative, No Acute Distress HEENT: Other (dysarthria) Neck: Supple, No JVD Lungs: Clear to Auscultation Heart: Regular Rate Abdomen: Normal Bowel Sounds, Soft, No Tenderness Extremities: No Edema Neuro: Other (Left HP and dysarthria) Results Lab Data Laboratory Tests 05/30/18 11:08: Glucometer 146H 05/30/18 16:21: Glucometer 127H 05/30/18 20:23: Glucometer 143H 05/31/18 05:02: Glucometer 125H 05/31/18 05:45: Prothrombin Time 22.9H, INR Comment 2.0H 05/31/18 11:16: Glucometer 122H 05/31/18 16:02: Glucometer 112H 05/31/18 21:26: Glucometer 165H 06/01/18 05:33: Glucometer 107 06/01/18 06:15: Prothrombin Time 22.7H, INR Comment 2.0H 06/01/18 11:46: Glucometer 110 06/01/18 15:41: Glucometer 127H 06/01/18 20:54: Glucometer 129H 06/02/18 05:10: Prothrombin Time 24.4H, INR Comment 2.2H 06/02/18 05:30: Glucometer 87 Assessment/Plan Assessment and Plan Home today with HHC [facility] see orders Co-Morbidities that are continuing to impact the rehab process: (include details ) HARESH XIE MD Jun 02, 2018 08:16
--- NOTE | 2018-06-02 09:14 | D/C HH Face to Face Order ---
D/C Face to Face Orders Instructions for Patient Via [facility], Patient Instructions/FollowUp: [facility] Physician to follow Patient: [facility] Discharge Diet for Home: ADA Diet Patient Data-Allergies,Ht & Wt Patient Allergies: Coded Allergies: No Known Drug Allergies (Unverified , 11/03/09) Height (Feet): 5 Height (Inches): 6.00 Weight (Pounds): 166 Weight (Ounces): 12.8 Home Health Need/Face to Face Date of Face to Face: Jun 02, 2018 Clinical Findings: Generalized weakness and fatigue, Muscle weakness, Unsteady gait I have seen Pt [id number]: Yes Discharged To: Home Diagnosis/Conditions: Debility post SC and CVA Patient is Homebound due to: Vannesa fall risk due to instabilty, Muscle weakness Homebound Status Due to the above stated illness, injury or surgical procedure (medical condition or diagnosis) and associated clinical findings, the patient is homebound because of his/her inability to leave home except with aid of a supportive device and/or person AND leaving the home requires a considerable and taxing effort or is medically contraindicated. Pt req the following assistanc: Cane, Wheelchair Home Health Nursing Orders Home Health Services Order: Nursing Services, Technical Associate-Evaluate & Treat, Physical Therapy-Evaluate & Treat, Other (TELECOMMUNICATIONS LINE INSTALLER) Medication management. diabetic education. lifevest education. Home Health Infusion Therapy Site Location: [facility] Orders Therapy Orders: OT (must have SN or PT order), Physical Therapy Therapy Specific Orders: Eval assistive deivces, Teach enviro modifications/ safety, Gait training, Increase strength/endurance, Restore ROM Certify Stmt I certify that this patient is under my care and that I, a nurse practitioner or a physician; a child care center assistant director working with me, had a face to face encounter that - meets the physician face to face encounter requirements with this patient as dated. I personally scribed for HARESH XIE MD ([email or web address]) on 05/31/18 at 09:44. Electronically submitted by Yue Ugalde ([id number]). I personally scribed for HARESH XIE MD) on 06/02/18 at 09:14. Electronically submitted by Yue Ugalde ([id number]). HARESH XIE MD May 31, 2018 09:44
[2018-06-02] MEDS: CLOPIDOGREL 75 MG (PLAVIX) TABLET PO SCH (09:32)
[2018-06-02] MEDS: FLUoxetine HCL 20 MG (PROzac) CAP PO SCH (09:33)
[2018-06-02] MEDS: SENNOSIDES 8.6 MG (SENOKOT) TAB PO SCH (09:33)
[2018-06-02] MEDS: AMIODARONE 200 MG (CORDARONE) TAB PO SCH (09:33)
[2018-06-02] MEDS: ATORVASTATIN 80 MG (LIPITOR) TABLET PO SCH (09:33)
[2018-06-02] MEDS: lisINopril 5 MG (PRINIVIL) TABLET PO SCH (09:33)
[2018-06-02] MEDS: CARVEDILOL 3.125 MG (COREG) TABLET PO SCH (09:33)
[2018-06-02] MEDS: DOCUSATE SODIUM 100 MG (COLACE) CAP PO SCH (09:34)
--- NOTE | 2018-06-02 09:46 | Progress Note-Cardiology ---
Cardiology SOAP Progress Note Subjective: In bed. Life Vest in place. Discharging home today. No c/o CP, palpitations, syncope, near syncope or dyspnea. Objective: I&O/Vital Signs 06/02/18 05:38 Temp 96.9 Pulse 73 Resp 18 B/P (MAP) 109/71 (84) Pulse Ox 93 O2 Delivery Room Air 06/02/18 00:00 Intake Total 700 ml Balance 700 ml Weight (Pounds): 166 Weight (Ounces): 12.8 Weight (Calculated Kilograms): 75.447776 Constitutional: appears stated age, AAO x 3, well-developed, well-nourished Respiratory: chest is bilaterally symmetric, lungs clear to auscultation Cardiovascular: regular rate-rhythm; No JVD; S1 and S2 Gastrointestional: No tender; soft, audible bowel sounds Extremities: no lower extremity edema bilateral Neurologic/Psychiatric: facial droop (left), other (Left sided facial droop, left lower extremity weakness 4/5, left upper extemity weakness 3/5) Skin: No rash, No ulcerations Results/Procedures: Labs Laboratory Tests 06/01/18 11:46: Glucometer 110 06/01/18 15:41: Glucometer 127H 06/01/18 20:54: Glucometer 129H 06/02/18 05:10: Prothrombin Time 24.4H, INR Comment 2.2H 06/02/18 05:30: Glucometer 87 A/P: Assessment: Frequent PVCs Dysphagia and left hemiparesis post CVA in April 2018 Ischemic CVA - CT of head on 05-08-18 showed evolving mod sized subacute right MCA territory infarct without hemorrhage. No signif changes in additional tiny subacute right MCA territory and right cerebellar infarcts; thrombectomy on 05-06 - followed by Neurology services at [facility] ICM - Echocardiogram of 05-06-18 showed LVEF 25%; mod LV dilation; layered mural LV apical thrombus; RV apical thrombus; Mild TR; LVEF 20% on echocardiogram of 05-16-18 at [facility]. Now on Life Vest Relatively low blood pressure, apparently chronic, that limits therapy for ischemic cm (has been tolerating low dose BB and ELIE ) CAD -Suspected STEMI on 05-05-18 for which he underwent cardiac cath by Dr. Alvarado which showed coronary artery disease, primarily consisting of mid vessel occlusion of the left anterior descending. This appears to be a chronic total occlusion and was not amenable to percutaneous intervention. The rest of the coronary vessels have moderate diffuse disease. Ischemic cardiomyopathy with anterolateral and apical dyskinesis and left ventricular ejection fraction of 20 % to 25%. Elevated left ventricular end-diastolic pressure. Subseqeunt cardiac cath at [facility] on 05-15-[address] Whyte showed 100% occlusion of the prox LAD ( appears to be chronic, no intervention done); 50% mid left cx with an iFR of 1.0 ; nondominant RCA with mod dz DM 2 HLD - statin tx OAC with warfarin - initiated by Med and Neuro Svces at [facility] - INR management by PCP Plan: * Complex management due to multiple issues * Continue low-dose bb and ELIE-inhib (low dose because of hypotension) * Continue amiodarone 400 po daily * Continue Life Vest * We have discussed all of the above-noted issues with him * Discharge home today * Discussed importance of compliance with medications, f/u and Life Vest * Warfarin to be managed by PCP as an out pt VALE MAGALLON Jun 02, 2018 09:46
[2018-06-02 10:27] VITALS: BP 109/71
--- NOTE | 2018-06-02 13:37 | Therapy Team Discharge Summary ---
Therapy Discharge Summary Discharge Recommendations Date of Discharge Jun 02, 2018 at 10:00 Therapy D/C Recommendations: Home w/ Family Support, Occupational Therapy Home Care Occupational Therapy Pt. seen by occupational therapy to increase overall strength and independence with daily tasks. Pt. has met many goals but continues to require assistance with others. Pt. had demonstrated increased movement and strength in left UE, but does demonstrate decreased awareness of left UE. Pt. has been educated on strategies of being aware of left side. Pt. is able to don clothing but still requires cues to attend to left hand and trunk when donning shirt or pulling pants over hip. Pt. requires increased time to process tasks and is still slightly impulsive. Family has been educated about deficits and pt. is discharging home to live with sister and mother. Pt. has all needed equipment that was provided by resources found by social work. Also recommend home health OT services and continued care. Pt. would benefit from continued supervision until all safety goals are met. Decreased Activ Tolerance, Decreased UE Strength, Dependent Transfers, Impaired Cognition, Impaired Coordination, Impaired I ADL's, Impaired Self-Care Skills, Restricted Funct UE ROM PT Sprayer Machine Goals Skilled Nursing Goals PT Skilled Nursing Goals Time Frame: Jun 08, 2018 Transfers (B,C,W/C) (FIM): 5 (met) Roll Left to Right (QC): 4 (met) Sit to Lying (QC): 4 (met) Lying-Sitting on Side/Bed(QC): 4 (met) Sit to Stand (QC): 4 (met) Chair/Xol-ih-Dyvdx Xfer(QC): 4 (met) Car Transfer (QC): 4 (met) Does the Patient Walk: Yes Gait (FIM): 5 (met) Distance: 200' Walk 10 feet (QC): 4 (met) Walk 10ft-Uneven Surface(QC): 4 (met) Walk 50ft with 2 Turns (QC): 4 (met) Walk 150 ft (QC): 4 (met) Gait Level of Assist: 5 (met) Gait Assistive Device: Cane Large Base Quad, Walker Deon Stairs (FIM): 2 (met) # of Steps: 8 (met) 1 Step (curb) (QC): 3 (met) 4 Steps (QC): 3 (met) Stairs Level Of Assist: 4 (met) Picking up an Object (QC): 4 (met) OT Sprayer Machine Goals Sprayer Machine Goals Time Frame: Jun 15, 2018 Eating (FIM): 6 (met) Eating (QC): 6 (met) Oral Hygiene (QC): 6 (met) Grooming(FIM): 6 (met) Bathing(FIM): 5 (met) Shower/Bathe Self (QC): 5 (met) Upper Body Dressing(FIM): 6 (not met) Upper Body Dressing (QC): 6 (not met) Lower Body Dressing(FIM): 5 (not met) Lower Body Dressing (QC): 5 (not met) On/Off Footwear (QC): 5 (met) Toileting(FIM): 6 (not met) Toileting Hygiene (QC): 6 (not met) Transfers (B,C,W/C) (FIM): 6 (met with safety concerns) Toilet/Commode Transfer(FIM): 6 (met with safety concerns) Toilet/Commode Transfer (QC): 6 (met) Shower Transfer(FIM): 5 (met) Comprehension(FIM): 7 Expression (FIM): 7 Social Interaction(FIM): 6 Problem Solving(FIM): 6 Memory(FIM): 7 Additional Goals: 1-Demonstrate ADL Tasks, 2-Verbalize Understanding, 3- ImproveStrength/Radha 1=Demonstrate adherence to instructed precautions during ADL tasks. 2=Patient will verbalize/demonstrate understanding of assistive devices/ modifications for ADL. 3=Patient will improve strength/tolerance for activity to enable patient to perform ADL's. Speech Sprayer Machine Goals Skilled Nursing Goals 1) THE PATIENT WILL BE ABLE TO COMPLETE CONVERSATIONAL DISCOURSE FOR UP TO 5 TURNS WITHOUT PROMPTS. 2) THE PATIENT WILL BE ABLE TO ANSWER QUESTIONS WITH 90% RETURN FOLLOWING READING MATERIAL (UP TO A 500 WORD ARTICLE) USING QUESTIONING BY THIS STRUCTURAL DRAFTSMAN AND/ OR ANSWERING WRITTEN QUESTIONS. 3) THE PATIENT WILL IDENTIFY PROBLEM SOLVING TASK ACTIVITIES WITH AT LEAST 80% RETURN WITHOUT PROMPTS USING SELF-TALK AND/OR ANSWERING QUESTIONS. Time Frame: 3 WEEKS Comprehension: 7 Expression: 7 Social Interaction: 6 Problem Solvin Memory: 7 JEREMIE RATLIFF OT Jun 02, 2018 13:37
--- NOTE | 2018-06-02 14:45 | Therapy Team Discharge Summary ---
Therapy Discharge Summary Discharge Recommendations Date of Discharge Jun 02, 2018 at 10:00 Therapy D/C Recommendations: Home w/ Family Support, Occupational Therapy Home Care Physical Therapy Patient came to rehab following a CVA. Upon admission patient performed bed mobility and transfers with min assist, car transfer min assist, ambulated 150' with a hemiwalker with min assist, and went up and down 1 step using a hemiwalker with min assist. Patient has been performing bed mobility and transfer training, balance and endurance training, functional strengthening, stair training, gait training, and education. 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 Now, patient performs bed mobility with mod I, sit to stand and transfers with SBA, car transfer with SBA, ambulates 300' with a single point cane with SBA (including 50' with at least 2 turns of 90 degrees and 10' over an uneven surface), and can go up and down 12 steps using 1 handrail with SBA. Patient was discharged from this facility today and will be discharged from PT at this time. Occupational Therapy Decreased Activ Tolerance, Decreased UE Strength, Dependent Transfers, Impaired Cognition, Impaired Coordination, Impaired I ADL's, Impaired Self-Care Skills, Restricted Funct UE ROM PT Intranet Specialist Goals Prison Goals PT Intranet Specialist Goals Time Frame: Jun 08, 2018 Transfers (B,C,W/C) (FIM): 5 (met) Roll Left to Right (QC): 4 (met) Sit to Lying (QC): 4 (met) Lying-Sitting on Side/Bed(QC): 4 (met) Sit to Stand (QC): 4 (met) Chair/Fue-td-Emoxc Xfer(QC): 4 (met) Car Transfer (QC): 4 (met) Does the Patient Walk: Yes Gait (FIM): 5 (met) Distance: 200' Walk 10 feet (QC): 4 (met) Walk 10ft-Uneven Surface(QC): 4 (met) Walk 50ft with 2 Turns (QC): 4 (met) Walk 150 ft (QC): 4 (met) Gait Level of Assist: 5 (met) Gait Assistive Device: Cane Large Base Quad, Walker Deon Stairs (FIM): 2 (met) # of Steps: 8 (met) 1 Step (curb) (QC): 3 (met) 4 Steps (QC): 3 (met) Stairs Level Of Assist: 4 (met) Picking up an Object (QC): 4 (met) OT Prison Goals Intranet Specialist Goals Time Frame: Jun 15, 2018 Eating (FIM): 6 (met) Eating (QC): 6 (met) Oral Hygiene (QC): 6 (met) Grooming(FIM): 6 (met) Bathing(FIM): 5 (met) Shower/Bathe Self (QC): 5 (met) Upper Body Dressing(FIM): 6 (not met) Upper Body Dressing (QC): 6 (not met) Lower Body Dressing(FIM): 5 (not met) Lower Body Dressing (QC): 5 (not met) On/Off Footwear (QC): 5 (met) Toileting(FIM): 6 (not met) Toileting Hygiene (QC): 6 (not met) Transfers (B,C,W/C) (FIM): 6 (met with safety concerns) Toilet/Commode Transfer(FIM): 6 (met with safety concerns) Toilet/Commode Transfer (QC): 6 (met) Shower Transfer(FIM): 5 (met) Comprehension(FIM): 7 Expression (FIM): 7 Social Interaction(FIM): 6 Problem Solving(FIM): 6 Memory(FIM): 7 Additional Goals: 1-Demonstrate ADL Tasks, 2-Verbalize Understanding, 3- ImproveStrength/Radha 1=Demonstrate adherence to instructed precautions during ADL tasks. 2=Patient will verbalize/demonstrate understanding of assistive devices/ modifications for ADL. 3=Patient will improve strength/tolerance for activity to enable patient to perform ADL's. Speech Intranet Specialist Goals Intranet Specialist Goals 1) THE PATIENT WILL BE ABLE TO COMPLETE CONVERSATIONAL DISCOURSE FOR UP TO 5 TURNS WITHOUT PROMPTS. 2) THE PATIENT WILL BE ABLE TO ANSWER QUESTIONS WITH 90% RETURN FOLLOWING READING MATERIAL (UP TO A 500 WORD ARTICLE) USING QUESTIONING BY THIS TIMBER FRAMER AND/ OR ANSWERING WRITTEN QUESTIONS. 3) THE PATIENT WILL IDENTIFY PROBLEM SOLVING TASK ACTIVITIES WITH AT LEAST 80% RETURN WITHOUT PROMPTS USING SELF-TALK AND/OR ANSWERING QUESTIONS. Time Frame: 3 WEEKS Comprehension: 7 Expression: 7 Social Interaction: 6 Problem Solvin Memory: 7 ASHANTI DENNY PT Jun 02, 2018 14:45
--- NOTE | 2018-06-02 14:57 | Therapy Team Discharge Summary ---
Therapy Discharge Summary Discharge Recommendations Date of Discharge Jun 02, 2018 at 10:00 Therapy D/C Recommendations: Home w/ Family Support, Occupational Therapy Home Care Occupational Therapy Decreased Activ Tolerance, Decreased UE Strength, Dependent Transfers, Impaired Cognition, Impaired Coordination, Impaired I ADL's, Impaired Self-Care Skills, Restricted Funct UE ROM Speech-Language Pathology Pt was admitted to hospital with a Right hemisphere stroke. Pt was seen for skilled ST on the ARU unit. Pt demonstrated a mild dysarthria and dysphagia. Pt exhibited impulsive eating behaviors. Pt was instructed to eat slowly, take small bites and chew food and swallow before attempting additional bites. Pt met his goal for this. Other goals pt completed memory and higher level problem solving activities with high levels of accuracy and min assist. Pt met all his goals and was dc'd from skilled ST services. PT Prison Goals Prison Goals PT Prison Goals Time Frame: Jun 08, 2018 Transfers (B,C,W/C) (FIM): 5 (met) Roll Left to Right (QC): 4 (met) Sit to Lying (QC): 4 (met) Lying-Sitting on Side/Bed(QC): 4 (met) Sit to Stand (QC): 4 (met) Chair/Wnp-tz-Onima Xfer(QC): 4 (met) Car Transfer (QC): 4 (met) Does the Patient Walk: Yes Gait (FIM): 5 (met) Distance: 200' Walk 10 feet (QC): 4 (met) Walk 10ft-Uneven Surface(QC): 4 (met) Walk 50ft with 2 Turns (QC): 4 (met) Walk 150 ft (QC): 4 (met) Gait Level of Assist: 5 (met) Gait Assistive Device: Cane Large Base Quad, Walker Deon Stairs (FIM): 2 (met) # of Steps: 8 (met) 1 Step (curb) (QC): 3 (met) 4 Steps (QC): 3 (met) Stairs Level Of Assist: 4 (met) Picking up an Object (QC): 4 (met) OT Prison Goals Prison Goals Time Frame: Jun 15, 2018 Eating (FIM): 6 (met) Eating (QC): 6 (met) Oral Hygiene (QC): 6 (met) Grooming(FIM): 6 (met) Bathing(FIM): 5 (met) Shower/Bathe Self (QC): 5 (met) Upper Body Dressing(FIM): 6 (not met) Upper Body Dressing (QC): 6 (not met) Lower Body Dressing(FIM): 5 (not met) Lower Body Dressing (QC): 5 (not met) On/Off Footwear (QC): 5 (met) Toileting(FIM): 6 (not met) Toileting Hygiene (QC): 6 (not met) Transfers (B,C,W/C) (FIM): 6 (met with safety concerns) Toilet/Commode Transfer(FIM): 6 (met with safety concerns) Toilet/Commode Transfer (QC): 6 (met) Shower Transfer(FIM): 5 (met) Comprehension(FIM): 7 Expression (FIM): 7 Social Interaction(FIM): 6 Problem Solving(FIM): 6 Memory(FIM): 7 Additional Goals: 1-Demonstrate ADL Tasks, 2-Verbalize Understanding, 3- ImproveStrength/Radha 1=Demonstrate adherence to instructed precautions during ADL tasks. 2=Patient will verbalize/demonstrate understanding of assistive devices/ modifications for ADL. 3=Patient will improve strength/tolerance for activity to enable patient to perform ADL's. Speech Prison Goals Dairy Feed Worker Goals 1) THE PATIENT WILL BE ABLE TO COMPLETE CONVERSATIONAL DISCOURSE FOR UP TO 5 TURNS WITHOUT PROMPTS. 2) THE PATIENT WILL BE ABLE TO ANSWER QUESTIONS WITH 90% RETURN FOLLOWING READING MATERIAL (UP TO A 500 WORD ARTICLE) USING QUESTIONING BY THIS SCRAP BURNER AND/ OR ANSWERING WRITTEN QUESTIONS. 3) THE PATIENT WILL IDENTIFY PROBLEM SOLVING TASK ACTIVITIES WITH AT LEAST 80% RETURN WITHOUT PROMPTS USING SELF-TALK AND/OR ANSWERING QUESTIONS. Time Frame: 3 WEEKS Comprehension: 7 Expression: 7 Social Interaction: 6 Problem Solvin Memory: 7 EMILY DUBOSE Jun 02, 2018 14:57
== END 2018-06-02 10:00 | disposition home or self-care (01) | DRG 56 ==
PROVIDERS: ADMIT Family Medicine; ATTEND Physical Medicine & Rehabilitation
DX: I69.354 Hemiplegia and hemiparesis following cerebral infarction affecting left non-dominant side (principal); I69.392 Facial weakness following cerebral infarction; I69.322 Dysarthria following cerebral infarction; I21.3 ST elevation (STEMI) myocardial infarction of unspecified site; I25.5 Ischemic cardiomyopathy; I25.82 Chronic total occlusion of coronary artery; E11.9 Type 2 diabetes mellitus without complications; E78.5 Hyperlipidemia, unspecified; I25.10 Atherosclerotic heart disease of native coronary artery without angina pectoris; I95.9 Hypotension, unspecified; R00.8 Other abnormalities of heart beat; I49.3 Ventricular premature depolarization; R00.1 Bradycardia, unspecified; Z79.01 Long term (current) use of anticoagulants; Z79.4 Long term (current) use of insulin; Z87.891 Personal history of nicotine dependence
CPT/HCPCS: 36415; 80048; 80053; 82962; 83036; 83735; 84443; 85025; 85027; 85610; 93005

== ENCOUNTER 2018-06-02 13:59 | Inpatient (IN) | payer OTHER ==
[~2018-06-02] VITALS: Ht 167.6 cm; Wt 76.2 kg
[~2018-06-02 13:59] MED LIST changes: +AMIO200T4 PO; +ATOR80TA76 PO; +CARV3.122 PO; +CLOP75TA28 PO; +ERGO50006 PO; +FLUO20CA25 PO; +INSU100V16 SC; +INSU100V5 SQ; +LISI-556 PO; +MELA3TAB PO; +THIA100T80 PO; +WARF3TAB PO
[2018-06-02 15:27] LABS: BASOPHILS % (AUTO) 0 % (0-10); EOSINOPHILS # (AUTO) 0.2 10^3/uL (0.0-0.3); EOSINOPHILS % (AUTO) 4 % (0-10); HEMATOCRIT 32 % (40-54); HEMOGLOBIN 11.4 G/DL (13.3-17.7); LYMPHOCYTES # (AUTO) 1.2 X 10^3 (1.0-4.0); LYMPHOCYTES % (AUTO) 23 % (12-44); MEAN CORPUSCULAR HEMOGLOBIN 33 PG (25-34); MEAN CORPUSCULAR HGB CONC 36 G/DL (32-36); MEAN CORPUSCULAR VOLUME 91 FL (80-99); MEAN PLATELET VOLUME 10.2 FL (7.4-10.4); MONOCYTES # (AUTO) 0.5 X 10^3 (0.0-1.0); MONOCYTES % (AUTO) 9 % (0-12); NEUTROPHILS # (AUTO) 3.3 X 10^3 (1.8-7.8); NEUTROPHILS % (AUTO) 63 % (42-75); PLATELET COUNT 231 10^3/uL (130-400); RED BLOOD COUNT 3.51 10^6/uL (4.35-5.85); RED CELL DISTRIBUTION WIDTH 15.3 % (10.0-14.5); WHITE BLOOD COUNT 5.2 10^3/uL (4.3-11.0)
[2018-06-02 15:34] LABS: INR 2.1 (0.8-1.4); PROTHROMBIN TIME PATIENT 23.7 SEC (12.2-14.7)
[2018-06-02 15:43] LABS: ALANINE AMINOTRANSFERASE 36 U/L (0-55); ALBUMIN 3.8 GM/DL (3.2-4.5); ALKALINE PHOSPHATASE 60 U/L (40-136); BILIRUBIN,TOTAL 2.3 MG/DL (0.1-1.0); BUN/CREATININE RATIO 23; CALCIUM 9.1 MG/DL (8.5-10.1); CARBON DIOXIDE 21 MMOL/L (21-32); CHLORIDE 106 MMOL/L (98-107); CREATININE SERUM 0.79 MG/DL (0.60-1.30); GFR ESTIMATED > 60; GLUCOSE 123 MG/DL (70-105); POTASSIUM 4.2 MMOL/L (3.6-5.0); SODIUM 137 MMOL/L (135-145); TOTAL PROTEIN 6.7 GM/DL (6.4-8.2)
--- NOTE | 2018-06-02 15:45 | Diagnostic Imaging Report ---
INDICATION: Life vest alarmed. TIME OF EXAM: 3:33 PM COMPARISON: Correlation is made with prior chest radiograph from 05/06/2018. FINDINGS: The heart size is stable. Cardiac monitoring devices overlie the chest. The lungs are clear on today's study. Congestive changes noted on prior have cleared. There is no parenchymal consolidation. No effusion or pneumothorax is identified. IMPRESSION: Clear chest. No acute feature is detected. Dictated by: Dictated on workstation # [id number]
[2018-06-02] MEDS ORDERED: meTOprolol TARTRATE 25 MG (LOPRESSOR) TABLET PO ONE (18:15)
[2018-06-02] MEDS ORDERED: AMIODARONE 200 MG (CORDARONE) TAB PO ONE (18:15)
--- NOTE | 2018-06-02 19:08 | ED Cardiac General ---
History of Present Illness General Chief Complaint: Cardiac/General Problems Stated Complaint: SOB Nursing Triage Note: PT PRESENTS TO ER WITH COMPLAINT OF SOB. STATES ABOUT AN HOUR AND HALF AGO HIS LIFE VEST WENT OFF SAYING "EVERYONE STAND BACK". PT STATES THE VEST DID NOT DELIVER A SHOCK. STATES HE DID BECOME SOB RIGHT BEFORE HIS VEST WENT OFF. STATES HE WAS DISCHARGED TODAY FROM INPATIENT REHAB AND HAD A FOLLOW UP APPOINTMENT AT [facility] THIS MORNING. Source: patient, old records Exam Limitations: no limitations History of Present Illness Date Seen by Provider: Jun 02, 2018 Time Seen by Provider: 15:20 Initial Comments This 47-year-old gentleman presents to the emergency room after having an episode of palpitations and shortness of breath. He was recently treated for both CVA and TX. He had been transferred to [facility] for treatment and then back to [facility] for rehabilitation. He was dismissed today and presented to the [facility] clinic to establish care. The incident happened after he walked to his car from the appointment. He denies any chest pain. He is wearing a life vest. His ejection fraction was critically low after his TX. He is frequently in bigeminy on the monitor. He has had no further episodes of shortness of breath or palpitations since the event in the parking lot. Allergies and Home Medications Allergies Coded Allergies: No Known Drug Allergies (Unverified , 11/03/09) Home Medications Amiodarone HCl 200 Mg Tablet, 400 MG PO DAILY Prescribed by: VALE MAGALLON on 06/01/18951 Atorvastatin Calcium 80 Mg Tablet, 80 MG PO DAILY@0900 Prescribed by: VALE MAGALLON on 06/01/18951 Carvedilol 3.125 Mg Tablet, 3.125 MG PO BID Prescribed by: VALE MAGALLON on 06/01/18951 Clopidogrel Bisulfate 75 Mg Tablet, 75 MG PO DAILY Prescribed by: VALE MAGALLON on 06/01/18951 Ergocalciferol (Vitamin D2) 50,000 Unit Capsule, 50,000 UNITS PO Sa@09 Prescribed by: HARESH XIE on 06/01/181943 Fluoxetine HCl 20 Mg Capsule, 20 MG PO DAILY Prescribed by: HARESH XIE on 06/01/181943 Insulin Aspart 100 Unit/1 Ml Susp, 5 UNIT SC WM Prescribed by: HARESH XIE on 06/01/181943 Insulin Determir 1,000 Units/10 Ml Soln, 24 UNIT SQ DAILY@1400 Prescribed by: HARESH XIE on 06/01/181943 Lisinopril 5 Mg Tablet, 2.5 MG PO DAILY Prescribed by: VALE MAGALLON on 06/01/18 0952 Melatonin 3 Mg Tablet, 6 MG PO HS Prescribed by: HARESH XIE on 06/01/181943 Thiamine HCl 100 Mg Tablet, 100 MG PO DAILY@0700 Prescribed by: HARESH XIE on 06/01/181943 Warfarin Sodium 3 Mg Tablet, 6 MG PO DAILY@1800 Prescribed by: HARESH XIE on 06/01/181943 Patient Home Medication List Home Medication List Reviewed: Yes Review of Systems Review of Systems Constitutional: no symptoms reported EENTM: No Symptoms Reported Respiratory: See HPI Cardiovascular: See HPI Gastrointestinal: No Symptoms Reported Genitourinary: No Symptoms Reported Musculoskeletal: no symptoms reported Skin: no symptoms reported Psychiatric/Neurological: See HPI (Left-sided deficits) Endocrine: No Symptoms Reported Past Wkgkunp-Snbohf-Qiggyi Hx Past Med/Social Hx: Reviewed and Corrections made Patient Social History Alcohol Use: Denies Use Recreational Drug Use: No Smoking Status: Former Smoker Type Used: Cigarettes Former Smoker, Quit: May 17, 1988 Recent Foreign Travel: No Contact w/Someone Who Travel: No Recent Infectious Disease Expo: No Recent Hopitalizations: Yes Immunizations Up To Date Tetanus Booster (TDap): Unknown Date of Pneumonia Vaccine: May 14, 2018 Date of Influenza Vaccine: May 14, 2018 Seasonal Allergies Seasonal Allergies: No Past Medical History Surgeries: Yes Abdominal, Coronary Stent (Cardiac catheterization May 2018, no stents) Respiratory: No Cardiac: Yes Coronary Artery Disease Neurological: Yes Stroke Reproductive Disorders: No Sexually Transmitted Disease: No HIV/AIDS: No Genitourinary: No Gastrointestinal: No Musculoskeletal: No Endocrine: Yes Diabetes, Insulin dep HEENT: No Cancer: No Psychosocial: No Integumentary: No Blood Disorders: No Family Medical History Reviewed Nursing Family Hx Completed stroke 19 MOTHER Diabetes mellitus 19 FATHER Physical Exam Vital Signs Vital Signs - First Documented 06/02/18 14:55 Temp 97.4 Pulse 61 Resp 16 B/P (MAP) 92/61 (71) Pulse Ox 97 O2 Delivery Room Air Capillary Refill : Less Than 3 Seconds Height, Weight, BMI Height: 5'6.00" Weight: 168lbs. 12.8oz. 76.692206mz; 27.4 BMI Method:Stated General Appearance: No Apparent Distress, WD/WN HEENT: PERRL/EOMI, Normal ENT Inspection Neck: Normal Inspection Respiratory: Lungs Clear, Normal Breath Sounds, No Accessory Muscle Use, No Respiratory Distress Cardiovascular: Regular Rate, Rhythm, No Edema, No Murmur Gastrointestinal: Normal Bowel Sounds, Non Tender, Soft Extremity: Normal Inspection, No Pedal Edema Neurologic/Psychiatric: Alert, Oriented x3, Normal Mood/Affect, Facial Droop ( Left side), Motor Weakness (Left side) Skin: Normal Color, Warm/Dry Progress/Results/Core Measures Results/Orders Lab Results Laboratory Tests Test 06/02/18 15:13 Range/Units White Blood Count 5.2 4.3-11.0 10^3/uL Red Blood Count 3.51 L 4.35-5.85 10^6/uL Hemoglobin 11.4 L 13.3-17.7 G/DL Hematocrit 32 L 40-54 % Mean Corpuscular Volume 91 80-99 FL Mean Corpuscular Hemoglobin 33 25-34 PG Mean Corpuscular Hemoglobin Concent 36 32-36 G/DL Red Cell Distribution Width 15.3 H 10.0-14.5 % Platelet Count 231 130-400 10^3/uL Mean Platelet Volume 10.2 7.4-10.4 FL Neutrophils (%) (Auto) 63 42-75 % Lymphocytes (%) (Auto) 23 12-44 % Monocytes (%) (Auto) 9 0-12 % Eosinophils (%) (Auto) 4 0-10 % Basophils (%) (Auto) 0 0-10 % Neutrophils # (Auto) 3.3 1.8-7.8 X 10^3 Lymphocytes # (Auto) 1.2 1.0-4.0 X 10^3 Monocytes # (Auto) 0.5 0.0-1.0 X 10^3 Eosinophils # (Auto) 0.2 0.0-0.3 10^3/uL Basophils # (Auto) 0.0 0.0-0.1 10^3/uL Prothrombin Time 23.7 H 12.2-14.7 SEC INR Comment 2.1 H 0.8-1.4 Activated Partial Thromboplast Time 34 24-35 SEC Sodium Level 137 135-145 MMOL/L Potassium Level 4.2 3.6-5.0 MMOL/L Chloride Level 106 98-107 MMOL/L Carbon Dioxide Level 21 21-32 MMOL/L Anion Gap 10 5-14 MMOL/L Blood Urea Nitrogen 18 7-18 MG/DL Creatinine 0.79 0.60-1.30 MG/DL Estimat Glomerular Filtration Rate > 60 BUN/Creatinine Ratio 23 Glucose Level 123 H 70-105 MG/DL Calcium Level 9.1 8.5-10.1 MG/DL Corrected Calcium 9.3 8.5-10.1 MG/DL Magnesium Level 2.0 1.8-2.4 MG/DL Total Bilirubin 2.3 H 0.1-1.0 MG/DL Aspartate Amino Transf (AST/SGOT) 17 5-34 U/L Alanine Aminotransferase (ALT/SGPT) 36 0-55 U/L Alkaline Phosphatase 60 40-136 U/L Myoglobin 28.0 10.0-92.0 NG/ML Troponin I < 0.30 <0.30 NG/ML B-Type Natriuretic Peptide 992.4 H <100.0 PG/ML Total Protein 6.7 6.4-8.2 GM/DL Albumin 3.8 3.2-4.5 GM/DL My Orders Orders - DIAZ SINGH MD Cbc With Automated Diff (06/02/18:) Magnesium (06/02/18:) Chest 1 View, Ap/Pa Only (06/02/18:) Ekg Tracing (06/02/18:) Cardiac Profile 1 (06/02/18:) Comprehensive Metabolic Panel (06/02/18) Myoglobin Serum (06/02/18:) Protime With Inr (06/02/18:) Partial Thromboplastin Time (06/02/18:) O2 (06/02/18:) Monitor-Rhythm Ecg Trace Only (06/02/18) Lipid Panel (06/03/18 06:00) Saline Lock/Iv-Start (06/02/18 15:) BNP (06/02/18 15:22) Metoprolol Tartrate (Ir) Tab (Lopressor (06/02/18 18:15) Amiodarone Tablet (Cordarone Tablet) (06/02/18 18:15) Medications Given in ED Current Medications Medications Dose Ordered Sig/Meek Route Start Time Stop Time Status Last Admin Dose Admin Amiodarone HCl 400 mg ONCE ONCE PO 06/02/18 18:15 06/02/18 18:20 DC 06/02/18 19:00 400 MG Vital Signs/I&O 06/02/18 14:55 Temp 97.4 Pulse 61 Resp 16 B/P (MAP) 92/61 (71) Pulse Ox 97 O2 Delivery Room Air Blood Pressure Mean: 71 Progress Progress Note : Progress Note Labs were reviewed. EKG showed bigeminy. LifeVest was interrogated by the [facility] and showed a brief but sustained ventricular tachycardia. Case was discussed with Dr. Hassan. He requested amiodarone be administered and the patient be prepared for possible pacemaker/defibrillator placement tomorrow. Beta blockers were considered but not given as patient was initially bradycardic with heart rates in the 40s. Heart rate did improve throughout the course of his ER stay. His ER stay was uneventful. Admission was also discussed with Dr. Keita including admission orders. Initial ECG Impression Date: Jun 02, 2018 Initial ECG Impression Time: 15:23 Initial ECG Rate: 87 Comment Sinus rhythm with episodes of ventricular bigeminy. No ST elevation or depression. Diagnostic Imaging Diagonstic Imaging: Xray Plain Films/CT/US/NM/MRI: chest Comments NAME: MIRTA [facility] REC#: [id number] PT STATUS: REG ER : 1970 PHYSICIAN: DIAZ SINGH MD ADMIT DATE: 06/02/18/ER Signed Date of Exam: 06/02/18 CHEST 1 VIEW, AP/PA ONLY INDICATION: Life vest alarmed. TIME OF EXAM: 3:33 PM COMPARISON: Correlation is made with prior chest radiograph from 05/06/2018. FINDINGS: The heart size is stable. Cardiac monitoring devices overlie the chest. The lungs are clear on today's study. Congestive changes noted on prior have cleared. There is no parenchymal consolidation. No effusion or pneumothorax is identified. IMPRESSION: Clear chest. No acute feature is detected. Dictated by: Dictated on workstation # [id number] Dict: 06/02/18 1540 Trans: 06/02/18 1557 Interpreted by: MONICA KELLEY MD Electronically signed by: MONICA KELLEY MD 06/02/18 1557 Departure Communication (Admissions) Time/Spoke to Admitting Phy: 19:04 Dr. Keita Time/Spoke to Consulting Phy: 18:40 Dr. Hassan Impression Primary Impression: Ventricular tachycardia Additional Impression: Ventricular bigeminy Disposition: ADMITTED INPATIENT Condition: Improved Admissions Decision to Admit Reason: Admit from ER (General) Decision to Admit/Date: Jun 02, 2018 Time/Decision to Admit Time: 18:00 Departure-Patient Inst. Referrals: NO,LOCAL PHYSICIAN (PCP/Family) Primary Care Physician Copy Copies To 1: TRIP KEITA MD, JOSHUA T MD Jun 02, 2018 19:08
[2018-06-02 20:01] VITALS: BP 110/57
[2018-06-02 20:10] VITALS: BP 99/51
[2018-06-02] MEDS ORDERED: CATHETER FLUSH 10 ML SYR IV PRN (20:15)
[2018-06-02] MEDS ORDERED: inSUlin DETERMIR 1 UNIT/0.01 ML (LEVEMIR) CHARGE PER UNIT SQ NR (21:00)
[2018-06-02 21:10] VITALS: BP 99/51
[2018-06-02] MEDS: inSUlin ASPART (NovoLOG) 1 UNIT/0.01 ML (CHARGE PER UNIT) SC SCH (22:01)
[2018-06-02] MEDS: CATHETER FLUSH 10 ML SYR IV SCH (22:15)
[2018-06-02 22:16] VITALS: BP 99/55
[2018-06-02 23:00] VITALS: BP 106/56
[2018-06-03] VITALS: BP 116/65
[2018-06-03 04:00] VITALS: BP 109/64
[2018-06-03 06:14] LABS: BASOPHILS % (AUTO) 0 % (0-10); EOSINOPHILS # (AUTO) 0.3 10^3/uL (0.0-0.3); EOSINOPHILS % (AUTO) 6 % (0-10); HEMATOCRIT 30 % (40-54); HEMOGLOBIN 10.5 G/DL (13.3-17.7); LYMPHOCYTES # (AUTO) 1.1 X 10^3 (1.0-4.0); LYMPHOCYTES % (AUTO) 23 % (12-44); MEAN CORPUSCULAR HEMOGLOBIN 32 PG (25-34); MEAN CORPUSCULAR HGB CONC 35 G/DL (32-36); MEAN CORPUSCULAR VOLUME 91 FL (80-99); MEAN PLATELET VOLUME 10.1 FL (7.4-10.4); MONOCYTES # (AUTO) 0.5 X 10^3 (0.0-1.0); MONOCYTES % (AUTO) 10 % (0-12); NEUTROPHILS % (AUTO) 62 % (42-75); PLATELET COUNT 207 10^3/uL (130-400); RED BLOOD COUNT 3.33 10^6/uL (4.35-5.85); RED CELL DISTRIBUTION WIDTH 15.2 % (10.0-14.5); WHITE BLOOD COUNT 4.8 10^3/uL (4.3-11.0)
[2018-06-03 06:24] LABS: INR 2.2 (0.8-1.4); PROTHROMBIN TIME PATIENT 24.1 SEC (12.2-14.7)
[2018-06-03 06:36] LABS: BILIRUBIN,DIRECT 0.3 MG/DL (0.0-0.3); BILIRUBIN,INDIRECT 1.7 MG/DL; BUN/CREATININE RATIO 26; CALCIUM 8.5 MG/DL (8.5-10.1); CARBON DIOXIDE 21 MMOL/L (21-32); CHLORIDE 108 MMOL/L (98-107); CHOLESTEROL 70 MG/DL (< 200); CREATININE SERUM 0.69 MG/DL (0.60-1.30); GFR ESTIMATED > 60; GLUCOSE 134 MG/DL (70-105); HDL CHOLESTEROL 27 MG/DL (40-60); POTASSIUM 3.8 MMOL/L (3.6-5.0); SODIUM 139 MMOL/L (135-145); TRIGLYCERIDES 53 MG/DL (<150); VLDL CHOLESTEROL 11 MG/DL (5-40)
[2018-06-03] MEDS: inSUlin ASPART (NovoLOG) 1 UNIT/0.01 ML (CHARGE PER UNIT) SC SCH ×4 (06:37→20:54)
[2018-06-03] MEDS: CATHETER FLUSH 10 ML SYR IV SCH ×3 (06:44→21:05)
[2018-06-03 08:00] VITALS: BP 116/57
--- NOTE | 2018-06-03 11:47 | History & Physicial (CHS) ---
HPI History of Present Illness: 47 yo male with recent VT and CVA treated at , completed inpatient rehab here , with post VT heart failure. He came to ER after his lifevest alarmed for everyone to stand back, however no shock was given. Per ER report, Zoll interrogation noted sustained vtach. No further events noted. Source: patient Exam Limitations: other (drowsy) Date seen by provider: Jun 03, 2018 Time Seen by Provider: 06:22 Attending Physician Trip Pineda MD PCP [facility] Consult Date of Admission Jun 02, 2018 at 7:29 pm Home Medications Home Medications Reviewed patient Home Medication Reconciliation performed by pharmacy medication reconciliations nuclear reactor technician and/or nursing. Patients Allergies have been reviewed. Allergies Coded Allergies: No Known Drug Allergies (Unverified , 11/03/09) GYW-Xsgfpd-Nbhdkf Hx Patient Social History Alcohol Use: Denies Use Recreational Drug Use: No Smoking Status: Former Smoker Type Used: Cigarettes Recent Foreign Travel: No Contact w/other who traveled: No Recent Hopitalizations: Yes Recent Infectious Disease Expo: No Physical Abuse Screen: No Sexual Abuse: No Immunizations Up To Date Tetanus Booster (TDap): Unknown Date of Pneumonia Vaccine: May 14, 2018 Date of Influenza Vaccine: May 14, 2018 Past Medical History PMHx: DMII HTN VT CVA PSurgHx: Left hernia repair Family Medical History Family History: Completed stroke 19 MOTHER Diabetes mellitus 19 FATHER Review of Systems (CHC) Constitutional: No fever EENTM: No nose congestion, No throat pain Respiratory: No cough, No short of breath Cardiovascular: No chest pain Gastrointestinal: No abdominal pain, No constipation, No diarrhea, No nausea, No vomiting Genitourinary: No dysuria Musculoskeletal: No joint pain Skin: No rash Reviewed Test Results Reviewed Test Results Lab Laboratory Tests Test 06/02/18 15:13 06/02/18 21:56 06/03/18 05:51 Range/Units White Blood Count 5.2 4.8 4.3-11.0 10^3/uL Red Blood Count 3.51 L 3.33 L 4.35-5.85 10^6/uL Hemoglobin 11.4 L 10.5 L 13.3-17.7 G/DL Hematocrit 32 L 30 L 40-54 % Mean Corpuscular Volume 91 91 80-99 FL Mean Corpuscular Hemoglobin 33 32 25-34 PG Mean Corpuscular Hemoglobin Concent 36 35 32-36 G/DL Red Cell Distribution Width 15.3 H 15.2 H 10.0-14.5 % Platelet Count 231 207 130-400 10^3/uL Mean Platelet Volume 10.2 10.1 7.4-10.4 FL Neutrophils (%) (Auto) 63 62 42-75 % Lymphocytes (%) (Auto) 23 23 12-44 % Monocytes (%) (Auto) 9 10 0-12 % Eosinophils (%) (Auto) 4 6 0-10 % Basophils (%) (Auto) 0 0 0-10 % Neutrophils # (Auto) 3.3 3.0 1.8-7.8 X 10^3 Lymphocytes # (Auto) 1.2 1.1 1.0-4.0 X 10^3 Monocytes # (Auto) 0.5 0.5 0.0-1.0 X 10^3 Eosinophils # (Auto) 0.2 0.3 0.0-0.3 10^3/uL Basophils # (Auto) 0.0 0.0 0.0-0.1 10^3/uL Prothrombin Time 23.7 H 24.1 H 12.2-14.7 SEC INR Comment 2.1 H 2.2 H 0.8-1.4 Activated Partial Thromboplast Time 34 24-35 SEC Sodium Level 137 139 135-145 MMOL/L Potassium Level 4.2 3.8 3.6-5.0 MMOL/L Chloride Level 106 108 H 98-107 MMOL/L Carbon Dioxide Level 21 21 21-32 MMOL/L Anion Gap 10 10 5-14 MMOL/L Blood Urea Nitrogen 18 18 7-18 MG/DL Creatinine 0.79 0.69 0.60-1.30 MG/DL Estimat Glomerular Filtration Rate > 60 > 60 BUN/Creatinine Ratio 23 26 Glucose Level 123 H 134 H 70-105 MG/DL Calcium Level 9.1 8.5 8.5-10.1 MG/DL Corrected Calcium 9.3 8.5-10.1 MG/DL Magnesium Level 2.0 1.8-2.4 MG/DL Total Bilirubin 2.3 H 2.0 H 0.1-1.0 MG/DL Aspartate Amino Transf (AST/SGOT) 17 5-34 U/L Alanine Aminotransferase (ALT/SGPT) 36 0-55 U/L Alkaline Phosphatase 60 40-136 U/L Myoglobin 28.0 10.0-92.0 NG/ML Troponin I < 0.30 <0.30 NG/ML B-Type Natriuretic Peptide 992.4 H <100.0 PG/ML Total Protein 6.7 6.4-8.2 GM/DL Albumin 3.8 3.2-4.5 GM/DL Glucometer 184 H 70-110 MG/DL Direct Bilirubin 0.3 0.0-0.3 MG/DL Indirect Bilirubin 1.7 MG/DL Triglycerides Level 53 <150 MG/DL Cholesterol Level 70 < 200 MG/DL LDL Cholesterol Direct 35 1-129 MG/DL VLDL Cholesterol 11 5-40 MG/DL HDL Cholesterol 27 L 40-60 MG/DL Radiology CXR 06/02- unremarkable Physical Exam-(CHC) Physical Exam Vital Signs VS - Last 72 Hours, by Label 06/02/18 06/02/18 06/02/18 06/02/18 14:55 19:00 19:55 20:01 Temp 97.4 98.1 Pulse 61 90 78 82 Resp 16 21 20 B/P (MAP) 92/61 (71) 128/91 (103) 110/57 (74) Pulse Ox 97 96 96 O2 Delivery Room Air Room Air Room Air 06/02/18 06/02/18 06/02/18 06/02/18 20:10 20:10 21:10 22:16 Temp 97.9 97.9 98.3 Pulse 82 82 81 Resp 18 18 18 B/P (MAP) 99/51 (67) 99/51 (67) 99/55 (70) Pulse Ox 95 95 95 O2 Delivery Room Air Room Air Room Air Room Air 06/02/18 06/03/18 06/03/18 06/03/18 23:00 00:00 01:00 04:00 Temp 98.5 97.7 98.1 Pulse 81 80 75 72 Resp 18 14 20 B/P (MAP) 106/56 (73) 116/65 (82) 109/64 (79) Pulse Ox 95 94 96 O2 Delivery Room Air Room Air Room Air 06/03/18 06/03/18 06/03/18 07:00 08:00 08:52 Temp 97.9 Pulse 77 83 Resp 16 B/P (MAP) 116/57 (76) Pulse Ox 97 O2 Delivery Room Air Room Air Capillary Refill : Less Than 3 Seconds General Appearance: no apparent distress, other (sleepy, opens eyes minimally) Respiratory: lungs clear, normal breath sounds Cardiovascular: no murmur, other (regularly irregular) Gastrointestinal: normal bowel sounds, non tender Extremities: no pedal edema Neurologic/Psychiatric: facial droop (left mouth) Skin: normal color, warm/dry Assessment/Plan Assessment/Plan Admission Dx Ventricular tachycardia Admission Status: Inpatient Order (span 2 midnights) Reason for Inpatient Admission: Patient with severe heart failure and ventricular tachycardia at high risk of complications, requiring procedure for definitive treatment. (1) Ventricular tachycardia Status: Acute Assessment & Plan: Cardiology consulted, given amiodarone in ED, plan for permanent defibrillator placement when INR allows. Unable to tolerate beta bro on arrival due to bradycardia, HR in the 80s today, will resume home amiodarone and carvedilol. (2) CAD (coronary artery disease) Status: Chronic Assessment & Plan: Occluded LAD not amenable to PCI noted on cardiac cath . Medical management. On statin, ACEI, BB and plavix at home. Will defer resumption of plavix to Cardiology pending procedure. Qualifiers: Qualified Codes: I25.10 - Atherosclerotic heart disease of [place] coronary artery without angina pectoris (3) Ischemic cardiomyopathy Status: Chronic (4) Diabetes mellitus, type 2 Status: Chronic Assessment & Plan: Started low dose of levemir given NPO status, sliding scale insulin and will resume home dosing as needed. Qualifiers: Qualified Codes: E11.65 - Type 2 diabetes mellitus with hyperglycemia; Z79.4 - longterm (current) use of insulin (5) Hypertension Status: Chronic Assessment & Plan: Resume home ACEI and beta bro- monitor closely- BP has been low, but is on low dose ACEI. Qualifiers: Qualified Codes: I10 - Essential (primary) hypertension (6) Chronic systolic (congestive) heart failure Status: Chronic Assessment & Plan: EF 20-25% on cath 04/2018. No clear evidence of acute decompensation. (7) Ventricular bigeminy Status: Acute (8) DVT prophylaxis Status: Acute Assessment & Plan: On coumadin, therapeutic on admit, holding in anticipation of procedure. Clinical Quality Measures DVT/VTE Risk/Contraindication: Risk Factor Score Per Nursin RFS Level Per Nursing on Admit: 1=Low/No VTE PPX TRIP PINEDA MD Jun 03, 2018 11:47 am
[2018-06-03 12:00] VITALS: BP 106/54
[2018-06-03] MEDS: lisINopril 5 MG (PRINIVIL) TABLET PO SCH (13:34)
[2018-06-03] MEDS: THIAMINE 100 MG (VITAMIN B-1) TAB PO SCH (13:35)
[2018-06-03] MEDS: ATORVASTATIN 80 MG (LIPITOR) TABLET PO SCH (13:35)
[2018-06-03] MEDS: FLUoxetine HCL 20 MG (PROzac) CAP PO SCH (13:35)
[2018-06-03] MEDS: CLOPIDOGREL 75 MG (PLAVIX) TABLET PO SCH (13:38)
[2018-06-03] MEDS: AMIODARONE 200 MG (CORDARONE) TAB PO SCH (13:38)
--- NOTE | 2018-06-03 13:59 | Consultation-Cardiology ---
HPI-Cardiology Cardiology Consultation: Date of Consultation 06/03/18 Date of Admission Attending Physician Leigh Pineda MD Admitting Physician [facility] Consulting Physician Donavan HASSAN MD HPI: Time Seen by a Provider: 13:52 Chief Complaint: Palpitations. This is a 47-year-old gentleman who follows with Dr. Alvarado. On May 05, 2018 the patient presented with acute stroke. At that point in time he was also noted to have ST elevation with no chest pain. He was taken urgently to the catheter lab and was found to have total occlusion of the LAD which was likely not acute. He also had akinesis in the anterior wall with decreased EF. He was transferred to for stroke intervention. He still had residual neurological deficits. He was transferred back to for inpatient rehabilitation. He was on goal-directed medical therapy for heart failure. He was also on warfarin for likely embolic stroke. He was also on Plavix. He presented because of palpitations. He is wearing a LifeVest with no firing. The patient denies any syncope, near-syncope or dizziness. He also denies any chest pain, shortness of breath, lower extremity swelling. Review of Systems-Cardiology Review of Systems Constitutional: As described under HPI; No As described under HPI, No no symptoms reported, No chills, No fever, No lightheadedness Eyes: No As described under HPI, No no symptoms reported, No blindness, No blurred vision, No contact lenses, No drainage, No decreased acuity, No foreign body sensation, No pain, No vision change Ears/Nose/Throat: No As described under HPI, No no symptoms reported, No chronic hearing loss, No ear discharge, No ear pain, No nasal drainage, No ulcerations Respiratory: No no symptoms reported; As described under HPI; No As described under HPI, No cough, No orthopnea, No shortness of breath, No SOB with excertion Cardiovascular: No no symptoms reported; As described under HPI; No As described under HPI, No chest pain, No edema, No irregular heart rate, No lightheadedness; palpitations Gastrointestinal: No no symptoms reported, No As described under HPI, No abdomen distended, No abdominal pain, No blood streaked bowels, No constipation , No diarrhea, No nausea, No vomiting, No stool coloration changes Genitourinary: No As described under HPI, No burning, No dysuria, No discharge , No frequency, No flank pain, No hematuria, No urgency Skin: No rash, No skin related problems, No ulcerations Psychiatric/Neurological: No anxiety, No depression, No seizure, No focal weakness, No syncope Hematologic: No bleeding abnormalities DAP-Ufzfei-Ibwxta Hx Patient Social History Alcohol Use: Denies Use Recreational Drug Use: No Smoking Status: Former Smoker Type Used: Cigarettes Recent Foreign Travel: No Recent Infectious Disease Expo: No Hospitalization with Isolation: Denies Physical Abuse Screen: No Sexual Abuse: No Immunizations Up To Date Tetanus Booster (TDap): Unknown Date of Pneumonia Vaccine: May 14, 2018 Date of Influenza Vaccine: May 14, 2018 Past Medical History PMH As described under Assessment. Family Medical History Family Medical History: Does not report fam h/o early CAD Family History: Completed stroke 19 MOTHER Diabetes mellitus 19 FATHER Allergies and Home Medications Allergies Coded Allergies: No Known Drug Allergies (Unverified , 11/03/09) Home Medications Amiodarone HCl 200 Mg Tablet, 400 MG PO DAILY Prescribed by: VALE MAGALLON on 06/01/18951 Atorvastatin Calcium 80 Mg Tablet, 80 MG PO DAILY@0900 Prescribed by: VALE MAGALLON on 06/01/18951 Carvedilol 3.125 Mg Tablet, 3.125 MG PO BID Prescribed by: VALE MAGALLON on 06/01/18951 Clopidogrel Bisulfate 75 Mg Tablet, 75 MG PO DAILY Prescribed by: VALE MAGALLON on 06/01/18951 Ergocalciferol (Vitamin D2) 50,000 Unit Capsule, 50,000 UNITS PO Sa@09 Prescribed by: HARESH XIE on 06/01/181943 Fluoxetine HCl 20 Mg Capsule, 20 MG PO DAILY Prescribed by: HARESH XIE on 06/01/181943 Insulin Aspart 100 Unit/1 Ml Susp, 5 UNIT SC WM Prescribed by: HARESH XIE on 06/01/181943 Insulin Determir 1,000 Units/10 Ml Soln, 24 UNIT SQ DAILY@1400 Prescribed by: HARESH XIE on 06/01/181943 Lisinopril 5 Mg Tablet, 2.5 MG PO DAILY Prescribed by: VALE MAGALLON on 06/01/18951 Melatonin 3 Mg Tablet, 6 MG PO HS Prescribed by: HARESH XIE on 06/01/181943 Thiamine HCl 100 Mg Tablet, 100 MG PO DAILY@0700 Prescribed by: HARESH XIE on 06/01/181943 Warfarin Sodium 3 Mg Tablet, 6 MG PO DAILY@1800 Prescribed by: HARESH XIE on 06/01/181943 Patient Home Medication List Home Medication List Reviewed: Yes Physical Exam-Cardiology Physical Exam Vital Signs/I&O 06/03/18 06/03/18 06/03/18 06/03/18 04:00 07:00 08:00 08:52 Temp 98.1 97.9 Pulse 72 77 83 Resp 20 16 B/P (MAP) 109/64 (79) 116/57 (76) Pulse Ox 96 97 O2 Delivery Room Air Room Air Room Air 06/03/18 00:00 Intake Total 450 ml Balance 450 ml Capillary Refill : Less Than 3 Seconds Constitutional: appears stated age, AAO x 3; No apparent distress; well- developed, well-nourished HEENT: PERRL; No normal ENT inspection, No TMs normal, No pharynx normal, No scleral icterus (R), No scleral icterus (L), No pale conjunctivae (R), No pale conjunctivae (L), No photophobia, No TM abnormal (R), No TM abnormal (L), No pharyngeal erythema, No tonsillar exudate, No other, No discharge, No EOMI; hearing is well preserved; No hard of hearing; oral hygience is good; No ulceration, No xanthelasmas are seen Neck: No non-tender, No full range of motion, No supple, No normal inspection, No carotid bruit, No limited range of motion, No lymphadenopathy (R), No lymphadenopathy (L), No tender lateral, No tender midline, No thyromegaly, No other; carotid pulses are 2 + bilaterally; No with good upstrokes Respiratory: No accessory muscle use, No respiratory distress, No chest tender , No chest expansion is symmetric; chest is bilaterally symmetric; No lungs clear to percussion; lungs clear to auscultation; No crackles, No rhonchi, No rales, No stridor, No wheezing, No pleural rub, No other Cardiovascular: regular rate-rhythm; No irregularly irregular, No extra beats, No parasternal heave is noted, No JVD, No edema, No bradycardia, No tachycardia , No point of maximal impulse, No cardiac thrills are palpable; S1 and S2; No gallop/S3, No gallop/S4, No diastolic murmur, No systolic murmur, No friction rub, No click, No other Gastrointestinal: No tender, No soft, No round, No distended, No pulsatile mass , No organomegaly, No guarding, No rebound, No tenderness, No hernia, No mass, No audible bowel sounds, No abnormal bowel sounds, No abdominal bruits, No spleenomegaly, No other Rectal: deferred Extremities: No normal range of motion, No non-tender, No normal inspection, No pedal edema, No calf tenderness, No normal capillary refill, No pelvis stable , No calf tenderness, No inflammation, No pedal edema, No slow capillary refill , No swelling, No other, No abrasion, No clubbing, No cyanosis, No ecchymosis, No laceration, No no lower extremity edema bilateral, No significant edema, No tenderness, No wound Neurologic/Psychiatric: alert, normal mood/affect, oriented x 3, motor weakness , power is 5/5 both on sides Skin: No normal color, No warm/dry, No cyanosis, No cool, No diaphoresis, No damp, No ecchymosis, No jaundice, No mottled, No pallor, No rash, No tattoos/ piercings, No ulcerations, No rash on exposed areas, No ulcerations on exposed areas, No other Data Review Labs Laboratory Tests 06/02/18 15:13: White Blood Count 5.2, Red Blood Count 3.51L, Hemoglobin 11.4L, Hematocrit 32L, Mean Corpuscular Volume 91, Mean Corpuscular Hemoglobin 33, Mean Corpuscular Hemoglobin Concent 36, Red Cell Distribution Width 15.3H, Platelet Count 231, Mean Platelet Volume 10.2, Neutrophils (%) (Auto) 63, Lymphocytes (%) (Auto) 23 , Monocytes (%) (Auto) 9, Eosinophils (%) (Auto) 4, Basophils (%) (Auto) 0, Neutrophils # (Auto) 3.3, Lymphocytes # (Auto) 1.2, Monocytes # (Auto) 0.5, Eosinophils # (Auto) 0.2, Basophils # (Auto) 0.0, Prothrombin Time 23.7H, INR Comment 2.1H, Activated Partial Thromboplast Time 34, Sodium Level 137, Potassium Level 4.2, Chloride Level 106, Carbon Dioxide Level 21, Anion Gap 10, Blood Urea Nitrogen 18, Creatinine 0.79, Estimat Glomerular Filtration Rate > 60 , BUN/Creatinine Ratio 23, Glucose Level 123H, Calcium Level 9.1, Corrected Calcium 9.3, Magnesium Level 2.0, Total Bilirubin 2.3H, Aspartate Amino Transf ( AST/SGOT) 17, Alanine Aminotransferase (ALT/SGPT) 36, Alkaline Phosphatase 60, Myoglobin 28.0, Troponin I < 0.30, B-Type Natriuretic Peptide 992.4H, Total Protein 6.7, Albumin 3.8 06/02/18 21:56: Glucometer 184H 06/03/18 05:51: White Blood Count 4.8, Red Blood Count 3.33L, Hemoglobin 10.5L, Hematocrit 30L, Mean Corpuscular Volume 91, Mean Corpuscular Hemoglobin 32, Mean Corpuscular Hemoglobin Concent 35, Red Cell Distribution Width 15.2H, Platelet Count 207, Mean Platelet Volume 10.1, Neutrophils (%) (Auto) 62, Lymphocytes (%) (Auto) 23 , Monocytes (%) (Auto) 10, Eosinophils (%) (Auto) 6, Basophils (%) (Auto) 0, Neutrophils # (Auto) 3.0, Lymphocytes # (Auto) 1.1, Monocytes # (Auto) 0.5, Eosinophils # (Auto) 0.3, Basophils # (Auto) 0.0, Prothrombin Time 24.1H, INR Comment 2.2H, Sodium Level 139, Potassium Level 3.8, Chloride Level 108H, Carbon Dioxide Level 21, Anion Gap 10, Blood Urea Nitrogen 18, Creatinine 0.69, Estimat Glomerular Filtration Rate > 60, BUN/Creatinine Ratio 26, Glucose Level 134H, Calcium Level 8.5, Total Bilirubin 2.0H, Direct Bilirubin 0.3, Indirect Bilirubin 1.7, Triglycerides Level 53, Cholesterol Level 70, LDL Cholesterol Direct 35, VLDL Cholesterol 11, HDL Cholesterol 27L ECG Impression ECG Initial ECG Rhythm: Normal Sinus, PVC A/P-Cardiology Assessment/Admission Diagnosis Ventricular tachycardia, Recent stroke, Previous IN, Ischemic cardiomyopathy, LifeVest, PVCs. Plan Ventricular tachycardia, Recent stroke, Previous IN, Ischemic cardiomyopathy, LifeVest, PVCs. I have reviewed all the strips provided by the [employer]. The patient had monomorphic ventricular tachycardia for 18 seconds. The patient denies any syncope, near-syncope or lightheadedness. This therefore does not qualify as sustained ventricular tachycardia. I discussed at length with the patient and parents. We have 2 options. The first option is to perform an EP study and attempt to induce monomorphic VT. If VT induced, ICD is recommended. The second option is to wait for 40 days post coronary angiography and recheck ejection fraction. If below 35 percent, implant an ICD. I will also discuss with Dr. Alvarado as well. Continue amiodarone. Continue Plavix and Coumadin. Beta blockers will be recommended for PVCs and nonsustained VT. Thank you for your consultation. Please call me if you have any questions. Fadumo Hassan MD, FACP, FACC, FSCAI, FHRS, CCDS Interventional Cardiology Cardiac Electrophysiology Vascular Medicine and Endovascular Interventions Clinical Quality Measures DVT/VTE Risk/Contraindication: Risk Factor Score Per Nursin RFS Level Per Nursing on Admit: 1=Low/No VTE PPX Donavan HASSAN MD Jun 03, 2018 1:59 pm
[2018-06-03] MEDS ORDERED: KCL 20 MEQ TAB (K-DUR) PO NR (14:05)
[2018-06-03 16:45] VITALS: BP 112/55
[2018-06-03] MEDS: warFARin 3 MG (COUMADIN) TAB PO SCH (17:16)
[2018-06-03 20:40] VITALS: BP 125/59
[2018-06-03] MEDS: MELATONIN 3 MG TABLET PO SCH (21:05)
[2018-06-03] MEDS: CARVEDILOL 3.125 MG (COREG) TABLET PO SCH (21:05)
[2018-06-04] VITALS (7 sets, daily range): BP systolic 99–140; BP diastolic 55–90
[2018-06-04 04:22] LABS: HEMOGLOBIN 10.8 G/DL (13.3-17.7); MEAN PLATELET VOLUME 10.1 FL (7.4-10.4); RED BLOOD COUNT 3.42 10^6/uL (4.35-5.85); RED CELL DISTRIBUTION WIDTH 15.3 % (10.0-14.5); WHITE BLOOD COUNT 5.7 10^3/uL (4.3-11.0)
[2018-06-04 04:32] LABS: INR 1.9 (0.8-1.4); PROTHROMBIN TIME PATIENT 21.7 SEC (12.2-14.7)
[2018-06-04 04:42] LABS: ALANINE AMINOTRANSFERASE 27 U/L (0-55); ALBUMIN 3.5 GM/DL (3.2-4.5); ALKALINE PHOSPHATASE 55 U/L (40-136); BILIRUBIN,TOTAL 1.9 MG/DL (0.1-1.0); BUN/CREATININE RATIO 22; CALCIUM 8.6 MG/DL (8.5-10.1); CARBON DIOXIDE 19 MMOL/L (21-32); CHLORIDE 108 MMOL/L (98-107); CREATININE SERUM 0.74 MG/DL (0.60-1.30); GFR ESTIMATED > 60; GLUCOSE 162 MG/DL (70-105); SODIUM 138 MMOL/L (135-145)
[2018-06-04] MEDS: inSUlin ASPART (NovoLOG) 1 UNIT/0.01 ML (CHARGE PER UNIT) SC SCH ×4 (06:12→20:19)
[2018-06-04] MEDS: THIAMINE 100 MG (VITAMIN B-1) TAB PO SCH (07:08)
[2018-06-04] MEDS: CATHETER FLUSH 10 ML SYR IV SCH ×3 (07:08→20:43)
[2018-06-04] MEDS: CARVEDILOL 3.125 MG (COREG) TABLET PO SCH (09:37)
[2018-06-04] MEDS: FLUoxetine HCL 20 MG (PROzac) CAP PO SCH (09:37)
[2018-06-04] MEDS: CLOPIDOGREL 75 MG (PLAVIX) TABLET PO SCH (09:37)
[2018-06-04] MEDS: lisINopril 5 MG (PRINIVIL) TABLET PO SCH (09:37)
[2018-06-04] MEDS: AMIODARONE 200 MG (CORDARONE) TAB PO SCH (09:37)
[2018-06-04] MEDS: ATORVASTATIN 80 MG (LIPITOR) TABLET PO SCH (09:37)
--- NOTE | 2018-06-04 12:24 | Cardiology Progress Note ---
Cardiology SOAP Progress Note Subjective: No cardiac complaints. Objective: I&O/Vital Signs 06/04/18 06/04/18 06/04/18 06/04/18 01:00 04:00 07:00 08:00 Temp 97.6 Pulse 81 83 75 Resp 16 B/P (MAP) 139/87 (104) Pulse Ox 97 O2 Delivery Room Air Room Air 06/04/18 06/04/18 08:00 12:00 Temp 98.2 98.7 Pulse 52 61 Resp 16 16 B/P (MAP) 140/90 (107) 99/55 (70) Pulse Ox 93 97 O2 Delivery Room Air Room Air 06/04/18 00:00 Intake Total 700 ml Balance 700 ml Weight (Pounds): 168 Weight (Ounces): 12.8 Weight (Calculated Kilograms): 76.780878 Constitutional: appears stated age, AAO x 3; No apparent distress; well- developed, well-nourished Respiratory: No accessory muscle use, No respiratory distress, No chest tender , No chest expansion is symmetric; chest is bilaterally symmetric; No lungs clear to percussion; lungs clear to auscultation; No crackles, No rhonchi, No rales, No stridor, No wheezing, No pleural rub, No other Cardiovascular: regular rate-rhythm; No irregularly irregular, No extra beats, No parasternal heave is noted, No JVD, No edema, No bradycardia, No tachycardia , No point of maximal impulse, No cardiac thrills are palpable; S1 and S2; No gallop/S3, No gallop/S4, No diastolic murmur, No systolic murmur, No friction rub, No click, No other Gastrointestional: No tender, No soft, No round, No distended, No pulsatile mass, No organomegaly, No guarding, No rebound, No tenderness, No hernia, No mass, No audible bowel sounds, No abnormal bowel sounds, No abdominal bruits, No spleenomegaly, No other Extremities: No normal range of motion, No non-tender, No normal inspection, No pedal edema, No calf tenderness, No normal capillary refill, No pelvis stable , No calf tenderness, No inflammation, No pedal edema, No slow capillary refill , No swelling, No other, No abrasion, No clubbing, No cyanosis, No ecchymosis, No laceration, No no lower extremity edema bilateral, No significant edema, No tenderness, No wound Neurologic/Psychiatric: alert, normal mood/affect, oriented x 3, motor weakness , power is 5/5 both on sides Skin: No normal color, No warm/dry, No cyanosis, No cool, No diaphoresis, No damp, No ecchymosis, No jaundice, No mottled, No pallor, No rash, No tattoos/ piercings, No ulcerations, No rash on exposed areas, No ulcerations on exposed areas, No other Results/Procedures: Labs Laboratory Tests 06/03/18 13:57: Glucometer 131H 06/03/18 16:48: Glucometer 227H 06/03/18 20:43: Glucometer 146H 06/04/18 03:51: White Blood Count 5.7, Red Blood Count 3.42L, Hemoglobin 10.8L, Hematocrit 31L, Mean Corpuscular Volume 91, Mean Corpuscular Hemoglobin 32, Mean Corpuscular Hemoglobin Concent 35, Red Cell Distribution Width 15.3H, Platelet Count 220, Mean Platelet Volume 10.1 06/04/18 03:54: Prothrombin Time 21.7H, INR Comment 1.9H, Sodium Level 138, Potassium Level 4.0 , Chloride Level 108H, Carbon Dioxide Level 19L, Anion Gap 11, Blood Urea Nitrogen 16, Creatinine 0.74, Estimat Glomerular Filtration Rate > 60, BUN/ Creatinine Ratio 22, Glucose Level 162H, Calcium Level 8.6, Corrected Calcium 9.0, Total Bilirubin 1.9H, Aspartate Amino Transf (AST/SGOT) 13, Alanine Aminotransferase (ALT/SGPT) 27, Alkaline Phosphatase 55, Total Protein 6.0L, Albumin 3.5 06/04/18 05:40: Glucometer 160H 06/04/18 09:53: Glucometer 180H A/P: Assessment/Dx: Ventricular tachycardia, Recent stroke, Previous HI, Ischemic cardiomyopathy, LifeVest, PVCs. Plan: Ventricular tachycardia, Recent stroke, Previous HI, Ischemic cardiomyopathy, LifeVest, PVCs. VT: I have reviewed all the strips provided by the [employer]. The patient had monomorphic ventricular tachycardia for 18 seconds. The patient denies any syncope, near-syncope or lightheadedness. This therefore does not qualify as sustained ventricular tachycardia. I discussed at length with the patient and parents. We have 2 options. The first option is to perform an EP study and attempt to induce monomorphic VT. If VT induced, ICD is recommended. The second option is to wait for 40 days post coronary angiography and recheck ejection fraction. If below 35 percent, implant an ICD. I will also discuss with Dr. Alvarado as well. Continue amiodarone. CAD: According to the patient he had significant chest pain episode 3 weeks before his stroke. Continue Plavix and Coumadin. PVCs: Ventricular bigeminy pattern. Narrow complex PVCs, could have a septal origin. I will discontinue carvedilol since the patient has a borderline blood pressure and change to metoprolol. Ischemic cardiomyopathy: On low-dose lisinopril and beta bro. Euvolemic on examination. Thank you for your consultation. Please call me if you have any questions. Fadumo Hassan MD, FACP, FACC, FSCAI, FHRS, CCDS Interventional Cardiology Cardiac Electrophysiology Vascular Medicine and Endovascular Interventions Donavan HASSAN MD Jun 04, 2018 12:24
[2018-06-04] MEDS: meTOprolol TARTRATE 25 MG (LOPRESSOR) TABLET PO SCH ×2 (13:29→20:42)
[2018-06-04] MEDS: warFARin 3 MG (COUMADIN) TAB PO SCH (17:04)
--- NOTE | 2018-06-04 17:57 | Progress Note (SOAP) ---
Subjective Subjective/Events-last exam No acute events, denies any palpitations or chest pain. Review of Systems Date Seen by Provider: Jun 04, 2018 Time Seen by Provider: 11:31 Objective Exam Last Set of Vital Signs Vital Signs Date Time Temp Pulse Resp B/P (MAP) Pulse Ox O2 Delivery O2 Flow Rate FiO2 06/04/18 15:30 98.6 67 18 118/58 (78) 97 Room Air Capillary Refill : Less Than 3 Seconds I&O Intake and Output 06/04/18 00:00 Intake Total 700 ml Balance 700 ml Intake Oral 700 ml # Voids 6 # Bowel Movements 2 General: Alert, No Acute Distress Lungs: Clear to Auscultation, Normal Air Movement Heart: No Murmurs, Other (regularly irregular) Neuro: Normal Speech, Other (left facial droop) Results/Procedures Lab Laboratory Tests 06/03/18 20:43: Glucometer 146H 06/04/18 03:51: White Blood Count 5.7, Red Blood Count 3.42L, Hemoglobin 10.8L, Hematocrit 31L, Mean Corpuscular Volume 91, Mean Corpuscular Hemoglobin 32, Mean Corpuscular Hemoglobin Concent 35, Red Cell Distribution Width 15.3H, Platelet Count 220, Mean Platelet Volume 10.1 06/04/18 03:54: Prothrombin Time 21.7H, INR Comment 1.9H, Sodium Level 138, Potassium Level 4.0 , Chloride Level 108H, Carbon Dioxide Level 19L, Anion Gap 11, Blood Urea Nitrogen 16, Creatinine 0.74, Estimat Glomerular Filtration Rate > 60, BUN/ Creatinine Ratio 22, Glucose Level 162H, Calcium Level 8.6, Corrected Calcium 9.0, Total Bilirubin 1.9H, Aspartate Amino Transf (AST/SGOT) 13, Alanine Aminotransferase (ALT/SGPT) 27, Alkaline Phosphatase 55, Total Protein 6.0L, Albumin 3.5 06/04/18 05:40: Glucometer 160H 06/04/18 09:53: Glucometer 180H 06/04/18 15:33: Glucometer 187H Radiology CXR 06/02- unremarkable Assessment/Plan Assessment/Plan (1) Ventricular tachycardia Status: Acute Assessment & Plan: Cardiology consulted, given amiodarone in ED, plan for permanent defibrillator placement when INR allows. Unable to tolerate beta bro on arrival due to bradycardia, HR in the 80s today, will resume home amiodarone and carvedilol. 06/04- per Dr. Hassan, unclear if candidate for permanent defibrillator at this time, will discuss next step with Dr. Alvarado tomorrow. (2) CAD (coronary artery disease) Status: Chronic Assessment & Plan: Occluded LAD not amenable to PCI noted on cardiac cath . Medical management. On statin, ACEI, BB and plavix at home. Will defer resumption of plavix to Cardiology pending procedure. Qualifiers: Qualified Codes: I25.10 - Atherosclerotic heart disease of [place] coronary artery without angina pectoris (3) Ischemic cardiomyopathy Status: Chronic (4) Diabetes mellitus, type 2 Status: Chronic Assessment & Plan: Started low dose of levemir on admit given NPO status, sliding scale insulin and will resume home dosing as needed. 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 Qualifiers: Qualified Codes: I10 - Essential (primary) hypertension (6) Chronic systolic (congestive) heart failure Status: Chronic Assessment & Plan: EF 20-25% on cath 04/2018. No clear evidence of acute decompensation. (7) Ventricular bigeminy Status: Acute (8) DVT prophylaxis Status: Acute Assessment & Plan: On coumadin, therapeutic on admit, holding in anticipation of procedure. Clinical Quality Measures DVT/VTE Risk/Contraindication: Risk Factor Score Per Nursin RFS Level Per Nursing on Admit: 1=Low/No VTE PPX TRIP KEITA MD Jun 04, 2018 5:57 pm
[2018-06-04] MEDS ORDERED: ACETAMINOPHEN 500 MG TAB (TYLENOL) PO PRN (18:30)
[2018-06-04] MEDS: MELATONIN 3 MG TABLET PO SCH (20:42)
[2018-06-04] MEDS: ONDANSETRON 4 MG (ZOFRAN) ORAL DISSOLVE TAB PO PRN (22:37)
[2018-06-04 23:33] LABS: BASOPHILS % (AUTO) 0 % (0-10); EOSINOPHILS % (AUTO) 1 % (0-10); HEMATOCRIT 32 % (40-54); HEMOGLOBIN 10.9 G/DL (13.3-17.7); LYMPHOCYTES # (AUTO) 0.7 X 10^3 (1.0-4.0); LYMPHOCYTES % (AUTO) 12 % (12-44); MEAN CORPUSCULAR HEMOGLOBIN 31 PG (25-34); MEAN CORPUSCULAR HGB CONC 34 G/DL (32-36); MEAN CORPUSCULAR VOLUME 92 FL (80-99); MEAN PLATELET VOLUME 9.6 FL (7.4-10.4); MONOCYTES # (AUTO) 0.4 X 10^3 (0.0-1.0); MONOCYTES % (AUTO) 7 % (0-12); NEUTROPHILS # (AUTO) 4.6 X 10^3 (1.8-7.8); NEUTROPHILS % (AUTO) 79 % (42-75); PLATELET COUNT 229 10^3/uL (130-400); RED BLOOD COUNT 3.47 10^6/uL (4.35-5.85); RED CELL DISTRIBUTION WIDTH 15.5 % (10.0-14.5); WHITE BLOOD COUNT 5.8 10^3/uL (4.3-11.0)
[2018-06-04 23:52] LABS: BUN/CREATININE RATIO 19; CALCIUM 8.9 MG/DL (8.5-10.1); CARBON DIOXIDE 20 MMOL/L (21-32); CHLORIDE 106 MMOL/L (98-107); CREATININE SERUM 1.08 MG/DL (0.60-1.30); GFR ESTIMATED > 60; GLUCOSE 264 MG/DL (70-105); MAGNESIUM 2.2 MG/DL (1.8-2.4); POTASSIUM 5.1 MMOL/L (3.6-5.0); SODIUM 137 MMOL/L (135-145)
[2018-06-05] VITALS (17 sets, daily range): BP systolic 87–126; BP diastolic 54–99
[2018-06-05] MEDS ORDERED: NS (IVPB) 250 ML IV ONE (01:00)
[2018-06-05] MEDS ORDERED: NS IV 1000 ML 1,000 ML ONE (01:27)
[2018-06-05] MEDS ORDERED: NS IV 1000 ML 1,000 ML IV SCH (01:30)
[2018-06-05 03:15] LABS: ABSOLUTE RETIC # 70 10e9/L (24-90); BASOPHILS % (AUTO) 0 % (0-10); EOSINOPHILS % (AUTO) 0 % (0-10); HEMATOCRIT 33 % (40-54); HEMOGLOBIN 11.1 G/DL (13.3-17.7); LYMPHOCYTES # (AUTO) 0.8 X 10^3 (1.0-4.0); LYMPHOCYTES % (AUTO) 9 % (12-44); MEAN CORPUSCULAR HEMOGLOBIN 32 PG (25-34); MEAN CORPUSCULAR HGB CONC 34 G/DL (32-36); MEAN CORPUSCULAR VOLUME 92 FL (80-99); MEAN PLATELET VOLUME 9.8 FL (7.4-10.4); MONOCYTES # (AUTO) 0.7 X 10^3 (0.0-1.0); MONOCYTES % (AUTO) 8 % (0-12); NEUTROPHILS # (AUTO) 7.6 X 10^3 (1.8-7.8); NEUTROPHILS % (AUTO) 83 % (42-75); PLATELET COUNT 200 10^3/uL (130-400); RED BLOOD COUNT 3.52 10^6/uL (4.35-5.85); RED CELL DISTRIBUTION WIDTH 15.6 % (10.0-14.5); RETICULOCYTE % 1.98 % (0.50-2.40); WHITE BLOOD COUNT 9.2 10^3/uL (4.3-11.0)
[2018-06-05 03:31] LABS: EOSINOPHILS % (MANUAL) 1 %; LYMPHOCYTES % (MANUAL) 10 %; MONOCYTES % (MANUAL) 4 %; NEUTROPHILS % (MANUAL) 85 %; RBC MORPH NORMAL
[2018-06-05 03:32] LABS: ALANINE AMINOTRANSFERASE 40 U/L (0-55); ALBUMIN 3.5 GM/DL (3.2-4.5); ALKALINE PHOSPHATASE 73 U/L (40-136); BILIRUBIN,TOTAL 2.2 MG/DL (0.1-1.0); BUN/CREATININE RATIO 20; CALCIUM 8.4 MG/DL (8.5-10.1); CARBON DIOXIDE 19 MMOL/L (21-32); CHLORIDE 108 MMOL/L (98-107); CREATININE SERUM 1.05 MG/DL (0.60-1.30); GFR ESTIMATED > 60; GLUCOSE 192 MG/DL (70-105); POTASSIUM 4.4 MMOL/L (3.6-5.0); SODIUM 138 MMOL/L (135-145)
[2018-06-05] MEDS: POTASSIUM CL 10MEQ/50ML IVPB 50 ML IV SCH (03:33)
[2018-06-05] MEDS: MAGNESIUM 1 GM/100 ML IVPB 100 ML IV SCH (03:33)
[2018-06-05] MEDS: inSUlin ASPART (NovoLOG) 1 UNIT/0.01 ML (CHARGE PER UNIT) SC SCH ×4 (03:34→19:29)
[2018-06-05] MEDS: KCL 20 MEQ TAB (K-DUR) PO SCH (03:34)
[2018-06-05] MEDS: ONDANSETRON 4 MG (ZOFRAN) ORAL DISSOLVE TAB PO PRN (04:04)
[2018-06-05] MEDS: THIAMINE 100 MG (VITAMIN B-1) TAB PO SCH (06:40)
[2018-06-05] MEDS: CATHETER FLUSH 10 ML SYR IV SCH ×3 (06:40→22:13)
--- NOTE | 2018-06-05 07:31 | Diagnostic Imaging Report ---
INDICATION: Dyspnea Portable upright AP view of the chest is obtained with comparison made to studies of 06/02/2018 and 05/06/2018. There is continued cardiomegaly. Pulmonary vascularity is at the upper limits of normal. There is air trapping in the upper lobes, bilaterally. Approximately 1 cm nodule is again seen projecting over the upper lobe of the right lung. There is no abnormal mass effect or shift of midline structures. IMPRESSION: Persistent nodule in the right upper lobe. If indicated, this could be further assessed with CT imaging. Otherwise, no new abnormality is identified. Dictated by: Dictated on workstation # [id number]
--- NOTE | 2018-06-05 09:22 | Progress Note-Hospitalist ---
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 Has a history of left-sided paralysis due to CVA Review of Systems Gastrointestinal: Vomiting Focused Exam Lactate Level 06/05/18 05:36: Lactic Acid Level 1.28 Lactic Acid Level Objective Exam Vital Signs Vital Signs Date Time Temp Pulse Resp B/P (MAP) Pulse Ox O2 Delivery O2 Flow Rate FiO2 06/05/18 08:18 99 Room Air 06/05/18 07:32 97.9 06/05/18 07:00 75 06/05/18 06:00 15 06/05/18 04:00 2.00 Capillary Refill : Less Than 3 Seconds General Appearance: No Apparent Distress, WD/WN, Chronically ill, Thin Respiratory: Chest Non Tender, Lungs Clear, Normal Breath Sounds, No Accessory Muscle Use, No Respiratory Distress Cardiovascular: No Edema, No Gallop, No JVD, No Murmur, Normal Peripheral Pulses, Bradycardia Neurologic/Psychiatric: Alert, Oriented x3, Normal Mood/Affect, Motor Weakness (left) Skin: Normal Color, Warm/Dry Results/Procedures Lab Laboratory Tests 06/04/18 23:25 06/05/18 03:04 Patient resulted labs reviewed. Assessment/Plan Assessment and Plan Assess & Plan/Chief Complaint Assessment: Episode of V. tach Severe bradycardia likely needs pacemaker placement CAD Prior stroke with left-sided hemiparesis Severe vomiting Plan: General surgery for vomiting management may need NG tube Pacemaker placement per cardiology Diagnosis/Problems Diagnosis/Problems (1) Vomiting Status: Acute Qualifiers: Vomiting type: unspecified Vomiting Intractability: unspecified Nausea presence: unspecified Qualified Codes: R11.10 - Vomiting, unspecified (2) Ventricular tachycardia Status: Resolved (3) Ventricular bigeminy Status: Acute (4) Diabetes mellitus, type 2 Status: Chronic Qualifiers: Diabetes mellitus watermelon 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 transplanted heart: [place] heart Associated angina: without angina Qualified Codes: I25.10 - Atherosclerotic heart disease of [place] coronary artery without angina pectoris (7) Hypertension Status: Chronic Qualifiers: Hypertension type: essential hypertension Qualified Codes: I10 - Essential (primary) hypertension (8) DVT prophylaxis Status: Acute (9) Chronic systolic (congestive) heart failure Status: Chronic Clinical Quality Measures DVT/VTE Risk/Contraindication: Risk Factor Score Per Nursin RFS Level Per Nursing on Admit: 1=Low/No VTE PPX VIJAYA COVINGTON DO Jun 05, 2018 09:22
[2018-06-05] MEDS: lisINopril 5 MG (PRINIVIL) TABLET PO SCH (09:56)
[2018-06-05] MEDS: AMIODARONE 200 MG (CORDARONE) TAB PO SCH (09:58)
[2018-06-05] MEDS ORDERED: ONDANSETRON 8 MG (ZOFRAN) ORAL DISSOLVE TAB SL NR (11:00)
[2018-06-05] MEDS ORDERED: PROMETHAZINE INJ 25 MG/ML (PHENERGAN) AMP IVP NR (11:00)
--- NOTE | 2018-06-05 11:35 | Diagnostic Imaging Report ---
PROCEDURE: US Gallbladder. TECHNIQUE: Multiple real-time grayscale images were obtained over the right upper quadrant in various projections. INDICATION: Vomiting Right pleural effusion noted. The liver parenchyma appeared nonfocal. There is no bile duct dilatation. The gallbladder contains a large amount of intraluminal sludge without echogenic or shadowing stone. No intra-or extrahepatic blurry dilatation. The gallbladder wall was not pathologically thickened. The pancreas largely obscured. The unobstructed right kidney normal. IMPRESSION: There is a large amount of sludge in the gallbladder lumen but no wall thickening or shadowing stone. No bile duct dilatation. Right pleural effusion noted. Dictated by: Dictated on workstation # [id number]
[2018-06-05] MEDS: ATORVASTATIN 80 MG (LIPITOR) TABLET PO SCH (11:47)
[2018-06-05] MEDS: CLOPIDOGREL 75 MG (PLAVIX) TABLET PO SCH (11:48)
[2018-06-05] MEDS: FLUoxetine HCL 20 MG (PROzac) CAP PO SCH (12:03)
--- NOTE | 2018-06-05 12:08 | Cardiology Progress Note ---
Cardiology SOAP Progress Note Subjective: Patient complaining of nausea and vomiting. Objective: I&O/Vital Signs 06/05/18 06/05/18 06/05/18 06/05/18 00:22 01:00 01:45 02:00 Temp 97.7 Pulse 36 70 65 Resp 18 22 B/P (MAP) 91/56 (68) 101/81 (88) Pulse Ox 94 94 99 O2 Delivery Room Air Room Air Nasal Cannula O2 Flow Rate 2.00 06/05/18 06/05/18 06/05/18 06/05/18 02:00 03:00 04:00 04:00 Pulse 63 63 65 Resp 11 19 15 B/P (MAP) 100/68 (79) 95/65 (75) 105/66 (79) Pulse Ox 96 100 99 99 O2 Delivery Room Air Room Air Nasal Cannula Room Air O2 Flow Rate 2.00 06/05/18 06/05/18 06/05/18 06/05/18 04:00 05:00 06:00 07:00 Temp 97.8 Pulse 68 62 75 Resp 25 15 B/P (MAP) 94/63 (73) 102/63 (76) Pulse Ox 100 97 O2 Delivery Room Air Room Air 06/05/18 06/05/18 06/05/18 06/05/18 07:00 07:32 08:00 08:18 Temp 97.9 Pulse 35 46 Resp 9 22 B/P (MAP) 113/63 (80) Pulse Ox 100 97 99 O2 Delivery Room Air Room Air Room Air Room Air 06/05/18 06/05/18 09:00 10:00 Pulse 35 37 Resp 24 24 B/P (MAP) 108/68 (81) 91/58 (69) Pulse Ox 96 94 O2 Delivery Room Air Room Air 06/05/18 00:00 Intake Total 1030 ml Balance 1030 ml Weight (Pounds): 168 Weight (Ounces): 12.8 Weight (Calculated Kilograms): [id number] Constitutional: appears stated age, AAO x 3; No apparent distress; well- developed, well-nourished Respiratory: No accessory muscle use, No respiratory distress, No chest tender , No chest expansion is symmetric; chest is bilaterally symmetric; No lungs clear to percussion; lungs clear to auscultation; No crackles, No rhonchi, No rales, No stridor, No wheezing, No pleural rub, No other Cardiovascular: regular rate-rhythm; No irregularly irregular, No extra beats, No parasternal heave is noted, No JVD, No edema, No bradycardia, No tachycardia , No point of maximal impulse, No cardiac thrills are palpable; S1 and S2; No gallop/S3, No gallop/S4, No diastolic murmur, No systolic murmur, No friction rub, No click, No other Gastrointestional: No tender, No soft, No round, No distended, No pulsatile mass, No organomegaly, No guarding, No rebound, No tenderness, No hernia, No mass, No audible bowel sounds, No abnormal bowel sounds, No abdominal bruits, No spleenomegaly, No other Extremities: No normal range of motion, No non-tender, No normal inspection, No pedal edema, No calf tenderness, No normal capillary refill, No pelvis stable , No calf tenderness, No inflammation, No pedal edema, No slow capillary refill , No swelling, No other, No abrasion, No clubbing, No cyanosis, No ecchymosis, No laceration, No no lower extremity edema bilateral, No significant edema, No tenderness, No wound Neurologic/Psychiatric: alert, normal mood/affect, oriented x 3, motor weakness , power is 5/5 both on sides Skin: No normal color, No warm/dry, No cyanosis, No cool, No diaphoresis, No damp, No ecchymosis, No jaundice, No mottled, No pallor, No rash, No tattoos/ piercings, No ulcerations, No rash on exposed areas, No ulcerations on exposed areas, No other Results/Procedures: Labs Laboratory Tests 06/04/18 15:33: Glucometer 187H 06/04/18 19:58: Glucometer 195H 06/04/18 22:38: Glucometer 250H 06/04/18 23:25: White Blood Count 5.8, Red Blood Count 3.47L, Hemoglobin 10.9L, Hematocrit 32L, Mean Corpuscular Volume 92, Mean Corpuscular Hemoglobin 31, Mean Corpuscular Hemoglobin Concent 34, Red Cell Distribution Width 15.5H, Platelet Count 229, Mean Platelet Volume 9.6, Neutrophils (%) (Auto) 79H, Lymphocytes (%) (Auto) 12 , Monocytes (%) (Auto) 7, Eosinophils (%) (Auto) 1, Basophils (%) (Auto) 0, Neutrophils # (Auto) 4.6, Lymphocytes # (Auto) 0.7L, Monocytes # (Auto) 0.4, Eosinophils # (Auto) 0.0, Basophils # (Auto) 0.0, Sodium Level 137, Potassium Level 5.1H, Chloride Level 106, Carbon Dioxide Level 20L, Anion Gap 11, Blood Urea Nitrogen 20H, Creatinine 1.08, Estimat Glomerular Filtration Rate > 60, BUN /Creatinine Ratio 19, Glucose Level 264H, Calcium Level 8.9, Magnesium Level 2.2 , Troponin I < 0.30 06/05/18 03:04: White Blood Count 9.2, Red Blood Count 3.52L, Hemoglobin 11.1L, Hematocrit 33L, Mean Corpuscular Volume 92, Mean Corpuscular Hemoglobin 32, Mean Corpuscular Hemoglobin Concent 34, Red Cell Distribution Width 15.6H, Platelet Count 200, Mean Platelet Volume 9.8, Neutrophils (%) (Auto) 83H, Lymphocytes (%) (Auto) 9L , Monocytes (%) (Auto) 8, Eosinophils (%) (Auto) 0, Basophils (%) (Auto) 0, Neutrophils # (Auto) 7.6, Lymphocytes # (Auto) 0.8L, Monocytes # (Auto) 0.7, Eosinophils # (Auto) 0.0, Basophils # (Auto) 0.0, Neutrophils % (Manual) 85, Lymphocytes % (Manual) 10, Monocytes % (Manual) 4, Eosinophils % (Manual) 1, Blood Morphology Comment NORMAL, Absolute Reticulocyte Count 70, Percent Reticulocyte Count 1.98, Sodium Level 138, Potassium Level 4.4, Chloride Level 108H, Carbon Dioxide Level 19L, Anion Gap 11, Blood Urea Nitrogen 21H, Creatinine 1.05, Estimat Glomerular Filtration Rate > 60, BUN/Creatinine Ratio 20, Glucose Level 192H, Calcium Level 8.4L, Corrected Calcium 8.8, Magnesium Level 2.0, Total Bilirubin 2.2H, Aspartate Amino Transf (AST/SGOT) 21, Alanine Aminotransferase (ALT/SGPT) 40, Alkaline Phosphatase 73, Lactate Dehydrogenase 164, Total Protein 6.0L, Albumin 3.5 06/05/18 05:36: Lactic Acid Level 1.28 06/05/18 11:46: Glucometer 153H A/P: Assessment/Dx: Ventricular tachycardia, Recent stroke, Previous NH, Ischemic cardiomyopathy, LifeVest, PVCs. Plan: Ventricular tachycardia, Recent stroke, Previous NH, Ischemic cardiomyopathy, LifeVest, PVCs. VT: I have reviewed all the strips provided by the [employer]. The patient had monomorphic ventricular tachycardia for 18 seconds. The patient denies any syncope, near-syncope or lightheadedness. This therefore does not qualify as sustained ventricular tachycardia. I discussed at length with the patient and parents. We have 2 options. The first option is to perform an EP study and attempt to induce monomorphic VT. If VT induced, ICD is recommended. The second option is to wait for 40 days post coronary angiography and recheck ejection fraction. If below 35 percent, implant an ICD. I will also discuss with Dr. Alvarado as well. Hold amiodarone for now due to nausea and vomiting. Patient may benefit from EP study and VT ablation. CAD: According to the patient he had significant chest pain episode 3 weeks before his stroke. Continue Plavix and Coumadin. PVCs: Ventricular bigeminy pattern. Narrow complex PVCs, could have a septal origin. Holding beta bro due to low blood pressure. Ischemic cardiomyopathy: Holding lisinopril and beta bro due to hypotension. Euvolemic on examination. complaint of nausea and vomiting. I will request a general surgery consultation to rule out gastric or gallbladder disease. Thank you for your consultation. Please call me if you have any questions. Fadumo Hassan MD, FACP, FACC, FSCAI, FHRS, CCDS Interventional Cardiology Cardiac Electrophysiology Vascular Medicine and Endovascular Interventions Focused Exam Lactate Level 06/05/18 05:36: Lactic Acid Level 1.28 Donavan HASSAN MD Jun 05, 2018 12:07 pm
--- NOTE | 2018-06-05 16:18 | Consultation ---
History of Present Illness History of Present Illness Patient Consulted On(carol/time) 06/05/18 16:12 Time Seen by Provider: 10:30 History of Present Illness Surgery asked to consult regarding Nausea and vomiting, r/o gallbladder disease as cause. HPI: Pt is a 47 yo male who initially presented back in April with CVA and AK, was sent to for intervention and then back here to complete his rehab. He has residual Left sided weakness and presented to the ER on 06/03 because his Life Vest reported it was about to shock. He was found to have prolonged VTach, but never required anything. Subsequently sent up to the ICU and then yesterday started having intractable vomiting. He stated that no matter what he ate, "even just drinking water"; it immediately came back up. He denies abdominal pain and states he really doesn' t have nausea. He is afraid to eat anything because it hurts when he vomits. Yesterday he was taking Zofran 4mg Q6 hours; which did not help at all. He has never had this problem before yesterday. Denies hematemesis. Allergies and Home Medications Allergies Coded Allergies: promethazine (Verified Adverse Reaction, Unknown, restlessness, anxiety, extrapyramidal effects, 06/05/18) Home Medications Amiodarone HCl 200 Mg Tablet, 400 MG PO DAILY Prescribed by: VLAE MAGALLON on 06/01/18951 Atorvastatin Calcium 80 Mg Tablet, 80 MG PO DAILY@0900 Prescribed by: VALE MAGALLON on 06/01/18951 Carvedilol 3.125 Mg Tablet, 3.125 MG PO BID Prescribed by: VALE MAGALLON on 06/01/18951 Clopidogrel Bisulfate 75 Mg Tablet, 75 MG PO DAILY Prescribed by: VALE MAGALLON on 06/01/18951 Ergocalciferol (Vitamin D2) 50,000 Unit Capsule, 50,000 UNITS PO Sa@09 Prescribed by: HARESH XIE on 06/01/181943 Fluoxetine HCl 20 Mg Capsule, 20 MG PO DAILY Prescribed by: HARESH XIE on 06/01/181943 Insulin Aspart 100 Unit/1 Ml Susp, 5 UNIT SC WM Prescribed by: HARSEH XIE on 06/01/181943 Insulin Determir 1,000 Units/10 Ml Soln, 24 UNIT SQ DAILY@1400 Prescribed by: HARESH XIE on 06/01/181943 Lisinopril 5 Mg Tablet, 2.5 MG PO DAILY Prescribed by: VALE MAGALLON on 06/01/18 0952 Melatonin 3 Mg Tablet, 6 MG PO HS Prescribed by: HARESH IXE on 06/01/181943 Thiamine HCl 100 Mg Tablet, 100 MG PO DAILY@0700 Prescribed by: HARESH XIE on 06/01/181943 Warfarin Sodium 3 Mg Tablet, 6 MG PO DAILY@1800 Prescribed by: HARESH XIE on 06/01/181943 Patient Home Medication List Home Medication List Reviewed: Yes Past Sbfaeof-Tdmllc-Qkthns Hx Patient Social History Alcohol Use: Denies Use Recreational Drug Use: No Smoking Status: Former Smoker Former Smoker, Quit: May 17, 1988 Type Used: Cigarettes Recent Foreign Travel: No Contact w/Someone Who Travel: No Recent Infectious Disease Expo: No Recent Hopitalizations: Yes Physical Abuse Screen: No Sexual Abuse: No Immunizations Up To Date Tetanus Booster (TDap): Unknown Date of Pneumonia Vaccine: May 14, 2018 Date of Influenza Vaccine: May 14, 2018 Seasonal Allergies Seasonal Allergies: No Surgeries History of Surgeries: Yes Surgeries: Abdominal, Coronary Stent (Cardiac catheterization May 2018, no stents) Respiratory History of Respiratory Disorde: No Cardiovascular History of Cardiac Disorders: Yes Cardiac Disorders: Coronary Artery Disease Neurological History of Neurological Disord: Yes Neurological Disorders: Stroke Reproductive System Hx Reproductive Disorders: No Sexually Transmitted Disease: No HIV/AIDS: No Genitourinary History of Genitourinary Disor: No Gastrointestinal History of Gastrointestinal Di: No Musculoskeletal History of Musculoskeletal Dis: No Endocrine History of Endocrine Disorders: Yes Endocrine Disorders: Diabetes, Insulin dep HEENT History of HEENT Disorders: No Cancer History of Cancer: No Psychosocial History of Psychiatric Problem: No Integumentary History of Skin or Integumenta: No Blood Transfusions History of Blood Disorders: No Family Medical History Significant Family History: Diabetes, Stroke Family Medial History: Completed stroke 19 MOTHER Diabetes mellitus 19 FATHER Review of Systems-General Constitutional: No chills, No diaphoresis, No malaise EENTM: No blurred vision, No double vision, No mouth pain, No mouth swelling, No epistaxis Respiratory: No cough, No dyspnea on exertion, No hemoptysis Cardiovascular: No chest pain; Hx of Intervention, palpitations Gastrointestinal: No abdominal pain, No jaundice; nausea, vomiting Genitourinary: No dysuria, No frequency, No hematuria Musculoskeletal: joint pain, joint swelling, muscle stiffness Skin: No change in color, No change in hair/nails Psychiatric/Neurological: Denies Anxiety, Denies Depressed; Pre-Existing Deficit, Weakness Other pt denies any hx of abnormal bleeding or bruising, but is on Coumadin and Plavix Physical Exam-General Problems Physical Exam Vital Signs Vital Signs - First Documented 06/02/18 14:55 Temp 97.4 Pulse 61 Resp 16 B/P (MAP) 92/61 (71) Pulse Ox 97 O2 Delivery Room Air Capillary Refill : Less Than 3 Seconds General Appearance: WD/WN, mild distress Eyes: Bilateral Eye PERRL, Bilateral Eye EOMI HEENT: pharynx normal; No scleral icterus (R), No scleral icterus (L); other ( left sided facial droop) Neck: non-tender, supple Respiratory: chest non-tender, lungs clear, normal breath sounds, no respiratory distress, no accessory muscle use, other (decreased BS at right base ) Cardiovascular: regular rate, rhythm, no edema, no murmur Gastrointestinal: normal bowel sounds, non tender, soft, no organomegaly, no pulsatile mass Extremities: no pedal edema, no calf tenderness, other (left sided paralysis) Neurologic/Psychiatric: normal mood/affect, oriented x 3 Skin: normal color, warm/dry Lymphatic: no adenopathy (neck, axilla or groin) Data Review Labs Laboratory Tests 06/04/18 19:58: Glucometer 195H 06/04/18 22:38: Glucometer 250H 06/04/18 23:25: White Blood Count 5.8, Red Blood Count 3.47L, Hemoglobin 10.9L, Hematocrit 32L, Mean Corpuscular Volume 92, Mean Corpuscular Hemoglobin 31, Mean Corpuscular Hemoglobin Concent 34, Red Cell Distribution Width 15.5H, Platelet Count 229, Mean Platelet Volume 9.6, Neutrophils (%) (Auto) 79H, Lymphocytes (%) (Auto) 12 , Monocytes (%) (Auto) 7, Eosinophils (%) (Auto) 1, Basophils (%) (Auto) 0, Neutrophils # (Auto) 4.6, Lymphocytes # (Auto) 0.7L, Monocytes # (Auto) 0.4, Eosinophils # (Auto) 0.0, Basophils # (Auto) 0.0, Sodium Level 137, Potassium Level 5.1H, Chloride Level 106, Carbon Dioxide Level 20L, Anion Gap 11, Blood Urea Nitrogen 20H, Creatinine 1.08, Estimat Glomerular Filtration Rate > 60, BUN /Creatinine Ratio 19, Glucose Level 264H, Calcium Level 8.9, Magnesium Level 2.2 , Troponin I < 0.30 06/05/18 03:04: White Blood Count 9.2, Red Blood Count 3.52L, Hemoglobin 11.1L, Hematocrit 33L, Mean Corpuscular Volume 92, Mean Corpuscular Hemoglobin 32, Mean Corpuscular Hemoglobin Concent 34, Red Cell Distribution Width 15.6H, Platelet Count 200, Mean Platelet Volume 9.8, Neutrophils (%) (Auto) 83H, Lymphocytes (%) (Auto) 9L , Monocytes (%) (Auto) 8, Eosinophils (%) (Auto) 0, Basophils (%) (Auto) 0, Neutrophils # (Auto) 7.6, Lymphocytes # (Auto) 0.8L, Monocytes # (Auto) 0.7, Eosinophils # (Auto) 0.0, Basophils # (Auto) 0.0, Sodium Level 138, Potassium Level 4.4, Chloride Level 108H, Carbon Dioxide Level 19L, Anion Gap 11, Blood Urea Nitrogen 21H, Creatinine 1.05, Estimat Glomerular Filtration Rate > 60, BUN /Creatinine Ratio 20, Glucose Level 192H, Calcium Level 8.4L, Magnesium Level 2.0, Neutrophils % (Manual) 85, Lymphocytes % (Manual) 10, Monocytes % (Manual) 4, Eosinophils % (Manual) 1, Blood Morphology Comment NORMAL, Absolute Reticulocyte Count 70, Percent Reticulocyte Count 1.98, Corrected Calcium 8.8, Total Bilirubin 2.2H, Aspartate Amino Transf (AST/SGOT) 21, Alanine Aminotransferase (ALT/SGPT) 40, Alkaline Phosphatase 73, Lactate Dehydrogenase 164, Total Protein 6.0L, Albumin 3.5 06/05/18 05:36: Lactic Acid Level 1.28 06/05/18 11:46: Glucometer 153H Assessment/Plan Assessment/Plan Assessment/Plan Intractable Vomiting Hx of AK Hx of CVA with residual Left sided weakness I am unsure of cause of his vomiting, he denies nausea and it is not related to any specific food. I ordered Zofran 8mg and Phenergan 25mg to be given 30-45 minutes prior to feeding him today. I also ordered an US of his GB; which is back now and does show sludge (quite a bit), but no wall thickening or pericholecystic fluid and no signs of acute GB problems. He was able to eat without vomiting after taking the meds; but he also got very agitated with the Phenergan. Will try to have pt eat again (with pre dose of Zofran) and hope that this vomiting is just self limited. I do not think there is a reason at this point to remove GB, unless he starts having pain and symptoms of cholecystitis. Clinical Quality Measures DVT/VTE Risk/Contraindication: Risk Factor Score Per Nursin RFS Level Per Nursing on Admit: 1=Low/No VTE PPX HARESH KING DO Jun 05, 2018 16:18
[2018-06-05] MEDS: warFARin 3 MG (COUMADIN) TAB PO SCH (19:27)
[2018-06-05] MEDS: MELATONIN 3 MG TABLET PO SCH (21:00)
[2018-06-05] MEDS ORDERED: LACTATED RINGERS 500 ML IV SCH (21:45)
[2018-06-06] VITALS (14 sets, daily range): BP systolic 96–135; BP diastolic 64–91
[2018-06-06 04:26] LABS: BUN/CREATININE RATIO 24; CALCIUM 8.5 MG/DL (8.5-10.1); CARBON DIOXIDE 20 MMOL/L (21-32); CHLORIDE 108 MMOL/L (98-107); CREATININE SERUM 0.78 MG/DL (0.60-1.30); GFR ESTIMATED > 60; GLUCOSE 109 MG/DL (70-105); POTASSIUM 3.9 MMOL/L (3.6-5.0); SODIUM 138 MMOL/L (135-145)
[2018-06-06] MEDS ORDERED: LIDOCAINE UROJET 2% GEL 10 ML PKG ONE (05:21)
[2018-06-06] MEDS: CATHETER FLUSH 10 ML SYR IV SCH (05:26)
[2018-06-06] MEDS ORDERED: LIDOCAINE UROJET 2% GEL 10 ML PKG TOP ONE (05:30)
[2018-06-06] MEDS: KCL 20 MEQ TAB (K-DUR) PO SCH (05:36)
[2018-06-06] MEDS: MAGNESIUM 1 GM/100 ML IVPB 100 ML IV SCH (05:36)
[2018-06-06] MEDS: POTASSIUM CL 10MEQ/50ML IVPB 50 ML IV SCH (05:36)
[2018-06-06] MEDS: inSUlin ASPART (NovoLOG) 1 UNIT/0.01 ML (CHARGE PER UNIT) SC SCH ×2 (05:37→11:46)
[2018-06-06] MEDS ORDERED: LACTATED RINGERS 500 ML IV ONE (05:45)
[2018-06-06] MEDS: ATORVASTATIN 80 MG (LIPITOR) TABLET PO SCH (08:20)
[2018-06-06] MEDS: CLOPIDOGREL 75 MG (PLAVIX) TABLET PO SCH (08:20)
[2018-06-06] MEDS: THIAMINE 100 MG (VITAMIN B-1) TAB PO SCH (08:20)
[2018-06-06] MEDS: FLUoxetine HCL 20 MG (PROzac) CAP PO SCH (08:20)
[2018-06-06] MEDS: ONDANSETRON 4 MG (ZOFRAN) ORAL DISSOLVE TAB PO PRN (08:20)
[2018-06-06] MEDS: AMIODARONE 200 MG (CORDARONE) TAB PO SCH (09:18)
[2018-06-06] MEDS ORDERED: ONDA4TAB11 PO (09:35)
--- NOTE | 2018-06-06 09:37 | Discharge Summary-Hospitalist ---
Diagnosis/Chief Complaint Date of Admission Jun 02, 2018 at 19:29 Date of Discharge Discharge Date: Jun 06, 2018 Discharge Diagnosis (1) Vomiting Status: Resolved (2) Ventricular tachycardia Status: Resolved (3) Ventricular bigeminy Status: Resolved (4) Diabetes mellitus, type 2 Status: Chronic (5) Ischemic cardiomyopathy Status: Chronic (6) CAD (coronary artery disease) Status: Chronic (7) Hypertension Status: Chronic (8) DVT prophylaxis Status: Acute (9) Chronic systolic (congestive) heart failure Status: Chronic (10) Bradycardia Status: Resolved (11) Cerebrovascular accident (CVA) with involvement of left side of body Status: Chronic Discharge Summary Discharge Physical Exam Allergies: Coded Allergies: promethazine (Verified Adverse Reaction, Unknown, restlessness, anxiety, extrapyramidal effects, 06/05/18) Vitals & I&Os Vital Signs Date Time Temp Pulse Resp B/P (MAP) Pulse Ox O2 Delivery O2 Flow Rate FiO2 06/06/18 15:26 06/06/18 13:00 41 18 96 Nasal Cannula 2.00 06/06/18 11:46 97.6 General Appearance: No Apparent Distress, WD/WN, Chronically ill Respiratory: Chest Non Tender, Lungs Clear, Normal Breath Sounds, No Accessory Muscle Use, No Respiratory Distress Cardiovascular: Regular Rate, Rhythm, No Edema, No Gallop, No JVD, No Murmur, Normal Peripheral Pulses Neurologic/Psychiatric: Alert, Oriented x3, Normal Mood/Affect, Motor Weakness Hospital Course Hospital course: patient had a complex hospital course. He was admitted from [facility] clinic appt with v-tach after recent DC from IRU after acute VA then sustaining a CVA w/L HP during the procedure 1 month prior. Patient was placed in ICU and Cardiology was consulted. Severe nausea and vomiting was managed with anti-emetics but the day before DC Dr Rivera was consulted and conservative management was successful. Pt was able to eat and drink and multiple cardiac meds were changed and he tolerated this well and was DC in improved condition to his sister's house with very close f/u appt with [facility]. Labs (last 24 hrs) Laboratory Tests 06/06/18 03:35: Sodium Level 138, Potassium Level 3.9, Chloride Level 108H, Carbon Dioxide Level 20L, Anion Gap 10, Blood Urea Nitrogen 19H, Creatinine 0.78, Estimat Glomerular Filtration Rate > 60, BUN/Creatinine Ratio 24, Glucose Level 109H, Calcium Level 8.5, Magnesium Level 2.0 06/06/18 11:43: Glucometer 147H Patient resulted labs reviewed. Pending Labs Discussion & Recommendations Discharge Planning: <30 minutes discharge planning Discharge Home Medications: Active Scripts Active Ondansetron Odt (Ondansetron) 4 Mg Tab.rapdis 4 Mg PO Q4HR PRN Vitamin B-1 (Thiamine HCl) 100 Mg Tablet 100 Mg PO DAILY@0700 30 Days Fluoxetine HCl 20 Mg Capsule 20 Mg PO DAILY 30 Days Coumadin (Warfarin Sodium) 3 Mg Tablet 6 Mg PO DAILY@1800 30 Days Novolog (Insulin Aspart) 100 Unit/1 Ml Susp 5 Unit SC WM 30 Days Levemir (Insulin Determir) 1,000 Units/10 Ml Soln 24 Unit SQ DAILY@1400 30 Days Vitamin D2 (Ergocalciferol (Vitamin D2)) 50,000 Unit Capsule 50,000 Units PO SA@ 09 30 Days Melatonin 3 Mg Tablet 6 Mg PO HS 30 Days Lisinopril 5 Mg Tablet 2.5 Mg PO DAILY Carvedilol 3.125 Mg Tablet 3.125 Mg PO BID Atorvastatin Calcium 80 Mg Tablet 80 Mg PO DAILY@0900 Amiodarone HCl 200 Mg Tablet 400 Mg PO DAILY Clopidogrel (Clopidogrel Bisulfate) 75 Mg Tablet 75 Mg PO DAILY Instructions to patient/family Please see electronic discharge instructions given to patient. Clinical Quality Measures DVT/VTE Risk/Contraindication: Risk Factor Score Per Nursin RFS Level Per Nursing on Admit: 1=Low/No VTE PPX Problem Qualifiers (1) Vomiting: Vomiting type: unspecified Vomiting Intractability: unspecified Nausea presence: unspecified Qualified Codes: R11.10 - Vomiting, unspecified (2) Diabetes mellitus, type 2: Diabetes mellitus [facility] insulin use: with [facility] use Diabetes mellitus complication status: with hyperglycemia Qualified Codes: E11.65 - Type 2 diabetes mellitus with hyperglycemia; Z79.4 - [employer] (current) use of insulin (3) CAD (coronary artery disease): Coronary Disease-Associated Artery/Lesion type: [place] artery [place] vs. transplanted heart: [place] heart Associated angina: without angina Qualified Codes: I25.10 - Atherosclerotic heart disease of [place] coronary artery without angina pectoris (4) Hypertension: Hypertension type: essential hypertension Qualified Codes: I10 - Essential ( primary) hypertension VIJAYA COVINGTON DO Jun 06, 2018 09:37
--- NOTE | 2018-06-06 10:14 | Cardiology Progress Note ---
Cardiology SOAP Progress Note Subjective: Much improved nausea and vomiting. Objective: I&O/Vital Signs 06/06/18 06/06/18 06/06/18 06/06/18 01:00 01:00 02:00 03:00 Pulse 73 73 72 69 Resp 15 16 16 B/P (MAP) 121/70 (87) 128/66 (86) 120/65 (83) Pulse Ox 98 97 97 O2 Delivery Nasal Cannula Nasal Cannula Nasal Cannula O2 Flow Rate 2.00 2.00 2.00 06/06/18 06/06/18 06/06/18 06/06/18 04:00 04:00 05:00 06:00 Pulse 71 71 72 Resp 15 16 17 B/P (MAP) 113/66 (82) 118/71 (87) 115/70 (85) Pulse Ox 96 97 97 97 O2 Delivery Nasal Cannula Nasal Cannula Nasal Cannula Nasal Cannula O2 Flow Rate 2.00 2.00 2.00 2.00 06/06/18 06/06/18 06/06/18 06/06/18 07:00 07:00 07:45 08:00 Temp 97.7 Pulse 75 71 Resp 13 B/P (MAP) 98/82 (87) Pulse Ox 97 O2 Delivery Nasal Cannula Nasal Cannula O2 Flow Rate 2.00 0.50 06/06/18 06/06/18 06/06/18 06/06/18 08:00 09:00 10:00 11:46 Temp 97.6 Pulse 73 77 76 Resp 14 15 18 B/P (MAP) 114/67 (83) 135/84 (101) 104/85 (91) Pulse Ox 96 96 95 O2 Delivery Nasal Cannula Nasal Cannula Nasal Cannula O2 Flow Rate 2.00 2.00 2.00 06/06/18 00:00 Intake Total 1000 ml Output Total 150 ml Balance 850 ml Weight (Pounds): 168 Weight (Ounces): 12.8 Weight (Calculated Kilograms): [id number] Constitutional: appears stated age, AAO x 3; No apparent distress; well- developed, well-nourished Respiratory: No accessory muscle use, No respiratory distress, No chest tender , No chest expansion is symmetric; chest is bilaterally symmetric; No lungs clear to percussion; lungs clear to auscultation; No crackles, No rhonchi, No rales, No stridor, No wheezing, No pleural rub, No other Cardiovascular: regular rate-rhythm; No irregularly irregular, No extra beats, No parasternal heave is noted, No JVD, No edema, No bradycardia, No tachycardia , No point of maximal impulse, No cardiac thrills are palpable; S1 and S2; No gallop/S3, No gallop/S4, No diastolic murmur, No systolic murmur, No friction rub, No click, No other Gastrointestional: No tender, No soft, No round, No distended, No pulsatile mass, No organomegaly, No guarding, No rebound, No tenderness, No hernia, No mass, No audible bowel sounds, No abnormal bowel sounds, No abdominal bruits, No spleenomegaly, No other Extremities: No normal range of motion, No non-tender, No normal inspection, No pedal edema, No calf tenderness, No normal capillary refill, No pelvis stable , No calf tenderness, No inflammation, No pedal edema, No slow capillary refill , No swelling, No other, No abrasion, No clubbing, No cyanosis, No ecchymosis, No laceration, No no lower extremity edema bilateral, No significant edema, No tenderness, No wound Neurologic/Psychiatric: alert, normal mood/affect, oriented x 3, motor weakness , power is 5/5 both on sides Skin: No normal color, No warm/dry, No cyanosis, No cool, No diaphoresis, No damp, No ecchymosis, No jaundice, No mottled, No pallor, No rash, No tattoos/ piercings, No ulcerations, No rash on exposed areas, No ulcerations on exposed areas, No other Results/Procedures: Labs Laboratory Tests 06/05/18 16:45: Glucometer 153H 06/05/18 19:27: Glucometer 224H 06/06/18 03:35: Sodium Level 138, Potassium Level 3.9, Chloride Level 108H, Carbon Dioxide Level 20L, Anion Gap 10, Blood Urea Nitrogen 19H, Creatinine 0.78, Estimat Glomerular Filtration Rate > 60, BUN/Creatinine Ratio 24, Glucose Level 109H, Calcium Level 8.5, Magnesium Level 2.0 06/06/18 11:43: Glucometer 147H A/P: Assessment/Dx: Ventricular tachycardia, Recent stroke, Previous NC, Ischemic cardiomyopathy, LifeVest, PVCs. Plan: Ventricular tachycardia, Recent stroke, Previous NC, Ischemic cardiomyopathy, LifeVest, PVCs. Improved nausea and vomiting. VT: I have reviewed all the strips provided by the [employer]. The patient had monomorphic ventricular tachycardia for 18 seconds. The patient denies any syncope, near-syncope or lightheadedness. This therefore does not qualify as sustained ventricular tachycardia. I discussed at length with the patient and parents. We have 2 options. The first option is to perform an EP study and attempt to induce monomorphic VT. If VT induced, ICD is recommended. The second option is to wait for 40 days post coronary angiography and recheck ejection fraction. If below 35 percent, implant an ICD. I will also discuss with Dr. Alvarado as well. Restart amiodarone. I will schedule echocardiogram after 40 days of the coronary angiogram for LV function evaluation. Patient may benefit from EP study and VT ablation for ischemic monomorphic VT. Bradycardia was noted on admission with heart rate in the 40s. This represents sinus node dysfunction. The patient requires beta blockers as essential therapy for cardiomyopathy and coronary artery disease, therefore the ICD will need to be dual-chamber. CAD: According to the patient he had significant chest pain episode 3 weeks before his stroke. Continue Plavix and Coumadin. PVCs: Ventricular bigeminy pattern. Narrow complex PVCs, could have a septal origin. Holding beta bro due to low blood pressure. No further PVCs on telemetry. Ischemic cardiomyopathy: Holding lisinopril and beta bro due to hypotension. Euvolemic on examination. The patient will follow with me for electrophysiology in the next one week and follow with Dr. Alvarado for general cardiology in 2-3 weeks. Thank you for your consultation. Please call me if you have any questions. Fadumo Hassan MD, FACP, FACC, FSCAI, FHRS, CCDS Interventional Cardiology Cardiac Electrophysiology Vascular Medicine and Endovascular Interventions Focused Exam Lactate Level 06/05/18 05:36: Lactic Acid Level 1.28 Donavan HASSAN MD Jun 06, 2018 10:14 am
--- NOTE | 2018-06-06 16:57 | Progress Note ---
Subjective Time Seen by a Provider: 13:01 Subjective/Events-last exam Pt stated he was eating without vomiting and still had no abdominal pain. States they were sending him home. Review of Systems General: No Chills, No Night Sweats Cardiovascular: Palpitations; No: Chest Pain Gastrointestinal: No: Nausea, Vomiting Focused Exam Lactate Level 06/05/18 05:36: Lactic Acid Level 1.28 Objective Exam Vital Signs Date Time Temp Pulse Resp B/P (MAP) Pulse Ox O2 Delivery O2 Flow Rate FiO2 06/06/18 15:26 06/06/18 13:00 41 18 111/76 (88) 96 Nasal Cannula 2.00 06/06/18 13:00 42 06/06/18 12:00 Room Air 06/06/18 12:00 42 17 132/91 (105) 94 Nasal Cannula 2.00 06/06/18 11:46 97.6 06/06/18 11:00 42 19 96/64 (75) 96 Nasal Cannula 2.00 06/06/18 10:00 76 18 104/85 (91) 95 Nasal Cannula 2.00 06/06/18 09:00 77 15 135/84 (101) 96 Nasal Cannula 2.00 06/06/18 08:00 73 14 114/67 (83) 96 Nasal Cannula 2.00 06/06/18 08:00 Nasal Cannula 0.50 06/06/18 07:45 97.7 06/06/18 07:00 71 13 98/82 (87) 97 Nasal Cannula 2.00 06/06/18 07:00 75 06/06/18 06:00 72 17 115/70 (85) 97 Nasal Cannula 2.00 06/06/18 05:00 71 16 118/71 (87) 97 Nasal Cannula 2.00 06/06/18 04:00 71 15 113/66 (82) 97 Nasal Cannula 2.00 06/06/18 04:00 96 Nasal Cannula 2.00 06/06/18 03:00 69 16 120/65 (83) 97 Nasal Cannula 2.00 06/06/18 02:00 72 16 128/66 (86) 97 Nasal Cannula 2.00 06/06/18 01:00 73 15 121/70 (87) 98 Nasal Cannula 2.00 06/06/18 01:00 73 06/06/18 00:00 96 Nasal Cannula 2.00 06/06/18 00:00 75 16 123/64 (83) 99 Nasal Cannula 2.00 06/05/18 23:17 Nasal Cannula 2.00 06/05/18 23:00 45 19 126/60 (82) 88 Room Air 06/05/18 22:00 79 19 100 Room Air 06/05/18 21:00 76 25 99/82 (88) 92 Room Air 06/05/18 20:00 95 Room Air 06/05/18 20:00 81 21 100 Room Air 06/05/18 19:00 80 06/05/18 19:00 79 18 100 Room Air 06/05/18 18:00 88 24 113/69 (84) 100 Room Air I & O 06/06/18 07:00 Intake Total 1000 ml Output Total 500 ml Balance 500 ml Capillary Refill : Less Than 3 Seconds General Appearance: No Apparent Distress, WD/WN, Chronically ill, Thin HEENT: PERRL/EOMI Respiratory: Chest Non Tender, Lungs Clear, Normal Breath Sounds, No Accessory Muscle Use, No Respiratory Distress Cardiovascular: No Edema, No Gallop, No JVD, No Murmur, Normal Peripheral Pulses, Bradycardia Gastrointestinal: normal bowel sounds, non tender, soft, no organomegaly, no pulsatile mass Extremity: Normal Inspection, No Pedal Edema Neurologic/Psychiatric: Alert, Oriented x3, Normal Mood/Affect, Motor Weakness (left) Skin: Normal Color, Warm/Dry Results Lab Laboratory Tests 06/05/18 19:27: Glucometer 224H 06/06/18 03:35: Sodium Level 138, Potassium Level 3.9, Chloride Level 108H, Carbon Dioxide Level 20L, Anion Gap 10, Blood Urea Nitrogen 19H, Creatinine 0.78, Estimat Glomerular Filtration Rate > 60, BUN/Creatinine Ratio 24, Glucose Level 109H, Calcium Level 8.5, Magnesium Level 2.0 06/06/18 11:43: Glucometer 147H Assessment/Plan Assessment/Plan Assessment/Plan Intractable Vomiting Hx of WI Hx of CVA with residual Left sided weakness Vomiting has resolved, agree with sending him home. If he has symptoms of cholecystitis, he can follow-up as an outpt. Clinical Quality Measures DVT/VTE Risk/Contraindication: Risk Factor Score Per Nursin RFS Level Per Nursing on Admit: 1=Low/No VTE PPX HARESH KING DO Jun 06, 2018 16:57
== END 2018-06-06 15:26 | disposition home health service (06) | DRG 281 ==
LOC: EDUNIT# 13:59 → ER 14:01 → 4TH 19:29 → ICU 06-05 02:13
PROVIDERS: ADMIT Family Medicine; ATTEND Family Medicine
DX: I47.2 Ventricular tachycardia (principal); I50.22 Chronic systolic (congestive) heart failure; I21.3 ST elevation (STEMI) myocardial infarction of unspecified site; I69.354 Hemiplegia and hemiparesis following cerebral infarction affecting left non-dominant side; R00.8 Other abnormalities of heart beat; I49.3 Ventricular premature depolarization; I11.0 Hypertensive heart disease with heart failure; I49.5 Sick sinus syndrome; I25.10 Atherosclerotic heart disease of native coronary artery without angina pectoris; I25.5 Ischemic cardiomyopathy; I69.392 Facial weakness following cerebral infarction; E11.65 Type 2 diabetes mellitus with hyperglycemia; R11.10 Vomiting, unspecified; I95.9 Hypotension, unspecified; Z79.4 Long term (current) use of insulin; Z79.01 Long term (current) use of anticoagulants; Z79.02 Long term (current) use of antithrombotics/antiplatelets; Z87.891 Personal history of nicotine dependence; Z95.5 Presence of coronary angioplasty implant and graft
CPT/HCPCS: 36415; 71045; 76705; 80048; 80053; 80061; 82247; 82248; 82962; 83605; 83615; 83735; 83874; 83880; 84484; 85007; 85025; 85027; 85045; 85610; 85730; 93005; 93041

== ENCOUNTER → 2020-12-08 | Outpatient (CLI) | payer MEDICAID ==
[~2020-12-08] MED LIST changes: -AMIO200T4 PO; +AMIO200T6 PO; +CATHETER FLUSH 10 ML SYR IV PRN; -FLUO20CA25 PO; +FLUO20CA46 PO; +HOLD METFORMIN - RECEIVED CONTRAST 20 ML VIAL IV SCH; +IOHEXOL 350 MG/ML 100 ML (OMNIPAQUE 350) VIAL IV ONE; -LISI-556 PO; +LISI-729 PO; -MELA3TAB PO; +MELA3TAB39 PO; +NS 100 ML (IVPB) BAG IV ONE; +ONDA4TAB11 PO; +RT-ALBUTEROL SULF 2.5 MG/3 ML PRE-MIX VIAL INH ONE
[2020-12-08 12:04] LABS: BUN/CREATININE RATIO 24; CREATININE SERUM 0.92 MG/DL (0.60-1.30); GFR ESTIMATED > 60
--- NOTE | 2020-12-08 14:21 | Diagnostic Imaging Report ---
EXAMINATION: CT chest with intravenous contrast. TECHNIQUE: Multiple contiguous axial images were obtained through the chest after the uneventful administration of intravenous contrast. All CT scans use one or more of the following dose optimizing techniques: automated exposure control, MA and/or KvP adjustment based on patient size and exam type or iterative reconstruction. HISTORY: DYSPNEA COMPARISON: None available. FINDINGS: There is no edema or pneumonia. No pleural effusion. No pneumothorax. No suspicious nodules. There are a few calcified granulomas in the right lung. There is no axillary or supraclavicular lymphadenopathy. There is no mediastinal lymphadenopathy. Left ventricle is dilated and thin-walled. Pacemaker is present. There are mild coronary artery calcifications. No pericardial effusion. Aorta is normal in caliber. Limited views of the upper abdomen show cholelithiasis. There are no suspicious osseus lesions. IMPRESSION: 1. Dilated and thin-walled left ventricle. Dictated by: Dictated on workstation # [id number]
== END ==
LOC: RT 10:34
PROVIDERS: ATTEND Internal Medicine Critical Care Medicine
DX: Z13.83 Encounter for screening for respiratory disorder NEC (principal); I51.7 Cardiomegaly; J44.9 Chronic obstructive pulmonary disease, unspecified
CPT/HCPCS: 36415; 71260; 82565; 84520; 94060; 94726; 94729

== ENCOUNTER 2020-12-29 05:56 | Observation (INO) | payer MEDICAID ==
[~2020-12-29] VITALS: Ht 168 cm; Wt 80.8 kg
[~2020-12-29 05:56] MED LIST changes: -CATHETER FLUSH 10 ML SYR IV PRN; -HOLD METFORMIN - RECEIVED CONTRAST 20 ML VIAL IV SCH; -IOHEXOL 350 MG/ML 100 ML (OMNIPAQUE 350) VIAL IV ONE; -NS 100 ML (IVPB) BAG IV ONE; -RT-ALBUTEROL SULF 2.5 MG/3 ML PRE-MIX VIAL INH ONE
[2020-12-29 06:22] LABS: BASOPHILS % (AUTO) 0 % (0-10); EOSINOPHILS # (AUTO) 0.1 10^3/uL (0.0-0.3); EOSINOPHILS % (AUTO) 2 % (0-10); HEMATOCRIT 41 % (40-54); HEMOGLOBIN 13.8 g/dL (13.3-17.7); LYMPHOCYTES # (AUTO) 0.9 10^3/uL (1.0-4.0); LYMPHOCYTES % (AUTO) 12 % (12-44); MEAN CORPUSCULAR HEMOGLOBIN 30 pg (25-34); MEAN CORPUSCULAR HGB CONC 34 g/dL (32-36); MEAN CORPUSCULAR VOLUME 90 fL (80-99); MEAN PLATELET VOLUME 9.7 fL (9.0-12.2); MONOCYTES # (AUTO) 0.7 10^3/uL (0.0-1.0); MONOCYTES % (AUTO) 9 % (0-12); NEUTROPHILS # (AUTO) 5.8 10^3/uL (1.8-7.8); NEUTROPHILS % (AUTO) 77 % (42-75); PLATELET COUNT 194 10^3/uL (130-400); WHITE BLOOD COUNT 7.5 10^3/uL (4.3-11.0)
[2020-12-29] MEDS ORDERED: LIDOCAINE 1% INJ 20 ML 20 ML VIAL INJ ONE (06:30)
[2020-12-29 06:32] LABS: ALBUMIN 3.7 GM/DL (3.2-4.5); CHLORIDE 102 MMOL/L (98-107); POTASSIUM 3.8 MMOL/L (3.6-5.0); SODIUM 137 MMOL/L (135-145)
[2020-12-29 06:33] LABS: CALCIUM 8.7 MG/DL (8.5-10.1)
[2020-12-29 06:34] LABS: GLUCOSE 160 MG/DL (70-105); TOTAL PROTEIN 7.1 GM/DL (6.4-8.2)
[2020-12-29 06:35] LABS: CARBON DIOXIDE 25 MMOL/L (21-32); INR 4.3 (0.8-1.4); PROTHROMBIN TIME PATIENT 41.3 SEC (12.2-14.7)
[2020-12-29 06:36] LABS: BILIRUBIN,TOTAL 2.1 MG/DL (0.1-1.0)
[2020-12-29 06:38] LABS: ALKALINE PHOSPHATASE 70 U/L (40-136); CREATININE SERUM 0.86 MG/DL (0.60-1.30); GFR ESTIMATED > 60
[2020-12-29 06:39] LABS: BUN/CREATININE RATIO 23
[2020-12-29 06:41] LABS: ALANINE AMINOTRANSFERASE 47 U/L (0-55); MAGNESIUM 1.8 MG/DL (1.6-2.4)
[2020-12-29] MEDS ORDERED: TETANUS,DIPTH,PERTUSS P/F (BOOSTRIX) 0.5 ML VIAL IM ONE (06:45)
--- NOTE | 2020-12-29 07:16 | Diagnostic Imaging Report ---
INDICATION: Chest pain and syncope. Comparison is made with prior examination from 09/01/2018. FINDINGS: There is cardiomegaly. There is some venous congestion. There is no pleural effusion or pneumothorax. Mediastinum is unremarkable. Pacemaker overlies left hemithorax IMPRESSION: Cardiomegaly and mild central pulmonary venous congestion. Dictated by: Dictated on workstation # [id number]
--- NOTE | 2020-12-29 07:20 | Diagnostic Imaging Report ---
PROCEDURE: CT head and CT cervical spine without contrast. TECHNIQUE: Multiple contiguous axial images were obtained through the brain and cervical spine without the use of intravenous contrast. Sagittal and coronal reformations through the cervical spine were then performed. Auto Exposure Controls were utilized during the CT exam to meet ALARA standards for radiation dose reduction. INDICATION: Syncope, trauma, head and neck injury. COMPARISON: 05/06/2018 FINDINGS: There is a moderate area of encephalomalacia in the right parietal lobe compatible with a prior right MCA territory infarct. There is no focus of acute ischemia or hemorrhage. There is no midline shift or mass effect. The ventricular size is normal. There is no skull fracture. Paranasal sinuses and mastoids are clear. IMPRESSION: No acute intracranial abnormalities. CT cervical spine: Alignment is normal. There is no subluxation or fracture. Mild degenerative changes are present. Soft tissues are unremarkable. IMPRESSION: No traumatic malalignment or fracture. Dictated by: Dictated on workstation # [id number]
--- NOTE | 2020-12-29 07:36 | ED Syncope ---
General Chief Complaint: Dizziness/Syncope Stated Complaint: SYNCOPE Nursing Triage Note: brought in by [facility] s/p syncopal episode. Source of Information: Patient Exam Limitations: No Limitations History of Present Illness Date Seen by Provider: December 29, 2020 Time Seen by Provider: 06:00 Initial Comments This 50-year-old gentleman presents to the emergency room via EMS after having a syncopal episode while doing a boot camp workout at the [facility]. He was running vigorously at the time and collapsed. He has amnesia around the actual collapse. He does not recall having a prodrome other than doing intense running for about 5 minutes prior to the episode. He denies any prior history of syncop e. He has a right upper lip laceration but denies any pain in the head or neck. He is alert and oriented at this time. He is diabetic and uses insulin. He did not use any long-acting insulin last night. He has not eaten yet today. His blood sugar on scene for EMS was 158. Vital signs are stable. He has a history of ischemic cardiomyopathy with an EF of 20 to 25% in 2018. He also has a noted chronic total mid LAD occlusion. He receives his cardiology services in [place] from Dr. Rapp and Dr. Dover (spelling?). His primary care provider is Dr. House at [facility]. He has fairly new to the area not well established with his medical services yet. He previously lived in [place], [place]. He is not accustomed to doing intense workouts and this is only his second Boot Camp workout. He also has history of right-sided CVA and is on warfarin therapy. He denies any chest pain, neck pain, or head pain. Allergies and Home Medications Allergies Coded Allergies: promethazine (Verified Adverse Reaction, Unknown, restlessness, anxiety, extrapyramidal effects, 06/05/18) Home Medications Albuterol Sulfate 1 Puff Puff, 2 PUFF IH Q4H PRN for SHORTNESS OF BREATH, (Reported) 1 PUFF = 90 MCG Last Action: Continued Amiodarone HCl 200 Mg Tablet, 200 MG PO DAILY, (Reported) Last Action: Continued Aspirin 81 Mg Tablet., 81 MG PO DAILY, (Reported) Last Action: Continued Atorvastatin Calcium 80 Mg Tablet, 80 MG PO DAILY, (Reported) Last Action: Continued Carvedilol 3.125 Mg Tablet, 3.125 MG PO DAILY, (Reported) LAST FILLED 04-22-2020 #180/180 DAY SUPPLY Last Action: Continued Cholecalciferol (Vitamin D3) 25 Mcg Capsule, 25 MCG PO DAILY, (Reported) Last Action: Converted Fluoxetine HCl 20 Mg Capsule, 20 MG PO DAILY, (Reported) Last Action: Continued Gabapentin 300 Mg Capsule, 300 MG PO DAILY, (Reported) Last Action: Continued Insulin Lispro 100 Unit/1 Ml Insuln.pen, 5 UNIT SQ AC, (Reported) Last Action: Held Melatonin 5 Mg Tablet, 5-10 MG PO HS, (Reported) Last Action: Converted Montelukast Sodium 10 Mg Tablet, 10 MG PO HS, (Reported) Last Action: Continued Sitagliptin Phosphate 50 Mg Tablet, 50 MG PO DAILY, (Reported) LAST FILLED 09-24-2020 #30/30 DAY SUPPLY Last Action: Converted Tadalafil 20 Mg Tablet, 20 MG PO UD PRN for PRN, (Reported) Last Action: Converted Tamsulosin HCl 0.4 Mg Cap, 0.4 MG PO DAILY, (Reported) Last Action: Continued Thiamine Mononitrate 100 Mg Tablet, 100 MG PO DAILY, (Reported) Last Action: Converted Warfarin Sodium 3 Mg Tablet, 3 MG PO SUN, (Reported) Last Action: Held Warfarin Sodium 4 Mg Tablet, 4 MG PO MO,TU,WE,TH,FR,SAT, (Reported) TAKES 4MG ALONG WITH 0.5MG ( OF A 1MG TAB) TO EQUAL 4.5MG Last Action: Held Warfarin Sodium 1 Mg Tablet, 0.5 MG PO MO,TU,WE,TH,FR,SAT, (Reported) TAKES OF A 1MG TAB ALONG WITH A 4MG TAB TO EQUAL 4.5MG Last Action: Held Patient Home Medication List Home Medication List Reviewed: Yes Review of Systems Constitutional: no symptoms reported EENTM: see HPI Respiratory: no symptoms reported Cardiovascular: see HPI Gastrointestinal: no symptoms reported Genitourinary: no symptoms reported Musculoskeletal: no symptoms reported Skin: no symptoms reported Psychiatric/Neurological: No Symptoms Reported Past Qvxurut-Yshnzk-Ryiqws Hx Patient Social History Alcohol Use: Denies Use Smoking Status: Former Smoker Type Used: Cigarettes Former Smoker, Quit: May 17, 1988 Recent Infectious Disease Expo: No Recent Hopitalizations: No Immunizations Up To Date Tetanus Booster (TDap): Unknown Date of Pneumonia Vaccine: May 14, 2018 Date of Influenza Vaccine: May 14, 2018 Seasonal Allergies Seasonal Allergies: No Past Medical History Surgeries: Yes (ppm) Abdominal, Coronary Stent, Defibrillator Respiratory: No Cardiac: Yes Coronary Artery Disease, Heart Attack Neurological: Yes Stroke Reproductive Disorders: No Sexually Transmitted Disease: No HIV/AIDS: No Genitourinary: No Gastrointestinal: No Musculoskeletal: No Endocrine: Yes Diabetes, Insulin dep HEENT: No Cancer: No Psychosocial: No Integumentary: No Blood Disorders: No Family Medical History Completed stroke 19 MOTHER Diabetes mellitus 19 FATHER Diabetes, Stroke Physical Exam Vital Signs Vital Signs - First Documented 12/29/20 05:58 Temp 36.5 Pulse 55 Resp 18 B/P (MAP) 110/74 (86) Pulse Ox 94 O2 Delivery Room Air Capillary Refill : Less Than 3 Seconds Height, Weight, BMI Height: 5'6.00" Weight: 168lbs. 12.8oz. [id number]; 26.00 BMI Method:Stated General Appearance: No Apparent Distress, WD/WN HEENT: PERRL/EOMI, Other (Teeth intact. 1 cm laceration over the right upper lip on the mucosal surface. Does not cross the vermilion border.) Neck: Normal Inspection, Non Tender Cardiovascular: Regular Rate, Rhythm, No Edema, No Murmur Respiratory: Lungs Clear, Normal Breath Sounds, No Accessory Muscle Use, No Respiratory Distress Gastrointestinal: Normal Bowel Sounds, Non Tender, Soft Extremities: Non Tender, No Pedal Edema Neurologic/Psychiatric: Alert, Oriented x3, No Motor/Sensory Deficits, Normal Mood/Affect, cia agent II-XII Norm as Tested Cranial Nerves: PERRL Motor/Sensory: No Motor Deficit, No Sensory Deficit Skin: Normal Color, Warm/Dry, Ecchymosis (Slight around the lip laceration. Ecchymosis on the left forearm from prior IV start.) Procedures/Interventions Wound Location: Face Other Wound Location Mucosal surface of right upper lip Wound Length (cm): 1 Wound's Depth, Shape: superficial Wound Explored: clean Irrigated w/ Saline (ccs): 20 Betadine Prep?: No Anesthesia: 1% Lidocaine Volume Anesthetic (ccs): 1 Suture: Vicryl Suture Size: 3-0 Number of Sutures: 2 Progress Nonmucosal surface was cleaned with alcohol. Wound was irrigated with sterile water. Wound was anesthetized with lidocaine and 2 interrupted sutures were placed to approximate the tissue. Patient tolerated the procedure well. Although the wound was on the mucosal surface, repair was necessary as the wound was catching on a tooth causing it to gape every time he talked or moved his mouth. Progress/Results/Core Measures Results/Orders Lab Results Laboratory Tests Test 12/29/20 06:15 Range/Units White Blood Count 7.5 4.3-11.0 10^3/uL Red Blood Count 4.54 4.30-5.52 10^6/uL Hemoglobin 13.8 13.3-17.7 g/dL Hematocrit 41 40-54 % Mean Corpuscular Volume 90 80-99 fL Mean Corpuscular Hemoglobin 30 25-34 pg Mean Corpuscular Hemoglobin Concent 34 32-36 g/dL Red Cell Distribution Width 12.6 10.0-14.5 % Platelet Count 194 130-400 10^3/uL Mean Platelet Volume 9.7 9.0-12.2 fL Immature Granulocyte % (Auto) 0 % Neutrophils (%) (Auto) 77 H 42-75 % Lymphocytes (%) (Auto) 12 12-44 % Monocytes (%) (Auto) 9 0-12 % Eosinophils (%) (Auto) 2 0-10 % Basophils (%) (Auto) 0 0-10 % Neutrophils # (Auto) 5.8 1.8-7.8 10^3/uL Lymphocytes # (Auto) 0.9 L 1.0-4.0 10^3/uL Monocytes # (Auto) 0.7 0.0-1.0 10^3/uL Eosinophils # (Auto) 0.1 0.0-0.3 10^3/uL Basophils # (Auto) 0.0 0.0-0.1 10^3/uL Immature Granulocyte # (Auto) 0.0 0.0-0.1 10^3/uL Prothrombin Time 41.3 H 12.2-14.7 SEC INR Comment 4.3 H 0.8-1.4 Activated Partial Thromboplast Time 41 H 24-35 SEC Sodium Level 137 135-145 MMOL/L Potassium Level 3.8 3.6-5.0 MMOL/L Chloride Level 102 98-107 MMOL/L Carbon Dioxide Level 25 21-32 MMOL/L Anion Gap 10 5-14 MMOL/L Blood Urea Nitrogen 20 H 7-18 MG/DL Creatinine 0.86 0.60-1.30 MG/DL Estimat Glomerular Filtration Rate > 60 BUN/Creatinine Ratio 23 Glucose Level 160 H 70-105 MG/DL Calcium Level 8.7 8.5-10.1 MG/DL Corrected Calcium 8.9 8.5-10.1 MG/DL Magnesium Level 1.8 1.6-2.4 MG/DL Total Bilirubin 2.1 H 0.1-1.0 MG/DL Aspartate Amino Transf (AST/SGOT) 37 H 5-34 U/L Alanine Aminotransferase (ALT/SGPT) 47 0-55 U/L Alkaline Phosphatase 70 40-136 U/L Myoglobin 117.7 H 10.0-92.0 NG/ML Troponin I < 0.028 <0.028 NG/ML Total Protein 7.1 6.4-8.2 GM/DL Albumin 3.7 3.2-4.5 GM/DL My Orders Orders - DIAZ SINGH MD Cbc With Automated Diff (12/29/20 06:15) Magnesium (12/29/20 06:15) Chest 1 View, Ap/Pa Only (12/29/20 06:15) Ekg Tracing (12/29/20 06:15) Comprehensive Metabolic Panel (12/29/20 06:15) Myoglobin Serum (12/29/20 06:15) Protime With Inr (12/29/20 06:15) Partial Thromboplastin Time (12/29/20 06:15) O2 (12/29/20 06:15) Monitor-Rhythm Ecg Trace Only (12/29/20 06:15) Lipid Panel (12/30/20 06:00) Ed Iv/Invasive Line Start (12/29/20 06:15) Troponin I (12/29/20 06:15) Ct Head/Cervical Spine Wo (12/29/20 06:19) Lidocaine 1% Inj 20 Ml (Xylocaine 1% Inj (12/29/20 06:30) Dipht,Pertuss(Acell),Tet Adult (Boostrix (12/29/20 06:45) Medications Given in ED Current Medications Medications Dose Ordered Sig/Meek Route Start Time Stop Time Status Last Admin Dose Admin Diphtheria/ Tetanus/Acell Pertussis 0.5 ml ONCE ONCE IM 12/29/20 06:45 12/29/20 06:46 DC 12/29/20 06:52 0.5 ML Vital Signs/I&O 12/29/20 05:58 Temp 36.5 Pulse 55 Resp 18 B/P (MAP) 110/74 (86) Pulse Ox 94 O2 Delivery Room Air Blood Pressure Mean: 86 Progress Progress Note #1: Time: 08:20 Progress Note Patient was seen and evaluated upon arrival. Work-up was grossly unremarkable except for supratherapeutic INR. CT of the head and cervical spine were unre markable. Patient feels relatively well except for being tired. He explains he only slept for about 1 hour last night. Although his work-up is unremarkable, admission is warranted due to his significant cardiac history and comorbidities of diabetes, stroke history, supratherapeutic INR, etc. We did attempt to interrogate his device but none of our readers were able to detect it. Patient received a tetanus booster in the ER. Progress Note #2: Time: 09:[address] Flores is here to evaluate patient. Initial ECG Impression Date: December 29, 2020 Initial ECG Impression Time: 05:58 Initial ECG Rate: 56 Initial ECG Rhythm: Normal Sinus Comment Sinus rhythm with no ST elevation or depression. First-degree AV block with WA interval 244. Diagnostic Imaging Diagonstic Imaging: CT Plain Films/CT/US/NM/MRI: c-spine, head Comments CT head and cervical spine viewed by me and report reviewed. See report below: NAME: MIRTA DESAI [facility] REC#: [id number] PT STATUS: REG ER : 1970 PHYSICIAN: DIAZ SINGH MD ADMIT DATE: 12/29/20/ER Draft Date of Exam:12/29/20 CT HEAD/CERVICAL SPINE WO PROCEDURE: CT head and CT cervical spine without contrast. TECHNIQUE: Multiple contiguous axial images were obtained through the brain and cervical spine without the use of intravenous contrast. Sagittal and coronal reformations through the cervical spine were then performed. Auto Exposure Controls were utilized during the CT exam to meet ALARA standards for radiation dose reduction. INDICATION: Syncope, trauma, head and neck injury. COMPARISON: 05/06/2018 FINDINGS: There is a moderate area of encephalomalacia in the right parietal lobe compatible with a prior right MCA territory infarct. There is no focus of acute ischemia or hemorrhage. There is no midline shift or mass effect. The ventricular size is normal. There is no skull fracture. Paranasal sinuses and mastoids are clear. IMPRESSION: No acute intracranial abnormalities. CT cervical spine: Alignment is normal. There is no subluxation or fracture. Mild degenerative changes are present. Soft tissues are unremarkable. IMPRESSION: No traumatic malalignment or fracture. Dictated on workstation # [id number] Dict: 12/29/2014 Trans: 12/29/20 0720 ADRIANNA [id number] Interpreted by: WALI HUANGtic Imaging: Xray Plain Films/CT/US/NM/MRI: chest Comments Chest x-ray viewed by me and report reviewed. See report below: NAME: MIRTA DESAI [facility] REC#: [id number] PT STATUS: REG ER : 1970 PHYSICIAN: DIAZ SINGH MD ADMIT DATE: 12/29/20/ER Draft Date of Exam:12/29/20 CHEST 1 VIEW, AP/PA ONLY INDICATION: Chest pain and syncope. Comparison is made with prior examination from 09/01/2018. FINDINGS: There is cardiomegaly. There is some venous congestion. There is no pleural effusion or pneumothorax. Mediastinum is unremarkable. Pacemaker overlies left hemithorax IMPRESSION: Cardiomegaly and mild central pulmonary venous congestion. Dictated on workstation # [id number] Dict: 12/29/2011 Trans: 12/29/20 0716 ADRIANNA [id number] Interpreted by: OLENA MORALES MD Departure Communication (Admissions) Time/Spoke to Admitting Phy: 08:10 Dr. Daphney Flores 08:15 Dr. Alvarado 08:06 Impression Primary Impression: Syncope Qualified Codes: R55 - Syncope and collapse Additional Impressions: Fall on same level Qualified Codes: W18.30XA - Fall on same level, unspecified, initial encounter Lip laceration Qualified Codes: S01.511A - Laceration without foreign body of lip, initial encounter Ischemic cardiomyopathy Supratherapeutic INR Disposition: ADMITTED INPATIENT Condition: Improved Admissions Decision to Admit Reason: Admit from ER (General) Decision to Admit/Date: December 29, 2020 Time/Decision to Admit Time: 08:06 Departure-Patient Inst. Referrals: [facility] (PCP/Family) Primary Care Physician DIAZ SINGH MD December 29, 2020 07:36
--- NOTE | 2020-12-29 10:40 | History & Physical-Hospitalist ---
History of Present Illness HPI/Chief Complaint CC: syncope HPI: This is a 50[facility]WM clinic Pt of [facility] who has a history of cardiomyopathy s/p defibrillator illator placement and DM insulin-requiring who presents after a syncopal episode during the bootcamp exercise regimen at the [facility] today. Apparently he wasnt eating and woke up early, started running and suffered this episode. Pt has recently moved back from [place] and we have consulted Dr. Alvarado for cardiology care. Troponins have been negative and otherwise Pt has not had any alarming signs during ER course. Source: patient Exam Limitations: no limitations Date Seen 12/29/20 Time Seen by a Provider: 10:45 Attending Physician Maria De Jesus Shelley DO [facility] Referring Physician Date of Admission December 29, 2020 at 08:39 Home Medications & Allergies Home Medications Reviewed patient Home Medication Reconciliation performed by pharmacy medication reconciliations i&c technician and/or nursing. Patients Allergies have been reviewed. Allergies Allergies Coded Allergies promethazine (Verified Adverse Reaction, Unknown, restlessness, anxiety, extrapyramidal effects, 06/05/18) Patient Social History Marrital Status: single Employed/Student: unemployed Tobacco Use?: No Smoking Status: Former Smoker Substance use?: No Alcohol Use?: No Pt stated abuse/neglect: No Immunizations Up To Date Influenza Vaccine Up-to-Date: No; Not Current First/Initial COVID19 Vaccinat: 11/24/20- J&J Tetanus Booster (TDap): Unknown Date of Pneumonia Vaccine: May 14, 2018 Current Status Do you have an Advance Directi: No Communicates: Verbally Primary Language: Tamazight Preferred Spoken Language: Tamazight Is interpretation needed?: No Past Medical History PMHx: DMII HTN DE CVA PSurgHx: Left hernia repair Review of Systems Constitutional: see HPI, dizziness, malaise, weakness Physical Exam Physical Exam Vital Signs Vital Signs - First Documented 12/29/20 05:58 Temp 36.5 Pulse 55 Resp 18 B/P (MAP) 110/74 (86) Pulse Ox 94 O2 Delivery Room Air Capillary Refill : Less Than 3 Seconds Height, Weight, BMI Height: 5'6.00" Weight: 168lbs. 12.8oz. 76.460805ai; 28.62 BMI Method:Stated General Appearance: No Apparent Distress Eyes: Right Eye Normal Inspection, Right Eye PERRL HEENT: PERRL/EOMI, TMs Normal, Normal ENT Inspection, Pharynx Normal, Moist Mucous Membranes Neck: Full Range of Motion, Normal Inspection, Non Tender Respiratory: Chest Non Tender, Lungs Clear, Normal Breath Sounds, No Accessory Muscle Use, No Respiratory Distress Cardiovascular: Regular Rate, Rhythm, No Edema, No Gallop, No JVD, No Murmur, Normal Peripheral Pulses Gastrointestinal: Normal Bowel Sounds, No Organomegaly, No Pulsatile Mass, Non Tender, Soft Back: Normal Inspection, No CVA Tenderness, No Vertebral Tenderness Extremity: Normal Capillary Refill, Normal Inspection, Normal Range of Motion, Non Tender, No Calf Tenderness, No Pedal Edema Neurologic/Psychiatric: Alert, Oriented x3, No Motor/Sensory Deficits, Normal Mood/Affect Skin: Normal Color, Warm/Dry Lymphatic: No Adenopathy Results Results/Procedures Labs Laboratory Tests 12/29/20 06:15 Patient resulted labs reviewed. Assessment/Plan Admission Diagnosis Assessment: Syncope during Boot camp work out Cardiomyopathy DM OAC Plan: ICU monitoring Cardiology consultation Coumadin Admission Status: Observation Diagnosis/Problems Diagnosis/Problems (1) Syncope Status: Acute Qualifiers: Syncope type: unspecified Qualified Codes: R55 - Syncope and collapse (2) Lip laceration Status: Acute Qualifiers: Encounter type: initial encounter Qualified Codes: S01.511A - Laceration without foreign body of lip, initial encounter (3) Fall on same level Status: Acute Qualifiers: Encounter type: initial encounter Qualified Codes: W18.30XA - Fall on same level, unspecified, initial encounter (4) Supratherapeutic INR Status: Acute (5) CAD (coronary artery disease) Status: Chronic (6) Ischemic cardiomyopathy Status: Chronic (7) Diabetes mellitus, type 2 Status: Chronic (8) Hypertension Status: Chronic (9) Chronic systolic (congestive) heart failure Status: Chronic MARIA DE JESUS SHELLEY DO December 29, 2020 10:40
[2020-12-29] MEDS ORDERED: ACETAMINOPHEN 500 MG TAB (TYLENOL) ONE (10:41)
[2020-12-29 10:45] VITALS: BP 107/64
[2020-12-29] MEDS ORDERED: ACETAMINOPHEN 500 MG TAB (TYLENOL) PO PRN (11:00)
--- NOTE | 2020-12-29 11:14 | Consultation-Cardiology ---
HPI-Cardiology Cardiology Consultation: Date of Consultation 12/29/20 Time Seen by a Provider: 10:40 Date of Admission 12-29-20 Attending Physician Maria De Jesus Shelley DO Admitting Physician [facility] Consulting Physician Kaur Alvarado MD HPI: Chief Complaint: Syncope Mr. Desai is a 50 yr old male admitted to ICU 11 from the ED with a syncopal episode. He reports he was at an exercise class this morning at the [facility], called [employer], he reports they started with a 5 minute run. He reports about 3 minutes in he was becoming very fatigued and states he feels he caught is foot on the rubber adair and fell forward. However, he does state he was running and the next thing he recalls he was on the floor and people were standing over him. He denies any c/o CP, SOB, palpitations, LE swelling or device shocks. He states he has a pacemaker/defib, but does not recall when or why. He states it was placed at [facility] in [place], [place]. He reports he feels well and wishes to go home. Review of Systems-Cardiology Review of Systems Constitutional: No chills, No fever, No malaise Ears/Nose/Throat: No ulcerations Respiratory: As described under HPI Cardiovascular: As described under HPI Gastrointestinal: No constipation, No diarrhea, No nausea, No vomiting Genitourinary: No dysuria, No hematuria Skin: No rash on exposed areas, No ulcerations on exposed areas Psychiatric/Neurological: As described under HPI, other (left upper and lower extremity weakness); No focal weakness Hematologic: No bleeding abnormalities XCP-Ksmwhm-Ahyprb Hx Patient Social History Smoking Status: Former Smoker Have you traveled recently?: No Alcohol Use?: No Pt feels they are or have been: No Immunizations Up To Date Tetanus Booster (TDap): Unknown Date of Pneumonia Vaccine: May 14, 2018 Date of Influenza Vaccine: May 14, 2018 Past Medical History PMH As described under Assessment. Family Medical History Family Medical History: Does not report fam h/o early CAD. Reports mother had a CVA. Family History: Completed stroke 19 MOTHER Diabetes mellitus 19 FATHER Allergies and Home Medications Allergies Coded Allergies: promethazine (Verified Adverse Reaction, Unknown, restlessness, anxiety, extrapyramidal effects, 06/05/18) Home Medications Albuterol Sulfate 1 Puff Puff, 2 PUFF IH Q4H PRN for SHORTNESS OF BREATH, (Reported) 1 PUFF = 90 MCG Last Action: Continued Amiodarone HCl 200 Mg Tablet, 200 MG PO DAILY, (Reported) Last Action: Continued Aspirin 81 Mg Tablet.dr, 81 MG PO DAILY, (Reported) Last Action: Continued Atorvastatin Calcium 80 Mg Tablet, 80 MG PO DAILY, (Reported) Last Action: Continued Carvedilol 3.125 Mg Tablet, 3.125 MG PO DAILY, (Reported) LAST FILLED 04-22-2020 #180/180 DAY SUPPLY Last Action: Continued Cholecalciferol (Vitamin D3) 25 Mcg Capsule, 25 MCG PO DAILY, (Reported) Last Action: Converted Fluoxetine HCl 20 Mg Capsule, 20 MG PO DAILY, (Reported) Last Action: Continued Gabapentin 300 Mg Capsule, 300 MG PO DAILY, (Reported) Last Action: Continued Insulin Lispro 100 Unit/1 Ml Insuln.pen, 5 UNIT SQ AC, (Reported) Last Action: Held Melatonin 5 Mg Tablet, 5-10 MG PO HS, (Reported) Last Action: Converted Montelukast Sodium 10 Mg Tablet, 10 MG PO HS, (Reported) Last Action: Continued Sitagliptin Phosphate 50 Mg Tablet, 50 MG PO DAILY, (Reported) LAST FILLED 09-24-2020 #30/30 DAY SUPPLY Last Action: Converted Tadalafil 20 Mg Tablet, 20 MG PO UD PRN for PRN, (Reported) Last Action: Converted Tamsulosin HCl 0.4 Mg Cap, 0.4 MG PO DAILY, (Reported) Last Action: Continued Thiamine Mononitrate 100 Mg Tablet, 100 MG PO DAILY, (Reported) Last Action: Converted Physical Exam-Cardiology Physical Exam Vital Signs/I&O Capillary Refill : Less Than 3 Seconds Constitutional: AAO x 3, well-developed, well-nourished HEENT: PERRL, hearing is well preserved, oral hygience is good Neck: No carotid bruit; carotid pulses are 2 + bilaterally Respiratory: No accessory muscle use, No respiratory distress; chest expansion is symmetric, chest is bilaterally symmetric, lungs clear to auscultation Cardiovascular: regular rate-rhythm; No JVD; S1 and S2 Gastrointestinal: No tender; soft, round, audible bowel sounds Extremities: no lower extremity edema bilateral Neurologic/Psychiatric: other (LUE and LLE 4/5) Skin: No rash on exposed areas, No ulcerations on exposed areas Data Review Labs Radiology NAME: MIRTA DESAI [facility] REC#: [id number] PT STATUS: ADM IN : 1970 PHYSICIAN: DIAZ SINGH MD ADMIT DATE: 12/29/20/ICU Signed Date of Exam:12/29/20 CHEST 1 VIEW, AP/PA ONLY INDICATION: Chest pain and syncope. Comparison is made with prior examination from 09/01/2018. FINDINGS: There is cardiomegaly. There is some venous congestion. There is no pleural effusion or pneumothorax. Mediastinum is unremarkable. Pacemaker overlies left hemithorax IMPRESSION: Cardiomegaly and mild central pulmonary venous congestion. Dictated by: Dictated on workstation # [id number] Dict: 12/29/20 0711 Trans: 12/29/20 0920 ADRIANNA [id number] Interpreted by: OLENA MORALES MD Electronically signed by: OLENA MORALES MD 12/29/20 0920 A/P-Cardiology Assessment/Admission Diagnosis Syncopal episode of undetermined etiology Ischemic CVA - CT of head on 05-08-18 showed evolving mod sized subacute right MCA territory infarct without hemorrhage. No signif changes in additional tiny subacute right MCA territory and right cerebellar infarcts; thrombectomy on 05-06-18 - followed by Neurology services at [facility] I[facility] - Echocardiogram of 05-06-18 showed LVEF 25%; mod LV dilation; layered mural LV apical thrombus; RV apical thrombus; Mild TR; LVEF 20% on echocardiogram of 05-16-18 at [facility]. -Pacer/ AICD implanted at [facility] in [place], [place] - date unknown ([employer] device, interrogation carried out today shows 7% LV pacing, one 12 beat run of NSVT for which a shock was NOT delivered) CAD -Suspected STEMI on 05-05-18 for which he underwent cardiac cath by Dr. Alvarado which showed coronary artery disease, primarily consisting of mid vessel occlusion of the left anterior descending. This appears to be a chronic total occlusion and was not amenable to percutaneous intervention. The rest of the coronary vessels have moderate diffuse disease. Ischemic cardiomyopathy with anterolateral and apical dyskinesis and left ventricular ejection fraction of 20% to 25%. Elevated left ventricular end-diastolic pressure. - Subseqeunt cardiac cath at [facility] on 05-15-[address] Whyte showed 100% occlusion of the prox LAD (appears to be chronic, no intervention done); 50% mid left cx with an iFR of 1.0; nondominant RCA with mod dz - Has been following with cardiology by Dr. Bernstein in [place], [place] DM 2 HLD - statin tx OAC with warfarin - initiated by Med and Neuro Svces at [facility] - INR management by PCP (Dr. Streeter in [place], [place]) Discussion and Recomendations Syncope vs fall of undetermined etiology Device interrogation shows no device shocks Request records from [facility] in [place] Monitor lab Replace electrolytes as indicated Echocardiogram today Further recs will be based on his hospital course We would like to thank medical services for this consult VALE MAGALLON December 29, 2020 11:14
[2020-12-29] MEDS ORDERED: CATHETER FLUSH 10 ML SYR IV PRN (11:15)
[2020-12-29] MEDS ORDERED: ONDANSETRON 4 MG/2 ML (SDV) Z0FRAN IVP PRN (11:15)
[2020-12-29] MEDS ORDERED: inSUlin ASPART (NovoLOG) 1 UNIT/0.01 ML (CHARGE PER UNIT) SC SCH ×2 (13:00→15:00)
[2020-12-29 13:45] VITALS: BP 107/71
[2020-12-29] MEDS ORDERED: CATHETER FLUSH 10 ML SYR IV SCH (14:00)
[2020-12-29] MEDS ORDERED: THIA100T68 PO (14:06)
[2020-12-29] MEDS ORDERED: WARF3TAB56 PO (14:06)
[2020-12-29] MEDS ORDERED: MONT10TA32 PO (14:06)
[2020-12-29] MEDS ORDERED: GABA300C PO (14:06)
[2020-12-29] MEDS ORDERED: ATOR80TA76 PO (14:06)
[2020-12-29] MEDS ORDERED: RT-ALBUINH IH (14:06)
[2020-12-29] MEDS ORDERED: WARF4TAB3 PO (14:06)
[2020-12-29] MEDS ORDERED: TMSL.4C PO (14:06)
[2020-12-29] MEDS ORDERED: AMIO200T6 PO (14:06)
[2020-12-29] MEDS ORDERED: ASPI-1238 PO (14:06)
[2020-12-29] MEDS ORDERED: WRF1T PO (14:06)
[2020-12-29] MEDS ORDERED: FLUO20CA42 PO (14:06)
[2020-12-29] MEDS ORDERED: CHOL100048 PO (14:06)
[2020-12-29] MEDS ORDERED: MELA5TAB14 PO (14:06)
[2020-12-29] MEDS ORDERED: CARV3.122 PO (14:13)
[2020-12-29] MEDS ORDERED: SITA50TA PO (14:13)
[2020-12-29] MEDS ORDERED: TADA20TA43 PO (14:14)
[2020-12-29] MEDS ORDERED: INSU100I23 SQ (14:17)
[2020-12-29 16:00] VITALS: BP 115/74
--- NOTE | 2020-12-29 17:39 | Consultation-Cardiology ---
HPI-Cardiology Cardiology Consultation: Date of Consultation 12/29/20 Time Seen by a Provider: 17:20 Date of Admission Attending Physician Maria De Jesus Shelley DO Admitting Physician [facility] Consulting Physician BLAKE ALVARADO MD, FACP, FAC HPI: Chief Complaint: CC: Fall vs Syncope HPI Mr. Mitchell is a 50 yr old male admitted to ICU 11 from the ED with a syncopal episode. He reports he was at an exercise class this morning at the [facility], [employer], he reports they started with a 5 minute run. He reports about 3 minutes in he was becoming very fatigued and states he feels he caught is foot on the rubber adair and fell forward. However, he does state he was running and the next thing he recalls he was on the floor and people were standing over him. He denies any c/o CP, SOB, palpitations, LE swelling or device shocks. He states he has a pacemaker/defib, but does not recall when or why. He states it was placed at [facility] in [place], [place]. He reports he feels well and wishes to go home. Review of Systems-Cardiology Review of Systems Constitutional: No chills, No fever, No malaise Ears/Nose/Throat: No ulcerations Respiratory: As described under HPI Cardiovascular: As described under HPI Gastrointestinal: No constipation, No diarrhea, No nausea, No vomiting Genitourinary: No dysuria, No hematuria Skin: No rash on exposed areas, No ulcerations on exposed areas Psychiatric/Neurological: As described under HPI, other (left upper and lower extremity weakness); No focal weakness Hematologic: No bleeding abnormalities ZEY-Wywihl-Sddqdq Hx Patient Social History Smoking Status: Former Smoker Have you traveled recently?: No Alcohol Use?: No Pt feels they are or have been: No Immunizations Up To Date Tetanus Booster (TDap): Unknown Date of Pneumonia Vaccine: May 14, 2018 Date of Influenza Vaccine: May 14, 2018 Past Medical History PMH As described under Assessment. Family Medical History Family Medical History: Does not report fam h/o early CAD. Reports mother had a CVA. Family History: Completed stroke 19 MOTHER Diabetes mellitus 19 FATHER Allergies and Home Medications Allergies Coded Allergies: promethazine (Verified Adverse Reaction, Unknown, restlessness, anxiety, extrapyramidal effects, 06/05/18) Home Medications Albuterol Sulfate 1 Puff Puff, 2 PUFF IH Q4H PRN for SHORTNESS OF BREATH, (Reported) 1 PUFF = 90 MCG Last Action: Reviewed Amiodarone HCl 200 Mg Tablet, 200 MG PO DAILY, (Reported) Last Action: Reviewed Aspirin 81 Mg Tablet.dr, 81 MG PO DAILY, (Reported) Last Action: Reviewed Atorvastatin Calcium 80 Mg Tablet, 80 MG PO DAILY, (Reported) Last Action: Reviewed Carvedilol 3.125 Mg Tablet, 3.125 MG PO DAILY, (Reported) LAST FILLED 04-22-2020 #180/180 DAY SUPPLY Last Action: Reviewed Cholecalciferol (Vitamin D3) 25 Mcg Capsule, 25 MCG PO DAILY, (Reported) Last Action: Reviewed Fluoxetine HCl 20 Mg Capsule, 20 MG PO DAILY, (Reported) Last Action: Reviewed Gabapentin 300 Mg Capsule, 300 MG PO DAILY, (Reported) Last Action: Reviewed Insulin Lispro 100 Unit/1 Ml Insuln.pen, 5 UNIT SQ AC, (Reported) Last Action: New Order Melatonin 5 Mg Tablet, 5-10 MG PO HS, (Reported) Last Action: Reviewed Montelukast Sodium 10 Mg Tablet, 10 MG PO HS, (Reported) Last Action: Reviewed Sitagliptin Phosphate 50 Mg Tablet, 50 MG PO DAILY, (Reported) LAST FILLED 09-24-2020 #30/30 DAY SUPPLY Last Action: Reviewed Tadalafil 20 Mg Tablet, 20 MG PO UD PRN for PRN, (Reported) Last Action: Reviewed Tamsulosin HCl 0.4 Mg Cap, 0.4 MG PO DAILY, (Reported) Last Action: Reviewed Thiamine Mononitrate 100 Mg Tablet, 100 MG PO DAILY, (Reported) Last Action: Reviewed Warfarin Sodium 3 Mg Tablet, 3 MG PO SUN, (Reported) Last Action: Reviewed Warfarin Sodium 4 Mg Tablet, 4 MG PO MO,TU,WE,TH,FR,SAT, (Reported) TAKES 4MG ALONG WITH 0.5MG ( OF A 1MG TAB) TO EQUAL 4.5MG Last Action: Reviewed Warfarin Sodium 1 Mg Tablet, 0.5 MG PO MO,TU,WE,TH,FR,SAT, (Reported) TAKES OF A 1MG TAB ALONG WITH A 4MG TAB TO EQUAL 4.5MG Last Action: Reviewed Patient Home Medication List Home Medication List Reviewed: Yes Physical Exam-Cardiology Physical Exam Vital Signs/I&O 12/29/20 12/29/20 12/29/20 12/29/20 05:58 09:28 09:38 09:57 Temp 36.5 Pulse 55 53 56 Resp 18 20 B/P (MAP) 110/74 (86) 123/70 Pulse Ox 94 98 96 O2 Delivery Room Air Room Air 12/29/20 12/29/20 12/29/20 12/29/20 10:45 10:52 11:00 12:00 Pulse 59 60 59 Resp 21 B/P (MAP) 107/64 (78) Pulse Ox 97 95 95 O2 Delivery Room Air Room Air Room Air Room Air 12/29/20 12/29/20 12/29/20 12/29/20 12:02 12:53 13:45 15:00 Temp 37.0 Pulse 53 52 52 Resp 18 25 B/P (MAP) 107/71 (83) Pulse Ox 96 97 O2 Delivery Room Air Room Air 12/29/20 16:00 B/P (MAP) 115/74 (88) Pulse Ox 96 O2 Delivery Room Air Capillary Refill : Less Than 3 Seconds Constitutional: AAO x 3, well-developed, well-nourished HEENT: PERRL, hearing is well preserved, oral hygience is good Neck: No carotid bruit; carotid pulses are 2 + bilaterally Respiratory: No accessory muscle use, No respiratory distress; chest expansion is symmetric, chest is bilaterally symmetric, lungs clear to auscultation Cardiovascular: regular rate-rhythm; No JVD; S1 and S2 Gastrointestinal: No tender; soft, round, audible bowel sounds Extremities: no lower extremity edema bilateral Neurologic/Psychiatric: other (LUE and LLE 4/5 (sometimes L leg weakness causes mild imbalance, he says)) Skin: No rash on exposed areas, No ulcerations on exposed areas Data Review Labs Laboratory Tests 12/29/20 06:15: White Blood Count 7.5, Red Blood Count 4.54, Hemoglobin 13.8, Hematocrit 41, Mean Corpuscular Volume 90, Mean Corpuscular Hemoglobin 30, Mean Corpuscular Hemoglobin Concent 34, Red Cell Distribution Width 12.6, Platelet Count 194, Mean Platelet Volume 9.7, Immature Granulocyte % (Auto) 0, Neutrophils (%) (Auto) 77H, Lymphocytes (%) (Auto) 12, Monocytes (%) (Auto) 9, Eosinophils (%) (Auto) 2, Basophils (%) (Auto) 0, Neutrophils # (Auto) 5.8, Lymphocytes # (Auto) 0.9L, Monocytes # (Auto) 0.7, Eosinophils # (Auto) 0.1, Basophils # (Auto) 0.0, Immature Granulocyte # (Auto) 0.0, Prothrombin Time 41.3H, INR Comment 4.3H, Activated Partial Thromboplast Time 41H, Sodium Level 137, Potassium Level 3.8, Chloride Level 102, Carbon Dioxide Level 25, Anion Gap 10, Blood Urea Nitrogen 20H, Creatinine 0.86, Estimat Glomerular Filtration Rate > 60, BUN/Creatinine Ratio 23, Glucose Level 160H, Calcium Level 8.7, Corrected Calcium 8.9, Magnesium Level 1.8, Total Bilirubin 2.1H, Aspartate Amino Transf (AST/SGOT) 37H , Alanine Aminotransferase (ALT/SGPT) 47, Alkaline Phosphatase 70, Myoglobin 117.7H, Troponin I < 0.028, Total Protein 7.1, Albumin 3.7 12/29/20 10:13: Troponin I < 0.028 12/29/20 14:53: Glucometer 155H A/P-Cardiology Assessment/Admission Diagnosis Syncope vs fall 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 No signif changes in additional tiny subacute right MCA territory and right cerebellar infarcts; thrombectomy on 05-06-18 - followed by Neurology services at [facility] - Echocardiogram of 05-06-18 showed LVEF 25%; mod LV dilation; layered mural LV apical thrombus; RV apical thrombus; Mild TR; LVEF 20% on echocardiogram of 05-16-18 at [facility]. -Pacer/ AICD implanted at [facility] in [place], [place] - Dr De La Torre, date unknown ([employer] device, interrogation carried out today shows 7% LV pacing, one 12 beat run of NSVT in November 2020 for which a shock was NOT delivered) - Echo on 12/29/20: LVEF 30-35%, anterolateral akinesis CAD -Suspected STEMI on 05-05-18 for which he underwent cardiac cath by Dr. Alvarado which showed coronary artery disease, primarily consisting of mid vessel occlusion of the left anterior descending. This appears to be a chronic total occlusion and was not amenable to percutaneous intervention. The rest of the coronary vessels have moderate diffuse disease. Ischemic cardiomyopathy with anterolateral and apical dyskinesis and left ventricular ejection fraction of 20% to 25%. Elevated left ventricular end-diastolic pressure. - Subseqeunt cardiac cath at [facility] on 05-15-[address] Whyte showed 100% occlusion of the prox LAD (appears to be chronic, no intervention done); 50% mid left cx with an iFR of 1.0; nondominant RCA with mod dz - Mid-RCA stenting (REDD, 3x15) by Dr Rapp in [place] - no evidence of acute CA on this admission of 12-29-20 DM 2 HLD - statin tx OAC with warfarin - initiated by Med and Neuro Svces at [facility] - INR management by PCP (Dr. Streeter in [place], [place]) Discussion and Recomendations Syncope vs fall of undetermined etiology, no evidence of any ac CA or any significant arrhythmia today Device interrogation shows no device shocks today Continue previous cardiac regimen. 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 INR is supra-therapeutic. Dr Shelley is managing. Pt will not be following with us. Dr Shelley will arrange for adjustment of warfarin dose and f/u on INR BLAKE ALVARADO MD FACP FAC CCDS December 29, 2020 17:39
--- NOTE | 2020-12-29 17:55 | Discharge Summary ---
Discharge Summary Hospital Course Was the Problem List Reviewed?: Yes Problems/Dx: (1) Syncope Status: Acute Qualifiers: Qualified Codes: R55 - Syncope and collapse Hospital Course Date of Admission: December 29, 2020 at 08:39 Admission Diagnosis : Family Physician/Provider: [facility] Date of Discharge: 12/29/20 Discharge Diagnosis: syncope Hospital Course: See HPI Labs and Pending Lab Test: Laboratory Tests 12/29/20 06:15: White Blood Count 7.5, Red Blood Count 4.54, Hemoglobin 13.8, Hematocrit 41, M edelmira Corpuscular Volume 90, Mean Corpuscular Hemoglobin 30, Mean Corpuscular Hemoglobin Concent 34, Red Cell Distribution Width 12.6, Platelet Count 194, Mean Platelet Volume 9.7, Immature Granulocyte % (Auto) 0, Neutrophils (%) (Auto) 77H, Lymphocytes (%) (Auto) 12, Monocytes (%) (Auto) 9, Eosinophils (%) (Auto) 2, Basophils (%) (Auto) 0, Neutrophils # (Auto) 5.8, Lymphocytes # (Auto) 0.9L, Monocytes # (Auto) 0.7, Eosinophils # (Auto) 0.1, Basophils # (Auto) 0.0, Immature Granulocyte # (Auto) 0.0, Prothrombin Time 41.3H, INR Comment 4.3H, Activated Partial Thromboplast Time 41H, Sodium Level 137, Potassium Level 3.8, Chloride Level 102, Carbon Dioxide Level 25, Anion Gap 10, Blood Urea Nitrogen 20H, Creatinine 0.86, Estimat Glomerular Filtration Rate > 60, BUN/Creatinine Ratio 23, Glucose Level 160H, Calcium Level 8.7, Corrected Calcium 8.9, Magnesium Level 1.8, Total Bilirubin 2.1H, Aspartate Amino Transf (AST/SGOT) 37H , Alanine Aminotransferase (ALT/SGPT) 47, Alkaline Phosphatase 70, Myoglobin 117.7H, Troponin I < 0.028, Total Protein 7.1, Albumin 3.7 12/29/20 10:13: Troponin I < 0.028 12/29/20 14:53: Glucometer 155H Home Meds Active Reported Humalog Kwikpen (Insulin Lispro) 100 Unit/1 Ml Insuln.pen 5 Unit SQ AC Tadalafil 20 Mg Tablet 20 Mg PO UD PRN Carvedilol 3.125 Mg Tablet 3.125 Mg PO DAILY LAST FILLED 04-22-2020 #180/180 DAY SUPPLY Januvia (Sitagliptin Phosphate) 50 Mg Tablet 50 Mg PO DAILY LAST FILLED 09-24-2020 #30/30 DAY SUPPLY Melatonin 5 Mg Tablet 5-10 Mg PO HS Vitamin B-1 (Thiamine Mononitrate) 100 Mg Tablet 100 Mg PO DAILY Vitamin D3 (Cholecalciferol (Vitamin D3)) 25 Mcg Capsule 25 Mcg PO DAILY Aspirin EC (Aspirin) 81 Mg Tablet.dr 81 Mg PO DAILY Proair Hfa (Albuterol Sulfate) 1 Puff Puff 2 Puff IH Q4H PRN 1 PUFF = 90 MCG Montelukast Sodium 10 Mg Tablet 10 Mg PO HS Atorvastatin Calcium 80 Mg Tablet 80 Mg PO DAILY Prozac (Fluoxetine HCl) 20 Mg Capsule 20 Mg PO DAILY Neurontin (Gabapentin) 300 Mg Capsule 300 Mg PO DAILY Warfarin Sodium 1 Mg Tablet 0.5 Mg PO MO,TU,WE,TH,FR,SAT TAKES OF A 1MG TAB ALONG WITH A 4MG TAB TO EQUAL 4.5MG Warfarin Sodium 4 Mg Tablet 4 Mg PO ,,,TH,FR,SAT TAKES 4MG ALONG WITH 0.5MG ( OF A 1MG TAB) TO EQUAL 4.5MG Warfarin Sodium 3 Mg Tablet 3 Mg PO SUN Amiodarone HCl 200 Mg Tablet 200 Mg PO DAILY Flomax (Tamsulosin HCl) 0.4 Mg Cap 0.4 Mg PO DAILY Assessment/Pt Instructions [facility] Tuesday INR Tue Discharge Planning: <30 minutes discharge planning Discharge Instructions Discharge Diet: ADA Diet Activity as Tolerated: Yes Discharge Physical Examination Vital Signs Vital Signs Date Time Temp Pulse Resp B/P (MAP) Pulse Ox O2 Delivery O2 Flow Rate FiO2 12/29/20 16:00 115/74 (88) 96 Room Air 12/29/20 15:00 52 25 12/29/20 12:02 37.0 General Appearance: No Apparent Distress, WD/WN, Chronically ill Allergies: Coded Allergies: promethazine (Verified Adverse Reaction, Unknown, restlessness, anxiety, extrapyramidal effects, 06/05/18) Discharge Summary Date of Admission December 29, 2020 at 08:39 Date of Discharge Discharge Date: December 29, 2020 VIJAYA COVINGTON DO December 29, 2020 17:55
[2020-12-29] MEDS ORDERED: RT-ALBUTEROL SULF 2.5 MG/3 ML PRE-MIX VIAL IH PRN (18:00)
[2020-12-29] MEDS ORDERED: TADALAFIL 20 MG PO PRN (18:00)
--- NOTE | 2020-12-29 18:10 | Consultation - Surgery ---
History of Present Illness History of Present Illness Patient Consulted On(carol/time) 12/29/20 09:30 Date Seen by Provider: December 29, 2020 Time Seen by Provider: 09:30 History of Present Illness Consult requested by Dr. Benito for fall Patient is a 50-year-old male with a history of CVA on anticoagulation. Patient was doing workout at [facility] this morning. He states he got about 1 hour sleep so is fatigued. Started doing this [employer] workout when he fell and struck his head. Patient unsure if had any loss of consciousness but does not remember events around the fall. Patient had laceration to the right upper lip which had stitches repaired by Dr. Benito. Patient states that this area was catching on his tooth causing more discomfort. Patient feeling better now. He has no other complaints at this time. He had a CT of the head and C-spine which did not demonstrate any acute abnormality. He denies any fever sweats chills shortness of breath or chest pain at this time. GCS currently 15 Allergies and Home Medications Allergies Coded Allergies: promethazine (Verified Adverse Reaction, Unknown, restlessness, anxiety, extrapyramidal effects, 06/05/18) Home Medications Albuterol Sulfate 1 Puff Puff, 2 PUFF IH Q4H PRN for SHORTNESS OF BREATH, (Reported) 1 PUFF = 90 MCG Last Action: Continued Amiodarone HCl 200 Mg Tablet, 200 MG PO DAILY, (Reported) Last Action: Continued Aspirin 81 Mg Tablet.dr, 81 MG PO DAILY, (Reported) Last Action: Continued Atorvastatin Calcium 80 Mg Tablet, 80 MG PO DAILY, (Reported) Last Action: Continued Carvedilol 3.125 Mg Tablet, 3.125 MG PO DAILY, (Reported) LAST FILLED 04-22-2020 #180/180 DAY SUPPLY Last Action: Continued Cholecalciferol (Vitamin D3) 25 Mcg Capsule, 25 MCG PO DAILY, (Reported) Last Action: Converted Fluoxetine HCl 20 Mg Capsule, 20 MG PO DAILY, (Reported) Last Action: Continued Gabapentin 300 Mg Capsule, 300 MG PO DAILY, (Reported) Last Action: Continued Insulin Lispro 100 Unit/1 Ml Insuln.pen, 5 UNIT SQ AC, (Reported) Last Action: Held Melatonin 5 Mg Tablet, 5-10 MG PO HS, (Reported) Last Action: Converted Montelukast Sodium 10 Mg Tablet, 10 MG PO HS, (Reported) Last Action: Continued Sitagliptin Phosphate 50 Mg Tablet, 50 MG PO DAILY, (Reported) LAST FILLED 09-24-2020 #30/30 DAY SUPPLY Last Action: Converted Tadalafil 20 Mg Tablet, 20 MG PO UD PRN for PRN, (Reported) Last Action: Converted Tamsulosin HCl 0.4 Mg Cap, 0.4 MG PO DAILY, (Reported) Last Action: Continued Thiamine Mononitrate 100 Mg Tablet, 100 MG PO DAILY, (Reported) Last Action: Converted Patient Home Medication List Home Medication List Reviewed: Yes Past Bmfgkbd-Oczlsn-Falekj Hx Patient Social History Smoking Status: Former Smoker Former Smoker, Quit: May 17, 1988 Type Used: Cigarettes Recent Hopitalizations: No Alcohol Use?: No Have you traveled recently?: No Immunizations Up To Date Tetanus Booster (TDap): Unknown Date of Pneumonia Vaccine: May 14, 2018 Date of Influenza Vaccine: May 14, 2018 Seasonal Allergies Seasonal Allergies: No Surgeries History of Surgeries: Yes (ppm) Surgeries: Abdominal, Coronary Stent, Defibrillator Respiratory History of Respiratory Disorde: No Cardiovascular History of Cardiac Disorders: Yes Cardiac Disorders: Coronary Artery Disease, Heart Attack Neurological History of Neurological Disord: Yes Neurological Disorders: Stroke Reproductive System Hx Reproductive Disorders: No Sexually Transmitted Disease: No HIV/AIDS: No Genitourinary History of Genitourinary Disor: No Gastrointestinal History of Gastrointestinal Di: No Musculoskeletal History of Musculoskeletal Dis: No Endocrine History of Endocrine Disorders: Yes Endocrine Disorders: Diabetes, Insulin dep HEENT History of HEENT Disorders: No Cancer History of Cancer: No Psychosocial History of Psychiatric Problem: No Integumentary History of Skin or Integumenta: No Blood Transfusions History of Blood Disorders: No Reviewed Nursing Assessment Reviewed/Agree w Nursing PMH: Yes Family Medical History Significant Family History: No Pertinent Family Hx, Diabetes, Stroke Family Medial History: Completed stroke 19 MOTHER Diabetes mellitus 19 FATHER Review of Systems-General Constitutional: No chills, No diaphoresis; dizziness EENTM: No blurred vision, No double vision Respiratory: No dyspnea on exertion, No short of breath Cardiovascular: No chest pain, No palpitations Gastrointestinal: No abdominal pain, No nausea, No vomiting Genitourinary: No decreased output, No discharge Musculoskeletal: No back pain, No joint pain Skin: No change in color, No change in hair/nails Psychiatric/Neurological: Denies Anxiety, Denies Depressed, Denies Emotional Problems All Other Systems Reviewed Negative Unless Noted: Yes (Negative excepted noted.) Physical Exam-General Problems Physical Exam Vital Signs Vital Signs - First Documented 12/29/20 05:58 Temp 36.5 Pulse 55 Resp 18 B/P (MAP) 110/74 (86) Pulse Ox 94 O2 Delivery Room Air Capillary Refill : Less Than 3 Seconds General Appearance: WD/WN, no apparent distress HEENT: PERRL/EOMI, other (Nares are patent mouth is moist laceration with some swelling of the right upper lip) Neck: full range of motion, supple Respiratory: chest non-tender, no respiratory distress, no accessory muscle use Cardiovascular: regular rate, rhythm, no JVD Gastrointestinal: non tender, soft Rectal: deferred Back: no CVA tenderness, no vertebral tenderness Extremities: non-tender, normal inspection 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, no motor/sensory deficits, alert, normal mood/affect, oriented x 3 Skin: normal color, warm/dry Lymphatic: no adenopathy Data Review Labs Laboratory Tests 12/29/20 06:15: White Blood Count 7.5, Red Blood Count 4.54, Hemoglobin 13.8, Hematocrit 41, Mean Corpuscular Volume 90, Mean Corpuscular Hemoglobin 30, Mean Corpuscular Hemoglobin Concent 34, Red Cell Distribution Width 12.6, Platelet Count 194, Mean Platelet Volume 9.7, Immature Granulocyte % (Auto) 0, Neutrophils (%) (Auto) 77H, Lymphocytes (%) (Auto) 12, Monocytes (%) (Auto) 9, Eosinophils (%) (Auto) 2, Basophils (%) (Auto) 0, Neutrophils # (Auto) 5.8, Lymphocytes # (Auto) 0.9L, Monocytes # (Auto) 0.7, Eosinophils # (Auto) 0.1, Basophils # (Auto) 0.0, Immature Granulocyte # (Auto) 0.0, Prothrombin Time 41.3H, INR Comment 4.3H, Activated Partial Thromboplast Time 41H, Sodium Level 137, Potassium Level 3.8, Chloride Level 102, Carbon Dioxide Level 25, Anion Gap 10, Blood Urea Nitrogen 20H, Creatinine 0.86, Estimat Glomerular Filtration Rate > 60, BUN/Creatinine Ratio 23, Glucose Level 160H, Calcium Level 8.7, Corrected Calcium 8.9, Mag nesium Level 1.8, Total Bilirubin 2.1H, Aspartate Amino Transf (AST/SGOT) 37H, Alanine Aminotransferase (ALT/SGPT) 47, Alkaline Phosphatase 70, Myoglobin 117.7H, Troponin I < 0.028, Total Protein 7.1, Albumin 3.7 12/29/20 10:13: Troponin I < 0.028 12/29/20 14:53: Glucometer 155H Assessment/Plan Assessment/Plan Assessment/Plan Fall Supratherapeutic INR History of CVA Laceration right upper lip Patient with fall from standing. While doing work-up. Patient being admitted. Will need neuro checks. CT of the head and C-spine no acute injuries if he has a neurological change would recommend repeating CT of the head due to him being on anticoagulation. Pain control No surgical intervention needed at this time. JASON MORELOS DO December 29, 2020 18:10
[2020-12-29] MEDS ORDERED: MONTELUKAST 10 MG (SINGULAIR) TAB PO SCH (21:00)
[2020-12-29] MEDS ORDERED: MELATONIN 10 MG TABLET PO SCH (21:00)
[2020-12-29] MEDS ORDERED: MELATONIN PO SCH (21:00)
[2020-12-30] MEDS ORDERED: THIAMINE 100 MG (VITAMIN B-1) TAB PO SCH (07:00)
[2020-12-30] MEDS ORDERED: NON-FORMULARY MEDICATION 1 EA EA (Sitagliptin Phosphate (Januvia) 50 MG) PO SCH (09:00)
[2020-12-30] MEDS ORDERED: THIAMINE MONONITRATE 100 MG PO SCH (09:00)
[2020-12-30] MEDS ORDERED: VITAMIN D3 25 MCG (1,000 UNITS) TABLET PO SCH (09:00)
[2020-12-30] MEDS ORDERED: AMIODARONE 200 MG (CORDARONE) TAB PO SCH (09:00)
[2020-12-30] MEDS ORDERED: GABAPENTIN 300 MG (NEURONTIN) CAP PO SCH (09:00)
[2020-12-30] MEDS ORDERED: ASPIRIN E.C. 81 MG (ECOTRIN) TAB PO SCH (09:00)
[2020-12-30] MEDS ORDERED: FLUoxetine HCL 20 MG (PROzac) CAP PO SCH (09:00)
[2020-12-30] MEDS ORDERED: TAMSULOSIN 0.4 MG (FLOMAX) CAP PO SCH (09:00)
[2020-12-30] MEDS ORDERED: NON-FORMULARY MEDICATION 1 EA EA (Cholecalciferol (Vitamin D3) (Vitamin D3) 25 MCG) PO SCH (09:00)
== END 2020-12-29 17:53 | disposition home or self-care (01) ==
LOC: EDUNIT# 05:56 → ER 05:58 → ICU 08:39 → UNDOADMIN 08:39 → ICU 09:57 → UNDODISIN 19:00
PROVIDERS: ADMIT Internal Medicine; ATTEND Internal Medicine
DX: R55 Syncope and collapse (principal); I25.10 Atherosclerotic heart disease of native coronary artery without angina pectoris; E11.9 Type 2 diabetes mellitus without complications; S01.511A Laceration without foreign body of lip, initial encounter; I25.2 Old myocardial infarction; I50.22 Chronic systolic (congestive) heart failure; I11.9 Hypertensive heart disease without heart failure; E78.5 Hyperlipidemia, unspecified; I36.1 Nonrheumatic tricuspid (valve) insufficiency; Z79.01 Long term (current) use of anticoagulants; Z79.82 Long term (current) use of aspirin; Z79.899 Other long term (current) drug therapy; Z79.51 Long term (current) use of inhaled steroids; Z79.4 Long term (current) use of insulin; W18.30XA Fall on same level, unspecified, initial encounter; Z87.891 Personal history of nicotine dependence; Z95.5 Presence of coronary angioplasty implant and graft; Z86.73 Personal history of transient ischemic attack (TIA), and cerebral infarction without residual deficits
CPT/HCPCS: 12011; 36415; 70450; 71045; 72125; 80053; 82947; 83735; 83874; 84484; 85025; 85610; 85730; 90471; 90715; 93005; 93041; 93306

== ENCOUNTER 2021-03-12 10:27 | Outpatient (CLI) | payer MEDICAID ==
[~2021-03-12] VITALS: Ht 167.7 cm; Wt 81.0 kg
[~2021-03-12 10:27] MED LIST changes: +ASPI-1238 PO; +CHOL100048 PO; +FLUO20CA42 PO; +GABA300C PO; +INSU100I23 SQ; +MELA5TAB14 PO; +MONT10TA32 PO; +RT-ALBUINH IH; +SITA50TA PO; +TADA20TA43 PO; +THIA100T68 PO; +TMSL.4C PO; +WARF3TAB56 PO; +WARF4TAB3 PO; +WRF1T PO
[2021-03-12] MEDS ORDERED: CASIRIVIMAB/IMDEVIMAB 1,200 MG in NS (IVPB) 250 ML IV ONE (10:45)
[2021-03-12] MEDS ORDERED: EPINEPHrine INJECTION 1 MG/ML AMP IM PRN (10:45)
[2021-03-12] MEDS ORDERED: diphenhydrAMINE 50 MG/ML INJ (BENADRYL) IV PRN (10:45)
[2021-03-12 10:47] VITALS: BP 98/68
[2021-03-12 11:40] VITALS: BP 115/68
== END 2021-03-12 11:58 | disposition home or self-care (01) ==
LOC: INFUSION 10:27
PROVIDERS: ATTEND Nurse Practitioner Family
DX: Z23 Encounter for immunization (principal); U07.1 COVID-19

== ENCOUNTER → 2021-04-13 | Outpatient (CLI) | payer MEDICAID ==
[~2021-04-13] MED LIST changes: +CATHETER FLUSH 10 ML SYR IV PRN; +HOLD METFORMIN - RECEIVED CONTRAST 20 ML VIAL IV SCH; +IOHEXOL 350 MG/ML 100 ML (OMNIPAQUE 350) VIAL IV ONE; +NS 100 ML (IVPB) BAG IV ONE
[2021-04-13 12:51] LABS: CREATININE SERUM 0.72 MG/DL (0.60-1.30)
--- NOTE | 2021-04-13 14:04 | Diagnostic Imaging Report ---
PROCEDURE: CT angiography of the chest with contrast. TECHNIQUE: Multiple contiguous axial images were obtained through the chest after uneventful bolus administration of intravenous contrast. 3D reconstructed CTA MIP acquisitions were also performed. Auto Exposure Controls were utilized during the CT exam to meet ALARA standards for radiation dose reduction. INDICATION: Apical aneurysm. COMPARISON: Comparison is made with prior CT of the chest from 12/08/2020. FINDINGS: Left chest wall cardiac pacemaker is in place. No axillary lymphadenopathy is detected. Calcified right paratracheal lymph node is similar to prior exam. Catherine are unremarkable. Pulmonary arteries are unremarkable. There is no pericardial fluid. There is trace left pleural effusion. Previously noted left ventricular dilatation with myocardial thinning, particularly at the apex, is similar to prior exam. A nodular density in the right lung apex is stable at 9 mm. There is a calcified granuloma in the right upper lobe as well. There is some scarring or atelectasis in the lingula. Lungs are otherwise clear. Upper abdomen does show numerous stones within the gallbladder. IMPRESSION: 1. Development of trace left pleural effusion. 2. Otherwise, stable CTA of the chest when compared with exam from 12/08/2020. Dictated by: Dictated on workstation # [id number]
== END ==
LOC: RAD 13:15
PROVIDERS: ATTEND Surgery
DX: I25.3 Aneurysm of heart (principal); J90 Pleural effusion, not elsewhere classified
CPT/HCPCS: 36415; 71275; 82565; 84520

== ENCOUNTER → 2021-06-04 | Outpatient (CLI) | payer MEDICAID ==
[~2021-06-04] MED LIST changes: -CATHETER FLUSH 10 ML SYR IV PRN; -HOLD METFORMIN - RECEIVED CONTRAST 20 ML VIAL IV SCH; -IOHEXOL 350 MG/ML 100 ML (OMNIPAQUE 350) VIAL IV ONE; -NS 100 ML (IVPB) BAG IV ONE
--- NOTE | 2021-06-04 10:17 | Diagnostic Imaging Report ---
EXAMINATION: Chest 2 view HISTORY: ASTHMA COMPARISON: 09/01/2018 FINDINGS: Stable enlargement of the cardiac silhouette. Surgical changes from median sternotomy and CABG. Left-sided cardiac device is unchanged. There are mild interstitial opacities within the lung bases. No pleural effusion or pneumothorax. The osseous structures are intact. IMPRESSION: 1. Stable cardiomegaly with mild interstitial opacities in the lung bases. This could represent atelectasis, pulmonary edema, or atypical infection. Dictated by: Dictated on workstation # [id number]
== END ==
LOC: RAD 09:22
PROVIDERS: ATTEND Nurse Practitioner Family
DX: I51.7 Cardiomegaly (principal); J45.909 Unspecified asthma, uncomplicated
CPT/HCPCS: 71046

== ENCOUNTER 2021-08-12 10:14 | Outpatient (RCR) | payer MEDICARE, MEDICAID ==
[~2021-08-12 10:14] MED LIST changes: -AMIO200T6 PO; +AMIO200T65 PO; -FLUO20CA46 PO; +FLUO20CA48 PO; -LISI-729 PO; +LISI5TAB20 PO; +MONT-40 PO; -MONT10TA32 PO
== END 2021-08-14 | disposition home or self-care (01) ==
LOC: CR 10:14
PROVIDERS: ATTEND Surgery
DX: Z95.1 Presence of aortocoronary bypass graft (principal)
CPT/HCPCS: 93798